=== PATIENT | male | born 1970 | race Caucasian/White ===

== ENCOUNTER 2023-11-27 05:00 | Outpatient (CLI) | payer BC, SELFPAY ==
[2023-11-27 14:02] LABS: Abs Immature Grans 0.03 10^3/uL (0.0-0.06); Absolute Basophil Count 0.06 10^3/uL (0.0-0.2); Absolute Eosinophil Count 0.24 10^3/uL (0.0-0.7); Absolute Lymphocyte Count 2.92 10^3/uL (1.2-3.4); Absolute Monocyte Count 0.53 10^3/uL (0.1-0.8); Absolute Neutrophil Count 4.63 10^3/uL (1.2-6.7); Basophils % 0.7 %; Eosinophils % 2.9 %; HCT 44.2 % (40.0-50.0); HGB 14.5 g/dL (13.5-17.5); Immature Grans % 0.4 %; Lymphocytes % 34.7 %; MCH 28.9 pg (27.0-33.0); MCHC 32.8 % (32.0-36.0); MCV 88 fL (80-95); MPV 9.5 fL (8.0-11.0); Monocytes % 6.3 %; Platelet Count 244 10^3/uL (130-400); RBC 5.01 10^6/uL (4.36-5.78); RDW 14.7 % (11.8-14.1); RDW-SD 47.8 fL; WBC 8.41 10^3/uL (4.4-10.8)
[2023-11-27 14:28] LABS: ALT 43 U/L (16-63); AST 20 U/L (15-37); Albumin 3.6 g/dL (3.4-5.0); Alkaline Phosphatase 98 U/L (46-116); Anion Gap 9.1 mmol/L (3-11); BUN 19 mg/dL (7-18); Bilirubin, Total 0.5 mg/dL (0.2-1.0); CO2 26.9 mmol/L (21.0-32.0); CREATININE 1.3 mg/dL (0.70-1.30); Calcium 8.9 mg/dL (8.5-10.1); Chloride 106 mmol/L (98-107); Glucose 97 mg/dL (74-106); Potassium 4.3 mmol/L (3.5-5.1); Sodium 142 mmol/L (136-145); TSH 1.53 uIU/Ml (0.36-3.74); Total Protein 7.9 g/dL (6.4-8.2)
== END 2023-11-27 05:01 | disposition home or self-care (01) ==
LOC: LBO 05:01
PROVIDERS: Visit Provider Internal Medicine
DX: C64.2 Malignant neoplasm of left kidney, except renal pelvis (principal); R94.2 Abnormal results of pulmonary function studies
CPT/HCPCS: 36415; 80053; 84439; 84443; 85025

== ENCOUNTER 2023-12-24 05:07 | Outpatient (CLI) | payer BC, SELFPAY ==
[2023-12-24 09:07] LABS: Abs Immature Grans 0.03 10^3/uL (0.0-0.06); Absolute Eosinophil Count 0.28 10^3/uL (0.0-0.7); Absolute Lymphocyte Count 3.19 10^3/uL (1.2-3.4); Absolute Monocyte Count 0.43 10^3/uL (0.1-0.8); Absolute Neutrophil Count 3.69 10^3/uL (1.2-6.7); Basophils % 1.3 %; Eosinophils % 3.6 %; HGB 15.5 g/dL (13.5-17.5); Immature Grans % 0.4 %; Lymphocytes % 41.3 %; MCH 28.8 pg (27.0-33.0); MCV 87 fL (80-95); MPV 9.6 fL (8.0-11.0); Monocytes % 5.6 %; Neutrophils % 47.8 %; Platelet Count 234 10^3/uL (130-400); RBC 5.38 10^6/uL (4.36-5.78); RDW 14.9 % (11.8-14.1); RDW-SD 47.7 fL; WBC 7.72 10^3/uL (4.4-10.8)
[2023-12-24 09:32] LABS: ALT 35 U/L (16-63); AST 18 U/L (15-37); Albumin 3.5 g/dL (3.4-5.0); Alkaline Phosphatase 108 U/L (46-116); Anion Gap 7.4 mmol/L (3-11); BUN 16 mg/dL (7-18); Bilirubin, Total 0.4 mg/dL (0.2-1.0); CO2 28.6 mmol/L (21.0-32.0); CREATININE 1.2 mg/dL (0.70-1.30); Chloride 104 mmol/L (98-107); Estimated GFR 72.76 (mL/min/1.73m2); FREE T4 0.94 ng/dL (0.76-1.46); Glucose 133 mg/dL (74-106); Potassium 4.4 mmol/L (3.5-5.1); Sodium 140 mmol/L (136-145); TSH 1.21 uIU/Ml (0.36-3.74); Total Protein 7.8 g/dL (6.4-8.2)
== END 2023-12-24 05:08 | disposition home or self-care (01) ==
LOC: LBO 05:07
PROVIDERS: Visit Provider Internal Medicine
DX: C64.2 Malignant neoplasm of left kidney, except renal pelvis (principal); R94.6 Abnormal results of thyroid function studies
CPT/HCPCS: 36415; 80053; 84439; 84443; 85025

== ENCOUNTER 2024-01-14 03:10 | Outpatient (CLI) | payer BC, SELFPAY ==
[2024-01-14 13:42] LABS: Abs Immature Grans 0.03 10^3/uL (0.0-0.06); Absolute Basophil Count 0.07 10^3/uL (0.0-0.2); Absolute Eosinophil Count 0.27 10^3/uL (0.0-0.7); Absolute Lymphocyte Count 2.93 10^3/uL (1.2-3.4); Absolute Monocyte Count 0.61 10^3/uL (0.1-0.8); Absolute Neutrophil Count 3.89 10^3/uL (1.2-6.7); Basophils % 0.9 %; Eosinophils % 3.5 %; HCT 44.8 % (40.0-50.0); HGB 14.9 g/dL (13.5-17.5); Immature Grans % 0.4 %; Lymphocytes % 37.6 %; MCH 29.3 pg (27.0-33.0); MCHC 33.3 % (32.0-36.0); MCV 88 fL (80-95); MPV 9.7 fL (8.0-11.0); Monocytes % 7.8 %; Neutrophils % 49.8 %; Platelet Count 224 10^3/uL (130-400); RBC 5.09 10^6/uL (4.36-5.78); RDW 14.1 % (11.8-14.1); RDW-SD 45.3 fL
[2024-01-14 14:06] LABS: ALT 37 U/L (16-63); AST 17 U/L (15-37); Albumin 3.7 g/dL (3.4-5.0); Alkaline Phosphatase 103 U/L (46-116); Anion Gap 5.8 mmol/L (3-11); BUN 15 mg/dL (7-18); Bilirubin, Total 0.71 mg/dL (0.2-1.0); CO2 29.2 mmol/L (21.0-32.0); CREATININE 1.2 mg/dL (0.70-1.30); Chloride 103 mmol/L (98-107); Estimated GFR 72.76 (mL/min/1.73m2); FREE T4 1.19 ng/dL (0.76-1.46); Glucose 92 mg/dL (74-106); Sodium 138 mmol/L (136-145); TSH 0.18 uIU/Ml (0.36-3.74)
== END 2024-01-14 03:11 | disposition home or self-care (01) ==
LOC: LBO 03:11
PROVIDERS: Visit Provider Internal Medicine
DX: C64.2 Malignant neoplasm of left kidney, except renal pelvis (principal); R94.6 Abnormal results of thyroid function studies
CPT/HCPCS: 36415; 80053; 84439; 84443; 85025

== ENCOUNTER 2024-02-04 01:26 | Outpatient (CLI) | payer BC, SELFPAY ==
--- OUTSIDE RECORDS SUMMARY | 2024-02-04 01:31 | XMS_ITS | Encounter Summary ---
Author Organization [facility] Address [facility] [place] [id number] Care Team Providers Care Disc Pad Grinding Machine Feeder Name Role Phone Celso Dukes MD Primary Care Provider Encounter Details Date Type Department Care Team (Latest Contact Info) Description 12/24/2023 Travel Social History Tobacco Use Types Packs/Day Years Used Date Smoking Tobacco: Former Cigarettes 0.5 15 0 09/17/2008 - 09/18/2023 Smokeless Tobacco: Former Chew Quit: 09/18/2023 Comments:Using Zyn pouches r eported 10/25/23 Alcohol Use Standard Drinks/Week Comments Yes 6 (1 standard drink = 0.6 oz pur e alcohol) [facility] Utilities Answer Date Recorded In the past 12 months has e electric, gas, oil, or water company threatened to shut off services in your home? No 10/25/2023 Overall Financial Resource Strain (CARDIA) Answe r Date Recorded How hard is it for you to pa y for the very basics like food, housing, medical care, and heating? Somewhat hard 10/25/2023 Hunger Vital Sign Answer Date Recorded Within the past 12 months, y ou worried that your food would run out before you got the money to buy more. Never true 10/25/19 24 Within the past 12 months, t he food you bought just didn't last and you didn't have money to get more. Never true 10/25/2023 PRAPARE - Transportation Answer Date Re corded In the past 12 months, has l ack of transportation kept you from medical appointments or from getting medications? No 10/13 In the past 12 months, has l ack of transportation kept you from meetings, work, or from getting things needed for daily living? No 10/25/2023 Housing Stability Vital Sign Answer Evens e Recorded In the last 12 months, was t here a time when you were not able to pay the mortgage or rent on time? No 10/25/2023 In the last 12 months, how many places have you lived? 1 10/25/2023 In the last 12 months, was t here a time when you did not have a steady place to sleep or slept in a half-way (including now)? No 10/25/2023 DH IPV Inpatient Questions Answer Date Recorded Does Anyone Try to Keep You From Having Contact with Others or Doing Things Outside Your Home? no 09/18/2023 Feels Threatened by Someone no 12/2023 Feels Unsafe at Home or Work/School no 09/18/2023 Physical Signs of Abuse Present no 09/18/2023 Sex and Gender Information Value Date Recorded Sex Assigned at Not on file Gender Identity Not on file Sexual Orientation Not on file documented as of this encounter Plan of Treatment Upcoming Encounters Date Type Department Care Team (Late st Contact Info) Description 02/04/2024 10:00 AM EDT Scheduled View Only Hematology/Oncology at [address] [phone] Dana Davis RN 02/04/2024 10:00 AM EDT Infusion Hematology Oncology at [address] [phone] 02/24/2024 9:30 AM EDT Office Visit Hematology/Oncology at [address] [phone] Francisca Quinonez, [facility] [place] [address] 02/24/2024 10:30 AM EDT Infusion Hematology Oncology at [address] [phone] 03/17/2024 10:00 AM EDT Infusion Hematology Oncology at [address] [phone] 04/07/2024 9:30 AM EDT Office Visit Hematology/Oncology at [address] [phone] Gian Lisa MD [facility] DR [place]ATOLOG[place] [id number] Francisca Quinonez APRN [facility] [place] [address] 04/07/2024 10:00 AM EDT Infusion Hematology Oncology at [address] [phone] Scheduled Procedures Name Priority Associated Diagnoses Date/Ti me EGD, UPPER GI ENDOSCOPY (WRVU 2.09) Dyspepsia COLONOSCOPY, DIAGNOSTIC (WRVU 3.26) Dyspepsia documented as of this encounter Visit Diagnoses Not on filedocumented in this encounter Care Teams Disc Pad Grinding Machine Feeder Relationship Specialty Start Date End Date Celso Dukes MD [address] [place] [address] PCP - General 02/24/15 documented as of this encounter
--- OUTSIDE RECORDS SUMMARY | 2024-02-04 01:31 | XMS_ITS | Encounter Summary ---
Author Organization [facility] Address [facility] [place] [address] Care Team Providers Care News Broadcaster Name Role Phone Celso Dukes MD Primary Care Provider Encounter Details Date Type Department Care Team (Late st Contact Info) Description 01/14/2024 2:30 PM EDT Office Visit Hematology/Oncology at [address] [phone] Gian Prado MD [facility] [address] HEMATOLOGY/[place] [address] Francisca Quinonez APRN [facility] [place] [address] Renal cell carcinoma, left (Primary Dx); Rash; Abnormal thyroid function test; Encounter for antineoplastic chemotherapy and immunotherapy Social History Tobacco Use Types Packs/Day Years Used Date Smoking Tobacco: Former Cigarettes 0.5 15 0 09/17/2008 - 09/18/2023 Smokeless Tobacco: Former Chew Quit: 09/18/2023 Comments:Using Zyn pouches r eported 10/25/23 Alcohol Use Standard Drinks/Week Comments Yes 6 (1 standard drink = 0.6 oz pur e alcohol) [facility] Utilities Answer Date Recorded In the past 12 months has th e electric, gas, oil, or water company [...] place to sleep or slept in a fdc (including now)? No 10/25/2023 DH IPV Inpatient [...] on file documented as of this encounter Last Filed Vital Signs Vital Sign Reading Time Taken Comments Blood Pressure 133/72 01/14/2024 2:57 PM EDT Pulse 81 01/14/2024 2:57 PM EDT Temperature 36.6 ??C (97.8 ??F) 01/14/2024 2:57 PM ED T Respiratory Rate 16 01/14/2024 2:57 PM EDT Oxygen Saturation 98% 01/14/2024 2:57 PM EDT Inhaled Oxygen Concentration - - Weight 126.1 kg (278 lb) 01/14/2024 2:57 PM EDT Height 173.7 cm (5' 8.39) 01/14/2024 2:57 PM ED T Body Mass Index 41.79 01/14/2024 2:57 PM EDT documented in this encounter Progress Notes * Gian Prado MD - 01/14/2024 2:30 PM EDT Images from the original note were not included. Diagnosis:[id number] Grade 4 clear cell renal cancer HPI:Rosalino Honeycutt is 53 y.o.M referred by Dr. Mallory for consultation on renal cell carcinoma. He initially presented in July [address] scan and MRI demonstrated left kidney mass. Rosalino underwent left Laparoscopic Radical Nephrectomy on September 18, 2023 for a [id number] G4 Clear cell cancer.. All surgical margins were negative. Postop course was uneventful. Today he feels well. Interval history 01/14/24: Rosalino is here today for pembrolizumab C4 and discussion on restaging CT chest and MRI of abdomen. Complains on itchy skin rash on his left arm discomfort on the back of his tongue. Otherwise no focal complaints.. Very mild BLE ankle swelling which resolves with putting his feet up. No pain anywhere. Denies diarrhea. No bladder problems. No fever, chills, or signs of infection. The remainder of his review of systems reviewed and is negative. PMH: No interval changes since last visit Hypertension, sleep apnea, GERD hip replacement, elbow surgery, Social History: 17-cljw-gnta smoking history, quit on September 17. Used to drink 2-3 times a week. Currently he does not drink. Lives at home with his .The patient works as an [employer] for [employer]. Family History: Mother had ovarian cancer maternal grandmother had throat cancer Allergies: Allergies Allergen Reactions 2-Octyl Cyanoacrylate Rash AKA [place]-cheng skin glu Medications: Your Medications Accurate as of January 14, 2024 3:04 PM. If you have any questions, ask your nurse or doctor. Continued medications, unchanged Dose Details acetaminophen 325 mg tablet Commonly known as: Tylenol Take 3 tablets by mouth every 6 hours. 975 mg Refills: 0 amLODIPine 10 mg tablet Commonly known as: Norvasc Take 5 mg by mouth daily. 5 mg Refills: 0 metoprolol succinate XL 25 mg ER 24 hr tablet Commonly known as: Toprol-XL Take 50 mg by mouth daily. 50 mg Refills: [address] capsule Commonly known as: PriLOSEC Take 20 mg by mouth daily. 20 mg Refills: 0 Review of Systems: As in interval history PE: Constitutional: NAD HEENT: nonicteric Neck: no lymphadenopathy Lungs: CTA Cardiac: RRR Abdomen: soft, nondistended, nontender. I cannot feel his liver or spleen Extremities: very mild BLE ankle swelling Skin: scattered benign skin changes, possibly secondary to treatment. R. Ankle with very small areaof macular papular rash. BP 133/72 (Patient Position: Sitting) Pulse 81 Temp 36.6 ??C (97.8 ??F) (Temporal) Resp 16 Ht 173.7 cm (5' 8.39) Wt 126.1 kg (278 lb) SpO2 98% BMI 41.79 kg/m?? Pathology: DIAGNOSIS Left kidney (radical nephrectomy): 1. Renal cell carcinoma, clear cell type, extending into perinephric adipose tissue (see Synoptic Report). 2. Adrenal gland, no evidence of malignancy. 3. Five lymph nodes, no evidence of malignancy (0/5). CR-0 Electronically signed by: Tung LANE, Gary Mariano Verified: 09/26/2023 13:11 Pathologist Performed at: [facility] Dept. of Pathology, [place] [address] Bed Control Specialist: Mookie Mandujano MD, [facility], [facility] Certificate: [id number] SYNOPTIC Specimen Procedure: Radical nephrectomy Specimen Laterality: Left Tumor Tumor Focality: Unifocal Tumor Site: Lower pole Tumor Size: 11.2 x 10.0 x 9.0 Centimeters (cm) Histologic Type: Clear cell renal cell carcinoma Histologic Grade (WHO / ISUP): G4 Tumor Extent: Extends into perinephric tissue (beyond renal capsule) Sarcomatoid Features: Not identified Rhabdoid Features: Present Tumor Necrosis: Present Percentage of Tumor Necrosis: 1% Lymphovascular Invasion: Not identified Margins Margin Status: All margins negative for invasive carcinoma Regional Lymph Nodes Regional Lymph Node Status: All regional lymph nodes negative for tumor Number of Lymph Nodes Examined: 5 Pathologic Stage Classification (pTNM, AJCC 8th Edition) Primary Tumor (pT): pT3a Regional Lymph Nodes (pN): pN0 Additional Findings Additional Findings in Nonneoplastic Kidney: None identified Additional Non-Tumor Adrenal Gland: No evidence of malignancy Best Tumor Blocks for Future Studies Tumor Block(s): A10, A12, A15 Normal Block(s): A18 CAP eCC 2021 Q1 Release Labs: 01/14/2024 sodium 138, potassium 4.0, BUN 15, creatinine 1.2, calcium 9.0, AST 17, ALT 37, alkaline phosphatase 103, albumin 3.7, TSH 0.18, free T41.19, WBC 7.8, hemoglobin 14.9, platelet count 224, ANC 3.89, 12/24/2023 WBC 7.72, hemoglobin 15.5, platelet count 234, ANC 3.69, BUN 16, creatinine 1.2, calcium 9.0, TB 0.4, AST 18, ALT 35, alkaline phosphatase 138, total protein 7.8, TSH 1.21, free T40.94 12/03/23: WBC 8.41, Hgb 14.5, PLT 244, ANC 4.63. NA 142, K 4.3, Cl 106, BUN 19, Cr 1.3, Ca 8.9, t prot 7.9, Alb 3.6, Tbili 0.5 AST 20, ALT 43, Alk phos 98 Imagin01/07/2024 CT chest without contrast: Impression: No focal infiltrates or pulmonary mass with mild mild subsegmental atelectasis or scarring in the lingula. No mediastinal mass or adenopathy identified. Small lytic lesion involving the left psoas aspect of the T1 vertebral body. Small metastatic lesion cannot be excluded. 01/07/2024 MRI of abdomen: Impression: Status post interval left nephrectomy. No mass or abnormal enhancement in the nephrectomy bed to suggest recurrence or residual neoplasm. Stable cystic nonenhancing lesion involving the pancreatic tail which may reflect pseudocyst of the small IPMN cannot be excluded 09/13/2023 CT chest: IMPRESSION No evidence for intrathoracic metastasis 09/02/2023 abdominal MRI with and without contrast Assessment and Plan: Diagnosis:L [id number] G4 cell carcinoma, clear cell ctype Treatment: -09/18/23 left radical nephrectomy -11/12/23 to present: Adjuvant pembrolizumab x 1 year Rosalino Honeycutt is 53 y.o. male diagnosed with renal cell carcinoma, clear-cell type. He underwent left radical nephrectomy on September 18, 2023. Elects adjuvant pembrolizumab x 1 year. 10/25/23 We discussed prognosis of renal cell carcinoma with both 30% chances for cancer recurrence. We did talk about adjuvant treatment options particularly treatment with TKI sunitinib for 1 year We discussed data of adjuvant sunitinib in -[facility] . In the study, adjuvant sunitinib prolonged disease-free survival (DFS) by 1.2 years compared with placebo following nephrectomy for patients with high-risk clear cell RCC.After a median follow-up duration of 5.4 years, the median DFS was 6.8 years in the sunitinib arm compared with 5.6 years with placebo (HR, 0.76; 95% CI, 0.59-0.98; P = .03). In higher risk patients, the median DFS was 6.2 versus 4.0 years for sunitinib and placebo, respectively (HR, 0.74; 95% CI, 0.55-0.99; P = .04). Grade 3/4 adverse events (AEs) were experienced by 63.4% of patients in the sunitinib group compared with 21.7% in the placebo arm. The other trial ECOG-ACRIN E2805 did not show survival benefit of sunitinib We talked about 1 year adjuvant pembrolizumab A total of 496 patients were randomly assigned to receive pembrolizumab, and 498 to receive placebo. At the prespecified interim analysis, the median time from randomization to the data-cutoff date was 24.1 months. Pembrolizumab therapy was associated with significantly longer disease-free survivalthan placebo (disease- free survival at 24 months, 77.3% vs. 68.1%; hazard ratio for recurrence or de ath, 0.68; 95% confidence interval [CI], 0.53 to 0.87; P=0.002 [two-sided]). The estimated percentage of patients who remained alive at 24 months was 96.6% in the pembrolizumab group and 93.5% in theplacebo group (hazard ratio for , 0.54; 95% CI, 0.30 to 0.96). Grade 3 or higher adverse events of any cause occurred in 32.4% of the patients who received pembrolizumab and in 17.7% of those who received placebo. No deaths related to pembrolizumab therapy occurred. CONCLUSIONS Pembrolizumab treatment led to a significant improvement in disease-free survival as compared with placebo after surgery among patients with kidney cancer who were at high risk for recurrence. (Funded by [employer] a subsidiary of [employer]; [id number] We discussed benefits and the risk of pembrolizumab. Diagnosis include but not limited to fatigue, skin rash, immune mediated thyroiditis, hepatitis, immune mediated pneumonitis, immune mediated colitis, hypo or hyperthyroidism. All questions were answered to patient's satisfaction. He would like to proceed with adjuvant pembrolizumab. Informed verbal consent was obtained. He would like to be treated and sent [facility]. Will make CT chest and MRI. 11/12/23 Here today for chemo teach and to begin treatment with adjuvant pembrolizumab. #Chemo teach: Reviewed potential side effects of Pembrolizumab: side effects include but are not limited to low blood counts (decrease in red blood cells, resulting in anemia), fatigue, infusion reaction, skin reactions or rash (redness, blistering, peeling or loosening of the skin, including inside the mouth), increased liver enzymes, constipation or diarrhea, shortness of breath, nausea, vomiting, swelling, itching, electrolyte abnormalities, dizziness, joint or muscle pain, thyroid dysfunction, headaches. A serious but uncommon side effect may be an immune-mediated reaction. When this sideeffect occurs, it affects primarily the bowels, liver, skin, nerves and the endocrine system. 12/03/23 Here today for pembrolizumab C2. Tolerated first cycle well. Reports arthrlagias which improve with exercise. Mild scattered rash on his legs which resolved. 12/24/2023 Rosalino.received 2 cycles of adjuvant pembrolizumab. He rates it well with mild arthralgia and itchy skin no rash. Complains of mild cough, but no shortness of breath. No diarrhea. Will continue current regimen with pembrolizumab every 3 weeks for total of 3 years. Will obtain sonogram and CT chest and MRI of abdomen and pelvis locally. 01/14/2024 CT scan demonstrated small lytic lesion in T1, it is hard to have Actilyse that lesion. I will obtain second reading on CT scan. That lesion is too small to biopsy. Will monitor. He tolerates pembrolizumab reasonably well with skin rash. Will continue current regiment. Will plan to restagehim with CT chest and MRI of abdomen pelvis in about 3 months. #Arthralgias: likely secondary to treatment, exercise helps. If worsen he will call and we discussed we can start low dose prednisone. If severe can start higher doses of prednisone as well #Rash: very mild, scattered on LE and resolving. Likely treatment related. Continue to monitor. Plan Continue Pembrolizumab 200 mg every 3 weeks Second read on CT chest and MRI of abdomen and pelvis Stand alone blood work and pembrolizumab infusion in 3 weeks Next visit with TELEGRAPH DISPATCHER with blood work and pembrolizumab in 6 weeks Rosalino is accompanied by his today. All questions were answered to patient's satisfaction. GIAN PRADO MD documented in this encounter Plan of Treatment Upcoming Encounters Date Type Department Care Team (Late st Contact Info) Description 02/04/2024 10:00 AM EDT Scheduled View Only Hematology/Oncology at [address] [phone] Dana Davis RN 02/04/2024 10:00 AM EDT Infusion Hematology Oncology at [address] [phone] 02/24/2024 9:30 AM EDT Office Visit Hematology/Oncology at [address] [phone] Francisca Quinonez, [facility] [place] [address] 02/24/2024 10:30 AM EDT Infusion Hematology Oncology at [address] [phone] 03/17/2024 10:00 AM EDT Infusion Hematology Oncology at [address] [phone] 04/07/2024 9:30 AM EDT Office Visit Hematology/Oncology at [address] [phone] Gian Prado MD [facility] DR HEMATOLOGY/[place] [address] Francisca Quinonez APRN [facility] [place] [address] 04/07/2024 10:00 AM EDT Infusion Hematology Oncology at [address] [phone] Scheduled Procedures Name Priority Associated Diagnoses Date/Ti me EGD, UPPER GI ENDOSCOPY (WRVU 2.09) Dyspepsia COLONOSCOPY, DIAGNOSTIC (WRVU 3.26) Dyspepsia documented as of this encounter Results * Request For 2nd Read CT Chest (01/14/2024 3:38 PM EDT) WORKSTATION ID [id number] RAD Anatomical Region Laterality Modality Chest SO Impressions 01/14/2024 9:18 PM EDT No evidence of metastatic disease within the chest. There is a minimal lucency at the left posterior aspect of the C7 vertebral body which is unchanged compared to the prior exam from 09/13/2023 and is of doubtful significance. This can be reevaluated on follow-up imaging. MRI of the abdomen from the same day is reported separately. Thank you for letting us participate in the care of this patient. ??If you are a health care provider and have any questions regarding this report, please contact the number below. ??For patients who have questions please contact the health care navigator that requested your imaging first. ? Electronically signed by: Sierra Bruno MD, [facility] ([phone]), at 01/14/2024 9:18 PM Narrative 01/14/2024 9:18 PM EDT EXAMINATION: REQUEST FOR 2ND READ CT CHEST CLINICAL HISTORY: History of stage III renal cell carcinoma; Sending Institution [facility]; Date of exam [id number]; I believe a reinterpretation of this exam may alter care of Patient. Yes C64.2, Malignant neoplasm of left kidney, except renal pelvis TECHNIQUE: Outside noncontrast CT of the chest 01/07/2024. COMPARISON: 09/13/2023 FINDINGS: Pulmonary parenchyma: No suspicious pulmonary nodule. No acute airspace disease. Airways: Central and segmental airways are patent. Pleura: No effusion. Lymph nodes: No lymphadenopathy. Heart and vasculature: Normal size of the heart. No pericardial effusion. Normal caliber of the thoracic aorta. Mild coronary artery atherosclerotic calcification. Mediastinum: No other significant finding. Limited upper abdomen: Better evaluated on separately reported abdomen MRI from the same day. Skeleton: Degenerative changes. Very small lucency in the left-sided aspect of C7 is unchanged compared to the prior exam from 09/13/2023 (series 8 image 24). Significance is doubtful. Procedure Note Sierra Flynn MD - 01/14/2024 EXAMINATION: REQUEST FOR 2ND READ CT CHEST CLINICAL HISTORY: History of stage III renal cell carcinoma; [facility]; Date of exam [id number]; I believe areinterpretation of this exam may alter care of Patient. Yes C64.2, Malignant neoplasm of left kidney, except renal pelvis TECHNIQUE: Outside noncontrast CT of the chest 01/07/2024. COMPARISON: 09/13/2023 FINDINGS: Pulmonary parenchyma: No suspicious pulmonary nodule. No acute airspacedisease. Airways: Central and segmental airways are patent. Pleura: No effusion. Lymph nodes: No lymphadenopathy. Heart and vasculature: Normal size of the heart. No pericardial effusion.Normal caliber of the thoracic aorta. Mild coronary artery atherosclerotic calcification. Mediastinum: No other significant finding. Limited upper abdomen: Better evaluated on separately reported abdomen MRIfrom the same day. Skeleton: Degenerative changes. Very small lucency in the left-sidedaspect of C7 is unchanged compared to the prior exam from 09/13/2023 (series 8 image24). Significance is doubtful. IMPRESSION No evidence of metastatic disease within the chest. There is a minimal lucency at the left posterior aspect of the D8yswniedwi body which is unchanged compared to the prior exam from 09/13/2023 and is ofdoubtful significance. This can be reevaluated on follow-up imaging. MRI of the abdomen from the same day is reported separately. Thank you for letting us participate in the care of this patient. If youare a health care provider and have any questions regarding this report,please contact the number below. For patients who have questions please contactthe health care navigator that requested your imaging first. Gian Prado MD IMG OUTSIDE [facility] TATION ORDERABLES * Request for 2nd read MR Abdomen (01/14/2024 3:36 PM EDT) WORKSTATION ID [id number] RAD Anatomical Region Laterality Modality SO Impressions 01/15/2024 9:20 AM EDT 1. ??Left radical nephrectomy and adrenalectomy. No recurrence or lymphadenopathy. 2. ??Hepatic steatosis. 3. ??Cystic pancreatic lesions are unchanged, largest 2.3 cm in the tail. 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 Follow-up MRI in 6 months recommended. Asymptomatic Patient with Incidental Pancreatic Cystic Mass Detected on CT, MR, or US. Radiologist recommendations are based on size and features of the most concerning lesion, and patient age at initial presentation. Recommended MRI surveillance every 6 months for 4 imaging examinations (i.e. 2 years total). The following order codes are for [facility] ordering providers: Pancreas MRI ([id number]) Pancreas MRI with MRCP ([id number]) MRCP only ([id number]) Pancreas CT ([id number]) Reference: Management of Incidental Pancreatic Cysts: A White Paper of the ACR Incidental Findings Committee by bill Peoples al. in Journal of the [place] [employer], Volume 14, Issue 7, Pages 911 to 923. Thank you for letting us participate in the care of this patient. ??If you are a health care provider and have any questions regarding this report, please contact the number below. ??For patients who have questions please contact the health care navigator that requested your imaging first. ? Narrative 01/15/2024 9:20 AM EDT EXAMINATION: REQUEST FOR 2ND READ MR ABDOMEN CLINICAL HISTORY: Surveillance MRI, patient with left renal cell carcinoma stage III; Sending Institution [facility]; Date of exam 01/07/2024; I believe a reinterpretation of this exam may alter care of Patient. Yes; Surveillance MRI, patient with left renal cell carcinoma stage III C64.2, Malignant neoplasm of left kidney, except renal pelvis TECHNIQUE: MRI of the abdomen prior to and following the intravenous administration of MultiHance. COMPARISON: Outside MRI abdomen 09/02/2023 FINDINGS: Lower chest: No pleural effusions. Liver: Normal size and contour. Diffuse phase cancellation artifact consistent with steatosis. Bile ducts: Nondilated. Gallbladder: No gallstones. Normal caliber wall. Pancreas: Cystic lesions throughout, largest is in the tail, 2.3 cm, unchanged. No ductal dilatation. Spleen: Normal. Adrenals: Left adrenalectomy. Normal right adrenal gland. Kidneys: Left radical nephrectomy. No left retroperitoneal nodularity. Normal right kidney other than a subcentimeter endophytic interpolar cyst. Vasculature: No abdominal aortic aneurysm. Patent portal veins. Lymph nodes: No enlarged lymph nodes. Bowel: Nondilated, no inflammatory changes. Peritoneum and mesentery: No ascites or loculated fluid collection. Marrow Signal: Normal. Procedure Note Robbie Aguilar MD - 01/15/2024 EXAMINATION: REQUEST FOR 2ND READ MR ABDOMEN CLINICAL HISTORY: Surveillance MRI, patient with left renal cell carcinomastage III; Sending Institution [facility]; Date of exam01/07/2024; I believe a reinterpretation of this exam may alter care of Patient. Yes; Surveillance MRI, patient with left renal cell carcinoma stage III C64.2, Malignant neoplasm of left kidney, except renal pelvis TECHNIQUE: MRI of the abdomen prior to and following the intravenous administration of MultiHance. COMPARISON: Outside MRI abdomen 09/02/2023 FINDINGS: Lower chest: No pleural effusions. Liver: Normal size and contour. Diffuse phase cancellation artifactconsistent with steatosis. Bile ducts: Nondilated. Gallbladder: No gallstones. Normal caliber wall. Pancreas: Cystic lesions throughout, largest is in the tail, 2.3 cm,unchanged. No ductal dilatation. Spleen: Normal. Adrenals: Left adrenalectomy. Normal right adrenal gland. Kidneys: Left radical nephrectomy. No left retroperitoneal nodularity.Normal right kidney other than a subcentimeter endophytic interpolar cyst. Vasculature: No abdominal aortic aneurysm. Patent portal veins. Lymph nodes: No enlarged lymph nodes. Bowel: Nondilated, no inflammatory changes. Peritoneum and mesentery: No ascites or loculated fluid collection. Marrow Signal: Normal. IMPRESSION 1. Left radical nephrectomy and adrenalectomy. No recurrence or lymphadenopathy. 2. Hepatic steatosis. 3. Cystic pancreatic lesions are unchanged, largest 2.3 cm in the tail. 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 Follow-up MRI in 6 months recommended. Asymptomatic Patient with Incidental Pancreatic Cystic Mass Detected onCT, MR, or US. Radiologist recommendations are based on size and features of themost concerning lesion, and patient age at initial presentation. Recommended MRI surveillance every 6 months for 4 imaging examinations(i.e. 2 years total). The following order codes are for [facility] ordering providers: Pancreas MRI ([id number]) Pancreas MRI with MRCP ([id number]) MRCP only ([id number]) Pancreas CT ([id number]) Reference: Management of Incidental Pancreatic Cysts: A White Paper ofthe ACR Incidental Findings Committee by bill Peoples al. in Journal of theAmerican College of Radiology, Volume 14, Issue 7, Pages 911 to 923. Thank you for letting us participate in the care of this patient. If youare a health care provider and have any questions regarding this report,please contact the number below. For patients who have questions please contactthe health care navigator that requested your imaging first. Gian Prado MD IMG OUTSIDE INTERPRE TATION ORDERABLES documented in this encounter Visit Diagnoses Diagnosis Renal cell carcinoma, left- Primary Rash Rash and other nonspecific skin eruption Abnormal thyroid function test Nonspecific abnormal results of thyroid function study Encounter for antineoplastic chemotherapy and immunotherapy Renal cell carcinoma, left Renal cell carcinoma, left documented in this encounter Care Teams News Broadcaster Relationship Specialty Start Date End Date Celso Dukes MD [address] [place] [address] PCP - General 02/24/15 documented as of this encounter
--- OUTSIDE RECORDS SUMMARY | 2024-02-04 01:31 | XMS_ITS | Encounter Summary ---
Author Organization [facility] Address [facility] [place] [address] Care Team Providers Care Metal Grinder Name Role Phone Celso Dukes MD Primary Care Provider [phone] Encounter Details Date Type Department Care Team (Latest Contact Info) Description 01/14/2024 3:45 PM EDT Ancillary Procedure [place] [phone] Gian Lisa MD [facility] HEMATOLOGY/[place] [address] Renal cell carcinoma, left Social History Tobacco Use Types Packs/Day Years Used Date Smoking Tobacco: Former Cigarettes 0.5 15 0 09/17/2008 - 09/18/2023 Smokeless Tobacco: Former Chew Quit: 09/18/2023 Comments:Using Zyn pouches r eported 10/25/23 Alcohol Use Standard Drinks/Week Comments Yes 6 (1 standard drink = 0.6 oz pur e alcohol) [facility] Utilities Answer Date Recorded In the past 12 months has [employer], gas, oil, or water [employer] threatened to shut off services in your [...] place to sleep or slept in a chcf (including now)? No 10/25/2023 DH IPV Inpatient [...] AM EDT Scheduled View Only Hematology/Oncology at [address] [phone] Dana Davis RN 02/04/2024 10:00 AM EDT Infusion Hematology Oncology at [address] [phone] 02/24/2024 9:30 AM EDT Office Visit Hematology/Oncology at [address] [phone] Francisca Quinonez APRN [facility] [place] [address] 02/24/2024 10:30 AM EDT Infusion Hematology Oncology at [address] [phone] 03/17/2024 10:00 AM EDT Infusion Hematology Oncology at [address] [phone] 04/07/2024 9:30 AM EDT Office Visit Hematology/Oncology at [address] [phone] Gian Lisa MD [facility] HEMATOLOGY/[place] [address] Francisca Quinonez APRN [facility] [place] [address] 04/07/2024 10:00 AM EDT Infusion Hematology Oncology at [address] [phone] Scheduled Procedures Name Priority Associated Diagnoses Date/Ti me EGD, UPPER GI ENDOSCOPY (WRVU 2.09) Dyspepsia COLONOSCOPY, DIAGNOSTIC (WRVU 3.26) Dyspepsia documented as of this encounter Procedures Procedure Name Priority Date/Time Associated Diagnosis Comments REQUEST FOR 2ND READ CT CHEST Routine 01/14/2024 3:38 PM EDT Renal cell carcinoma, left documented in this encounter Results * Request For 2nd Read CT Chest (01/14/2024 3:38 PM EDT) WORKSTATION ID [id number] DH RAD Anatomical Region Laterality Modality Chest SO [...] who have questions please contact the health career professional that requested your imaging first. ? Narrative 01/14/2024 9:18 PM EDT EXAMINATION: REQUEST FOR 2ND READ CT CHEST CLINICAL HISTORY: History of stage III renal cell carcinoma; [facility]; Date of exam 20240107; I believe a [...] of stage III renal cell carcinoma; [facility]; Date of exam [id number]; I believe areinterpretation [...] at the left posterior aspect of the [id number] body which is unchanged compared to the [...] patients who have questions please contactthe health career professional that requested your imaging first. Electronically signed by: Sierra Bruno MD, [facility] ([phone]), at 01/14/2024 9:18 PM Gian Lisa MD IMG OUTSIDE INTERPRE TATION ORDERABLES documented in this encounter Visit Diagnoses Diagnosis Renal cell carcinoma, left documented in this encounter Care Teams Metal Grinder Relationship Specialty Start Date End Date Celso Dukes MD [address] [place] [address] PCP - General 02/24/15 documented as of this encounter
--- OUTSIDE RECORDS SUMMARY | 2024-02-04 01:31 | XMS_ITS | Encounter Summary ---
Author Organization [facility] Address [facility] [place] [address] Care Team Providers Care Speech Therapy Director Name Role Phone Celso Dukes MD Primary Care Provider [phone] Encounter Details Date Type Department Care Team (Latest Contact Info) Description 01/14/2024 Travel Social History Tobacco Use Types Packs/Day Years Used Date Smoking Tobacco: Former Cigarettes 0.5 15 0 09/17/2008 - 09/18/2023 Smokeless Tobacco: Former Chew Quit: 09/18/2023 Comments:Using [employer] pouches r eported 10/25/23 Alcohol Use Standard Drinks/Week Comments Yes 6 (1 standard drink = 0.6 oz pur e alcohol) [facility] Utilities Answer Date Recorded In [...] place to sleep or slept in a senior care (including now)? No 10/25/2023 DH IPV Inpatient [...] AM EDT Scheduled View Only Hematology/Oncology at [address] [phone] Dana Davis RN 02/04/2024 10:00 AM EDT Infusion Hematology Oncology at [address] [phone] 02/24/2024 9:30 AM EDT Office Visit Hematology/Oncology at [address] [phone] Francisca Quinonez, [facility] [place] [address] 02/24/2024 10:30 AM EDT Infusion Hematology Oncology at [address] [phone] 03/17/2024 10:00 AM EDT Infusion Hematology Oncology at [address] [phone] 04/07/2024 9:30 AM EDT Office Visit Hematology/Oncology at [address] [phone] Gian Lisa MD [facility] DR HEMATOLOGY/[place] [address] Francisca Quinonez APRN [facility] [place] [address] 04/07/2024 10:00 AM EDT Infusion Hematology Oncology at [address] [phone] Scheduled Procedures Name Priority Associated Diagnoses Date/Ti me EGD, UPPER GI ENDOSCOPY (WRVU 2.09) Dyspepsia COLONOSCOPY, DIAGNOSTIC (WRVU 3.26) Dyspepsia documented as of this encounter Visit Diagnoses Not on filedocumented in this encounter Care Teams Speech Therapy Director Relationship Specialty Start Date End Date Celso Dukes MD [address] [place] [address] PCP - General 02/24/15 documented as of this encounter
--- OUTSIDE RECORDS SUMMARY | 2024-02-04 01:31 | XMS_ITS | Encounter Summary ---
Author Organization [facility] Address [facility] [place] [address] Care Team Providers Care Communication Skills Instructor Name Role Phone Celso Dukes MD Primary Care Provider Encounter Details Date Type Department Care Team (Latest Contact Info) Description 01/14/2024 3:40 PM EDT Ancillary Procedure [place] [phone] Gian Lisa MD [facility] HEMATOLOGY/[place] [address] Renal cell carcinoma, left Social History Tobacco Use Types Packs/Day Years Used Date Smoking Tobacco: Former Cigarettes 0.5 15 0 09/17/2008 - 09/18/2023 Smokeless Tobacco: Former Chew Quit: 09/18/2023 Comments:Using Zyn pouches r eported 10/25/23 Alcohol Use Standard Drinks/Week Comments Yes 6 (1 standard drink = 0.6 oz pur e alcohol) [facility] Utilities Answer Date Recorded In the past 12 months has [employer], gas, oil, or water [employer] threatened to shut off services in [...] place to sleep or slept in a mcfp (including now)? No 10/25/2023 DH IPV Inpatient [...] AM EDT Scheduled View Only Hematology/Oncology at [address] [phone] Dana Davis RN 02/04/2024 10:00 AM EDT Infusion Hematology Oncology at [address] [phone] 02/24/2024 9:30 AM EDT Office Visit Hematology/Oncology at [address] [phone] Francisca Quinonez APRN [facility] [place] [address] 02/24/2024 10:30 AM EDT Infusion Hematology Oncology at [address] [phone] 03/17/2024 10:00 AM EDT Infusion Hematology Oncology at [address] [phone] 04/07/2024 9:30 AM EDT Office Visit Hematology/Oncology at [address] [phone] Gian Lisa MD [facility] DR HEMATOLOGY/[place] [address] Francisca Quinonez APRN [facility] [place] [place] [address] 04/07/2024 10:00 AM EDT Infusion Hematology Oncology at [address] [phone] Scheduled Procedures Name Priority Associated Diagnoses Date/Ti me EGD, UPPER GI ENDOSCOPY (WRVU 2.09) Dyspepsia COLONOSCOPY, DIAGNOSTIC (WRVU 3.26) Dyspepsia documented as of this encounter Procedures Procedure Name Priority Date/Time Associated Diagnosis Comments REQUEST FOR 2ND READ MR ABDOMEN Routine 01/14/2024 3:36 PM EDT Renal cell carcinoma, left documented in this encounter Results * Request for 2nd read MR Abdomen (01/14/2024 3:36 PM EDT) WORKSTATION ID [id number] RAD Anatomical Region Laterality Modality SO Impressions [...] total). The following order codes are for [facility] ordering providers: Pancreas MRI ([id number]) Pancreas MRI with MRCP ([id number]) MRCP only ([id number]) Pancreas CT ([id number]) Reference: Management of Incidental Pancreatic Cysts: A White Paper of the ACR Incidental Findings Committee by bill Peoples al. in Journal of the [employer], Volume 14, Issue 7, Pages 911 to 923. Thank you for letting us participate in the care of this patient. ??If you are a health care provider and have any questions regarding this report, please contact the number below. ??For patients who have questions please contact the health personal care aide that requested your imaging first. ? Electronically signed by: Robbie Aguilar MD, [facility] [place] ([phone]), at 01/15/2024 9:20 AM Narrative 01/15/2024 9:20 AM EDT EXAMINATION: REQUEST FOR 2ND READ MR ABDOMEN CLINICAL HISTORY: Surveillance MRI, patient with left renal cell carcinoma stage III; [facility]; Date of exam 01/07/2024; I believe a [...] left renal cell carcinomastage III; [facility]; Date of exam01/07/2024; I believe a reinterpretation [...] total). The following order codes are for [facility] ordering providers: Pancreas MRI ([id number]) Pancreas MRI with MRCP ([id number]) MRCP only ([id number]) Pancreas CT ([id number]) Reference: Management of Incidental Pancreatic Cysts: A White Paper ofthe ACR Incidental Findings Committee by Barbara Lackey et al. in Journal of theAmerican College of Radiology, Volume 14, Issue 7, Pages 911 to 923. Thank you for letting us participate in the care of this patient. If youare a health care provider and have any questions regarding this report,please contact the number below. For patients who have questions please contactthe health personal care aide that requested your imaging first. Electronically signed by: Robbie Aguilar MD, [facility] [place]([phone]), at 01/15/2024 9:20 AM [address] Lisa [address] [facility] ORDERABLES documented in this encounter Visit Diagnoses Diagnosis Renal cell carcinoma, left documented in this encounter Care Teams Communication Skills Instructor Relationship Specialty Start Date End Date Celso Dukes MD [address] [place] [address] PCP - General 02/24/15 documented as of this encounter
--- OUTSIDE RECORDS SUMMARY | 2024-02-04 01:31 | XMS_ITS | Encounter Summary ---
Author Organization [facility] Address [facility] [place] [address] Care Team Providers Care Refrigerator Room Clerk Name Role Phone Celso Dukes MD Primary Care Provider [phone] Encounter Details Date Type Department Care Team (Latest Contact Info) Description 12/24/2023 10:37 PM EDT - 12/24/2023 11:59 PM EDT Hospital Encounter Laboratory [facility] [place] [phone] Discharge Disposition: Home Social History Tobacco Use Types Packs/Day Years Used Date Smoking Tobacco: Former Cigarettes 0.5 15 0 09/17/2008 - 09/18/2023 Smokeless Tobacco: Former Chew Quit: 09/18/2023 Comments:Using [employer] pouches r eported 10/25/23 Alcohol Use Standard Drinks/Week Comments Yes 6 (1 standard drink = 0.6 oz pur e alcohol) [facility] Utilities Answer Date Recorded In the past 12 months has e electric, gas, oil, or water [employer] threatened to shut off services in your [...] place to sleep or slept in a snf (including now)? No 10/25/2023 DH IPV Inpatient [...] on file documented as of this encounter Medications at Time of Discharge Medication Sig Dispensed Refills Start Date End Date acetaminophen (Tylenol) 325 mg tablet Take 3 tablets by mouth every 6 hours. 09/19/2023 metoprolol succinate XL (Toprol-XL) 25 mg ER 24 hr tablet Take 50 mg by mouth daily. amLODIPine (Norvasc) 10 mg tablet Take 5 mg by mouth daily. omeprazole (PriLOSEC) [address] capsule Take 20 mg by mouth daily. documented as of this encounter Plan of Treatment Upcoming Encounters Date Type Department Care Team (Late st Contact Info) Description 02/04/2024 10:00 AM EDT Scheduled View Only Hematology/Oncology at [address] [phone] Dana Davis RN 02/04/2024 10:00 AM EDT Infusion Hematology Oncology at [address] [phone] 02/24/2024 9:30 AM EDT Office Visit Hematology/Oncology at [address] [phone] Francisca Quinonez APRN [facility] [place] [address] 02/24/2024 10:30 AM EDT Infusion Hematology Oncology at [address] [phone] 03/17/2024 10:00 AM EDT Infusion Hematology Oncology at [address] [phone] 04/07/2024 9:30 AM EDT Office Visit Hematology/Oncology at [address] [phone] Gian Lisa MD [facility] HEMATOLOGY/[place] [address] Francisca Quinonez APRN [facility] [place] [address] 04/07/2024 10:00 AM EDT Infusion Hematology Oncology at [address] [phone] Scheduled Procedures Name Priority Associated Diagnoses Date/Ti me EGD, UPPER GI ENDOSCOPY (WRVU 2.09) Dyspepsia COLONOSCOPY, DIAGNOSTIC (WRVU 3.26) Dyspepsia documented as of this encounter Procedures Procedure Name Priority Date/Time Associated Diagnosis Comments MISCELLANEOUS LAB REQUEST Routine 12/24/2023 11:10 AM EDT documented in this encounter Results * Miscellaneous Lab request (12/24/2023 11:10 AM EDT) [facility] Result Request received in lab. [facility] Blood No Charge / Unknown 12/24/2023 11:10 AM EDT 12/24/2023 10:59 PM EDT Narrative Resulting Agency Comment Spec In Lab Gian Lisa MD HEMATOLOGY ORDERABLE S [facility] [place] [address] documented in this encounter Visit Diagnoses Not on filedocumented in this encounter Care Teams Refrigerator Room Clerk Relationship Specialty Start Date End Date Celso Dukes MD [address] [place] [address] PCP - General 02/24/15 documented as of this encounter
--- OUTSIDE RECORDS SUMMARY | 2024-02-04 01:31 | XMS_ITS | Clinical Summary ---
Author Organization [facility] Address [facility] [place] [address] Care Team Providers Care Rope Tier Name Role Phone Celso Dukes MD Primary Care Provider [phone] Allergies Active Allergy Reactions Criticality Noted Date Comments 2-Octyl Cyanoacrylate Rash Medium 10/09/2023 AKA Mullins-cheng skin glu Medications Medication Sig Dispensed Refills Start Date End Date Status metoprolol succinate XL (Toprol-XL) 25 mg ER 24 hr tablet Take 50 mg by mouth daily. Active amLODIPine (Norvasc) 10 mg tablet Take 5 mg by mouth daily. Active omeprazole (PriLOSEC) [address] capsule Take 20 mg by mouth daily. Active acetaminophen (Tylenol) 325 mg tablet Take 3 tablets by mouth every 6 hours. 09/19/2023 Active Additional Information Patient not taking.Reported on 11/12/2023 Active Problems Problem Noted Date Diagnosed Date Renal cell carcinoma, left 10/25/2023 Renal mass, left 09/18/2023 Encounters Date Type Department Care Team Description 02/04/2024 10:00 AM EDT Infusion Hematology Oncology at [address] [phone] 01/28/2024 Telephone Hematology/Oncolo gy at [address] [phone] Will Locke RN Questions 01/14/2024 3:45 PM EDT Ancillary Procedure Radiology Library at [facility] [place] [phone] Gian Lisa MD Renal cell carcinoma, left 01/14/2024 3:40 PM EDT Ancillary Procedure [place] [address] Gian Lisa MD Renal cell carcinoma, left 01/14/2024 3:00 PM EDT Infusion Hematology Oncology at [address] [phone] Renal cell carcinoma, left 01/14/2024 2:30 PM EDT Office Visit Hematology/Oncolo gy at [address] [address] Gian Lisa MD Burns, Kimberly A, MAJOR GIFTS MANAGER Renal cell carcinoma, left (Primary Dx); Rash; Abnormal thyroid function test; Encounter for antineoplastic chemotherapy and immunotherapy 01/14/2024 Travel 01/07/2024 7:55 PM EDT Ancillary Procedure [place] [address] Gian Lisa MD 01/07/2024 Ancillary Procedure [place] [address] Gian Lisa MD 01/07/2024 Interpretation Only [place] [address] Gian Lisa MD 01/07/2024 Interpretation Only [place] [address] Gian Lisa MD 12/26/2023 Telephone Hematology [place] [address] Denice Pradhan 12/24/2023 10:37 PM EDT - 12/24/2023 11:59 PM EDT [place] [address] Discharge Disposition: Home 12/24/2023 10:30 AM EDT Infusion Hematology Oncology at [address] [address] Renal cell carcinoma, left 12/24/2023 10:00 AM EDT Office Visit Hematology/Oncolo gy at [address] [place] [address] Gian Lisa MD Renal cell carcinoma, left (Primary Dx) 12/24/2023 Notes Only Hematology/Oncolo gy at [address] [address] Dana Davis RN 12/24/2023 Travel 12/03/2023 9:40 PM EDT - 12/03/2023 11:59 PM EDT [place] [address] Discharge Disposition: Home 12/03/2023 2:30 PM EDT Infusion Hematology Oncology at [address] [phone] Renal cell carcinoma, left 12/03/2023 2:00 PM EDT Office Visit Hematology/Oncolo gy at [address] [phone] Gian Lisa MD Burns, Kimberly A, APRN Renal cell carcinoma, left; Rash; Arthralgia, unspecified joint 12/03/2023 Notes Only Hematology/Oncolo gy at [address] [phone] Dana Davis RN 12/03/2023 Travel 11/21/2023 Notes Only Hematology/Oncolo gy at [address] [address] Francisca Quinonez APRN 11/12/2023 10:10 PM EDT - 11/12/2023 11:59 PM EDT [place] [address] Renal cell carcinoma, left Discharge Disposition: Home 11/12/2023 3:00 PM EDT Infusion Hematology Oncology at [address] [place] [phone] Renal cell carcinoma, left 11/12/2023 2:00 PM EDT Office Visit Hematology/Oncolo gy at [address] [place] [phone] Gian Lisa MD Burns Francisca Escobedo, MAJOR GIFTS MANAGER Renal cell carcinoma, left 11/12/2023 Notes Only Hematology/Oncolo gy at [address] [phone] Dana Davis RN 11/12/2023 Notes Only Hematology/Oncolo gy at [address] [place] [phone] Doreen Tang MSW 11/12/2023 [place] [phone] Domingo Napoles 11/12/2023 Orders Only Hematology/Oncolo gy at [address] [phone] Gian Lisa MD Renal cell carcinoma, left 11/12/2023 Travel 11/06/2023 Telephone Hematology [place] [phone] Ramone Ferrari, RN from Last 3 Months Social History Tobacco Use Types Packs/Day Years Used Date Smoking Tobacco: Former Cigarettes 0.5 15 0 09/17/2008 - 09/18/2023 Smokeless Tobacco: Former Chew Quit: 09/18/2023 Tobacco Cessation:Counseling Given: Not Answered Comments:Using Zyn pouches reported 10/25/23 Alcohol Use Standard Drinks/Week Comments Yes 6 (1 standard drink = 0.6 oz pur e alcohol) [facility] Utilities Answer Date Recorded In the [...] on file Sexual Orientation Not on file Last Filed Vital Signs Vital Sign Reading [...] Mass Index 41.79 01/14/2024 2:57 PM EDT Plan of Treatment Upcoming Encounters Date Type Department Care Team (Late st Contact Info) Description 02/04/2024 10:00 AM EDT Scheduled View Only Hematology/Oncology at [address] [phone] Dana Davis RN 02/04/2024 10:00 AM EDT Infusion Hematology Oncology at [address] [phone] 02/24/2024 9:30 AM EDT Office Visit Hematology/Oncology at [address] [phone] Francisca Quinonez APRN [facility] [place] [place] [address] 02/24/2024 10:30 AM EDT Infusion Hematology Oncology at [address] [phone] 03/17/2024 10:00 AM EDT Infusion Hematology Oncology at [address] [phone] 04/07/2024 9:30 AM EDT Office Visit Hematology/Oncology at [address] [address] Gian Lisa MD [facility] HEMATOLOGY/[place] [address] Francisca Quinonez APRN [facility] [place] [address] 04/07/2024 10:00 AM EDT Infusion Hematology Oncology at [address] [address] Scheduled Procedures Name Priority Associated Diagnoses Date/Ti me EGD, UPPER GI ENDOSCOPY (WRVU 2.09) Dyspepsia COLONOSCOPY, DIAGNOSTIC (WRVU 3.26) Dyspepsia Health Maintenance Due Date Last Done Comments CT Colonography 1971 Colonoscopy 1971 Colorectal Cancer Screening 1971 FIT DNA 1971 FIT 1971 Sigmoidoscopy (10 year) with FIT yearly 1971 Sigmoidoscopy 1971 HIV screen 10/03/1989 Hepatitis C Screening 10/03/1989 Lipid Screening 10/03/1989 Hepatitis B vaccine (0-59 yrs) (1) 10/03/1990 Tdap adult 10/03/1990 Tetanus vaccine 10/03/1990 Zoster vaccine (1 of 2) 10/03/2021 Covid-19 Vaccine (1 - 2022-2 4 season) 2023 Influenza (Flu) vaccine (1 o f 1 - Influenza standard series) 03/15/2024 Diabetes Screening (HgbA1C o r Glucose) 10/24/2026 10/25/2023, 09/19/2023, 09/18/2023, Additional history exists Procedures Procedure Name Priority Date/Time Associated Diagnosis Comments REQUEST FOR 2ND READ CT CHEST Routine 01/14/2024 3:38 PM EDT Renal cell carcinoma, left REQUEST FOR 2ND READ MR ABDOMEN Routine 01/14/2024 3:36 PM EDT Renal cell carcinoma, left LAB SCAN 01/14/2024 12:[address] SCAN (SCAN) 01/09/2024 12:00 AM EDT MRI/MRA SCAN 01/09/2024 12:00 AM EDT FILM LIBRARY STORAGE ONLY MR ABDOMEN Routine 01/07/2024 7:51 PM EDT FILM LIBRARY STORAGE ONLY CT CHEST Routine 01/07/2024 12:00 AM EDT MISCELLANEOUS LAB REQUEST Routine 12/24/2023 11:10 AM EDT LAB SCAN 12/24/2023 12:00 AM EDT MISCELLANEOUS LAB REQUEST Routine 12/04/2023 3:45 PM EDT MISCELLANEOUS LAB REQUEST Routine 11/12/2023 3:30 PM EDT Renal cell carcinoma, left COMPREHENSIVE METABOLIC PANEL (NON-FASTING) Routine 10/25/2023 12:00 PM EDT Renal cell carcinoma, left from Last 3 Months or Most Recently Relevant to Health Maintenance Results * Request For 2nd Read CT Chest (01/14/2024 3:38 PM EDT) WORKSTATION ID [id number] RAD Anatomical Region Laterality Modality Chest SO [...] who have questions please contact the health healthcare administration internship that requested your imaging first. ? Narrative 01/14/2024 9:18 PM EDT EXAMINATION: REQUEST FOR 2ND READ CT CHEST CLINICAL HISTORY: History of stage III renal cell carcinoma; Sending Institution [facility]; Date of exam [id number]; I believe [...] of stage III renal cell carcinoma; [facility]ending[facility]; Date of exam [id number]; I believe [...] at the left posterior aspect of the D2goqcqstlf body which is unchanged compared to the [...] patients who have questions please contactthe health healthcare administration internship that requested your imaging first. Gian Lisa MD IMG OUTSIDE INTERPRE TATION ORDERABLES * Request for 2nd read MR Abdomen (01/14/2024 3:36 PM EDT) WORKSTATION ID [id number] RAD Anatomical Region Laterality Modality SO Impressions [...] total). The following order codes are for [facility] ordering providers: Pancreas MRI ([id number]) Pancreas MRI with MRCP ([id number]) MRCP only ([id number]) Pancreas CT ([id number]) Reference: Management of Incidental Pancreatic Cysts: A White Paper of the ACR Incidental Findings Committee by Barbara Lackey et al. in Journal of the [employer], Volume 14, Issue 7, Pages 911 to 923. Thank you for letting us participate in the care of this patient. ??If you are a health care provider and have any questions regarding this report, please contact the number below. ??For patients who have questions please contact the health healthcare administration internship that requested your imaging first. ? Narrative 01/15/2024 9:20 AM EDT EXAMINATION: REQUEST FOR 2ND READ MR ABDOMEN CLINICAL HISTORY: Surveillance MRI, patient with left renal cell carcinoma stage III; Sending Institution [facility]; Date of exam 01/07/2024; I believe [...] left renal cell carcinomastage III; Sending Institution [facility]; Date of exam01/07/2024; I believe a [...] total). The following order codes are for [facility] ordering providers: Pancreas MRI ([id number]) Pancreas MRI with MRCP ([id number]) MRCP only ([id number]) Pancreas CT ([id number]) Reference: Management of Incidental Pancreatic Cysts: A [...] patients who have questions please contactthe health healthcare administration internship that requested your imaging first. Gian Lisa MD IM OUTSIDE INTERPRE TATION ORDERABLES * Scan Doc: Lab (01/14/2024 12:00 AM EDT) Only the most recent of2 resultswithin the time period is included. Narrative 01/14/2024 12:00 AM EDT Ordered by an unspecified provider. Scanning Provider MEDIA MGR SCAN EXT O RDR/RSLT * Scan Doc: MRI/MRA (01/09/2024 12:00 AM EDT) Anatomical Region Laterality Modality Other Narrative 01/09/2024 12:00 AM EDT Ordered by an unspecified provider. Scanning Provider MEDIA MGR SCAN EXT O RDR/RSLT * Scan Doc: CT Scan (01/09/2024 12:00 AM EDT) Anatomical Region Laterality Modality Other Narrative 01/09/2024 12:00 AM EDT Ordered by an unspecified provider. Scanning Provider MEDIA MGR SCAN EXT O RDR/RSLT * Film Library- Storage Only MR Abdomen (01/07/2024 7:51 PM EDT) 01/07/2024 7:51 PM EDT Narrative [facility] - 01/07/2024 7:51 PM EDT This exam is auto-finalizing. It's purpose is for storage only. Gian SCHWARTZ FILM LIBRARY ORD ERABLES Performing Organization Address [facility] Co de Phone Number [place], [place] * Film Library- Storage Only CT Chest (01/07/2024 12:00 AM EDT) 01/09/2024 4:11 PM EDT Narrative [facility] - 01/09/2024 4:11 PM EDT This exam is auto-finalizing. It's purpose is for storage only. Gian SCHWARTZ FILM LIBRARY ORD ERABLES Performing Organization Address [facility] Co de Phone Number [place], [place] * Miscellaneous Lab request (12/24/2023 11:10 AM EDT) Only the most recent of3 resultswithin the time period is included. [facility] Lab Result Request received in lab. [facility] Blood No Charge / Unknown 12/24/2023 11:10 AM EDT 12/24/2023 10:59 PM EDT Narrative Resulting Agency Comment Spec In Lab Gian Lisa MD HEMATOLOGY ORDERABLE S Performing Organization Address City/[facility] Co de Phone Number [facility] [place] [place] [address] * Comprehensive metabolic panel (non-fasting) (10/25/2023 12:00 PM EDT) [facility] Glucose Lvl 132 65 - 199 mg/dL [facility] Comment:Diabetes: >=200 mg/d L plus symptoms BUN 15 10 - 20 mg/dL [facility] Creatinine 1.09 0.80 - 1.50 mg/dL [facility] Sodium 138 135 - 145 mmol/L [facility] Potassium 4.2 3.5 - 5.0 mmol/L [facility] Comment: Please note: ??Patients with WBC >100,000 may have falsely elevated Potassium levels. ??For accurate Potassium quantification in these patients send serum separator tube (gold top) for subsequent determinations. ??Contact the Clinical Chemistry Laboratory if there are any questions. Chloride 101 98 - 107 mmol/L [facility] CO2 25 22 - 31 mmol/L [facility] Anion Gap 12 5 - 15 mmol/L [facility] Calcium 9.5 8.5 - 10.5 mg/dL [facility] Total Protein 7.9 6.1 - 8.0 g/dL [facility] Albumin 4.2 3.2 - 5.2 g/dL [facility] AST 19 0 - 39 unit/L [facility] ALT 36 0 - 55 unit/L [facility] Alk Phos 98 40 - 130 unit/L [facility] Total Bilirubin 0.5 0.2 - 1.3 mg/dL [facility] Estimated GFR 82 >=60 mL/min/1. 73 m?? [facility] Comment: This patient's estimated GFR was calculated using the 2020 CKD-EPI equation. The estimated GFR can vary from the measured GFR by up to 30% in the absence of rapidly changing kidney function. Assessment of the estimated GFR is not appropriate when creatinine concentrations are rapidly changing. For clinical situations in which a more precise estimate of GFR is necessary, consider alternative methods of GFR estimation such as a 24-hour urine creatinine clearance. Assignment of CKD stage 1-5 for patients with an eGFR near the transition point between stages may be based on clinical assessment of muscle mass and symptoms in addition to eGFR. Blood 10/25/2023 12:0 0 PM EDT 10/25/2023 12:04 PM EDT Narrative Resulting Agency Comment Spec In Lab Gian Lisa MD CHEMISTRY ORDERABLES [facility] [place] [place] [address] from Last 3 Months or Most Recently Relevant to Health Maintenance Advance Directives * Attempt Cardiopulmonary Resuscitation - Inpatient (Latest Code Status on File) Date Activated Date Inactivated Comments 09/18/2023 9:07 PM 09/19/2023 5:49 PM Question Answer Comments Code Status decision made by: Patient Care Teams Rope Tier Relationship Specialty Start Date End Date Celso Dukes MD [address] [place] [address] PCP - General 02/24/15
--- OUTSIDE RECORDS SUMMARY | 2024-02-04 01:31 | XMS_ITS | Encounter Summary ---
Author Organization [facility] Address [facility] [place] [address] Care Team Providers Care Local Az Truck Driver Name Role Phone Celso Dukes MD Primary Care Provider Encounter Details Date Type Department Care Team (Late st Contact Info) Description 12/24/2023 Notes Only Hematology/Oncology at [address] [phone] Dana Davis RN Social History Tobacco Use Types Packs/Day Years Used Date Smoking Tobacco: Former Cigarettes 0.5 15 0 09/17/2008 - 09/18/2023 Smokeless Tobacco: Former Chew Quit: 09/18/2023 Comments:Using Zyn pouches r eported 10/25/23 Alcohol Use Standard Drinks/Week Comments Yes 6 (1 standard drink = 0.6 oz pur e alcohol) [facility] Utilities Answer Date Recorded In the past [...] place to sleep or slept in a correction (including now)? No 10/25/2023 IPV Inpatient Questions Answer Date Recorded Does [...] on file documented as of this encounter Progress Notes * Dana Davis RN - 12/24/2023 11:47 AM EDT Clinical Research Nurse Note [place], [place] Miscellaneous lab kit draw for study # [id number] Misc lab kit draw prior to infusion today. Date: 12/24/23 Time: 11:10 [ x ] misc lab kit blood drawn from venipuncture performed by setter induction heating equipment [ ] medi port by setter induction heating equipment. [ ] medi port was accessed by [facility] for SOC labs earlier today. Misc lab kit blood drawn from accessed port and flushed with 20 mls of saline per institutional policy. Specimens sent to by this author: [ x ] [facility] 4th floor pathology lab in cooler via apartment maintenance manager [ ] Study ,via Fed ex per protocol requirements documented in this encounter Plan of Treatment Upcoming Encounters Date Type Department Care Team (Late st Contact Info) Description 02/04/2024 10:00 AM EDT Scheduled View Only Hematology/Oncology at [address] [phone] Dana Davis RN 02/04/2024 10:00 AM EDT Infusion Hematology Oncology at [address] [phone] 02/24/2024 9:30 AM EDT Office Visit Hematology/Oncology at [address] [phone] Francisca Quinonez APRN [facility] [place] [address] 02/24/2024 10:30 AM EDT Infusion Hematology Oncology at [address] [address] 03/17/2024 10:00 AM EDT Infusion Hematology Oncology at [address] [address] 04/07/2024 9:30 AM EDT Office Visit Hematology/Oncology at [address] [address] Gian Lisa MD [facility] HEMATOLOGY/[place] [address] Francisca Quinonez APRN [facility] [place] [address] 04/07/2024 10:00 AM EDT Infusion Hematology Oncology at [address] [phone] Scheduled Procedures Name Priority Associated Diagnoses Date/Ti me EGD, UPPER GI ENDOSCOPY (WRVU 2.09) Dyspepsia COLONOSCOPY, DIAGNOSTIC (WRVU 3.26) Dyspepsia documented as of this encounter Visit Diagnoses Not on filedocumented in this encounter Care Teams Local Az Truck Driver Relationship Specialty Start Date End Date Celso Dukes MD [address] [place] [address] PCP - General 02/24/15 documented as of this encounter
--- OUTSIDE RECORDS SUMMARY | 2024-02-04 01:31 | XMS_ITS | Encounter Summary ---
Author Organization [facility] Address [facility] [place] [address] Care Team Providers Care Motorcycle Police Officer Name Role Phone Celso Dukes MD Primary Care Provider Encounter Details Date Type Department Care Team (Late st Contact Info) Description 01/07/2024 7:55 PM EDT Ancillary [place] [phone] Gian Lisa MD [facility] HEMATOLOGY/[place] [address] Social History Tobacco Use Types Packs/Day Years Used Date Smoking Tobacco: Former Cigarettes 0.5 15 0 09/17/2008 - 09/18/2023 Smokeless Tobacco: Former Chew Quit: 09/18/2023 Comments:Using Zyn pouches r eported 10/25/23 Alcohol Use Standard Drinks/Week Comments Yes 6 (1 standard drink = 0.6 oz pur e alcohol) [facility] Utilities Answer Date Recorded In the past 12 months has [employer], gas, oil, or water [employer] threatened to shut off services in your [...] AM EDT Scheduled View Only Hematology/Oncology at [address] [phone] Dana Davis RN 02/04/2024 10:00 AM EDT Infusion Hematology Oncology at [address] [phone] 02/24/2024 9:30 AM EDT Office Visit Hematology/Oncology at [address] [phone] Francisca Quinonez, [facility] [place] [address] 02/24/2024 10:30 AM EDT Infusion Hematology Oncology at [address] [address] 03/17/2024 10:00 AM EDT Infusion Hematology Oncology at [address] [address] 04/07/2024 9:30 AM EDT Office Visit Hematology/Oncology at [address] [address] Gian Lisa MD [facility] HEMATOLOGY/[place] [address] Francisca Quinonez APRN [facility] [place] [address] 04/07/2024 10:00 AM EDT Infusion Hematology Oncology at [address] [phone] Scheduled Procedures Name Priority Associated Diagnoses Date/Ti me EGD, UPPER GI ENDOSCOPY (WRVU 2.09) Dyspepsia COLONOSCOPY, DIAGNOSTIC (WRVU 3.26) Dyspepsia documented as of this encounter Procedures Procedure Name Priority Date/Time Associated Diagnosis Comments FILM LIBRARY STORAGE ONLY MR ABDOMEN Routine 01/07/2024 7:51 PM EDT documented in this encounter Results * Film Library- Storage Only MR Abdomen (01/07/2024 7:51 PM EDT) 01/07/2024 7:51 PM EDT Narrative RAD - 01/07/2024 7:51 PM EDT This exam is auto-finalizing. It's purpose is for storage only. Gian Lisa MD IMG FILM LIBRARY ORD ERABLES [place], [place] documented in this encounter Visit Diagnoses Not on filedocumented in this encounter Care Teams Motorcycle Police Officer Relationship Specialty Start Date End Date Celso Dukes MD [address] [place] [address] PCP - General 02/24/15 documented as of this encounter
--- OUTSIDE RECORDS SUMMARY | 2024-02-04 01:31 | XMS_ITS ---
Author Organization [facility] Address [facility] [place] [address] Care Team Providers Care Ramp Boss Name Role Phone Celso Dukes MD Primary Care Provider [phone] Active Problems Problem Noted Date Diagnosed Date Renal cell carcinoma, left 10/25/2023 Renal mass, left 09/18/2023 Current Oncology Plans [facility] ONC -KIDNEY CELL CANCER - PEMBROLIZUMAB / AXITINIB* Plan Start Date:11/12/2023 Plan Provider:Gian Lisa MD Linked Problems Renal cell carcinoma, left Treatment Medications Current Day (Day 1 , Cycle 5 - Planned for 02/04/2024) Next Day (Day 1, Cycle 6 - Planned for 02/25/2024) pembrolizumab (Keytruda) in sodium chloride 0.9% 100 mL infusionpembrolizumab (Keytruda) Recon Soln pembrolizumab (Keytruda) 200 mg in sodium chloride 0.9% 108 mL infusion pembrolizumab (Keytruda) 200 mg in sodium chloride 0.9% 108 mL infusion Past Plans No past plan information found. Radiation Treatments * No radiation treatments are documented for this patient in [facility]. Treatments may have been administered in another system.
--- OUTSIDE RECORDS SUMMARY | 2024-02-04 01:31 | XMS_ITS | Encounter Summary ---
Author Organization Formerly [facility] Address [facility] [place] [address] Care Team Providers Care Purse Seining Hand Name Role Phone Celso Dukes MD Primary Care Provider Encounter Details Date Type Department Care Team (Late st Contact Info) Description 01/07/2024 Ancillary Procedure [place] [phone] Gian Lisa MD [facility] DR HEMATOLOGY/[place] [address] Social History Tobacco Use Types Packs/Day Years Used Date Smoking Tobacco: Former Cigarettes 0.5 15 0 09/17/2008 - 09/18/2023 Smokeless Tobacco: Former Chew Quit: 09/18/2023 Comments:Using Zyn pouches r eported 10/25/23 Alcohol Use Standard Drinks/Week Comments Yes 6 (1 standard drink = 0.6 oz pur e alcohol) [facility] Utilities Answer Date Recorded In the past 12 months has [employer], gas, oil, or water [employer] threatened to shut off services in your [...] to sleep or slept in a senior living (including now)? No 10/25/2023 DH IPV Inpatient [...] AM EDT Scheduled View Only Hematology/Oncology at [address] [phone] Dana Davis RN 02/04/2024 10:00 AM EDT Infusion Hematology Oncology at [address] [phone] 02/24/2024 9:30 AM EDT Office Visit Hematology/Oncology at [address] [phone] Francisca Quinonez APRN [facility] [place] [address] 02/24/2024 10:30 AM EDT Infusion Hematology Oncology at [address] [phone] 03/17/2024 10:00 AM EDT Infusion Hematology Oncology at [address] [phone] 04/07/2024 9:30 AM EDT Office Visit Hematology/Oncology at [address] [phone] Gian Lisa MD [facility] HEMATOLOGY/[place] [address] Francisca Quinonez APRN [facility] DR [place] [address] 04/07/2024 10:00 AM EDT Infusion Hematology Oncology at [address] [phone] Scheduled Procedures Name Priority Associated Diagnoses Date/Ti me EGD, UPPER GI ENDOSCOPY (WRVU 2.09) Dyspepsia COLONOSCOPY, DIAGNOSTIC (WRVU 3.26) Dyspepsia documented as of this encounter Procedures Procedure Name Priority Date/Time Associated Diagnosis Comments FILM LIBRARY STORAGE ONLY CT CHEST Routine 01/07/2024 12:00 AM EDT documented in this encounter Results * Film Library- Storage Only CT Chest (01/07/2024 12:00 AM EDT) 01/09/2024 4:11 PM EDT Narrative RAD - 01/09/2024 4:11 PM EDT This exam is auto-finalizing. It's purpose is for storage only. Gian Lisa MD IMG FILM LIBRARY ORD ERABLES [place], [place] documented in this encounter Visit Diagnoses Not on filedocumented in this encounter Care Teams Purse Seining Hand Relationship Specialty Start Date End Date Celso Dukes MD [address] [place] [address] PCP - General 02/24/15 documented as of this encounter
--- OUTSIDE RECORDS SUMMARY | 2024-02-04 01:31 | XMS_ITS | Encounter Summary ---
Author Organization Formerly [facility], Later [facility] Address [facility] [place] [address] Care Team Providers Care Ship Fastener Name Role Phone Celso Dukes MD Primary Care Provider Encounter Details Date Type Department Care Team (Late st Contact Info) Description 01/07/2024 Interpretation [place] [phone] Gian Lisa MD [facility] DR HEMATOLOGY/[place] [address] Social History Tobacco Use Types Packs/Day Years Used Date Smoking Tobacco: Former Cigarettes 0.5 15 0 09/17/2008 - 09/18/2023 Smokeless Tobacco: Former Chew Quit: 09/18/2023 Comments:Using Zyn pouches r eported 10/25/23 Alcohol Use Standard Drinks/Week Comments Yes 6 (1 standard drink = 0.6 oz pur e alcohol) [facility] Utilities Answer Date Recorded In the past 12 months has [employer], gas, oil, or water [employer] threatened to shut off services in your [...] place to sleep or slept in a jail (including now)? No 10/25/2023 DH IPV Inpatient [...] AM EDT Scheduled View Only Hematology/Oncology at [address] [phone] Dana Davis RN 02/04/2024 10:00 AM EDT Infusion Hematology Oncology at [address] [phone] 02/24/2024 9:30 AM EDT Office Visit Hematology/Oncology at [address] [phone] Francisca Quinonez APRN [facility] [place] [address] 02/24/2024 10:30 AM EDT Infusion Hematology Oncology at [address] [phone] 03/17/2024 10:00 AM EDT Infusion Hematology Oncology at [address] [phone] 04/07/2024 9:30 AM EDT Office Visit Hematology/Oncology at [address] [phone] Gian Lisa MD [facility] HEMATOLOGY/[place] [address] Francisca Quinonez APRN [facility] [place] [address] 04/07/2024 10:00 AM EDT Infusion Hematology Oncology at [address] [phone] Scheduled Procedures Name Priority Associated Diagnoses Date/Ti [...] Lisa MD IMG FILM LIBRARY ORD ERABLES [place], [place] documented in this encounter Visit Diagnoses Not on filedocumented in this encounter Care Teams Ship Fastener Relationship Specialty Start Date End Date Celso Dukes MD [address] [place] [address] PCP - General 02/24/15 documented as of this encounter
--- OUTSIDE RECORDS SUMMARY | 2024-02-04 01:31 | XMS_ITS | Encounter Summary ---
Author Organization [facility] Address [facility] [place] [address] Care Team Providers Care Employee Welfare Manager Name Role Phone Celso Dukes MD Primary Care Provider Reason for Visit * Reason Onset Date Comments Questions 01/28/2024 Encounter Details Date Type Department Care Team (Late st Contact Info) Description 01/28/2024 Telephone Hematology/Oncology at [address] [phone] Will Locke RN Questions Social History Tobacco Use Types Packs/Day Years Used Date Smoking Tobacco: Former Cigarettes 0.5 15 0 09/17/2008 - 09/18/2023 Smokeless Tobacco: Former Chew Quit: 09/18/2023 Comments:Using Zyn pouches r eported 10/25/23 Alcohol Use Standard Drinks/Week Comments Yes 6 (1 standard drink = 0.6 oz pur e alcohol) [facility] Utilities Answer Date Recorded In the past 12 months has e [employer], gas, oil, or water [employer] threatened to shut off services in your [...] on file documented as of this encounter Miscellaneous Notes * Telephone Encounter - Will Locke RN - 01/28/2024 10:24 AM EDT Rosalino Honeycutt called asking if okay to have tooth filing replaced today. He gets pembrolizumab forrenal cell carcinoma. CBC done 01/13 stable. Reviewed with provider, okay to precede from our standpoint. Pt made aware. documented in this encounter Plan of Treatment Upcoming Encounters Date Type Department Care Team (Late st Contact Info) Description 02/04/2024 10:00 AM EDT Scheduled View Only Hematology/Oncology at [address] [phone] Dana Davis RN 02/04/2024 10:00 AM EDT Infusion Hematology Oncology at [address] [phone] 02/24/2024 9:30 AM EDT Office Visit Hematology/Oncology at [address] [phone] Francisca Quinonez APRN [facility] [place] [address] 02/24/2024 10:30 AM EDT Infusion Hematology Oncology at [address] [phone] 03/17/2024 10:00 AM EDT Infusion Hematology Oncology at [address] [phone] 04/07/2024 9:30 AM EDT Office Visit Hematology/Oncology at [address] [phone] Gian Lisa MD [facility] DR HEMATOLOGY/[place] [address] Francisca Quinonez APRN [facility] [place]ICAL [place] [address] 04/07/2024 10:00 AM EDT Infusion Hematology Oncology at [address] [phone] Scheduled Procedures Name Priority Associated Diagnoses Date/Ti me EGD, UPPER GI ENDOSCOPY (WRVU 2.09) Dyspepsia COLONOSCOPY, DIAGNOSTIC (WRVU 3.26) Dyspepsia documented as of this encounter Visit Diagnoses Not on filedocumented in this encounter Care Teams Employee Welfare Manager Relationship Specialty Start Date End Date Celso Dukes MD [address] [place] [address] PCP - General 02/24/15 documented as of this encounter
--- OUTSIDE RECORDS SUMMARY | 2024-02-04 01:31 | XMS_ITS | Encounter Summary ---
Author Organization Formerly [facility], [facility]–1983 Address [facility] [place] [address] Care Team Providers Care Podiatric Medicine Professor Name Role Phone Celso Dukes MD Primary Care Provider [phone] Encounter Details Date Type Department Care Team (Late st Contact Info) Description 02/04/2024 10:00 AM EDT Infusion Hematology Oncology at [address] [phone] Social History Tobacco Use Types Packs/Day Years Used Date Smoking Tobacco: Former Cigarettes 0.5 15 0 09/17/2008 - 09/18/2023 Smokeless Tobacco: Former Chew Quit: 09/18/2023 Comments:Using Zyn pouches r eported 10/25/23 Alcohol Use Standard Drinks/Week Comments Yes 6 (1 standard drink = 0.6 oz pur e alcohol) [facility] Utilities Answer Date Recorded In [...] in a correction (including now)? No 10/25/2023 DH IPV Inpatient [...] AM EDT Scheduled View Only Hematology/Oncology at [address] [phone] Dana Davis RN 02/24/2024 9:30 AM EDT Office Visit Hematology/Oncology at [address] [phone] Francisca Quinonez APRN [facility] [place] [address] 02/24/2024 10:30 AM EDT Infusion Hematology Oncology at [address] [phone] 03/17/2024 10:00 AM EDT Infusion Hematology Oncology at [address] [phone] 04/07/2024 9:30 AM EDT Office Visit Hematology/Oncology at [address] [phone] Gian Lisa MD [facility] DR HEMATOLOGY/[place] [address] Francisca Quinonez APRN [facility] [place] [address] 04/07/2024 10:00 AM EDT Infusion Hematology Oncology at [address] [phone] Scheduled Procedures Name Priority Associated Diagnoses Date/Ti me EGD, UPPER GI ENDOSCOPY (WRVU 2.09) Dyspepsia COLONOSCOPY, DIAGNOSTIC (WRVU 3.26) Dyspepsia documented as of this encounter Visit Diagnoses Not on filedocumented in this encounter Care Teams Podiatric Medicine Professor Relationship Specialty Start Date End Date Celso Dukes MD [address] [place] [address] PCP - General 02/24/15 documented as of this encounter
--- OUTSIDE RECORDS SUMMARY | 2024-02-04 01:31 | XMS_ITS | Encounter Summary ---
Author Organization Pending Sale To [facility] Address [facility] [place] [address] Care Team Providers Care Sap Ppm Consultant Name Role Phone Celso Dukes MD Primary Care Provider Reason for Visit * Reason Comments Chemotherapy Cycle 4, Day 1 - Pem brolizumab * Treatment/Therapy Plan Authorization (Routine) - Authorized Specialty Diagnoses / Procedures Referred By Contac t Referred To Contact Diagnoses Renal cell carcinoma, left Gian Lisa MD [facility] DR HEMATOLOGY/[place] [address] St Hem Onc Office [address] [place] [phone] Referral ID Status Reason Start Date Expiration Date V isits Requested Visits Authorized [id number] Authorized 10/25/2023 10/24/2024 99 18 Encounter Details Date Type Department Care Team (Late st Contact Info) Description 01/14/2024 3:00 PM EDT Infusion Hematology Oncology at [address] [phone] Renal cell carcinoma, left Social History Tobacco Use Types Packs/Day Years Used Date Smoking Tobacco: Former Cigarettes 0.5 15 0 09/17/2008 - 09/18/2023 Smokeless Tobacco: Former Chew Quit: 09/18/2023 Comments:Using Zyn pouches r eported 10/25/23 Alcohol Use Standard Drinks/Week Comments Yes 6 (1 standard drink = 0.6 oz pur e alcohol) [facility] Utilities Answer Date Recorded In the past 12 months has [employer], gas, oil, or water company threatened to [...] as of this encounter Progress Notes * Sandra Garduno RN - 01/14/2024 3:00 PM EDT INFUSION THERAPY ADMINISTRATION NOTES DIAGNOSIS: Renal cell carcinoma CYCLE #: Cycle 4, Day 1 - Pembrolizumab REASON FOR VISIT: To receive immunotherapy. SUBJECTIVE: Rosalino has light red raised rash on his arms. He does report some pruritus. OBJECTIVE: VSS. Seen by provider. Will treat. LAB DATA: WBC - 7.8 H/H - 14.9/44.8, Plt Ct - 224, ANC - 3.89, Lytes - wnl, BUN/Cr - 15/1.2, TSH/Free T4 - 0.18/1.19 IV ACCESS: PIV. Blood draw for research. Pre administration: Chemotherapy orders independently verified for drug name, route, and dosage per patient's height, weight and BSA by Sandra Garduno, [place] and Staff Pharmacist(s). REACTIONS (DESCRIPTION, TIME, INTERVENTION AND EFFECTIVENESS) none ASSESSMENT: Rosalino was awake, alert and tolerated treatment well. PIV discontinued prior to dismissal. PLAN: Return to clinic in three weeks. documented in this encounter Plan of Treatment Upcoming Encounters Date Type Department Care Team (Late st Contact Info) Description 02/04/2024 10:00 AM EDT Scheduled View Only Hematology/Oncology at [address] [phone] Dana Davis RN 02/04/2024 10:00 AM EDT Infusion Hematology Oncology at [address] [phone] 02/24/2024 9:30 AM EDT Office Visit Hematology/Oncology at [address] [phone] Francisca Quinonez APRN [facility] [place] [address] 02/24/2024 10:30 AM EDT Infusion Hematology Oncology at [address] [phone] 03/17/2024 10:00 AM EDT Infusion Hematology Oncology at [address] [phone] 04/07/2024 9:30 AM EDT Office Visit Hematology/Oncology at [address] [phone] Gian Lisa MD [facility] DR HEMATOLOGY/[place] [address] Francisca Quinonez APRN [facility] [place] [address] 04/07/2024 10:00 AM EDT Infusion Hematology Oncology at [address] [phone] Scheduled Procedures Name Priority Associated Diagnoses Date/Ti me EGD, UPPER GI ENDOSCOPY (WRVU 2.09) Dyspepsia COLONOSCOPY, DIAGNOSTIC (WRVU 3.26) Dyspepsia documented as of this encounter Visit Diagnoses Diagnosis Renal cell carcinoma, left documented in this encounter Administered Medications Inactive Administered Medications - up to 3 most recent administrations Medication Order MAR Action Action Date Dose Rate Site pembrolizumab (Keytruda) 200 mg in sodium chloride 0.9% 108 mL infusion 200 mg, Intravenous, ONCE, 1 dose, On Sat01/14/24 at 1645, Administer over 30 Minutes, Flush Line with NS after each dose, This agent is restricted to outpatient use. Is this drug being given as an outpatient? Yes New Bag 01/14/2024 3:48 PM EDT 200 mg 216 mL/hr documented in this encounter Care Teams Sap Ppm Consultant Relationship Specialty Start Date End Date Celso Dukes MD [address] [place] [address] PCP - General 02/24/15 documented as of this encounter
--- OUTSIDE RECORDS SUMMARY | 2024-02-04 01:31 | XMS_ITS | Encounter Summary ---
Author Organization [facility] Address [facility] [place] [address] Care Team Providers Care Ammunition Specialist Name Role Phone Celso Dukes MD Primary Care Provider Encounter Details Date Type Department Care Team (Late st Contact Info) Description 01/07/2024 Interpretation [place] [phone] Gian Lisa MD [facility] DR HEMATOLOGY/[place] [address] Social History Tobacco Use Types Packs/Day Years Used Date Smoking Tobacco: Former Cigarettes 0.5 15 0 09/17/2008 - 09/18/2023 Smokeless Tobacco: Former Chew Quit: 09/18/2023 Comments:Using Zyn pouches r eported 10/25/23 Alcohol Use Standard Drinks/Week Comments Yes 6 (1 standard drink = 0.6 oz pur e alcohol) [facility] Utilities Answer Date Recorded In the past 12 months has [employer], gas, oil, or water [employer] threatened to shut off services in your [...] AM EDT Scheduled View Only Hematology/Oncology at [address] [phone] Dana Davis RN 02/04/2024 10:00 AM EDT Infusion Hematology Oncology at [address] [phone] 02/24/2024 9:30 AM EDT Office Visit Hematology/Oncology at [address] [phone] Francisca Quinonez APRN [facility] [place] [address] 02/24/2024 10:30 AM EDT Infusion Hematology Oncology at [address] [phone] 03/17/2024 10:00 AM EDT Infusion Hematology Oncology at [address] [phone] 04/07/2024 9:30 AM EDT Office Visit Hematology/Oncology at [address] [phone] Gian Lisa MD [facility] HEMATOLOGY/[place] [address] Francisca Quinonez APRN [facility] [place] [address] 04/07/2024 10:00 AM EDT Infusion Hematology Oncology at [address] [phone] Scheduled Procedures Name Priority Associated Diagnoses Date/Ti [...] Lisa MD IMG FILM LIBRARY ORD ERABLES [place], [place] documented in this encounter Visit Diagnoses Not on filedocumented in this encounter Care Teams Ammunition Specialist Relationship Specialty Start Date End Date Celso Dukes MD [address] [place] [address] PCP - General 02/24/15 documented as of this encounter
--- OUTSIDE RECORDS SUMMARY | 2024-02-04 01:31 | XMS_ITS | Encounter Summary ---
Author Organization [facility] Address [facility] [place] [address] Care Team Providers Care Commissary Worker Name Role Phone Celso Dukes MD Primary Care Provider Encounter Details Date Type Department Care Team (Late st Contact Info) Description 12/26/2023 Telephone Hematology and Oncology at [facility] [place] [phone] TherDenice chapa Social History Tobacco Use Types Packs/Day Years Used Date Smoking Tobacco: Former Cigarettes 0.5 15 0 09/17/2008 - 09/18/2023 Smokeless Tobacco: Former Chew Quit: 09/18/2023 Comments:Using Z[employer] pouches r eported 10/25/23 Alcohol Use Standard Drinks/Week Comments Yes 6 (1 standard drink = 0.6 oz pur e alcohol) [facility] Utilities Answer Date Recorded In the past [...] place to sleep or slept in a long term (including now)? No 10/25/2023 DH IPV Inpatient [...] encounter Miscellaneous Notes * Telephone Encounter - Denice Pradhan - 12/26/2023 2:21 PM EDT Procedure Prior Authorization Procedure/Cpt: 64735 Ct Chest, [address], [address] MRI ab/pel C+/C- Rationale: C64.2 Health Plan: [facility] Authorizing Vendor: [employer] Service Order/ Effective Date: 12/26/2023 - 02/23/2024 Status: Approved Rendering Facility: [facility] documented in this encounter Plan of Treatment Upcoming Encounters Date Type Department Care Team (Late st Contact Info) Description 02/04/2024 10:00 AM EDT Scheduled View Only Hematology/Oncology at [address] [phone] Dana Davis RN 02/04/2024 10:00 AM EDT Infusion Hematology Oncology at [address] [phone] 02/24/2024 9:30 AM EDT Office Visit Hematology/Oncology at [address] [phone] Francisca Quinonez APRN [facility] [place] [address] 02/24/2024 10:30 AM EDT Infusion Hematology Oncology at [address] [phone] 03/17/2024 10:00 AM EDT Infusion Hematology Oncology at [address] [phone] 04/07/2024 9:30 AM EDT Office Visit Hematology/Oncology at [address] [phone] Gian Lisa MD [facility] DR HEMATOLOGY/[place] [address] Francisca Quinonez APRN [facility] [place] [address] 04/07/2024 10:00 AM EDT Infusion Hematology Oncology at [address] [phone] Scheduled Procedures Name Priority Associated Diagnoses Date/Ti me EGD, UPPER GI ENDOSCOPY (WRVU 2.09) Dyspepsia COLONOSCOPY, DIAGNOSTIC (WRVU 3.26) Dyspepsia documented as of this encounter Visit Diagnoses Not on filedocumented in this encounter Care Teams Commissary Worker Relationship Specialty Start Date End Date Celso Dukes MD [address] [place] [address] PCP - General 02/24/15 documented as of this encounter
--- OUTSIDE RECORDS SUMMARY | 2024-02-04 01:32 | XMS_ITS | Encounter Summary ---
Author Organization Formerly [facility] [place] [address] Care Team Providers Care Material Processor Name Role Phone Celso Dukes MD Primary Care Provider [phone] Encounter Details Date Type Department Care Team (Late st Contact Info) Description 10/22/2023 Patient Outreach Hematology and Oncology at [facility] [place] [address] Ramone Ferrari, RN Social History Tobacco Use Types Packs/Day Years Used Date Smoking Tobacco: Every Day Cigarettes 0.5 15 Smokeless Tobacco: Current Chew Alcohol Use Standard Drinks/Week Comments Yes 6 (1 standard drink = 0.6 oz pur e alcohol) [facility] Inpatient Questions Answer Date Recorded Does Anyone [...] as of this encounter Progress Notes * Ramone Ferrari, RN - 10/22/2023 12:59 PM EDT [facility] Oncology Nurse Navigation Patient Outreach Attempt made to call Rosalino Honeycutt, 53 y[address] Dr[address] Lali Mlalory for [id number] Clear cell cancer sp nephrectomy. Discuss adjuvant therapy to assess for Oncology Nurse Navigation services. No answer at this time; will re-attempt at a later date. Upcoming appt: 10/25/2023 11:00 AM (Arrive by 10:45 AM) Gian Lisa MD Hematology and Oncology at [facility] Arrive at: Window [employer] [facility] [address] [facility] Ramone Ferrari, MSN, RN, CN Oncology Nurse Navigator documented in this encounter Plan of Treatment Upcoming Encounters Date Type Department Care Team (Late st Contact Info) Description 02/04/2024 10:00 AM EDT Scheduled View Only Hematology/Oncology at [address] [phone] Dana Davis RN 02/04/2024 10:00 AM EDT Infusion Hematology Oncology at [address] [phone] 02/24/2024 9:30 AM EDT Office Visit Hematology/Oncology at [address] [phone] Francisca Quinonez APRN [facility] [place] [address] 02/24/2024 10:30 AM EDT Infusion Hematology Oncology at [address] [phone] 03/17/2024 10:00 AM EDT Infusion Hematology Oncology at [address] [phone] 04/07/2024 9:30 AM EDT Office Visit Hematology/Oncology at [address] [phone] Gian Lisa MD [facility] HEMATOLOGY/[place] [address] Francisca Quinonez APRN [facility] [place] [address] 04/07/2024 10:00 AM EDT Infusion Hematology Oncology at [address] [phone] Scheduled Procedures Name Priority Associated Diagnoses Date/Ti me EGD, UPPER GI ENDOSCOPY (WRVU 2.09) Dyspepsia COLONOSCOPY, DIAGNOSTIC (WRVU 3.26) Dyspepsia documented as of this encounter Visit Diagnoses Not on filedocumented in this encounter Care Teams Material Processor Relationship Specialty Start Date End Date Celso Dukes MD [address] [place] [address] PCP - General 02/24/15 documented as of this encounter
--- OUTSIDE RECORDS SUMMARY | 2024-02-04 01:32 | XMS_ITS | Encounter Summary ---
Author Organization [facility] Address [facility] [place] [address] Care Team Providers Care Senior Materials Analyst Name Role Phone Celso Dukes MD Primary Care Provider Encounter Details Date Type Department Care Team (Latest Contact Info) Description 10/25/2023 Travel Social History Tobacco Use Types Packs/Day Years Used Date Smoking Tobacco: Former Cigarettes 0.5 15 0 09/17/2008 - 09/18/2023 Smokeless Tobacco: Former Chew Quit: 09/18/2023 Comments:Using Zyn pouches r eported 10/25/23 Alcohol Use Standard Drinks/Week Comments Yes 6 (1 standard drink = 0.6 oz pur e alcohol) [facility] Utilities Answer Date Recorded In [...] place to sleep or slept in a retirement (including now)? No 10/25/2023 DH IPV Inpatient [...] AM EDT Scheduled View Only Hematology/Oncology at [address] [phone] Dana Davis RN 02/04/2024 10:00 AM EDT Infusion Hematology Oncology at [address] [phone] 02/24/2024 9:30 AM EDT Office Visit Hematology/Oncology at [address] [phone] Francisca Quinonez, HEBER [facility] [place] [address] 02/24/2024 10:30 AM EDT Infusion Hematology Oncology at [address] [phone] 03/17/2024 10:00 AM EDT Infusion Hematology Oncology at [address] [address] 04/07/2024 9:30 AM EDT Office Visit Hematology/Oncology at [address] [phone] Gian Lisa MD [facility] [place] HEMATOLOGY/[place] [address] Francisca Quinonez APRN [facility] [place] [address] 04/07/2024 10:00 AM EDT Infusion Hematology Oncology at [address] [phone] Scheduled Procedures Name Priority Associated Diagnoses Date/Ti me EGD, UPPER GI ENDOSCOPY (WRVU 2.09) Dyspepsia COLONOSCOPY, DIAGNOSTIC (WRVU 3.26) Dyspepsia documented as of this encounter Visit Diagnoses Not on filedocumented in this encounter Care Teams Senior Materials Analyst Relationship Specialty Start Date End Date Celso Dkues MD [address] [place] [address] PCP - General 02/24/15 documented as of this encounter
--- OUTSIDE RECORDS SUMMARY | 2024-02-04 01:32 | XMS_ITS | Encounter Summary ---
Author Organization [facility] Address [facility] [place] [address] Care Team Providers Care Upholstery Covers Inspector Name Role Phone Celso Dukes MD Primary Care Provider [phone] Encounter Details Date Type Department Care Team (Late st Contact Info) Description 12/03/2023 2:00 PM EDT Office Visit Hematology/Oncology at [address] [phone] Gian Lisa MD [facility] DR HEMATOLOGY/[place] [address] Francisca Quinonez APRN [facility] [place] [place] [address] Renal cell carcinoma, left; Rash; Arthralgia, unspecified joint Social History Tobacco Use Types Packs/Day Years Used Date Smoking Tobacco: Former Cigarettes 0.5 15 0 09/17/2008 - 09/18/2023 Smokeless Tobacco: Former Chew Quit: 09/18/2023 Comments:Using Zyn pouches r eported 10/25/23 Alcohol Use Standard Drinks/Week Comments Yes 6 (1 standard drink = 0.6 oz pur e alcohol) [facility] Utilities Answer Date Recorded In [...] Sign Reading Time Taken Comments Blood Pressure 135/84 12/03/2023 2:03 PM EDT Pulse 95 12/03/2023 2:03 PM EDT Temperature 36.6 ??C (97.8 ??F) 12/03/2023 2:03 PM ED T Respiratory Rate 18 12/03/2023 2:03 PM EDT Oxygen Saturation 98% 12/03/2023 2:03 PM EDT Inhaled Oxygen Concentration - - Weight 125 kg (275 lb 9.6 oz) 12/03/2023 2:03 PM EDT Height 173.7 cm (5' 8.39) 12/03/2023 2:03 PM ED T Body Mass Index 41.43 12/03/2023 2:03 PM EDT documented in this encounter Progress Notes * Francisca Quinonez, HELP DESK INTERN - 12/03/2023 2:00 PM EDT Images from the original note were not included. Diagnosis:[id number] Grade 4 clear cell renal cancer HPI:Rosalino Honeycutt is 53 y.o.M referred by Dr. Mallory for consultation on renal cell carcinoma. He initially presented in July [address] scan and MRI demonstrated left kidney mass. Rosalino underwent left Laparoscopic Radical Nephrectomy on September 18, 2023 for a [id number] G4 Clear cell cancer.. All surgical margins were negative. Postop course was uneventful. Today he feels well. Interval history 11/12/23: Rosalino is here today for pembrolizumab C2. Tolerating treatment well. Has mild arthralgias secondary to treatment, improved with activity. Has scattered skin changes possibly secondary to treatment, no rash. Very mild BLE ankle swelling which resolves with putting his feet up. No pain anywhere. Had loose stools x 1 day that resolved. No bladder problems. No fever, chills, or signs of infection. No cough, SOB, or chest pain. The remainder of his review of systems reviewedand is negative. PMH: Hypertension, sleep apnea, GERD hip replacement, elbow surgery, Social History: [id number] smoking history, quit on September 17. Used to drink 2-3 times a week. Currently he does not drink. Lives at home with his .The patient works as an [employer] for [employer]. Family History: Mother had ovarian cancer maternal grandmother had throat cancer Allergies: Allergies Allergen Reactions 2-Octyl Cyanoacrylate Rash AKA [place]-cheng skin glu Medications: Your Medications Accurate as of December 03, 2023 2:40 PM. If you have any questions, ask your nurse or doctor. Continued medications, unchanged Dose Details acetaminophen 325 mg tablet Commonly known as: Tylenol Take 3 tablets by mouth every 6 hours. 975 mg Refills: 0 amLODIPine 10 mg tablet Commonly known as: Norvasc Take 5 mg by mouth daily. 5 mg Refills: 0 cephALEXin 500 mg capsule Commonly known as: Keflex Take 1 capsule by mouth 4 times daily. 500 mg Quantity: 21 capsule Refills: 0 ferrous gluconate 324 mg (37.5 mg iron) tablet Commonly known as: Ferate Take 324 mg by mouth daily. 324 mg Refills: 0 metoprolol succinate XL 25 mg ER 24 hr tablet Commonly known as: Toprol-XL Take 50 mg by mouth daily. 50 mg Refills: [address] capsule Commonly known as: PriLOSEC Take 20 mg by mouth daily. 20 mg Refills: 0 oxyCODONE 5 mg tablet Commonly known as: Roxicodone Take 1 tablet by mouth every 6 hours as needed for Pain. 5 mg Quantity: 10 tablet Refills: 0 Review of Systems: As in interval history PE: Constitutional: NAD HEENT: nonicteric Neck: no lymphadenopathy Lungs: CTA Cardiac: RRR Abdomen: soft, nondistended, nontender. I cannot feel his liver or spleen Extremities: very mild BLE ankle swelling Skin: scattered benign skin changes, possibly secondary to treatment. R. Ankle with very small areaof macular papular rash. BP 135/84 (Patient Position: Sitting) Pulse 95 Temp 36.6 ??C (97.8 ??F) (Temporal) Resp 18 Ht 173.7 cm (5' 8.39) Wt 125 kg (275 lb 9.6 oz) SpO2 98% BMI 41.43 kg/m?? Pathology: DIAGNOSIS Left kidney (radical nephrectomy): 1. Renal cell carcinoma, clear cell type, extending into perinephric adipose tissue (see Synoptic Report). 2. Adrenal gland, no evidence of malignancy. 3. Five lymph nodes, no evidence of malignancy (0/5). CR-0 Electronically signed by: Tung LANE, Gary Mariano Verified: 09/26/2023 13:11 Pathologist Performed at: -[facility] Dept. of Pathology, [place] [address] Tubing Machine Tender: Mookie Mandujano MD, FCAP, [place] Certificate: [id number] SYNOPTIC Specimen Procedure: Radical nephrectomy Specimen Laterality: [...] A18 CAP eCC 2021 Q1 Release Labs: 12/03/23: WBC 8.41, Hgb 14.5, PLT 244, ANC 4.63. NA 142, K 4.3, Cl 106, BUN 19, Cr 1.3, Ca 8.9, t prot 7.9, Alb 3.6, Tbili 0.5 AST 20, ALT 43, Alk phos 98 Component Latest Ref Rng 10/25/2023 WBC 4.0 - 9.5 x10(3)/mcL 9.9 (H) RBC 4.58 - 5.54 x10(6)/mcL 5.38 Hemoglobin 13.7 - 16.5 g/dL 15.6 Hematocrit 40.5 - 48.5 % 45.5 MCV 82.9 - 93.1 fL 84.6 MCH 27.5 - 32.1 pg 29.0 MCHC 32.0 - 35.7 g/dL 34.3 Platelets 145 - 357 x10(3)/mcL 216 RDWSD 36.0 - 45.0 fL 40.8 RDWCV 11.4 - 13.8 % 13.2 MPV 7.6 - 12.9 fL 10.0 nRBC % Auto % 0.0 nRBC Abs Auto 0.000 - 0.000 x10(3)/mcL 0.000 Legend: (H) High Component Latest Ref Rng 10/25/2023 Neutrophils % % 60.0 Neutr Abs (ANC) 1.70 - 6.10 x10(3)/mcL 5.96 Lymphocytes % % 28.6 Lymphocytes Abs 0.9 - 3.2 x10(3)/mcL 2.8 Monocytes % % 8.0 Monocyte Abs 0.3 - 0.9 x10(3)/mcL 0.8 Eosinophils % % 2.4 Eosinophils Abs 0.0 - 0.4 x10(3)/mcL 0.2 Basophils % % 0.8 Basophils Abs 0.0 - 0.1 x10(3)/mcL 0.1 Immature Gran % % 0.20 Valerie Gran Abs 0.00 - 0.04 x10(3)/mcL 0.02 Component Latest Ref Rn 10/25/2023 Glucose Lvl 65 - 199 mg/dL 132 BUN 10 - 20 mg/dL 15 Creatinine 0.80 - 1.50 mg/dL 1.09 Sodium 135 - 145 mmol/L 138 Potassium 3.5 - 5.0 mmol/L 4.2 Chloride 98 - 107 mmol/L 101 CO2 22 - 31 mmol/L 25 Anion Gap 5 - 15 mmol/L 12 Calcium 8.5 - 10.5 mg/dL 9.5 Total Protein 6.1 - 8.0 g/dL 7.9 Albumin 3.2 - 5.2 g/dL 4.2 AST 0 - 39 unit/L 19 ALT 0 - 55 unit/L 36 Alk Phos 40 - 130 unit/L 98 Total Bilirubin 0.2 - 1.3 mg/dL 0.5 Estimated GFR >=60 mL/min/1.73 m?? 82 Component Latest Ref Rn 10/25/2023 Free T4 0.93 - 1.70 ng/dL 1.33 Component Latest Ref Rn 10/25/2023 TSH 0.27 - 4.20 mcIU/mL 1.62 Imagin09/13/2023 CT chest: IMPRESSION No evidence for intrathoracic metastasis 09/02/2023 abdominal MRI with and without contrast Assessment and Plan: Diagnosis:L [id number] G4 cell carcinoma, clear cell ctype Treatment: [...] We discussed data of adjuvant sunitinib in [facility] . In the study, adjuvant [...] [employer] a [employer] of [employer]; KEYNOTE-[id number] We discussed benefits and the risk of pembrolizumab. Diagnosis include but not limited to fatigue, skin rash, immune mediated thyroiditis, hepatitis, immune mediated pneumonitis, immune mediated colitis, hypo or hyperthyroidism. All questions were answered to patient's satisfaction. He would like to proceed with adjuvant pembrolizumab. Informed verbal consent was obtained. He would like to be treated and sent [facility]. Will make arrangements. 11/12/23 Here today for chemo teach and [...] scattered rash on his legs which resolved. #Arthralgias: likely secondary to treatment, exercise helps. If worsen he will call and we discussed we can start low dose prednisone. If severe can start higher doses of prednisone as well #Rash: very mild, scattered on LE and resolving. Likely treatment related. Continue to monitor. Plan F/u in 3 weeks for OV, labs prior and continued treatment with adjuvant pembrolizumab. Rosalino is accompanied by his today. All questions were answered to patient's satisfaction. Francisca Quinonez APRN 30 minutes were spent on date of visit, including non-face to face time. documented in this encounter Plan of Treatment Upcoming Encounters Date Type Department Care Team (Late st Contact Info) Description 02/04/2024 10:00 AM EDT Scheduled View Only Hematology/Oncology at [address] [phone] Dana Davis RN 02/04/2024 10:00 AM EDT Infusion Hematology Oncology at [address] [phone] 02/24/2024 9:30 AM EDT Office Visit Hematology/Oncology at [address] [phone] Francisca Quinonez APRN [facility] [place] [address] 02/24/2024 10:30 AM EDT Infusion Hematology Oncology at [address] [phone] 03/17/2024 10:00 AM EDT Infusion Hematology Oncology at [address] [phone] 04/07/2024 9:30 AM EDT Office Visit Hematology/Oncology at [address] [phone] Gian Lisa MD [facility] [place]ATOLOGY/[place] [address] Francisca Quinonez APRN [facility] [place] [address] 04/07/2024 10:00 AM EDT Infusion Hematology Oncology at [address] [phone] Scheduled Procedures Name Priority Associated Diagnoses Date/Ti me EGD, UPPER GI ENDOSCOPY (WRVU 2.09) Dyspepsia COLONOSCOPY, DIAGNOSTIC (WRVU 3.26) Dyspepsia documented as of this encounter Visit Diagnoses Diagnosis Renal cell carcinoma, left Rash Rash and other nonspecific skin eruption Arthralgia, unspecified joint documented in this encounter Care Teams Upholstery Covers Inspector Relationship Specialty Start Date End Date Celso Dukes MD [address] [place] [address] PCP - General 02/24/15 documented as of this encounter
--- OUTSIDE RECORDS SUMMARY | 2024-02-04 01:32 | XMS_ITS | Encounter Summary ---
Author Organization [facility] [place] [address] Care Team Providers Care Welding Machine Operator Name Role Phone Celso Dukes MD Primary Care Provider Encounter Details Date Type Department Care Team (Late st Contact Info) Description 11/12/2023 Notes Only Clinical Research [facility] [place] [phone] Domingo Napoles Social History Tobacco Use Types Packs/Day Years Used Date Smoking Tobacco: Former Cigarettes 0.5 15 0 09/17/2008 - 09/18/2023 Smokeless Tobacco: Former Chew Quit: 09/18/2023 Comments:Using Zyn pouches r eported 10/25/23 Alcohol Use Standard Drinks/Week Comments Yes 6 (1 standard drink = 0.6 oz pur e alcohol) [facility] Utilities Answer Date Recorded In the [...] place to sleep or slept in a group home (including now)? No 10/25/2023 DH IPV Inpatient [...] as of this encounter Progress Notes * Dony Domingo Lazo - 11/12/2023 3:24 [facility]is[facility]arminder: [id number] Informed Consent Rosalino Honeycutt was offered the opportunity to participate in a study that involves additional blood collection, [id number], ???Immune profiling for cancer immunotherapy response.?? The study investigates how the profiles of the immune cells before and after treatment with immunotherapeutic medications used for cancer treatment might impact the response to the treatment. The study was reviewed with Rosalino Honeycutt, including the purpose, potential risks and benefits, voluntary nature of participation, requirements of participation including the amount of blood that will be drawn, the potential future use of this sample and how private health information will be protected. The patient was given adequate time to review the consent form and all questions and concerns were answered. Rosalino Honeycutt has agreed to participate in the study. The consent form was signedand dated by the patient and Dana Davis. Written informed consent was obtained prior to any study procedures being conducted. A copy of the signed consented form was given to the patient. The original consent form will be sent via inter-office mail to RENATO Jackson. documented in this encounter Plan of Treatment Upcoming Encounters Date Type Department Care Team (Late st Contact Info) Description 02/04/2024 10:00 AM EDT Scheduled View Only Hematology/Oncology at [address] [phone] Dana Davis RN 02/04/2024 10:00 AM EDT Infusion Hematology Oncology at [address] [phone] 02/24/2024 9:30 AM EDT Office Visit Hematology/Oncology at [address] [phone] Francisca Quinonez APRN [facility] [place] [address] 02/24/2024 10:30 AM EDT Infusion Hematology Oncology at [address] [phone] 03/17/2024 10:00 AM EDT Infusion Hematology Oncology at [address] [phone] 04/07/2024 9:30 AM EDT Office Visit Hematology/Oncology at [address] [phone] Gian Lisa MD [facility] HEMATOLOGY/[place] [address] Francisca Quinonez APRN [facility] [place] [address] 04/07/2024 10:00 AM EDT Infusion Hematology Oncology at [address] [phone] Scheduled Procedures Name Priority Associated Diagnoses Date/Ti me EGD, UPPER GI ENDOSCOPY (WRVU 2.09) Dyspepsia COLONOSCOPY, DIAGNOSTIC (WRVU 3.26) Dyspepsia documented as of this encounter Visit Diagnoses Not on filedocumented in this encounter Care Teams Welding Machine Operator Relationship Specialty Start Date End Date Celso Dukes MD [address] [place] [address] PCP - General 02/24/15 documented as of this encounter
--- OUTSIDE RECORDS SUMMARY | 2024-02-04 01:32 | XMS_ITS | Encounter Summary ---
Author Organization [facility] [place] [address] Care Team Providers Care Structural Welder Name Role Phone Celso Dukes MD Primary Care Provider Encounter Details Date Type Department Care Team (Late st Contact Info) Description 09/29/2023 [place] [phone] Martita James MD [facility] [place] [address] Social History Tobacco Use Types Packs/Day Years Used Date Smoking Tobacco: Every Day Cigarettes 0.5 15 Smokeless Tobacco: Current Chew Alcohol Use Standard Drinks/Week Comments Yes 6 (1 standard drink = 0.6 oz pur e alcohol) IPV Inpatient Questions Answer Date Recorded Does [...] encounter Miscellaneous Notes * Telephone Encounter - Martita James MD - 09/29/2023 7:19 AM EDT Images from the original note were not included. Brief Telephone Note The patient is calling today due to drainage from incision. Just a portion of the largest incision posteriorly with a thin clear/yellow fluid. Just a little drainage. Incision doesn't appear to be open. He will ask his to upload a picture to his chart for review. Rash is improving - outlined with a marker and erythema is improving. Still sore and pain is stable. Denies fevers/chills, n/v, orissues voiding or PO intake, and constipation. Reviewed images and provided reassurance. Continue to monitor. We discussed that the patient shouldcall or go to the ED if he experiences new/worsening symptoms. The patient expressed his understanding and agrees with this plan. Martita James MD Urology PGY-4 09/29/2023 documented in this encounter Plan of Treatment Upcoming Encounters Date Type Department Care Team (Late st Contact Info) Description 02/04/2024 10:00 AM EDT Scheduled View Only Hematology/Oncology at [address] [phone] Dana Davis RN 02/04/2024 10:00 AM EDT Infusion Hematology Oncology at [address] [phone] 02/24/2024 9:30 AM EDT Office Visit Hematology/Oncology at [address] [phone] Francisca Quinonez APRN [facility] [place] [address] 02/24/2024 10:30 AM EDT Infusion Hematology Oncology at [address] [phone] 03/17/2024 10:00 AM EDT Infusion Hematology Oncology at [address] [phone] 04/07/2024 9:30 AM EDT Office Visit Hematology/Oncology at [address] [phone] Gian Lisa MD [facility] HEMATOLOGY/[place] [address] Francisca Quinonez APRN [facility] [place] [address] 04/07/2024 10:00 AM EDT Infusion Hematology Oncology at [address] [phone] Scheduled Procedures Name Priority Associated Diagnoses Date/Ti me EGD, UPPER GI ENDOSCOPY (WRVU 2.09) Dyspepsia COLONOSCOPY, DIAGNOSTIC (WRVU 3.26) Dyspepsia documented as of this encounter Visit Diagnoses Not on filedocumented in this encounter Care Teams Structural Welder Relationship Specialty Start Date End Date Celso Dukes MD [address] [place] [address] PCP - General 02/24/15 documented as of this encounter
--- OUTSIDE RECORDS SUMMARY | 2024-02-04 01:32 | XMS_ITS | Encounter Summary ---
Author Organization [facility] Address [facility] [place] [address] Care Team Providers Care Tattoo Designer Name Role Phone Celso Dukes MD Primary Care Provider [phone] Reason for Visit * Reason Comments Chemotherapy Cycle 1, Day 1 - Pem brolizumab * Treatment/Therapy Plan Authorization (Routine) - Authorized Specialty Diagnoses / Procedures Referred By Contac t Referred To Contact Diagnoses Renal cell carcinoma, left Gian Lisa MD [facility] DR HEMATOLOGY/[place] [address] St Hem Onc Office [address] [place] [phone] Referral ID Status Reason Start Date Expiration Date V isits Requested Visits Authorized [id number] Authorized 10/25/2023 10/24/2024 99 18 Encounter Details Date Type Department Care Team (Late st Contact Info) Description 11/12/2023 3:00 PM EDT Infusion Hematology Oncology at [address] [phone] Renal cell carcinoma, left Social History Tobacco Use Types Packs/Day Years Used Date Smoking Tobacco: Former Cigarettes 0.5 15 0 09/17/2008 - 09/18/2023 Smokeless Tobacco: Former Chew Quit: 09/18/2023 Comments:Using Zyn pouches r eported 10/25/23 Alcohol Use Standard Drinks/Week Comments Yes 6 (1 standard drink = 0.6 oz pur e alcohol) [facility] Utilities Answer Date Recorded In the past 12 months has [employer], gas, oil, or water company threatened to [...] place to sleep or slept in a fpc (including now)? No 10/25/2023 DH IPV Inpatient [...] Progress Notes * Sandra Garduno RN - 11/12/2023 3:00 PM EDT INFUSION THERAPY ADMINISTRATION NOTES DIAGNOSIS: Renal cell carcinoma CYCLE #: Cycle 1, Day 1 - Pembrolizumab REASON FOR VISIT: To receive chemotherapy. SUBJECTIVE: Rosalino offers no complaints. He is accompanied by his Lazara. OBJECTIVE: VSS. Chemo teach with Anjali Quinonez APRN LAB DATA: 10/25/23 - WBC - 9.9, H/H - 15.6/45.5, Plt Ct - 216, ANC - 5.96, Lytes - wnl, BUN/Cr - 15/1.09, TSH/Free T4 - 1.62/1.33 IV ACCESS: PIV. Blood draw for research. Pre administration: Chemotherapy orders independently verified for drug name, route, and dosage per patient's height, weight and BSA by Sandra Garduno, [place] and Staff Pharmacist(s). REACTIONS (DESCRIPTION, TIME, INTERVENTION AND EFFECTIVENESS) none ASSESSMENT: Rosalino was awake, alert and tolerated treatment well. PIV discontinued prior to dismissal. Pt. chemo teaching by Anjali Quinonez APRN: These instructions were reinforced. During clinic hours (8am-5pm Saturday-Saturday): pt. can call [phone] with questions or concerns. After clinic hours (5pm-8am Saturday-Saturday and weekends) pt can call [phone] and ask for the dam operator/oncologist agricultural equipment salesperson. Rosalino Desai Yinka verbalized understanding of potential chemotherapy side effects and home care including but not limited to- handwashing to prevent infection, signs and symptoms of low blood counts (fever, fatigue, bleeding), to call with a fever of 100.4 or greater, any significant constipation/diarrhea, importance of nutrition and fluid intake (drinking at least 32-64 ounces of non-caffeinated beverages/day), mouth care. Rosalino Desai Yinka verbalized understanding of how to take prescription medications given for home use after chemotherapy. PLAN: Return to clinic in three weeks. documented in this encounter Plan of Treatment Upcoming Encounters Date Type Department Care Team (Late st Contact Info) Description 02/04/2024 10:00 AM EDT Scheduled View Only Hematology/Oncology at [address] [phone] Dana Davis RN 02/04/2024 10:00 AM EDT Infusion Hematology Oncology at [address] [phone] 02/24/2024 9:30 AM EDT Office Visit Hematology/Oncology at [address] [phone] Francisca Quinonez APRN [facility] [place] [address] 02/24/2024 10:30 AM EDT Infusion Hematology Oncology at [address] [phone] 03/17/2024 10:00 AM EDT Infusion Hematology Oncology at [address] [phone] 04/07/2024 9:30 AM EDT Office Visit Hematology/Oncology at [address] [phone] Gian Lisa MD [facility] HEMATOLOGY/[place] [address] Francisca Quinonez APRN [facility] [place] [address] 04/07/2024 10:00 AM EDT Infusion Hematology Oncology at [address] [phone] Scheduled Procedures Name Priority Associated Diagnoses Date/Ti [...] 200 mg, Intravenous, ONCE, 1 dose, On Sat11/12/23 at 1630, Administer over 30 Minutes, Flush Line with NS after each dose, This agent is restricted to outpatient use. Is this drug being given as an outpatient? Yes New Bag 11/12/2023 3:55 PM EDT 200 mg 216 mL/hr sodium chloride 0.9% infusion 100 mL/hr, Intravenous, CONTINUOUS, Starting on Sat11/12/23 at 1530, Until Sat11/12/23 at 1852 New Bag 11/12/2023 3:54 PM EDT 100 mL/hr 100 mL/hr documented in this encounter Care Teams Tattoo Designer Relationship Specialty Start Date End Date Celso Dukes MD [address] [place] [address] PCP - General 02/24/15 documented as of this encounter
--- OUTSIDE RECORDS SUMMARY | 2024-02-04 01:32 | XMS_ITS | Encounter Summary ---
Author Organization [facility] [place] [address] Care Team Providers Care Offset Printer Name Role Phone Celso Dukes MD Primary Care Provider [phone] Encounter Details Date Type Department Care Team (Late st Contact Info) Description 09/27/2023 Telephone Urology at [facility] [place] [phone] Magalis Moulton RN Social History Tobacco Use Types Packs/Day Years Used Date Smoking Tobacco: Every Day Cigarettes 0.5 15 Smokeless Tobacco: Current Chew Alcohol Use Standard Drinks/Week Comments Yes 6 (1 standard drink = 0.6 oz pur e alcohol) [facility] Inpatient Questions Answer Date Recorded Does Anyone [...] as of this encounter Progress Notes * Magalis Moulton RN - 09/27/2023 5:07 PM EDT Patient talked to Dr. James today, message and picture were sent to Dr. Mallory. documented in this encounter Miscellaneous Notes * Telephone Encounter - Magalis Moulton RN - 09/27/2023 5:07 PM EDT Copied from CRM #[id number]. Topic: Specialty Dept CRMs - Triage >> Sep 27, 2023 3:52 PM Alyse Templeton wrote: Triage Message Specialist: Urology Relationship (if other than patient-full name): Self Symptom: Rash around incision areas Has patient experienced symptom before No If patient has experienced symptom before, when was the last time this occurred Is patient currently having symptom Some When did symptom begin 3 days ago Additional Comments: Patient states that he called yesterday and sent a patient message about his symptoms, patient states he wanted the provider to know the symptoms have become better, no oozing, still red but not as bad and no fever. documented in this encounter Plan of Treatment Upcoming Encounters Date Type Department Care Team (Late st Contact Info) Description 02/04/2024 10:00 AM EDT Scheduled View Only Hematology/Oncology at [address] [phone] Dana Davis RN 02/04/2024 10:00 AM EDT Infusion Hematology Oncology at [address] [phone] 02/24/2024 9:30 AM EDT Office Visit Hematology/Oncology at [address] [phone] Francisca Quinonez APRN [facility] [place] [address] 02/24/2024 10:30 AM EDT Infusion Hematology Oncology at [address] [phone] 03/17/2024 10:00 AM EDT Infusion Hematology Oncology at [address] [phone] 04/07/2024 9:30 AM EDT Office Visit Hematology/Oncology at [address] [phone] Gian Lisa MD [facility] HEMATOLOGY/[place] [address] Francisca Quinonez APRN [facility] [place] [address] 04/07/2024 10:00 AM EDT Infusion Hematology Oncology at [address] [phone] Scheduled Procedures Name Priority Associated Diagnoses Date/Ti me EGD, UPPER GI ENDOSCOPY (WRVU 2.09) Dyspepsia COLONOSCOPY, DIAGNOSTIC (WRVU 3.26) Dyspepsia documented as of this encounter Visit Diagnoses Not on filedocumented in this encounter Care Teams Offset Printer Relationship Specialty Start Date End Date Celso Dukes MD [address] [place] [address] PCP - General 02/24/15 documented as of this encounter
--- OUTSIDE RECORDS SUMMARY | 2024-02-04 01:32 | XMS_ITS | Encounter Summary ---
Author Organization [facility] Address [facility] [place] [address] Care Team Providers Care Professional Builder Name Role Phone Celso Dukes MD Primary Care Provider [phone] Reason for Referral * Diagnostic Test (Routine) - New Request Specialty Diagnoses / Procedures Referred By Contac t Referred To Contact Radiology Diagnoses Renal cell carcinoma, left Procedures MRI Abdomen and Pelvis WWO Contrast Gian Prado MD [facility] DR HEMATOLOGY/[place] [address] Referral ID Status Reason Start Date Expiration Date Visits Requested Visits Authorized [id number] New Request Specialty Service Requested 12/24/2023 06/24/2025 1 1 * Diagnostic Test (Routine) - New Request Specialty Diagnoses / Procedures Referred By Contac t Referred To Contact Radiology Diagnoses Renal cell carcinoma, left Procedures CT Chest wo Contrast (Generic) Gian Prado MD [facility] DR HEMATOLOGY/[place] [address] Referral ID Status Reason Start Date Expiration Date Visits Requested Visits Authorized [id number] New Request Specialty Service Requested 12/24/2023 06/24/2025 1 1 Encounter Details Date Type Department Care Team (Late st Contact Info) Description 12/24/2023 10:00 AM EDT Office Visit Hematology/Oncology at [address] [phone] Gian Prado MD [facility] HEMATOLOGY/[place], [place] [phone] Renal cell carcinoma, left (Primary Dx) Social History Tobacco Use Types Packs/Day Years Used Date Smoking Tobacco: Former Cigarettes 0.5 15 0 09/17/2008 - 09/18/2023 Smokeless Tobacco: Former Chew Quit: 09/18/2023 Comments:Using Zyn pouches r eported 10/25/23 Alcohol Use Standard Drinks/Week Comments Yes 6 (1 standard drink = 0.6 oz pur e alcohol) [facility] Utilities Answer Date Recorded In [...] place to sleep or slept in a halfway (including now)? No 10/25/2023 DH IPV Inpatient Questions Answer Date Recorded Does Anyone Try to Keep You From Having Contact with Others or Doing Things Outside Your Home? no 09/18/2023 Feels Threatened by Someone no 030 12/2023 Feels Unsafe at Home or Work/School no 09/18/2023 Physical Signs of Abuse Present no 09/18/2023 Sex and Gender Information Value Date Recorded Sex Assigned at Not on file Gender Identity Not on file Sexual Orientation Not on file documented as of this encounter Last Filed Vital Signs Vital Sign Reading Time Taken Comments Blood Pressure 123/76 12/24/2023 10:36 AM EDT Pulse 59 12/24/2023 10:36 AM EDT Temperature 36.5 ??C (97.7 ??F) 12/24/2023 10:36 AM E DT Respiratory Rate 16 12/24/2023 10:36 AM EDT Oxygen Saturation 97% 12/24/2023 10:36 AM EDT Inhaled Oxygen Concentration - - Weight 125.6 kg (277 lb) 12/24/2023 10:36 AM EDT Height - - Body Mass Index 41.64 12/03/2023 2:03 PM EDT documented in this encounter Progress Notes * Gian Prado MD - 12/24/2023 10:00 AM EDT Images from the original note were not included. Diagnosis:[id number] Grade 4 clear cell renal cancer HPI:Rosalino Honeycutt is 53 y.o.M referred by Dr. Mallory for consultation on renal cell carcinoma. He initially presented in July [address] scan and MRI demonstrated left kidney mass. Rosalino underwent left Laparoscopic Radical Nephrectomy on September 18, 2023 for a [id number] G4 Clear cell cancer.. All surgical margins were negative. Postop course was uneventful. Today he feels well. Interval history 12/24/23: Rosalino is here today for pembrolizumab C3. Complaints on intermittent mild cough, itchy skin rash and mild arthralgias. Very mild BLE ankle swelling which resolves with putting his feet up. No pain anywhere. Denies diarrhea. No bladder problems. No fever, chills, or signs ofinfection. The remainder of his review of systems reviewed and is negative. PMH: No interval changes since last visit Hypertension, sleep apnea, GERD hip replacement, elbow surgery, Social History: 38-zunn-oiyh smoking history, quit on September 17. Used to drink 2-3 times a week. Currently he does not drink. 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 Family History: Mother had ovarian cancer maternal grandmother had throat cancer Allergies: Allergies Allergen Reactions 2-Octyl Cyanoacrylate Rash AKA [place]-cheng skin glu Medications: Your Medications Accurate as of December 24, 2023 10:51 AM. If you have any questions, ask your [...] very small areaof macular papular rash. BP 123/76 (Patient Position: Sitting) Pulse 59 Temp 36.5 ??C (97.7 ??F) (Temporal) Resp 16 Wt 125.6 kg (277 lb) SpO2 97% BMI 41.64 kg/m?? Pathology: DIAGNOSIS Left kidney (radical nephrectomy): 1. Renal cell carcinoma, clear cell type, extending into perinephric adipose tissue (see Synoptic Report). 2. Adrenal gland, no evidence of malignancy. 3. Five lymph nodes, no evidence of malignancy (0/5). CR-0 Electronically signed by: Tung LANE, Gary Mariano Verified: 09/26/2023 13:11 Pathologist Performed at: -[facility] [place] Dept. of Pathology, [place] [address] Cnc Mill Operator: Mookie Mandujano MD, FCAP, CLIA Certificate: [id number] SYNOPTIC Specimen Procedure: Radical nephrectomy Specimen Laterality: [...] A18 CAP eCC 2021 Q1 Release Labs: 12/24/2023 WBC 7.72, hemoglobin 15.5, platelet count [...] AST 20, ALT 43, Alk phos 98 Imagin09/13/2023 CT chest: IMPRESSION No evidence for intrathoracic metastasis 09/02/2023 abdominal MRI with and without contrast Assessment and Plan: Diagnosis:L [id number] G4 cell carcinoma, clear cell ctype Treatment: [...] We discussed data of adjuvant sunitinib in -[facility] . In the study, adjuvant sunitinib prolonged [...] [employer] a subsidiary of [employer]; [id number] We discussed benefits and the risk [...] and sent [facility]. Will make CT chest and MRI. 11/12/23 [...] and MRI of abdomen and pelvis locally. #Arthralgias: likely secondary to treatment, exercise helps. If worsen he will call and we discussed we can start low dose prednisone. If severe can start higher doses of prednisone as well #Rash: very mild, scattered on LE and resolving. Likely treatment related. Continue to monitor. Plan Pembrolizumab [address] chest and MRI of abdomen and pelvis at [facility] Next visit in 3 weeks with blood work and pembrolizumab infusion Rosalino is accompanied by his today. All questions were answered to patient's satisfaction. GIAN PRADO MD documented in this encounter Plan of Treatment Upcoming Encounters Date Type Department Care Team (Late st Contact Info) Description 02/04/2024 10:00 AM EDT Scheduled View Only Hematology/Oncology at [address] [phone] Dana Davis RN 02/04/2024 10:00 AM EDT Infusion Hematology Oncology at [address] [phone] 02/24/2024 9:30 AM EDT Office Visit Hematology/Oncology at [address] [phone] Francisca Quinonez APRN [facility] [place] [address] 02/24/2024 10:30 AM EDT Infusion Hematology Oncology at [address] [phone] 03/17/2024 10:00 AM EDT Infusion Hematology Oncology at [address] [phone] 04/07/2024 9:30 AM EDT Office Visit Hematology/Oncology at [address] [phone] Gian Prado MD [facility] DR HEMATOLOGY/[place] [address] Francisca Quinonez APRN [facility] [place] [address] 04/07/2024 10:00 AM EDT Infusion Hematology Oncology at [address] [phone] Scheduled Orders Name Type Priority Associated Diagnoses Orde r Schedule CT Chest wo Contrast (Generic) Imaging Routine Renal cell carcinoma, left Expected: 01/07/2024 (Approximate), Expires: 07/08/2024 MRI Abdomen and Pelvis WWO Contrast Imaging Routine Renal cell carcinoma, left Expected: 01/07/2024 (Approximate), Expires: 07/08/2024 Scheduled Procedures Name Priority Associated Diagnoses Date/Ti me EGD, UPPER GI ENDOSCOPY (WRVU 2.09) Dyspepsia COLONOSCOPY, DIAGNOSTIC (WRVU 3.26) Dyspepsia documented as of this encounter Visit Diagnoses Diagnosis Renal cell carcinoma, left- Primary documented in this encounter Care Teams Professional Builder Relationship Specialty Start Date End Date Celso Dkues MD [address] [place] [address] PCP - General 02/24/15 documented as of this encounter
--- OUTSIDE RECORDS SUMMARY | 2024-02-04 01:32 | XMS_ITS | Encounter Summary ---
Author Organization Replaced By [facility] Address [facility] [place] [address] Care Team Providers Care Senior Ecologist Name Role Phone Celso Dukes MD Primary Care Provider Encounter Details Date Type Department Care Team (Late st Contact Info) Description 12/03/2023 Notes Only Hematology/Oncology at [address] [phone] Dana Davis RN Social History Tobacco Use Types Packs/Day Years Used Date Smoking Tobacco: Former Cigarettes 0.5 15 0 09/17/2008 - 09/18/2023 Smokeless Tobacco: Former Chew Quit: 09/18/2023 Comments:Using Zyn pouches r eported 10/25/23 Alcohol Use Standard Drinks/Week Comments Yes 6 (1 standard drink = 0.6 oz pur e alcohol) [facility] Utilities Answer Date Recorded In [...] place to sleep or slept in a care home (including now)? No 10/25/2023 IPV Inpatient Questions [...] Progress Notes * Dana Davis RN - 12/03/2023 4:21 PM EDT Clinical Research Nurse Note [place], [place] Miscellaneous lab kit draw for study # [id number] Misc lab kit draw prior to infusion today. Date: 12/03/23 Time: 15:45 [ ] misc lab kit blood drawn from venipuncture performed by retail management trainee [ X] blood draw by this author from saline lock ( per institutional policy) that was started by infusion room nurse. [ ] medi port by retail management trainee. [ ] medi port was accessed by [facility] for SOC labs earlier today. Misc lab kit blood drawn from accessed port and flushed with 20 mls of saline per institutional policy. Specimens sent to : [x ] [facility] 4th floor pathology lab in cooler via head refrigerating engineer [ ] Study ,via Fed ex per protocol requirements documented in this encounter Plan of Treatment Upcoming Encounters Date Type Department Care Team (Late st Contact Info) Description 02/04/2024 10:00 AM EDT Scheduled View Only Hematology/Oncology at [address] [phone] Dana Davis RN 02/04/2024 10:00 AM EDT Infusion Hematology Oncology at [address] [phone] 02/24/2024 9:30 AM EDT Office Visit Hematology/Oncology at [address] [phone] Francisca Quinonez APRN [facility] [place] [address] 02/24/2024 10:30 AM EDT Infusion Hematology Oncology at [address] [phone] 03/17/2024 10:00 AM EDT Infusion Hematology Oncology at [address] [phone] 04/07/2024 9:30 AM EDT Office Visit Hematology/Oncology at [address] [phone] Gian Lisa MD [facility] HEMATOLOGY/[place] [address] Francisca Quinonez APRN [facility] [place] [address] 04/07/2024 10:00 AM EDT Infusion Hematology Oncology at [address] [phone] Scheduled Procedures Name Priority Associated Diagnoses Date/Ti me EGD, UPPER GI ENDOSCOPY (WRVU 2.09) Dyspepsia COLONOSCOPY, DIAGNOSTIC (WRVU 3.26) Dyspepsia documented as of this encounter Visit Diagnoses Not on filedocumented in this encounter Care Teams Senior Ecologist Relationship Specialty Start Date End Date Celso Dukes MD [address] [place] [address] PCP - General 02/24/15 documented as of this encounter
--- OUTSIDE RECORDS SUMMARY | 2024-02-04 01:32 | XMS_ITS | Encounter Summary ---
Author Organization [facility] [place] [address] Care Team Providers Care Caustic Purification Operator Name Role Phone Celso Dukes MD Primary Care Provider Reason for Referral * Consultation (Routine) - Closed Specialty Diagnoses / Procedures Referred By Yen smith Referred To Contact Hematology and Oncology Diagnoses Renal cancer, left Malou Mallory MD [facility] [place] [address] [facility]c [address] [place] [address] Referral ID Status Reason Start Date Expiration Date V isits Requested Visits Authorized [id number] Closed Consult, Test & Treat 10/09/2023 10/08/2024 1 1 Reason for Visit * Consultation (Routine) - Authorized Specialty Diagnoses / Procedures Referred By Contac t Referred To Contact Urology Diagnoses Other specified disorders of kidney and ureter SHABNAM HERMATURIA AND REANL MASS LEFT KIDNEY ON CT. MRI W/O CONTRAST PENDING Celso Dukes MD [address] [place] [address] [facility] [place] [address] Referral ID Status Reason Start Date Expiration Date Visits Requested Visits Authorized [id number] Authorized Consult, Test & Treat PCP Updated and/or Approved 08/19/2023 08/18/2024 6 6 Encounter Details Date Type Department Care Team (Late st Contact Info) Description 10/09/2023 10:00 AM EDT [place] [address] Malou Mallory MD [facility] [place] [address] Renal cancer, left (Primary Dx) Social History Tobacco Use [...] Sign Reading Time Taken Comments Blood Pressure 130/99 10/09/2023 10:41 AM EDT Pulse 96 10/09/2023 10:41 AM EDT Temperature - - Respiratory Rate - - Oxygen Saturation - - Inhaled Oxygen Concentration - - Weight - - Height - - Body Mass Index - - documented in this encounter Progress Notes * Malou Mallory MD - 10/09/2023 10:00 AM EDT Patient Name: Purvi Honeycutt Date of Service: 10/09/2023 Primary Care Provider: Celso Dukes MD Reason for Visit: Purvi Honeycutt is a 53 y.o. male who on 09/18/2023 had a Left Laparoscopic Radical Nephrectomy for a [id number] G4 Clear cell cancer.. All surgical margins were negative. Attached is anexcerpt from the pathology report [facility] Department of Pathology and Laboratory Medicine Cable Layer: Mookie Mandujano MD, FCAP CLIA Certificate: [id number] Name: PURVI HONEYCUTT Provider: MALOU MALLORY Client: [facility] /Age/Sex: 1970 52 years Male Location: L2WDS; P214; A The signing pathologist has (i) examined the relevant preparation(s) for the specimen(s); and (ii) rendered or confirmed the diagnosis(es). [facility] Printed: 09/26/2023 13:11 EDT Dept. of Pathology and Laboratory Medicine [facility] [place] [address] Pathology Report Collected: 09/18/2023 18:29 EST Received: 09/18/2023 23:35 EST Surgical Pathology DIAGNOSIS Left kidney (radical nephrectomy): 1. Renal cell carcinoma, clear cell type, extending into perinephric adipose tissue (see Synoptic Report). 2. Adrenal gland, no evidence of malignancy. 3. Five lymph nodes, no evidence of malignancy (0/5). CR-0 Electronically signed by: Tung LANE, Gary Mariano Verified: 09/26/2023 13:11 Pathologist Performed at: [facility] Dept. of Pathology, [place] [address] Cable Layer: Mookie Mandujano MD, FCAP, CLIA Certificate: [id number] SYNOPTIC Specimen Procedure: Radical nephrectomy Specimen Laterality: [...] Block(s): A10, A12, A15 Normal Block(s): A18 Following the surgery He did well and was discharged to home on 09/19/2023 He returns for follow up today. The patient has done well since the surgery. Appetite is good. Painis well controlled. There is no problems with the bowels. Voiding well He did have an allergic reaction to the dermabond around his incision sites. Examination: The abdomen is benign. The incisions are well healed. However, he has crusting and erythema around each site c/w a reaction to the dermabond Labs: 09/19/2023 Cr 0.94 Xrays: None Imp: [id number] Grade 4 clear cell renal cancer sp nephrectomy no evidence of disease Pancreatic Cyst Will evaluate on f/u MR's and if necessary refer to GI for an EUS Plan: I discussed the pathology in detail with the patient. I discussed the risks of tumor recurrence which are ~ 30%. I recommended the patient see a medical oncologist for consideration of adjuvantimmunotherapy. I recommended that he follow up in 6 months with a CMP/CT Chest and MR Abd. This will be performed by Med Onc in coordination with the adjuvant therapy Malou Mallory documented in this encounter Plan of Treatment Upcoming Encounters Date Type Department Care Team (Late st Contact Info) Description 02/04/2024 10:00 AM EDT Scheduled View Only Hematology/Oncology at [address] [phone] Dana Davis RN 02/04/2024 10:00 AM EDT Infusion Hematology Oncology at [address] [phone] 02/24/2024 9:30 AM EDT Office Visit Hematology/Oncology at [address] [phone] Francisca Quinonez APRN [facility] [place] [address] 02/24/2024 10:30 AM EDT Infusion Hematology Oncology at [address] [address] 03/17/2024 10:00 AM EDT Infusion Hematology Oncology at [address] [phone] 04/07/2024 9:30 AM EDT Office Visit Hematology/Oncology at [address] [phone] Gian Lisa MD [facility] HEMATOLOGY/[place] [address] Francisca Quinonez APRN [facility] [place] [address] 04/07/2024 10:00 AM EDT Infusion Hematology Oncology at [address] [phone] Scheduled Procedures Name Priority Associated Diagnoses Date/Ti me EGD, UPPER GI ENDOSCOPY (WRVU 2.09) Dyspepsia COLONOSCOPY, DIAGNOSTIC (WRVU 3.26) Dyspepsia Scheduled Referrals Name Type Priority Associated Diagnoses Order Schedule Referral to Hematology and Oncology Outpatient Referral Routine Renal cancer, left Ordered: 10/09/2023 documented as of this encounter Visit Diagnoses Diagnosis Renal cancer, left- Primary documented in this encounter Care Teams Caustic Purification Operator Relationship Specialty Start Date End Date Celso Dukes MD [address] [place] [address] PCP - General 02/24/15 documented as of this encounter
--- OUTSIDE RECORDS SUMMARY | 2024-02-04 01:32 | XMS_ITS | Encounter Summary ---
Author Organization [facility] Address [facility] [place] [address] Care Team Providers Care Oven Tender Bagels Name Role Phone Celso Dukes MD Primary Care Provider Reason for Visit * Treatment/Therapy Plan Authorization (Routine) - Authorized Specialty Diagnoses / Procedures Referred By Contac t Referred To Contact Diagnoses Renal cell carcinoma, left Gian Lisa MD [facility] HEMATOLOGY/[place] [address] [facility] Hem Onc Office [address] [place] [phone] Referral ID Status Reason Start Date Expiration Date V isits Requested Visits Authorized [id number] Authorized 10/25/2023 10/24/2024 99 18 Encounter Details Date Type Department Care Team (Late st Contact Info) Description 11/12/2023 2:00 PM EDT Office Visit Hematology/Oncology at [address] [phone] Gian Lisa MD [facility] HEMATOLOGY/[place] [address] Francisca Quinonez APRN [facility] [place] [address] Renal cell carcinoma, left Social History Tobacco Use Types Packs/Day Years Used Date Smoking Tobacco: Former Cigarettes 0.5 15 0 09/17/2008 - 09/18/2023 Smokeless Tobacco: Former Chew Quit: 09/18/2023 Comments:Using Zyn pouches r eported 10/25/23 Alcohol Use Standard Drinks/Week Comments Yes 6 (1 standard drink = 0.6 oz pur e alcohol) [facility] Utilities Answer Date Recorded In the past [...] place to sleep or slept in a nursing home (including now)? No 10/25/2023 DH IPV [...] Sign Reading Time Taken Comments Blood Pressure 127/74 11/12/2023 2:18 PM EDT Pulse 89 11/12/2023 2:18 PM EDT Temperature 36.4 ??C (97.5 ??F) 11/12/2023 2 :18 PM EDT Respiratory Rate 18 11/12/2023 2:18 PM EDT Oxygen Saturation 98% 11/12/2023 2:1 8 PM EDT Inhaled Oxygen Concentration - - Weight 122.7 kg (270 lb 9.6 oz) 024 2:18 PM EDT with shoes Height 173.7 cm (5' 8.39) 11/12/2023 2 :18 PM EDT Body Mass Index 40.68 11/12/2023 2:18 PM EDT documented in this encounter Progress Notes * Francisca Quinonez, HEBER - 11/12/2023 2:00 PM EDT Images from the original note were not included. Diagnosis:[id number] Grade 4 clear cell renal cancer HPI:Rosalino Honeycutt is 53 y.o.M referred by Dr. Mallory for consultation on renal cell carcinoma. He initially presented in July [address] scan and MRI demonstrated left kidney mass. Rosalino underwent left Laparoscopic Radical Nephrectomy on September 18, 2023 for a [id number] G4 Clear cell cancer.. All surgical margins were negative. Postop course was uneventful. Today he feels well. Interval history 11/12/23: Rush is here today for chemo teach and to begin treatment with pembrolizumab. Overall he has recovered from surgery well. He still has some fatigue which continues to improve. No pain anywhere. No bowel or bladder problems. No fever, chills, or signs of infection. No cough, SOB, or chest pain. The remainder of his review of systems reviewed and is negative. PMH: Hypertension, sleep apnea, GERD hip replacement, elbow surgery, Social History: 36-flij-[id number] smoking history, quit on September 17. Used to drink 2-3 times a week. Currently he does not drink. 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 Family History: Mother had ovarian cancer maternal grandmother had throat cancer Allergies: Allergies Allergen Reactions 2-Octyl Cyanoacrylate Rash AKA Elfers-cheng skin glu Medications: Your Medications Accurate as of November 12, 2023 4:28 PM. If you have any questions, ask [...] of Systems: As in interval history PE: deferred for discussion Constitutional: NAD, obese BP 127/74 (Patient Position: Sitting) Pulse 89 Temp 36.4 ??C (97.5 ??F) (Temporal) Resp 18 Ht 173.7 cm (5' 8.39) Wt 122.7 kg (270 lb 9.6 oz) Comment: with shoes SpO2 98% BMI 40.68 kg/m?? Pathology: DIAGNOSIS Left kidney (radical nephrectomy): 1. Renal cell carcinoma, clear cell type, extending into perinephric adipose tissue (see Synoptic Report). 2. Adrenal gland, no evidence of malignancy. 3. Five lymph nodes, no evidence of malignancy (0/5). CR-0 Electronically signed by: Tung LANE, Gary Mariano Verified: 09/26/2023 13:11 Pathologist Performed at: -[facility] Dept. of Pathology, [place] [address] Cut Out Machine Operator: Mookie Mandujano MD, FCAP, CLIA Certificate: [id number] SYNOPTIC Specimen Procedure: Radical nephrectomy Specimen Laterality: [...] A18 CAP eCC 2021 Q1 Release Labs: Component Latest Ref Rng 10/25/2023 WBC 4.0 [...] >=60 mL/min/1.73 m?? 82 Component Latest Ref Rng 10/25/2023 Free T4 0.93 - 1.70 ng/dL 1.33 Component Latest Ref Rn 10/25/2023 TSH 0.27 - 4.20 mcIU/mL 1.62 Imagin09/13/2023 CT chest: IMPRESSION No evidence for intrathoracic metastasis 09/02/2023 abdominal MRI with and without contrast Assessment and Plan: Diagnosis:L [id number] G4 cell carcinoma, clear cell ctype Treatment: -09/18/23 left radical nephrectomy -11/12/23 to present: Adjuvant pembrolizumab x 1 year Rosalino Honeycutt is 53 y.o. male diagnosed with renal cell carcinoma, clear-cell type. He underwent left radical nephrectomy on September 18, 2023. Elected adjuvant pembrolizumab x 1 year. 10/25/23 We discussed prognosis of renal cell carcinoma with both 30% chances for cancer recurrence. We did talk about adjuvant treatment options particularly treatment with TKI sunitinib for 1 year We discussed data of adjuvant sunitinib in [facility] . In the study, adjuvant sunitinib [...] [employer]; [id number] We discussed benefits and the risk of pembrolizumab. Diagnosis include but not limited to fatigue, skin rash, immune mediated thyroiditis, hepatitis, immune mediated pneumonitis, immune mediated colitis, hypo or hyperthyroidism. All questions were answered to patient's satisfaction. He would like to proceed with adjuvant pembrolizumab. Informed verbal consent was obtained. He would like to be treated and sent [facility]. Will make arrangements. 11/12/23 Here today [...] liver, skin, nerves and the endocrine system. Plan F/u in 3 weeks for OV, [...] AM EDT Scheduled View Only Hematology/Oncology at [address] [phone] Dana Davis RN 02/04/2024 10:00 AM EDT Infusion Hematology Oncology at [address] [phone] 02/24/2024 9:30 AM EDT Office Visit Hematology/Oncology at [address] [phone] Francisca Quinonez APRN [facility] [place] [address] 02/24/2024 10:30 AM EDT Infusion Hematology Oncology at [address] [phone] 03/17/2024 10:00 AM EDT Infusion Hematology Oncology at [address] [phone] 04/07/2024 9:30 AM EDT Office Visit Hematology/Oncology at [address] [phone] Gian Lisa MD [facility] DR HEMATOLOGY/[place] [address] Francisca Quinonez REMOTE OPERATIONS PRODUCER [facility] [place] [address] 04/07/2024 10:00 AM EDT Infusion Hematology Oncology at [address] [phone] Scheduled Procedures Name Priority Associated Diagnoses Date/Ti me EGD, UPPER GI ENDOSCOPY (WRVU 2.09) Dyspepsia COLONOSCOPY, DIAGNOSTIC (WRVU 3.26) Dyspepsia documented as of this encounter Visit Diagnoses Diagnosis Renal cell carcinoma, left documented in this encounter Care Teams Oven Tender Bagels Relationship Specialty Start Date End Date Celso Dukes MD [address] [place] [address] PCP - General 02/24/15 documented as of this encounter
--- OUTSIDE RECORDS SUMMARY | 2024-02-04 01:32 | XMS_ITS | Encounter Summary ---
Author Organization [facility] Address [facility] [place] [address] Care Team Providers Care Bacteriologist Medical Name Role Phone Celso Dukes MD Primary Care Provider Encounter Details Date Type Department Care Team (Late st Contact Info) Description 11/06/2023 Telephone Hematology and Oncology at [facility] [place] [phone] Ramone Ferrari, RN Social History Tobacco Use Types Packs/Day Years Used Date Smoking Tobacco: Former Cigarettes 0.5 15 0 09/17/2008 - 09/18/2023 Smokeless Tobacco: Former Chew Quit: 09/18/2023 Comments:Using Zyn pouches r eported 10/25/23 Alcohol Use Standard Drinks/Week Comments Yes 6 (1 standard drink = 0.6 oz pur e alcohol) [facility] Utilities Answer Date Recorded In the [...] place to sleep or slept in a skilled nursing (including now)? No 10/25/2023 DH IPV Inpatient [...] encounter Miscellaneous Notes * Telephone Encounter - Ramone Ferrari RN - 11/06/2023 10:18 AM EDT Message received from patient seeking return to work letter. Patient reports his employer, [employer], requesting verification patient may return to work without restrictions. Discussion with JAY RN,to forward to Dr. Mallory. Patient updated; will report next day status of work letter. documented in this encounter Plan of Treatment Upcoming Encounters Date Type Department Care Team (Late st Contact Info) Description 02/04/2024 10:00 AM EDT Scheduled View Only Hematology/Oncology at [address] [phone] Dana Davis RN 02/04/2024 10:00 AM EDT Infusion Hematology Oncology at [address] [phone] 02/24/2024 9:30 AM EDT Office Visit Hematology/Oncology at [address] [phone] Francisca Quinonez APRN [facility] [place] [address] 02/24/2024 10:30 AM EDT Infusion Hematology Oncology at [address] [phone] 03/17/2024 10:00 AM EDT Infusion Hematology Oncology at [address] [phone] 04/07/2024 9:30 AM EDT Office Visit Hematology/Oncology at [address] [phone] Gian Lisa MD [facility] HEMATOLOGY/[place] [address] Francisca Quinonez APRN [facility] [place] [address] 04/07/2024 10:00 AM EDT Infusion Hematology Oncology at [address] [phone] Scheduled Procedures Name Priority Associated Diagnoses Date/Ti me EGD, UPPER GI ENDOSCOPY (WRVU 2.09) Dyspepsia COLONOSCOPY, DIAGNOSTIC (WRVU 3.26) Dyspepsia documented as of this encounter Visit Diagnoses Not on filedocumented in this encounter Care Teams Bacteriologist Medical Relationship Specialty Start Date End Date Celso Dukes MD [address] [place] [address] PCP - General 02/24/15 documented as of this encounter
--- OUTSIDE RECORDS SUMMARY | 2024-02-04 01:32 | XMS_ITS | Encounter Summary ---
Author Organization [facility] Address [facility] [place] [address] Care Team Providers Care Resin Remover Name Role Phone Celso Dukes MD Primary Care Provider [phone] Encounter Details Date Type Department Care Team (Latest Contact Info) Description 12/03/2023 9:40 PM EDT - 12/03/2023 11:59 PM EDT Hospital Encounter Laboratory [facility] [place] [phone] Discharge Disposition: Home Social History Tobacco Use Types Packs/Day Years Used Date Smoking Tobacco: Former Cigarettes 0.5 15 0 09/17/2008 - 09/18/2023 Smokeless Tobacco: Former Chew Quit: 09/18/2023 Comments:Using Zyn pouches r eported 10/25/23 Alcohol Use Standard Drinks/Week Comments Yes 6 (1 standard drink = 0.6 oz pur e alcohol) [facility] Utilities Answer Date Recorded In the past 12 months has e electric, gas, oil, or water [employer] threatened to shut off services in your [...] capsule Take 20 mg by mouth daily. ferrous gluconate (Ferate) 324 mg (37.5 mg iron) tablet Take 324 mg by mouth daily. 12/24/2023 cephALEXin (Keflex) 500 mg capsuleIndications:Aniya l mass, left Take 1 capsule by mouth 4 times daily. 21 capsule 10/17/2023 12/24/2023 oxyCODONE (Roxicodone) 5 mg tablet Take 1 tablet by mouth every 6 hours as needed for Pain. 10 tablet 09/19/2023 12/24/2023 documented as of this encounter Plan of Treatment Upcoming Encounters Date Type Department Care Team (Late st Contact Info) Description 02/04/2024 10:00 AM EDT Scheduled View Only Hematology/Oncology at [address] [phone] Dana Davis RN 02/04/2024 10:00 AM EDT Infusion Hematology Oncology at [address] [phone] 02/24/2024 9:30 AM EDT Office Visit Hematology/Oncology at [address] [phone] Francisca Quinonez APRN [facility] [place] [address] 02/24/2024 10:30 AM EDT Infusion Hematology Oncology at [address] [phone] 03/17/2024 10:00 AM EDT Infusion Hematology Oncology at [address] [phone] 04/07/2024 9:30 AM EDT Office Visit Hematology/Oncology at [address] [phone] Gian Lisa MD [facility] HEMATOLOGY/[place] [address] Francisca Quinonez APRN [facility] [place] [address] 04/07/2024 10:00 AM EDT Infusion Hematology Oncology at [address] [phone] Scheduled Procedures Name Priority Associated Diagnoses Date/Ti me EGD, UPPER GI ENDOSCOPY (WRVU 2.09) Dyspepsia COLONOSCOPY, DIAGNOSTIC (WRVU 3.26) Dyspepsia documented as of this encounter Procedures Procedure Name Priority Date/Time Associated Diagnosis Comments MISCELLANEOUS LAB REQUEST Routine 12/04/2023 3:45 PM EDT documented in this encounter Results * Miscellaneous Lab request (12/04/2023 3:45 PM EDT) Misc Lab Result Request received in lab. [facility] Blood No Charge / Unknown 12/04/2023 3:45 PM EDT 12/04/2023 9:58 PM EDT Narrative Resulting Agency Comment Spec In Lab Gian Lisa MD HEMATOLOGY ORDERABLE S [facility] [place] [address] documented in this encounter Visit Diagnoses Not on filedocumented in this encounter Care Teams Resin Remover Relationship Specialty Start Date End Date Celso Dukes MD [address] [place] [address] PCP - General 02/24/15 documented as of this encounter
--- OUTSIDE RECORDS SUMMARY | 2024-02-04 01:32 | XMS_ITS | Encounter Summary ---
Author Organization [facility] [place] [address] Care Team Providers Care Demi Chef Name Role Phone Celso Dukes MD Primary Care Provider [phone] Encounter Details Date Type Department Care Team (Latest Contact Info) Description 10/09/2023 Travel Social History Tobacco Use Types Packs/Day [...] EDT Scheduled View Only Hematology/Oncology at [address] [phone] Dana Davis RN 02/04/2024 10:00 AM EDT Infusion Hematology Oncology at [address] [phone] 02/24/2024 9:30 AM EDT Office Visit Hematology/Oncology at [address] [phone] QuinonezFrancisca APRN [facility] [place] [address] 02/24/2024 10:30 AM EDT Infusion Hematology Oncology at [address] [phone] 03/17/2024 10:00 AM EDT Infusion Hematology Oncology at [address] [phone] 04/07/2024 9:30 AM EDT Office Visit Hematology/Oncology at [address] [phone] Gian Lisa MD [facility] HEMATOLOGY/[place] [address] Francisca Quinonez APRN [facility] [place] [address] 04/07/2024 10:00 AM EDT Infusion Hematology Oncology at [address] [phone] Scheduled Procedures Name Priority Associated Diagnoses Date/Ti me EGD, UPPER GI ENDOSCOPY (WRVU 2.09) Dyspepsia COLONOSCOPY, DIAGNOSTIC (WRVU 3.26) Dyspepsia documented as of this encounter Visit Diagnoses Not on filedocumented in this encounter Care Teams Demi Chef Relationship Specialty Start Date End Date Celso Dukes MD [address] [place] [address] PCP - General 02/24/15 documented as of this encounter
--- OUTSIDE RECORDS SUMMARY | 2024-02-04 01:32 | XMS_ITS | Encounter Summary ---
Author Organization [facility] Address [facility] [place] [address] Care Team Providers Care Floater Operator Name Role Phone Celso Dukes MD Primary Care Provider Encounter Details Date Type Department Care Team (Latest Contact Info) Description 10/25/2023 11:45 AM EDT - 10/25/2023 11:59 PM EDT Hospital Encounter Hematology and Oncology at [facility] [place] [phone] Renal cell carcinoma, left; Abnormal thyroid function test; Renal mass; Renal mass, left Discharge Disposition: Home Social History Tobacco Use Types Packs/Day Years Used Date Smoking Tobacco: Former Cigarettes 0.5 15 0 09/17/2008 - 09/18/2023 Smokeless Tobacco: Former Chew Quit: 09/18/2023 Comments:Using Zyn pouches r eported 10/25/23 Alcohol Use Standard Drinks/Week Comments Yes 6 (1 standard drink = 0.6 oz pur e alcohol) [facility] Utilities Answer Date Recorded In the past 12 months has [employer], oil, or water [employer] threatened to shut off services in your [...] capsule Take 20 mg by mouth daily. cephALEXin (Keflex) 500 mg capsuleIndications:Aniya l mass, [...] AM EDT Scheduled View Only Hematology/Oncology at [address] [phone] Dana Davis RN 02/04/2024 10:00 AM EDT Infusion Hematology Oncology at [address] [phone] 02/24/2024 9:30 AM EDT Office Visit Hematology/Oncology at [address] [phone] Francisca Quinonez APRN [facility] [place] [address] 02/24/2024 10:30 AM EDT Infusion Hematology Oncology at [address] [address] 03/17/2024 10:00 AM EDT Infusion Hematology Oncology at [address] [phone] 04/07/2024 9:30 AM EDT Office Visit Hematology/Oncology at [address] [phone] Gian Lisa MD [facility] HEMATOLOGY/[place] [address] Francisca Quinonez APRN [facility] [place] [address] 04/07/2024 10:00 AM EDT Infusion Hematology Oncology at [address] [phone] Scheduled Orders Name Type Priority Associated Diagnoses Orde r Schedule Hemogram Lab Routine Renal mass 1 Occurrences starting 10/25/2023 until 10/25/2023 Scheduled Procedures Name Priority Associated Diagnoses Date/Ti me EGD, UPPER GI ENDOSCOPY (WRVU 2.09) Dyspepsia COLONOSCOPY, DIAGNOSTIC (WRVU 3.26) Dyspepsia documented as of this encounter Procedures Procedure Name Priority Date/Time Associated Diagnosis Comments HEMOGRAM Routine 10/25/2023 12:00 PM EDT Renal cell carcinoma, left DIFFERENTIAL, AUTOMATED Routine 10/25/2023 12:00 PM EDT Renal cell carcinoma, left HC VENIPUNCTURE Routine 10/25/2023 12:00 PM EDT Renal cell carcinoma, left HC THYROID STIMULATING HORMONE, SERUM Routine 10/25/2023 12:00 PM EDT Abnormal thyroid function test HC FREE THYROXINE (T4) Routine 12:00 PM EDT Abnormal thyroid function test COMPREHENSIVE METABOLIC PANEL (NON-FASTING) Routine 10/25/2023 12:00 PM EDT Renal cell carcinoma, left documented in this encounter Results * Differential, Automated (10/25/2023 12:00 PM EDT) Neutrophils % 60.0 % [facility] Neutr Abs (ANC) 5.96 1.70 - 6.10 x10(3)/[facility] Lymphocytes % 28.6 % [facility] Lymphocytes Abs 2.8 0.9 - 3.2 x10(3)/[facility] Monocytes % 8.0 % [facility] Monocyte Abs 0.8 0.3 - 0.9 x10(3)/[facility] Eosinophils % 2.4 % [facility] Eosinophils Abs 0.2 0.0 - 0.4 x10(3)/[facility] Basophils % 0.8 % [facility] Basophils Abs 0.1 0.0 - 0.1 x10(3)/[facility] Immature Gran % 0.20 % [facility] Comment: Immature granulocytes(IG's)percentage and absolute count will include metamyelocytes, myelocytes, and promyelocytes. Blood smears from CBCs yielding IG's will be scanned manually for concordance. If this scan disagrees with the automated IG or if promyelocytes are noted, a manual differential will be performed. Valerie Gran Abs 0.02 0.00 - 0.04 x10(3)/[facility] Blood 10/25/2023 12:0 0 PM EDT 10/25/2023 12:04 PM EDT Narrative Resulting Agency Comment Spec In Lab Gian Lisa MD HEMATOLOGY ORDERABLE S [facility] [place] [address] * (ABNORMAL) Hemogram (10/25/2023 12:00 PM EDT) WBC 9.9(H) 4.0 - 9.5 x10(3)/[facility] RBC 5.38 4.58 - 5.54 x10(6)/[facility] Hemoglobin 15.6 13.7 - 16.5 g/dL [facility] Hematocrit 45.5 40.5 - 48.5 % [facility] MCV 84.6 82.9 - 93.1 fL [facility] MCH 29.0 27.5 - 32.1 pg [facility] MCHC 34.3 32.0 - 35.7 g/dL [facility] Platelets 216 145 - 357 x10(3)/[facility] RDWSD 40.8 36.0 - 45.0 [facility] RDWCV 13.2 11.4 - 13.8 % [facility] MPV 10.0 7.6 - 12.9 [facility] nRBC % Auto 0.0 % [facility] nRBC Abs Auto 0.000 0.000 - 0.000 x10(3)/[facility] Blood 10/25/2023 12:0 0 PM EDT 10/25/2023 12:04 PM EDT Narrative Resulting Agency Comment Spec In Lab Gian Lisa MD HEMATOLOGY ORDERABLE S Performing Organization Address [facility] Co de Phone Number [facility] [place] [address] * T4, free (10/25/2023 12:00 PM EDT) [facility] Free T4 1.33 0.93 - 1.70 ng/dL [facility] Comment: Reference Interval (ng/dL): Females: ??First Trimester: 0.97-1.68 ??Second Trimester: 0.77-1.51 ??Third Trimester: 0.77-1.49 Blood 10/25/2023 12:0 0 PM EDT 10/25/2023 12:04 PM EDT Narrative Resulting Agency Comment Spec In Lab Gian Lisa MD CHEMISTRY ORDERABLES Performing Organization Address [facility] Co de Phone Number [facility] [place] [address] * TSH (10/25/2023 12:00 PM EDT) [facility] TSH 1.62 0.27 - 4.20 mcIU/mL [facility] Comment: Reference Interval (mcIU/mL): Females: ??First Trimester: 0.23-3.88 ??Second Trimester: 0.22-3.90 ??Third Trimester: 0.44-4.66 Blood 10/25/2023 12:0 0 PM EDT 10/25/2023 12:04 PM EDT Narrative Resulting Agency Comment Spec In Lab Gian Lisa MD CHEMISTRY ORDERABLES Performing Organization Address [facility] Co de Phone Number [facility] [place] [address] * Comprehensive metabolic panel (non-fasting) (10/25/2023 12:00 PM EDT) [facility] Glucose Lvl 132 65 - 199 mg/dL [facility] Comment:Diabetes: >=200 mg/d L plus symptoms BUN 15 10 - 20 mg/dL [facility] Creatinine 1.09 0.80 - 1.50 mg/dL [facility] Sodium 138 135 - 145 mmol/L [facility] Potassium 4.2 3.5 - 5.0 mmol/L [facility] Comment: Please note: ??Patients with WBC >100,000 may have falsely elevated Potassium levels. ??For accurate Potassium quantification in these patients send serum separator tube (gold top) for subsequent determinations. ??Contact the Clinical Chemistry Laboratory if there are any questions. Chloride 101 98 - 107 mmol/L [facility] CO2 25 22 - 31 mmol/L [facility] Anion Gap 12 5 - 15 mmol/L [facility] Calcium 9.5 8.5 - 10.5 mg/dL [facility] Total Protein 7.9 6.1 - 8.0 g/dL [facility] Albumin 4.2 3.2 - 5.2 g/dL [facility] AST 19 0 - 39 unit/L [facility] ALT 36 0 - 55 unit/L [facility] Alk Phos 98 40 - 130 unit/L [facility] Total Bilirubin 0.5 0.2 - 1.3 mg/dL [facility] Estimated GFR 82 >=60 mL/min/1. 73 m?? [facility] Comment: This patient's estimated GFR was [...] In Lab Gian Lisa MD CHEMISTRY ORDERABLES [facility] [place] [address] documented in this encounter Visit Diagnoses Diagnosis Renal cell carcinoma, left Abnormal thyroid function test Nonspecific abnormal results of thyroid function study Renal mass Unspecified disorder of kidney and ureter Renal mass, left Unspecified disorder of kidney and ureter documented in this encounter Care Teams Floater Operator Relationship Specialty Start Date End Date Celso Dukes MD [address] [place] [address] PCP - General 02/24/15 documented as of this encounter
--- OUTSIDE RECORDS SUMMARY | 2024-02-04 01:32 | XMS_ITS | Encounter Summary ---
Author Organization [facility] Address [facility] [address] Care Team Providers Care Transportation Driver Name Role Phone Celso Dukes MD Primary Care Provider [phone] Encounter Details Date Type Department Care Team (Late st Contact Info) Description 11/12/2023 Notes Only Hematology/Oncology at [address] [phone] Doreen Tang, METAL SOLDERER OFFICE OF CARE MANAGEMENT Social History Tobacco Use Types Packs/Day Years Used Date Smoking Tobacco: Former Cigarettes 0.5 15 0 09/17/2008 - 09/18/2023 Smokeless Tobacco: Former Chew Quit: 09/18/2023 Comments:Using Zyn pouches r eported 10/25/23 Alcohol Use Standard Drinks/Week Comments Yes 6 (1 standard drink = 0.6 oz pur e alcohol) [facility] Utilities Answer Date Recorded In the past 12 months has [employer], gas, oil, or water [employer] threatened to shut off services in your [...] as of this encounter Progress Notes * Doreen Tang, METAL SOLDERER - 11/12/2023 3:48 PM EDT Reason for Referral: Brief assessment of social and emotional needs. Met with Rosalino and his lazara during his first infusion visit today to introduce myself and role of clinical social worker to assess/address barriers to getting to and through treatments; address support needs and connect with community services and resources as needed. Family/Social Supports: Rosalino identified his of 19 years as his primary support. They have 2 daughters ages 18 and 15 at home. Rosalino indicated he has a good support system in place. Living Situation/Daily Activities/Transportation: Rosalino manages his daily chores and activities. He does not expect any issues with transportation. 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 He has BCBS for insurance. They did not indicate any concerns re finances or insurance. Advance Directives: Rosalino has not completed his advance directive. Offered him information and assistance if interested in completing. Utilization of Community Resources: None at this time. Adjustment to Illness/Mental Health Concerns: Rosalino indicated he is coping as bes the can. His indicated the same. They both feel well supported. They indicated their daughters are doing well with their school activities and summer vacation will be coming up soon. Offered support. Identified Needs: Rosalino did not identify any specific needs today. Referrals: None at this time. Social Work Interventions: Brief assessment Supportive Counseling Plan: Informed pt of METAL SOLDERER availability and contact information. Will follow to assess/address psychosocial needs. ÁNGEL Haynes, OPENER, OSW-C Cloth Finisher [facility] documented in this encounter Plan of Treatment Upcoming Encounters Date Type Department Care Team (Late st Contact Info) Description 02/04/2024 10:00 AM EDT Scheduled View Only Hematology/Oncology at [address] [phone] Dana Davis RN 02/04/2024 10:00 AM EDT Infusion Hematology Oncology at [address] [phone] 02/24/2024 9:30 AM EDT Office Visit Hematology/Oncology at [address] [phone] Francisca Quinonez APRN [facility] [place] [address] 02/24/2024 10:30 AM EDT Infusion Hematology Oncology at [address] [address] 03/17/2024 10:00 AM EDT Infusion Hematology Oncology at [address] [phone] 04/07/2024 9:30 AM EDT Office Visit Hematology/Oncology at [address] [phone] Gian Lisa MD [facility] DR HEMATOLOGY/[place] [address] Francisca Quinonez APRN [facility] [place] [address] 04/07/2024 10:00 AM EDT Infusion Hematology Oncology at [address] [phone] Scheduled Procedures Name Priority Associated Diagnoses Date/Ti me EGD, UPPER GI ENDOSCOPY (WRVU 2.09) Dyspepsia COLONOSCOPY, DIAGNOSTIC (WRVU 3.26) Dyspepsia documented as of this encounter Visit Diagnoses Not on filedocumented in this encounter Care Teams Transportation Driver Relationship Specialty Start Date End Date Celso Dukes MD [address] [place] [address] PCP - General 02/24/15 documented as of this encounter
--- OUTSIDE RECORDS SUMMARY | 2024-02-04 01:32 | XMS_ITS | Encounter Summary ---
Author Organization [facility] Address [facility] [place] [address] Care Team Providers Care Obstetrics Gynecology Physician Name Role Phone Celso Dukes MD Primary Care Provider Encounter Details Date Type Department Care Team (Latest Contact Info) Description 11/12/2023 Travel Social History Tobacco Use Types Packs/Day Years Used Date Smoking Tobacco: Former Cigarettes 0.5 15 0 09/17/2008 - 09/18/2023 Smokeless Tobacco: Former Chew Quit: 09/18/2023 Comments:Using Zyn pouches r eported 10/25/23 Alcohol Use Standard Drinks/Week Comments Yes 6 (1 standard drink = 0.6 oz pur e alcohol) [facility] Utilities Answer Date Recorded In the past [...] place to sleep or slept in a assisted (including now)? No 10/25/2023 DH IPV Inpatient [...] AM EDT Scheduled View Only Hematology/Oncology at [address] [phone] Dana Davis RN 02/04/2024 10:00 AM EDT Infusion Hematology Oncology at [address] [phone] 02/24/2024 9:30 AM EDT Office Visit Hematology/Oncology at [address] [phone] Francisca Quinonez, [facility] [address] 02/24/2024 10:30 AM EDT Infusion Hematology Oncology at [address] [phone] 03/17/2024 10:00 AM EDT Infusion Hematology Oncology at [address] [phone] 04/07/2024 9:30 AM EDT Office Visit Hematology/Oncology at [address] [phone] Gian Lisa MD [facility] DR HEMATOLOGY/[place] [address] Francisca Quinonez APRN [facility] [place] [address] 04/07/2024 10:00 AM EDT Infusion Hematology Oncology at [address] [phone] Scheduled Procedures Name Priority Associated Diagnoses Date/Ti me EGD, UPPER GI ENDOSCOPY (WRVU 2.09) Dyspepsia COLONOSCOPY, DIAGNOSTIC (WRVU 3.26) Dyspepsia documented as of this encounter Visit Diagnoses Not on filedocumented in this encounter Care Teams Obstetrics Gynecology Physician Relationship Specialty Start Date End Date Celso Dukes MD [address] [place] [address] PCP - General 02/24/15 documented as of this encounter
--- OUTSIDE RECORDS SUMMARY | 2024-02-04 01:32 | XMS_ITS | Encounter Summary ---
Author Organization [facility] Address [facility] [place] [address] Care Team Providers Care Discharge Planner Name Role Phone Celso Dukes MD Primary Care Provider [phone] Reason for Visit * Reason Comments Chemotherapy Cycle 3, Day 1 - Pem brolizumab * Treatment/Therapy Plan Authorization (Routine) - Authorized Specialty Diagnoses / Procedures Referred By Contac t Referred To Contact Diagnoses Renal cell carcinoma, left Gian Lisa MD [facility] DR HEMATOLOGY/[place] [address] St Hem Onc Office [address] [place] [phone] Referral ID Status Reason Start Date Expiration Date V isits Requested Visits Authorized [id number] Authorized 10/25/2023 10/24/2024 99 18 Encounter Details Date Type Department Care Team (Late st Contact Info) Description 12/24/2023 10:30 AM EDT Infusion Hematology Oncology at [address] [phone] Renal cell carcinoma, left Social History Tobacco Use Types Packs/Day Years Used Date Smoking Tobacco: Former Cigarettes 0.5 15 0 09/17/2008 - 09/18/2023 Smokeless Tobacco: Former Chew Quit: 09/18/2023 Comments:Using Zyn pouches r eported 10/25/23 Alcohol Use Standard Drinks/Week Comments Yes 6 (1 standard drink = 0.6 oz pur e alcohol) [facility] Utilities Answer Date Recorded In the past 12 months has [employer] gas, oil, or water company threatened to [...] Progress Notes * Sandra Garduno RN - 12/24/2023 10:30 AM EDT INFUSION THERAPY ADMINISTRATION NOTES DIAGNOSIS: Renal cell carcinoma CYCLE #: Cycle 3, Day 1 - Pembrolizumab REASON FOR VISIT: To receive immunotherapy. SUBJECTIVE: Rosalino has light red raised rash on his arms. He does report some pruritus. OBJECTIVE: VSS. Seen by provider. Will treat. LAB DATA: 12/24/23 - WBC - 7.72, H/H - 15.5/47.0, Plt Ct - 234, ANC - 3.69, Lytes - wnl, BUN/Cr - 16/1.2, TSH/Free T4 - 1.21/0.94 IV ACCESS: PIV. Blood draw for research. [...] EDT Scheduled View Only Hematology/Oncology at [address] [phone] Dana Davis RN 02/04/2024 10:00 AM EDT Infusion Hematology Oncology at [address] [phone] 02/24/2024 9:30 AM EDT Office Visit Hematology/Oncology at [address] [phone] Francisca Quinonez, [facility] [place] [address] 02/24/2024 10:30 AM EDT Infusion Hematology Oncology at [address] [phone] 03/17/2024 10:00 AM EDT Infusion Hematology Oncology at [address] [phone] 04/07/2024 9:30 AM EDT Office Visit Hematology/Oncology at [address] [phone] Gian Lisa MD [facility] HEMATOLOGY/[place] [address] Francisca Quinonez APRN [facility] [place] [address] 04/07/2024 10:00 AM EDT Infusion Hematology Oncology at [address] [phone] Scheduled Procedures Name Priority Associated Diagnoses Date/Ti [...] 200 mg, Intravenous, ONCE, 1 dose, On Sat12/24/23 at 1245, Administer over 30 Minutes, Flush Line with NS after each dose, This agent is restricted to outpatient use. Is this drug being given as an outpatient? Yes New Bag 12/24/2023 11:57 AM EDT 200 mg 216 mL/hr sodium chloride 0.9% infusion 100 mL/hr, Intravenous, CONTINUOUS, Starting on Sat12/24/23 at 1145, Until Sat12/24/23 at 1436 New Bag 12/24/2023 11:28 AM EDT 100 mL/hr 100 mL/hr documented in this encounter Care Teams Discharge Planner Relationship Specialty Start Date End Date Celso Dukes MD [address] [place] [address] PCP - General 02/24/15 documented as of this encounter
--- OUTSIDE RECORDS SUMMARY | 2024-02-04 01:32 | XMS_ITS | Encounter Summary ---
Author Organization [facility] Address [facility] [place] [address] Care Team Providers Care Vigoureux Printer Name Role Phone Celso Dukes MD Primary Care Provider [phone] Encounter Details Date Type Department Care Team (Latest Contact Info) Description 12/03/2023 Travel Social History Tobacco Use Types Packs/Day Years Used Date Smoking Tobacco: Former Cigarettes 0.5 15 0 09/17/2008 - 09/18/2023 Smokeless Tobacco: Former Chew Quit: 09/18/2023 Comments:Using Zyn pouches r eported 10/25/23 Alcohol Use Standard Drinks/Week Comments Yes 6 (1 standard drink = 0.6 oz pur e alcohol) [facility] Utilities Answer Date Recorded In [...] EDT Scheduled View Only Hematology/Oncology at [address] [phone] Dana Davis RN 02/04/2024 10:00 AM EDT Infusion Hematology Oncology at [address] [phone] 02/24/2024 9:30 AM EDT Office Visit Hematology/Oncology at [address] [phone] Francisca Quinonez, [facility] [place] [address] 02/24/2024 10:30 AM EDT Infusion Hematology Oncology at [address] [phone] 03/17/2024 10:00 AM EDT Infusion Hematology Oncology at [address] [phone] 04/07/2024 9:30 AM EDT Office Visit Hematology/Oncology at [address] [phone] Gian Lisa MD [facility] [address] HEMATOLOGY/[place] [address] Francisca Quinonez APRN [facility] [place] [address] 04/07/2024 10:00 AM EDT Infusion Hematology Oncology at [address] [phone] Scheduled Procedures Name Priority Associated Diagnoses Date/Ti me EGD, UPPER GI ENDOSCOPY (WRVU 2.09) Dyspepsia COLONOSCOPY, DIAGNOSTIC (WRVU 3.26) Dyspepsia documented as of this encounter Visit Diagnoses Not on filedocumented in this encounter Care Teams Vigoureux Printer Relationship Specialty Start Date End Date Celso Dukes MD [address] [place] [address] PCP - General 02/24/15 documented as of this encounter
--- OUTSIDE RECORDS SUMMARY | 2024-02-04 01:32 | XMS_ITS | Encounter Summary ---
Author Organization [facility] Address [facility] [place] [address] Care Team Providers Care Software Business Analyst Name Role Phone Celso Dukes MD Primary Care Provider [phone] Encounter Details Date Type Department Care Team (Late st Contact Info) Description 10/24/2023 11:30 AM EDT TH Visit (TeleHealth) Tobacco Treatment at [facility] [place] [phone] Barbara Corbin Cigarette nicotine dependence in remission Social History Tobacco Use Types Packs/Day Years [...] place to sleep or slept in a longterm (including now)? No 10/25/2023 DH IPV Inpatient [...] as of this encounter Progress Notes * Barbara Corbin - 10/24/2023 11:30 AM EDT Patient has not smoked since September 17. Is using 4 mg nicotine gum. Patient is getting exercise, eating better and very happy to be smoke-free. Patient is willing to have a follow up on November 13. documented in this encounter Plan of Treatment Upcoming Encounters Date Type Department Care Team (Late st Contact Info) Description 02/04/2024 10:00 AM EDT Scheduled View Only Hematology/Oncology at [address] [phone] Dana Davis RN 02/04/2024 10:00 AM EDT Infusion Hematology Oncology at [address] [phone] 02/24/2024 9:30 AM EDT Office Visit Hematology/Oncology at [address] [phone] Francisca Quinonez APRN [facility] [place] [address] 02/24/2024 10:30 AM EDT Infusion Hematology Oncology at [address] [phone] 03/17/2024 10:00 AM EDT Infusion Hematology Oncology at [address] [phone] 04/07/2024 9:30 AM EDT Office Visit Hematology/Oncology at [address] [phone] Gian Lisa MD [facility] HEMATOLOGY/[place] [address] Francisca Quinonez APRN [facility] [place] [address] 04/07/2024 10:00 AM EDT Infusion Hematology Oncology at [address] [phone] Scheduled Procedures Name Priority Associated Diagnoses Date/Ti me EGD, UPPER GI ENDOSCOPY (WRVU 2.09) Dyspepsia COLONOSCOPY, DIAGNOSTIC (WRVU 3.26) Dyspepsia documented as of this encounter Visit Diagnoses Diagnosis Cigarette nicotine dependence in remission Tobacco use disorder documented in this encounter Care Teams Software Business Analyst Relationship Specialty Start Date End Date Celso Dukes MD [address] [place] [address] PCP - General 02/24/15 documented as of this encounter
--- OUTSIDE RECORDS SUMMARY | 2024-02-04 01:32 | XMS_ITS | Encounter Summary ---
Author Organization [facility] Address [facility] [address] Care Team Providers Care Passenger Service Representative Name Role Phone Celso Dukes MD Primary Care Provider [phone] Encounter Details Date Type Department Care Team (Late st Contact Info) Description 10/10/2023 10:45 AM EDT TH Visit (TeleHealth) Tobacco Treatment at [facility] [place] [phone] Barbara Corbin Cigarette nicotine dependence in remission Social History Tobacco Use Types Packs/Day Years Used Date Smoking Tobacco: Every Day Cigarettes 0.5 15 Smokeless Tobacco: Current Chew Alcohol Use Standard Drinks/Week Comments Yes 6 (1 standard drink = 0.6 oz pur e alcohol) [facility] Inpatient Questions Answer Date Recorded Does Anyone [...] encounter Progress Notes * Barbara Corbin - 10/10/2023 10:45 AM EDT Patient states he has not smoked since September 17. Patient states he is not coughing as much. is still smoking and he doesn't like the smell. Patient is using nicotine gum. @ 4 mg. He is not sure how much gum he is using. Advised him to use 2 mg when he is ready to step down and no longer experiencing urges. Patient feels confident he can complete this process and seems to be highly motivated to take the steps necessary to remain tobacco free. We will talk again in two weeks. documented in this encounter Plan of Treatment Upcoming Encounters Date Type Department Care Team (Late st Contact Info) Description 02/04/2024 10:00 AM EDT Scheduled View Only Hematology/Oncology at [address] [phone] Dana Davis RN 02/04/2024 10:00 AM EDT Infusion Hematology Oncology at [address] [phone] 02/24/2024 9:30 AM EDT Office Visit Hematology/Oncology at [address] [phone] Francisca Quinonez APRN [facility] [place] [address] 02/24/2024 10:30 AM EDT Infusion Hematology Oncology at [address] [phone] 03/17/2024 10:00 AM EDT Infusion Hematology Oncology at [address] [phone] 04/07/2024 9:30 AM EDT Office Visit Hematology/Oncology at [address] [phone] Gian Lisa MD [facility] HEMATOLOGY/[place] [address] Francisca Quinonez APRN [facility] [place] [address] 04/07/2024 10:00 AM EDT Infusion Hematology Oncology at [address] [phone] Scheduled Procedures Name Priority Associated Diagnoses Date/Ti me EGD, UPPER GI ENDOSCOPY (WRVU 2.09) Dyspepsia COLONOSCOPY, DIAGNOSTIC (WRVU 3.26) Dyspepsia documented as of this encounter Visit Diagnoses Diagnosis Cigarette nicotine dependence in remission Tobacco use disorder documented in this encounter Care Teams Passenger Service Representative Relationship Specialty Start Date End Date Celso Dukes MD [address] [place] [address] PCP - General 02/24/15 documented as of this encounter
--- OUTSIDE RECORDS SUMMARY | 2024-02-04 01:32 | XMS_ITS | Encounter Summary ---
Author Organization [facility] Address [facility] [place] [address] Care Team Providers Care Nuclear Engineer Name Role Phone Celso Dukes MD Primary Care Provider [phone] Reason for Visit * Reason Comments Chemotherapy * Treatment/Therapy Plan Authorization (Routine) - Authorized Specialty Diagnoses / Procedures Referred By Conteugene t Referred To Contact Diagnoses Renal cell carcinoma, left Gian Lisa MD [facility] DR HEMATOLOGY/[place] [address] [facility] Hem Onc Office [address] [place] [phone] Referral ID Status Reason Start Date Expiration Date V isits Requested Visits Authorized [id number] Authorized 10/25/2023 10/24/2024 99 18 Encounter Details Date Type Department Care Team (Late st Contact Info) Description 12/03/2023 2:30 PM EDT Infusion Hematology Oncology at [address] [phone] Renal cell carcinoma, left Social History Tobacco Use Types Packs/Day Years Used Date Smoking Tobacco: Former Cigarettes 0.5 15 0 09/17/2008 - 09/18/2023 Smokeless Tobacco: Former Chew Quit: 09/18/2023 Comments:Using Zyn pouches r eported 10/25/23 Alcohol Use Standard Drinks/Week Comments Yes 6 (1 standard drink = 0.6 oz pur e alcohol) [facility] Utilities Answer Date Recorded In the past 12 months has [employer], gas, oil, or water [employer] threatened to shut off services in your [...] place to sleep or slept in a alf (including now)? No 10/25/2023 DH IPV Inpatient [...] as of this encounter Progress Notes * Pretty Russell RN - 12/03/2023 2:30 PM EDT INFUSION THERAPY ADMINISTRATION NOTES DIAGNOSIS: Renal cell carcinoma CYCLE #: Cycle 2, Day 1 - Pembrolizumab REASON FOR VISIT: To receive chemotherapy. SUBJECTIVE: Rosalino offers no complaints. He is accompanied by his Lazara. He met with Padmaja Quinonez APRN prior to infusion. OBJECTIVE: VSS LAB DATA: completed 11/26 at [facility] IV ACCESS: PIV. Blood draw for research. Pre administration: Chemotherapy orders independently verified for drug name, route, and dosage per patient's height, weight and BSA by Pretty Russell, [place] and Staff Pharmacist(s). REACTIONS (DESCRIPTION, TIME, INTERVENTION AND EFFECTIVENESS) none ASSESSMENT: Rosalino was awake, alert and tolerated treatment well. PIV discontinued prior to dismissal. PLAN: Return to clinic in three weeks. documented in this encounter Plan of Treatment Upcoming Encounters Date Type Department Care Team (Late st Contact Info) Description 02/04/2024 10:00 AM EDT Scheduled View Only Hematology/Oncology at [address] [phone] Dana Davis RN 02/04/2024 10:00 AM EDT Infusion Hematology Oncology at [address] [phone] 02/24/2024 9:30 AM EDT Office Visit Hematology/Oncology at [address] [phone] Francisca Quinonez APRN [facility] [place] [address] 02/24/2024 10:30 AM EDT Infusion Hematology Oncology at [address] [phone] 03/17/2024 10:00 AM EDT Infusion Hematology Oncology at [address] [phone] 04/07/2024 9:30 AM EDT Office Visit Hematology/Oncology at [address] [phone] Gian Lisa MD [facility] HEMATOLOGY/[place] [address] Francisca Quinonez APRN [facility] [place] [address] 04/07/2024 10:00 AM EDT Infusion Hematology Oncology at [address] [phone] Scheduled Procedures Name Priority Associated [...] 200 mg, Intravenous, ONCE, 1 dose, On 12/03/23 at 1700, Administer over 30 Minutes, Flush Line with NS after each dose, This agent is restricted to outpatient use. Is this drug being given as an outpatient? Yes New Bag 12/03/2023 3:55 PM EDT 200 mg 216 mL/hr documented in this encounter Care Teams Nuclear Engineer Relationship Specialty Start Date End Date Celso Dukes MD [address] [place] [address] PCP - General 02/24/15 documented as of this encounter
--- OUTSIDE RECORDS SUMMARY | 2024-02-04 01:32 | XMS_ITS | Encounter Summary ---
Author Organization [facility] [place] [address] Care Team Providers Care Tearoom Host/Hostess Name Role Phone Celso Dukes MD Primary Care Provider [phone] Encounter Details Date Type Department Care Team (Late st Contact Info) Description 10/14/2023 [place] [phone] Miah Ramirez MD [facility] [place] [address] Social History Tobacco Use Types Packs/Day Years [...] encounter Miscellaneous Notes * Telephone Encounter - Miah Ramirez MD - 10/14/2023 10:25 AM EDT Patient called yesterday and again today for concern of incisions which Dermabond has begun to flake off and he is having some itchiness around incisions. No redness or increased pain to the area andno fever or chills. Recommended benadryl to assist with what appears from pictures to be a contact d ermitis from the adhesive. He will try this and continue to monitor. documented in this encounter Plan of Treatment Upcoming Encounters Date Type Department Care Team (Late st Contact Info) Description 02/04/2024 10:00 AM EDT Scheduled View Only Hematology/Oncology at [address] [phone] Dana Davis RN 02/04/2024 10:00 AM EDT Infusion Hematology Oncology at [address] [phone] 02/24/2024 9:30 AM EDT Office Visit Hematology/Oncology at [address] [phone] Francisca Quinonez APRN [facility] [place] [address] 02/24/2024 10:30 AM EDT Infusion Hematology Oncology at [address] [phone] 03/17/2024 10:00 AM EDT Infusion Hematology Oncology at [address] [phone] 04/07/2024 9:30 AM EDT Office Visit Hematology/Oncology at [address] [phone] Gian Lisa MD [facility] HEMATOLOGY/[place] [address] Francisca Quinonez APRN [facility] [place] [address] 04/07/2024 10:00 AM EDT Infusion Hematology Oncology at [address] [phone] Scheduled Procedures Name Priority Associated Diagnoses Date/Ti me EGD, UPPER GI ENDOSCOPY (WRVU 2.09) Dyspepsia COLONOSCOPY, DIAGNOSTIC (WRVU 3.26) Dyspepsia documented as of this encounter Visit Diagnoses Not on filedocumented in this encounter Care Teams Tearoom Host/Hostess Relationship Specialty Start Date End Date Celso Dukes MD [address] [place] [address] PCP - General 02/24/15 documented as of this encounter
--- OUTSIDE RECORDS SUMMARY | 2024-02-04 01:32 | XMS_ITS | Encounter Summary ---
Author Organization [facility] Address [facility] [place] [address] Care Team Providers Care Material Control Supervisor Name Role Phone Celso Dukes MD Primary Care Provider Reason for Visit * Reason Comments Advice Only * Consultation (Routine) - Closed Specialty Diagnoses / Procedures Referred By Contac t Referred To Contact Hematology and Oncology Diagnoses Renal cancer, left Akira Mallory MD [facility] [place] [address] [facility] [address] [place] [address] Referral ID Status Reason Start Date Expiration Date V isits Requested Visits Authorized [id number] Closed Consult, Test & Treat 10/09/2023 10/08/2024 1 1 Encounter Details Date Type Department Care Team (Late st Contact Info) Description 10/25/2023 11:00 AM EDT Office Visit [place]ematology [place] [address] Gian Lisa MD [facility] HEMATOLOGY/[place] [address] Renal cell carcinoma, left; Abnormal thyroid function test Social History Tobacco Use Types Packs/Day Years Used Date Smoking Tobacco: Former Cigarettes 0.5 15 0 09/17/2008 - 09/18/2023 Smokeless Tobacco: Former Chew Quit: 09/18/2023 Tobacco Cessation:Counseling Given: Not Answered Comments:Using Zyn pouches reported 10/25/23 Alcohol Use Standard Drinks/Week Comments Yes 6 (1 standard drink = 0.6 oz pur e alcohol) [facility] Utilities Answer Date Recorded In the past [...] place to sleep or slept in a detention (including now)? No 10/25/2023 DH IPV Inpatient [...] Sign Reading Time Taken Comments Blood Pressure 141/105 10/25/2023 11:21 AM EDT recheck, provider notified Pulse 107 10/25/2023 11:12 AM EDT provider notified Temperature 36.3 ??C (97.3 ??F) 10/25/2023 1 1:12 AM EDT Respiratory Rate 19 10/25/2023 11:1 2 AM EDT Oxygen Saturation 95% 10/25/2023 11: 12 AM EDT Inhaled Oxygen Concentration - - Weight 118.3 kg (260 lb 12.9 oz) 10/25/2023 11:12 AM EDT Height 173.7 cm (5' 8.39) 10/25/2023 1 1:12 AM EDT Body Mass Index 39.21 10/25/2023 11:12 AM EDT documented in this encounter Progress Notes * Gian Lisa MD - 10/25/2023 11:00 AM EDT Images from the original note were not included. Diagnosis:[id number] Grade 4 clear cell renal cancer CC:I feel fine HPI:Rosalino Honeycutt is 53 y.o.M referred by Dr. Mallory for consultation on renal cell carcinoma. He initially presented in July [address] scan and MRI demonstrated left kidney mass. Rosalino underwent left Laparoscopic Radical Nephrectomy on September 18, 2023 for a [id number] G4 Clear cell cancer.. All surgical margins were negative. Postop course was uneventful. Today he feels well. PMH: Hypertension, sleep apnea, GERD hip replacement, elbow surgery, No past medical history on file. Patient Active Problem List Diagnosis Renal cell carcinoma, left Renal mass, left Social History: [id number] smoking history, quit on September 17. Used to drink 2-3 times a week. Currently he does not drink. 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 Social History Socioeconomic History Marital status: Spouse name: Not on file Number of children: Not on file Years of education: Not on file Highest education level: Not on file Occupational History Not on file Tobacco Use Smoking status: Former Packs/day: 0.50 Years: 15.00 Additional pack years: 0.00 Total pack years: 7.50 Types: Cigarettes Quit date: 09/18/2023 Years since quittin.1 Smokeless tobacco: Former Types: Chew Quit date: 09/18/2023 Tobacco comments: Using Zyn pouches reported 10/25/23 Vaping Use Vaping Use: Never used Substance and Sexual Activity Alcohol use: Yes Alcohol/week: 6.0 standard drinks of alcohol Types: 6 Cans of beer per week Drug use: Never Sexual activity: Not on file Other Topics Concern Not on file Social History Narrative Not on file Social Determinants of Health Financial Resource Strain: Medium Risk (10/25/2023) Overall Financial Resource Strain (CARDIA) Difficulty of Paying Living Expenses: Somewhat hard Food Insecurity: No Food Insecurity (10/25/2023) Hunger Vital Sign Worried About Running Out of Food in the Last Year: Never true Ran Out of Food in the Last Year: Never true Transportation Needs: No Transportation Needs (10/25/2023) PRAPARE - Transportation Lack of Transportation (Medical): No Lack of Transportation (Non-Medical): No Physical Activity: Not on file Intimate Partner Violence: Not At Risk (09/18/2023) DH IPV Inpatient Questions Prevent Contact with Others: no Feels Threatened by Someone: no Feels Unsafe at Home: no Physical Signs of Abuse Present: no Housing Stability: Low Risk (10/25/2023) Housing Stability Vital Sign Unable to Pay for Housing in the Last Year: No Number of Places Lived in the Last Year: 1 Unstable Housing in the Last Year: No Family History: Mother had ovarian cancer maternal grandmother had throat cancer Allergies: Allergies Allergen Reactions 2-Octyl Cyanoacrylate Rash AKA [place]-cheng skin glu Medications: Your Medications Accurate as of October 25, 2023 1:07 PM. If you have any questions, ask [...] 500 mg Quantity: 21 capsule Refills: 0 metoprolol succinate XL 25 mg [...] 10 tablet Refills: 0 Review of Systems: Constitutional: Negative for fever, chills, activity change, fatigue and unexpected weight change. HEENT: Negative for sore throat, mouth sores and trouble swallowing. Eyes: Negative. Respiratory: Negative for cough, shortness of breath and wheezing. Cardiovascular: Negative for chest pain, palpitations and leg swelling. Gastrointestinal: Negative for nausea, vomiting, abdominal pain, diarrhea, constipation and abdominal distention. Genitourinary: Negative for dysuria and difficulty urinating. Musculoskeletal: Negative. Skin: Negative. Neurological: Negative. Hematological: Negative for adenopathy. PE: Constitutional: NAD, obese HENT: Head: NCAT Eyes: Non-injected, anicteric. Neck: Normal ROM, supple. Cardiovascular: RRR, no murmur. Resp: Effort normal. No respiratory distress. Wheezes bilat lobes, no rales or rhonchi. Lymph: No palpable lymph nodes in cervical, supraclavicular, axillary areas. Abdominal: Soft, NT, ND, BS+ : no CVA tenderness. Skin: Skin is warm and dry. No rash or lesions noted on limited exam. No pallor. Musculoskeletal: No spinal tenderness. Normal range of motion, ambulatory. Extremities: No distal edema noted. Neurological: Alert & oriented, no focal deficits. Psych: Conversant, normal mood and affect. BP (!) 141/105 (Patient Position: Sitting) Comment: recheck, provider notified Pulse (!) 107 Comment: provider notified Temp 36.3 ??C (97.3 ??F) (Temporal) Resp 19 Ht 173.7 cm (5' 8.39) Wt118.3 kg (260 lb 12.9 oz) SpO2 95% BMI 39.21 kg/m?? Pathology: DIAGNOSIS Left kidney (radical nephrectomy): 1. Renal cell carcinoma, clear cell type, extending into perinephric adipose tissue (see Synoptic Report). 2. Adrenal gland, no evidence of malignancy. 3. Five lymph nodes, no evidence of malignancy (0/5). CR-0 Electronically signed by: Tung LANE, Gary Mariano Verified: 09/26/2023 13:11 Pathologist Performed at: -[facility] Dept. of Pathology, [place] [address] Dowel Pointer: Mookie Mandujano MD, [facility], [facility] Certificate: [id number] SYNOPTIC Specimen Procedure: Radical nephrectomy Specimen Laterality: [...] A18 CAP eCC 2021 Q1 Release Labs: Recent Results (from the past 24 hour(s)) Comprehensive metabolic panel (non-fasting) Result Value Ref Range Glucose Lvl 132 65 - 199 mg/dL BUN 15 10 - 20 mg/dL Creatinine 1.09 0.80 - 1.50 mg/dL Sodium 138 135 - 145 mmol/L Potassium 4.2 3.5 - 5.0 mmol/L Chloride 101 98 - 107 mmol/L CO2 25 22 - 31 mmol/L Anion Gap 12 5 - 15 mmol/L Calcium 9.5 8.5 - 10.5 mg/dL Total Protein 7.9 6.1 - 8.0 g/dL Albumin 4.2 3.2 - 5.2 g/dL AST 19 0 - 39 unit/L ALT 36 0 - 55 unit/L Alk Phos 98 40 - 130 unit/L Total Bilirubin 0.5 0.2 - 1.3 mg/dL Estimated GFR 82 >=60 mL/min/1.73 m?? TSH Result Value Ref Range TSH 1.62 0.27 - 4.20 mcIU/mL T4, free Result Value Ref Range Free T4 1.33 0.93 - 1.70 ng/dL Hemogram Result Value Ref Range WBC 9.9 (H) 4.0 - 9.5 x10(3)/mcL RBC 5.38 4.58 - 5.54 x10(6)/mcL Hemoglobin 15.6 13.7 - 16.5 g/dL Hematocrit 45.5 40.5 - 48.5 % MCV 84.6 82.9 - 93.1 fL MCH 29.0 27.5 - 32.1 pg MCHC 34.3 32.0 - 35.7 g/dL Platelets 216 145 - 357 x10(3)/mcL RDWSD 40.8 36.0 - 45.0 fL RDWCV 13.2 11.4 - 13.8 % MPV 10.0 7.6 - 12.9 fL nRBC % Auto 0.0 % nRBC Abs Auto 0.000 0.000 - 0.000 x10(3)/mcL Differential, Automated Result Value Ref Range Neutrophils % 60.0 % Neutr Abs (ANC) 5.96 1.70 - 6.10 x10(3)/mcL Lymphocytes % 28.6 % Lymphocytes Abs 2.8 0.9 - 3.2 x10(3)/mcL Monocytes % 8.0 % Monocyte Abs 0.8 0.3 - 0.9 x10(3)/mcL Eosinophils % 2.4 % Eosinophils Abs 0.2 0.0 - 0.4 x10(3)/mcL Basophils % 0.8 % Basophils Abs 0.1 0.0 - 0.1 x10(3)/mcL Immature Gran % 0.20 % Valerie Gran Abs 0.02 0.00 - 0.04 x10(3)/mcL Imagin09/13/2023 CT chest: IMPRESSION No evidence for intrathoracic metastasis 09/02/2023 abdominal MRI with and without contrast Assessment and Plan: Diagnosis:L [id number] G4 cell carcinoma, clear cell ctype Treatment: -09/18/23 left radical nephrectomy Rosalino Honeycutt is 53 y.o. male diagnosed with renal cell carcinoma, clear-cell type. He underwent left radical nephrectomy on September 18, 2023. We discussed prognosis of renal cell carcinoma with both 30% chances for cancer recurrence. We did talk about adjuvant treatment options particularly treatment with TKI sunitinib for 1 year We discussed data of adjuvant sunitinib in [facility] . In the study, adjuvant sunitinib prolonged [...] [employer] a [employer] of [employer]; [id number] We discussed benefits and the risk of pembrolizumab. Diagnosis include but not limited to fatigue, skin rash, immune mediated thyroiditis, hepatitis, immune mediated pneumonitis, immune mediated colitis, hypo or hyperthyroidism. All questions were answered to patient's satisfaction. He would like to proceed with adjuvant pembrolizumab. Informed verbal consent was obtained. He would like to be treated and sent [facility]. Will make arrangements. Plan Next visit with DEEP SUBMERGENCE VEHICLE OPERATOR chemo teaching and first cycle of pembrolizumab on November 11 at [facility] Rosalino is accompanied by his today. All questions were answered to patient's satisfaction. I would like to thank Dr. Mallory for allowing me to participate in the care of this wonderful gentleman documented in this encounter Plan of Treatment Upcoming Encounters Date Type Department Care Team (Late [facility]) Description 02/04/2024 10:00 AM EDT Scheduled View Only Hematology/Oncology at [address] [phone] Dana Davis RN 02/04/2024 10:00 AM EDT Infusion Hematology Oncology at [address] [phone] 02/24/2024 9:30 AM EDT Office Visit Hematology/Oncology at [address] [phone] Francisca Quinonez, JOB COUNSELOR [facility] [place] [address] 02/24/2024 10:30 AM EDT Infusion Hematology Oncology at [address] [phone] 03/17/2024 10:00 AM EDT Infusion Hematology Oncology at [address] [phone] 04/07/2024 9:30 AM EDT Office Visit Hematology/Oncology at [address] [phone] Gian Lisa MD [facility] DR HEMATOLOGY/[place] [address] Francisca Quinonez APRN [facility] [place] [place] [address] 04/07/2024 10:00 AM EDT Infusion Hematology Oncology at [address] [phone] Scheduled Orders Name Type Priority Associated Diagnoses Orde r Schedule CBC (with Diff) Lab Routine Renal cell carcinoma, left As Needed for 10 Occurrences starting 10/25/2023 until 10/24/2024 Comprehensive metabolic panel (non-fasting) Lab Routine Renal cell carcinoma, left As Needed for 10 Occurrences starting 10/25/2023 until 10/24/2024 TSH Lab Routine Renal cell carcinoma, left Abnormal thyroid function test As Needed for 10 Occurrences starting 10/25/2023 until 10/24/2024 T4, free Lab Routine Renal cell carcinoma, left Abnormal thyroid function test As Needed for 10 Occurrences starting 10/25/2023 until 10/24/2024 Scheduled Procedures Name Priority Associated Diagnoses Date/Ti me EGD, UPPER GI ENDOSCOPY (WRVU 2.09) Dyspepsia COLONOSCOPY, DIAGNOSTIC (WRVU 3.26) Dyspepsia documented as of this encounter Results * T4, free (10/25/2023 12:00 PM EDT) Free T4 1.33 0.93 - 1.70 ng/dL [facility] Comment: Reference Interval (ng/dL): Females: ??First Trimester: 0.97-1.68 ??Second Trimester: 0.77-1.51 ??Third Trimester: 0.77-1.49 Blood 10/25/2023 12:0 0 PM EDT 10/25/2023 12:04 PM EDT Narrative Resulting Agency Comment Spec In Lab Gian Lisa MD CHEMISTRY ORDERABLES Performing Organization Address City/[facility]/ZIP Co de Phone Number [facility] [place] [address] * TSH (10/25/2023 12:00 PM EDT) TSH 1.62 0.27 - 4.20 mcIU/mL [facility] Comment: Reference Interval (mcIU/mL): Females: ??First Trimester: 0.23-3.88 ??Second Trimester: 0.22-3.90 ??Third Trimester: 0.44-4.66 Blood 10/25/2023 12:0 0 PM EDT 10/25/2023 12:04 PM EDT Narrative Resulting Agency Comment Spec In Lab Gian Lisa MD CHEMISTRY ORDERABLES Performing Organization Address [facility]/[place] Co de Phone Number [facility] [place] [address] * Comprehensive metabolic panel (non-fasting) (10/25/2023 12:00 PM EDT) Pathologist [facility] Glucose Lvl 132 65 - 199 mg/dL [facility] Comment:Diabetes: >=200 mg/d L plus symptoms BUN 15 10 - 20 mg/dL [facility] Creatinine 1.09 0.80 - 1.50 mg/dL [facility] Sodium 138 135 - 145 mmol/L [facility] Potassium 4.2 3.5 - 5.0 mmol/L [facility] Comment: Please note: ??Patients with WBC >100,000 may have falsely elevated Potassium levels. ??For accurate Potassium quantification in these patients send serum separator tube (gold top) for subsequent determinations. ??Contact the Clinical Chemistry Laboratory if there are any questions. Chloride 101 98 - 107 mmol/L [facility] CO2 25 22 - 31 mmol/L [facility] Anion Gap 12 5 - 15 mmol/L [facility] Calcium 9.5 8.5 - 10.5 mg/dL [facility] Total Protein 7.9 6.1 - 8.0 g/dL [facility] Albumin 4.2 3.2 - 5.2 g/dL [facility] AST 19 0 - 39 unit/L [facility] ALT 36 0 - 55 unit/L [facility] Alk Phos 98 40 - 130 unit/L [facility] Total Bilirubin 0.5 0.2 - 1.3 mg/dL [facility] Estimated GFR 82 >=60 mL/min/1. 73 m?? [facility] Comment: This patient's estimated GFR [...] In Lab Gian Lisa MD CHEMISTRY ORDERABLES [facility] [place] [address] documented in this encounter Visit Diagnoses Diagnosis Renal cell carcinoma, left Abnormal thyroid function test Nonspecific abnormal results of thyroid function study documented in this encounter Care Teams Material Control Supervisor Relationship Specialty Start Date End Date Celso Dukes MD [address] [place] [address] PCP - General 02/24/15 documented as of this encounter
--- OUTSIDE RECORDS SUMMARY | 2024-02-04 01:32 | XMS_ITS | Encounter Summary ---
Author Organization [facility] Address [facility] [place] [address] Care Team Providers Care Manufacturing Engineering Director Name Role Phone Celso Dukes MD Primary Care Provider Encounter Details Date Type Department Care Team (Late st Contact Info) Description 10/31/2023 Patient Outreach Hematology and Oncology at [facility] [place] [address] Viv Joiner Social History Tobacco Use Types Packs/Day Years Used Date Smoking Tobacco: Former Cigarettes 0.5 15 0 09/17/2008 - 09/18/2023 Smokeless Tobacco: Former Chew Quit: 09/18/2023 Comments:Using Zyn pouches r eported 10/25/23 Alcohol Use Standard Drinks/Week Comments Yes 6 (1 standard drink = 0.6 oz pur e alcohol) [facility] Utilities Answer Date Recorded In the [...] place to sleep or slept in a usp (including now)? No 10/25/2023 DH IPV Inpatient [...] encounter Miscellaneous Notes * Telephone Encounter - Viv Joiner - 10/31/2023 11:51 AM EDT [facility] [employer] spoke with Rosalino to review his responses to SDOH+ screening. Atthis time he has no needs. He will be going to [facility] for treatment. Doreen Tang will follow him. Rosalino has been out of work since early September. He is on FMLA and now receiving STD thru his employer.He feels he has good insurance but is a bit concerned about his OOP medical cost due to the surgery. He is still waiting for a bill. We briefly reviews other resources but at this time he has no needs but is concerned about the future. Viv Joiner documented in this encounter Plan of Treatment Upcoming Encounters Date Type Department Care Team (Late st Contact Info) Description 02/04/2024 10:00 AM EDT Scheduled View Only Hematology/Oncology at [address] [phone] Dana Davis RN 02/04/2024 10:00 AM EDT Infusion Hematology Oncology at [address] [phone] 02/24/2024 9:30 AM EDT Office Visit Hematology/Oncology at [address] [phone] Francisca Quinonez APRN [facility] [place] [address] 02/24/2024 10:30 AM EDT Infusion Hematology Oncology at [address] [phone] 03/17/2024 10:00 AM EDT Infusion Hematology Oncology at [address] [phone] 04/07/2024 9:30 AM EDT Office Visit Hematology/Oncology at [address] [phone] Gian Lisa MD [facility] HEMATOLOGY/[place] [address] Francisca Quinonez APRN [facility] [place] [address] 04/07/2024 10:00 AM EDT Infusion Hematology Oncology at [address] [phone] Scheduled Procedures Name Priority Associated Diagnoses Date/Ti me EGD, UPPER GI ENDOSCOPY (WRVU 2.09) Dyspepsia COLONOSCOPY, DIAGNOSTIC (WRVU 3.26) Dyspepsia documented as of this encounter Visit Diagnoses Not on filedocumented in this encounter Care Teams Manufacturing Engineering Director Relationship Specialty Start Date End Date Celso Dukes MD [address] [place] [address] PCP - General 02/24/15 documented as of this encounter
--- OUTSIDE RECORDS SUMMARY | 2024-02-04 01:32 | XMS_ITS | Encounter Summary ---
Author Organization Counts Include [facility] Address [facility] [place] [address] Care Team Providers Care Compliance Lead Name Role Phone Celso Dukes MD Primary Care Provider [phone] Encounter Details Date Type Department Care Team (Late st Contact Info) Description 11/21/2023 Notes Only Hematology/Oncology at [address] [phone] Francisca Quinonez APRN [facility] [place] [address] Social History Tobacco Use Types Packs/Day Years Used Date Smoking Tobacco: Former Cigarettes 0.5 15 0 09/17/2008 - 09/18/2023 Smokeless Tobacco: Former Chew Quit: 09/18/2023 Comments:Using Zyn pouches r eported 10/25/23 Alcohol Use Standard Drinks/Week Comments Yes 6 (1 standard drink = 0.6 oz pur e alcohol) [facility] Utilities Answer Date Recorded In the past 12 months has [employer], gas, oil, or water [employer] threatened to shut off services in your [...] as of this encounter Progress Notes * Francisca Quinonez APRN - 11/21/2023 10:15 AM EDT Spoke with patient today. No contraindication with dental work or amoxicillin and pembrolizumab. Per pharmacy no known interaction with marijuana and pembrolizumab. documented in this encounter Plan of Treatment Upcoming Encounters Date Type Department Care Team (Late st Contact Info) Description 02/04/2024 10:00 AM EDT Scheduled View Only Hematology/Oncology at [address] [phone] Dana Davis RN 02/04/2024 10:00 AM EDT Infusion Hematology Oncology at [address] [phone] 02/24/2024 9:30 AM EDT Office Visit Hematology/Oncology at [address] [phone] Francisca Quinonez APRN [facility] [place] [address] 02/24/2024 10:30 AM EDT Infusion Hematology Oncology at [address] [phone] 03/17/2024 10:00 AM EDT Infusion Hematology Oncology at [address] [phone] 04/07/2024 9:30 AM EDT Office Visit Hematology/Oncology at [address] [phone] Gian Lisa MD [facility] DR HEMATOLOGY/[place] [address] Francisca Quinonez APRN [facility] [place] [address] 04/07/2024 10:00 AM EDT Infusion Hematology Oncology at [address] [phone] Scheduled Procedures Name Priority Associated Diagnoses Date/Ti me EGD, UPPER GI ENDOSCOPY (WRVU 2.09) Dyspepsia COLONOSCOPY, DIAGNOSTIC (WRVU 3.26) Dyspepsia documented as of this encounter Visit Diagnoses Not on filedocumented in this encounter Care Teams Compliance Lead Relationship Specialty Start Date End Date Celso Dukes MD [address] [place] [address] PCP - General 02/24/15 documented as of this encounter
--- OUTSIDE RECORDS SUMMARY | 2024-02-04 01:32 | XMS_ITS | Encounter Summary ---
Author Organization [facility] Address [facility] [place] [address] Care Team Providers Care Rug Cleaner Helper Name Role Phone Celso Dukes MD Primary Care Provider [phone] Encounter Details Date Type Department Care Team (Late st Contact Info) Description 10/03/2023 10:15 AM EDT TH Visit (TeleHealth) Tobacco Treatment at [facility] [place] [phone] Barbara Corbin Cigarette nicotine dependence in remission Social History Tobacco Use Types Packs/Day Years Used Date Smoking Tobacco: Every Day Cigarettes 0.5 15 Smokeless Tobacco: Current Chew Alcohol Use Standard Drinks/Week Comments Yes 6 (1 standard drink = 0.6 oz pur e alcohol) [facility] Inpatient Questions Answer Date Recorded Does Anyone [...] encounter Progress Notes * Barbara Corbin - 10/03/2023 10:15 AM EDT Patient reports not smoking since September 17. He feels very confident about his progress so far. He stated that the thoughts of smoking are infrequent and manageable. He has back up nicotine if neededbut does not feel as though it is necessary at this point. We discussed deep breathing and distraction as useful tools for maintaining his quit. He stated he has not concerns at this time and reportsbeing willing to ask for help if needed. Mr. Honeyuctt is willing to have a follow up in one week. documented in this encounter Plan of Treatment Upcoming Encounters Date Type Department Care Team (Late st Contact Info) Description 02/04/2024 10:00 AM EDT Scheduled View Only Hematology/Oncology at [address] [phone] Dana Davis RN 02/04/2024 10:00 AM EDT Infusion Hematology Oncology at [address] [phone] 02/24/2024 9:30 AM EDT Office Visit Hematology/Oncology at [address] [phone] Francisca Quinonez APRN [facility] [place] [address] 02/24/2024 10:30 AM EDT Infusion Hematology Oncology at [address] [phone] 03/17/2024 10:00 AM EDT Infusion Hematology Oncology at [address] [phone] 04/07/2024 9:30 AM EDT Office Visit Hematology/Oncology at [address] [phone] Gian Lisa MD [facility] HEMATOLOGY/[place] [address] Francisca Quinonez APRN [facility] [place] [address] 04/07/2024 10:00 AM EDT Infusion Hematology Oncology at [address] [phone] Scheduled Procedures Name Priority Associated Diagnoses Date/Ti me EGD, UPPER GI ENDOSCOPY (WRVU 2.09) Dyspepsia COLONOSCOPY, DIAGNOSTIC (WRVU 3.26) Dyspepsia documented as of this encounter Visit Diagnoses Diagnosis Cigarette nicotine dependence in remission Tobacco use disorder documented in this encounter Care Teams Rug Cleaner Helper Relationship Specialty Start Date End Date Celso Dukes MD [address] [place] [address] PCP - General 02/24/15 documented as of this encounter
--- OUTSIDE RECORDS SUMMARY | 2024-02-04 01:32 | XMS_ITS | Encounter Summary ---
Author Organization [facility] Address [facility] [place] [address] Care Team Providers Care College Admissions Counselor Name Role Phone Celso Dukes MD Primary Care Provider [phone] Encounter Details Date Type Department Care Team (Late st Contact Info) Description 11/12/2023 Orders Only Hematology/Oncology at [address] [phone] Gian Lisa MD [facility] DR HEMATOLOGY/[place] [address] Renal cell carcinoma, left Social History Tobacco Use Types Packs/Day Years Used Date Smoking Tobacco: Former Cigarettes 0.5 15 0 09/17/2008 - 09/18/2023 Smokeless Tobacco: Former Chew Quit: 09/18/2023 Comments:Using Zyn pouches r eported 10/25/23 Alcohol Use Standard Drinks/Week Comments Yes 6 (1 standard drink = 0.6 oz pur e alcohol) [facility] Utilities Answer Date Recorded In the past 12 months has [employer], gas, oil, or water [email or web address] threatened to shut off services in your [...] place to sleep or slept in a residential (including now)? No 10/25/2023 DH IPV Inpatient [...] AM EDT Scheduled View Only Hematology/Oncology at [address] [phone] Dana Davis RN 02/04/2024 10:00 AM EDT Infusion Hematology Oncology at [address] [phone] 02/24/2024 9:30 AM EDT Office Visit Hematology/Oncology at [address] [phone] Francisca Quinonez APRN [facility] [place] [address] 02/24/2024 10:30 AM EDT Infusion Hematology Oncology at [address] [phone] 03/17/2024 10:00 AM EDT Infusion Hematology Oncology at [address] [phone] 04/07/2024 9:30 AM EDT Office Visit Hematology/Oncology at [address] [phone] Gian Lisa MD [facility] HEMATOLOGY/[place] [address] Francisca Quinonez APRN [facility] [place] [address] 04/07/2024 10:00 AM EDT Infusion Hematology Oncology at [address] [phone] Scheduled Orders Name Type Priority Associated Diagnoses Orde r Schedule Miscellaneous Lab request Lab Routine Renal cell carcinoma, left Every 3 weeks for 17 Occurrences starting 11/12/2023 until 11/11/2024, 1 completed Scheduled Procedures Name Priority Associated Diagnoses Date/Ti me EGD, UPPER GI ENDOSCOPY (WRVU 2.09) Dyspepsia COLONOSCOPY, DIAGNOSTIC (WRVU 3.26) Dyspepsia documented as of this encounter Results * Miscellaneous Lab request (11/12/2023 3:30 PM EDT) Pathologist [facility] Lab Result Request received in lab. [facility] Blood 11/12/2023 3:30 PM EDT 11/13/2023 10:25 PM EDT Narrative Resulting Agency Comment Spec In Lab Gian Lisa MD HEMATOLOGY ORDERABLE S [facility] [place] [address] documented in this encounter Visit Diagnoses Diagnosis Renal cell carcinoma, left documented in this encounter Care Teams College Admissions Counselor Relationship Specialty Start Date End Date Celos Dukes MD [address] [place] [address] PCP - General 02/24/15 documented as of this encounter
--- OUTSIDE RECORDS SUMMARY | 2024-02-04 01:32 | XMS_ITS | Encounter Summary ---
Author Organization [facility] Address [facility] [address] Care Team Providers Care Wafer Batter Mixer Name Role Phone Celso Dukes MD Primary Care Provider [phone] Encounter Details Date Type Department Care Team (Latest Contact Info) Description 11/12/2023 10:10 PM EDT - 11/12/2023 11:59 PM EDT Hospital Encounter Laboratory [facility] [place] [phone] Renal cell carcinoma, left Discharge Disposition: Home Social History Tobacco Use Types Packs/Day Years Used Date Smoking Tobacco: Former Cigarettes 0.5 15 0 09/17/2008 - 09/18/2023 Smokeless Tobacco: Former Chew Quit: 09/18/2023 Comments:Using Zyn pouches r eported 10/25/23 Alcohol Use Standard Drinks/Week Comments Yes 6 (1 standard drink = 0.6 oz pur e alcohol) [facility] Utilities Answer Date Recorded In [...] AM EDT Scheduled View Only Hematology/Oncology at [address] [phone] Dana Davis RN 02/04/2024 10:00 AM EDT Infusion Hematology Oncology at [address] [phone] 02/24/2024 9:30 AM EDT Office Visit Hematology/Oncology at [address] [phone] Francisca Quinonez APRN [facility] [place] [address] 02/24/2024 10:30 AM EDT Infusion Hematology Oncology at [address] [phone] 03/17/2024 10:00 AM EDT Infusion Hematology Oncology at [address] [phone] 04/07/2024 9:30 AM EDT Office Visit Hematology/Oncology at [address] [phone] Gian Lisa MD [facility] HEMATOLOGY/[place] [address] Francisca Quinonez APRN [facility] [place] [address] 04/07/2024 10:00 AM EDT Infusion Hematology Oncology at [address] [phone] Scheduled Procedures Name Priority Associated Diagnoses Date/Ti me EGD, UPPER GI ENDOSCOPY (WRVU 2.09) Dyspepsia COLONOSCOPY, DIAGNOSTIC (WRVU 3.26) Dyspepsia documented as of this encounter Procedures Procedure Name Priority Date/Time Associated Diagnosis Comments MISCELLANEOUS LAB REQUEST Routine 11/12/2023 3:30 PM EDT Renal cell carcinoma, left documented in this encounter Results * Miscellaneous Lab request (11/12/2023 3:30 PM EDT) [facility] Lab Result Request received in lab. [facility] Blood 11/12/2023 3:30 PM EDT 11/13/2023 10:25 PM EDT Narrative Resulting Agency Comment Spec In Lab Gian Lisa MD HEMATOLOGY ORDERABLE S [facility] [place] [address] documented in this encounter Visit Diagnoses Diagnosis Renal cell carcinoma, left documented in this encounter Care Teams Wafer Batter Mixer Relationship Specialty Start Date End Date Celso Dukes MD [address] [place] [address] PCP - General 02/24/15 documented as of this encounter
--- OUTSIDE RECORDS SUMMARY | 2024-02-04 01:32 | XMS_ITS | Encounter Summary ---
Author [facility] [place] [address] Care Team Providers Care Tray Casting Machine Operator Name Role Phone Celso Dukes MD Primary Care Provider [phone] Encounter Details Date Type Department Care Team (Late st Contact Info) Description 10/17/2023 [place] [phone] Juan Moya MD [facility] [place] [address] Social History Tobacco Use Types Packs/Day Years [...] encounter Miscellaneous Notes * Telephone Encounter - Juan Moya MD - 10/17/2023 2:16 PM EDT TELEPHONE NOTE Date of call: 10/17/23 Time of call: 2:17 PM Issue: question about incision Assessment: Patient is s/p left nephrectomy on 09/17. He took a picture of his chapman incision and was wonderingif there is something to be concerned about. He denies fever, N/V, abdoimal pain. There is no erythema or pain around the incision, but a one corner of the incision seems hard to completely heal as the scab is being pulled apart with certain movement. There is some clear drainage but no obvious purulent discharge. Advised that based on the picture it appears to be a very superficial dehiscence. Advised in the absence of warning symptoms, I would recommend continued conservative management and maybe apply some Vaseline over the incision as a protective barrier. I will send a course of antibiotics to him to cover for possible cellulitis. Advised patient to self-monitor for about 1-2 weeks and call back if the incision does not heal or if he has warning sx, at which point we may have to investigate for possible abscess, seroma, or fistula. Juan Moya MD documented in this encounter Plan of Treatment Upcoming Encounters Date Type Department Care Team (Late st Contact Info) Description 02/04/2024 10:00 AM EDT Scheduled View Only Hematology/Oncology at [address] [phone] Dana Davis RN 02/04/2024 10:00 AM EDT Infusion Hematology Oncology at [address] [phone] 02/24/2024 9:30 AM EDT Office Visit Hematology/Oncology at [address] [phone] Francisca Quinonez APRN [facility] [place] [address] 02/24/2024 10:30 AM EDT Infusion Hematology Oncology at [address] [phone] 03/17/2024 10:00 AM EDT Infusion Hematology Oncology at [address] [phone] 04/07/2024 9:30 AM EDT Office Visit Hematology/Oncology at [address] [phone] Gian Lisa MD [facility] DR HEMATOLOGY/[place] [address] Francisca Quinonez APRN [facility] [place] [address] 04/07/2024 10:00 AM EDT Infusion Hematology Oncology at [address] [phone] Scheduled Procedures Name Priority Associated Diagnoses Date/Ti me EGD, UPPER GI ENDOSCOPY (WRVU 2.09) Dyspepsia COLONOSCOPY, DIAGNOSTIC (WRVU 3.26) Dyspepsia documented as of this encounter Visit Diagnoses Diagnosis Renal mass, left- Primary Unspecified disorder of kidney and ureter documented in this encounter Care Teams Tray Casting Machine Operator Relationship Specialty Start Date End Date Celso Dukes MD [address] [place] [address] PCP - General 02/24/15 documented as of this encounter
--- OUTSIDE RECORDS SUMMARY | 2024-02-04 01:32 | XMS_ITS | Encounter Summary ---
Author Organization [facility] Address [facility] [address] Care Team Providers Care Website Optimization Strategist Name Role Phone Celso Dukes MD Primary Care Provider Encounter Details Date Type Department Care Team (Late st Contact Info) Description 11/12/2023 Notes Only Hematology/Oncology at [address] [phone] Dana Davis RN Social History [...] Progress Notes * Dana Davis RN - 11/12/2023 3:59 PM EDT Clinical Research Nurse Note [place], [place] Date: 11/12/23 Documentation of Informed Consent to Participate in Clinical Trial Study Number:[id number] Description:Immune profiling for cancer Immunotherapy response Patient was seen in private exam room , accompanied by , and was offered the opportunity to participate in the study [id number] The protocol was reviewed with patient including description of study purpose, potential risks, side effects and uncertain benefits, voluntary nature of participation, and requirements of participation. Financial considerations were discussed per protocol. Specifically, there is no financial compensation provided for participation. Discussed confidentiality of patient's private health information as specified in consent form. Patient was informed that he/she may discontinue study involvement at any time; informed that declining to participate or discontinuing study treatment will not compromise his/her access to treatmentoptions or care at this institution. She/He was given the written consent form to read and review. Patient states he/she was given adequate time to review all information, and to ask questions and review concerns, all of which were answered to his/her satisfaction. Consent protocol form effective date: 08/13/2023 and expiration date 08/12/2024, was signed and datedby patient and this author. Written informed consent was obtained prior to any study procedures being conducted. A copy of the signed consent form was given to patient. Original signed IC form was sent to RENATO Mackay via welfare centre manager and also Emailed to him. Patient was provided a copy of this author business card and instructed to call clinic or provider with any questions or concerns regarding the research study. A lab kit will be drawn on day 1 of each cycle. Patient verbalized understanding of these instructions. Miscellaneous lab kit draw for study # [id number] Misc lab kit draw prior to infusion today. Date: 11/12/23 Time: 3:30 PM [ x ] misc lab kit blood drawn from venipuncture performed by Sam Garduno sander and buffer [ ] medi port by sander and buffer. [ ] medi port was accessed by [facility] for SOC labs earlier today. Misc lab kit blood drawn from accessed port and flushed with 20 mls of saline per institutional policy. Specimens sent to : [x ] [facility] 4th floor pathology lab in cooler via welfare centre manager by this author [ ] Study ,via [employer] ex per protocol requirements documented in this encounter Plan of Treatment Upcoming Encounters Date Type Department Care Team (Late st Contact Info) Description 02/04/2024 10:00 AM EDT Scheduled View Only Hematology/Oncology at [address] [phone] Dana Davis RN 02/04/2024 10:00 AM EDT Infusion Hematology Oncology at [address] [phone] 02/24/2024 9:30 AM EDT Office Visit Hematology/Oncology at [address] [phone] Francisca Quinonez, [facility] [place] [address] 02/24/2024 10:30 AM EDT Infusion Hematology Oncology at [address] [phone] 03/17/2024 10:00 AM EDT Infusion Hematology Oncology at [address] [phone] 04/07/2024 9:30 AM EDT Office Visit Hematology/Oncology at [address] [phone] [facility] HEMATOLOGY/[place] [address] [facility] [place] [address] 04/07/2024 10:00 AM EDT Infusion Hematology Oncology at [address] [phone] Scheduled Procedures Name Priority Associated Diagnoses Date/Ti me EGD, UPPER GI ENDOSCOPY (WRVU 2.09) Dyspepsia COLONOSCOPY, DIAGNOSTIC (WRVU 3.26) Dyspepsia documented as of this encounter Visit Diagnoses Not on filedocumented in this encounter Care Teams Website Optimization Strategist Relationship Specialty Start Date End Date Celso Dukes MD [address] [place] [address] PCP - General 02/24/15 documented as of this encounter
--- OUTSIDE RECORDS SUMMARY | 2024-02-04 01:32 | XMS_ITS | Encounter Summary ---
Author Organization [facility] [place] [address] Care Team Providers Care Marketing Technology Coordinator Name Role Phone Celso Dukes MD Primary Care Provider [phone] Encounter Details Date Type Department Care Team (Late st Contact Info) Description 10/17/2023 Telephone Urology at [facility] [place] [address] Chapo Greer Social History Tobacco Use Types Packs/Day Years Used Date Smoking Tobacco: Every Day Cigarettes 0.5 15 Smokeless Tobacco: Current Chew Alcohol Use Standard Drinks/Week Comments Yes 6 (1 standard drink = 0.6 oz pur e alcohol) [facility] Inpatient Questions Answer Date [...] encounter Miscellaneous Notes * Telephone Encounter - Chapo Greer - 10/17/2023 7:19 AM EDT OP Note, D/C summary and path report faxed to PCP per Dr. Mallory. documented in this encounter Plan of Treatment Upcoming Encounters Date Type Department Care Team (Late st Contact Info) Description 02/04/2024 10:00 AM EDT Scheduled View Only Hematology/Oncology at [address] [phone] Dana Davis RN 02/04/2024 10:00 AM EDT Infusion Hematology Oncology at [address] [phone] 02/24/2024 9:30 AM EDT Office Visit Hematology/Oncology at [address] [phone] Francisca Quinonez APRN [facility] [place] [address] 02/24/2024 10:30 AM EDT Infusion Hematology Oncology at [address] [phone] 03/17/2024 10:00 AM EDT Infusion Hematology Oncology at [address] [phone] 04/07/2024 9:30 AM EDT Office Visit Hematology/Oncology at [address] [phone] Gian Lisa MD [facility] HEMATOLOGY/[place] [address] Francisca Quinonez APRN [facility] [place] [address] 04/07/2024 10:00 AM EDT Infusion Hematology Oncology at [address] [phone] Scheduled Procedures Name Priority Associated Diagnoses Date/Ti me EGD, UPPER GI ENDOSCOPY (WRVU 2.09) Dyspepsia COLONOSCOPY, DIAGNOSTIC (WRVU 3.26) Dyspepsia documented as of this encounter Visit Diagnoses Not on filedocumented in this encounter Care Teams Marketing Technology Coordinator Relationship Specialty Start Date End Date Celso Dukes MD [address] [place] [address] PCP - General 02/24/15 documented as of this encounter
--- OUTSIDE RECORDS SUMMARY | 2024-02-04 01:32 | XMS_ITS | Encounter Summary ---
Author Organization [facility] [place] [address] Care Team Providers Care Ballast Cleaning Machine Operator Name Role Phone Celso Dukes MD Primary Care Provider [phone] Encounter Details Date Type Department Care Team (Late st Contact Info) Description 10/14/2023 Telephone Urology at [facility] [place] [place] [phone] Miriam Arechiga RN Social History Tobacco Use Types Packs/Day Years Used Date Smoking Tobacco: Every Day Cigarettes 0.5 15 Smokeless Tobacco: Current Chew Alcohol Use Standard Drinks/Week Comments Yes 6 (1 standard drink = 0.6 oz pur e alcohol) [facility] Inpatient Questions Answer Date Recorded Does [...] encounter Miscellaneous Notes * Telephone Encounter - Miriam Arechiga RN - 10/14/2023 9:58 AM EDT S/P 09/18/23 Dr. Mallory Operations/Major Procedures: Procedure(s): CYSTO, CYSTOURETHROSCOPY, DIAGNOSTIC (WRVU 1.53) @ROBOTIC LAPAROSCOPY, RAD NEPHRECTOMY (WRVU 25.06) * Telephone Encounter - Miriam Arechiga RN - 10/14/2023 9:57 AM EDT Copied from CRM #[id number]. Topic: Specialty Dept CRMs - Triage >> Oct 14, 2023 9:07 AM Cinthya Desai wrote: Triage Message Specialist: Mohamud Relationship (if other than patient-full name): Patient Symptom: Rash/itchiness around surgery site Has patient experienced symptom before no If patient has experienced symptom before, when was the last time this occurred NA Is patient currently having symptom yes When did symptom begin after surgery on 09/18/23 Additional Comments: Patient calling stating that he has a rash near his surgical site that is veryitchy and uncomfortable. He would like to know what he can do for it. documented in this encounter Plan of Treatment Upcoming Encounters Date Type Department Care Team (Late [facility]) Description 02/04/2024 10:00 AM EDT Scheduled View Only Hematology/Oncology at [address] [phone] Dana Davis RN 02/04/2024 10:00 AM EDT Infusion Hematology Oncology at [address] [phone] 02/24/2024 9:30 AM EDT Office Visit Hematology/Oncology at [address] [phone] Francisca Quinonez, [facility] [place] [address] 02/24/2024 10:30 AM EDT Infusion Hematology Oncology at [address] [phone] 03/17/2024 10:00 AM EDT Infusion Hematology Oncology at [address] [phone] 04/07/2024 9:30 AM EDT Office Visit Hematology/Oncology at [address] [phone] Gian Lias MD [facility] DR HEMATOLOGY/[place] [address] Francisca Quinonez APRN [facility] [place] [address] 04/07/2024 10:00 AM EDT Infusion Hematology Oncology at [address] [phone] Scheduled Procedures Name Priority Associated Diagnoses Date/Ti me EGD, UPPER GI ENDOSCOPY (WRVU 2.09) Dyspepsia COLONOSCOPY, DIAGNOSTIC (WRVU 3.26) Dyspepsia documented as of this encounter Visit Diagnoses Not on filedocumented in this encounter Care Teams Ballast Cleaning Machine Operator Relationship Specialty Start Date End Date Celso Dukes MD [address] [place] [address] PCP - General 02/24/15 documented as of this encounter
--- OUTSIDE RECORDS SUMMARY | 2024-02-04 01:32 | XMS_ITS | Encounter Summary ---
Author Organization [facility] [place] [address] Care Team Providers Care Net Development Manager Name Role Phone Celso Dukes MD Primary Care Provider [phone] Encounter Details Date Type Department Care Team (Late Contact Info) Description 10/23/2023 Patient Outreach Hematology and Oncology at [facility] [place] [address] Ramone Ferrari RN Social History Tobacco Use Types Packs/Day Years Used Date Smoking Tobacco: Every Day Cigarettes 0.5 15 Smokeless Tobacco: Current Chew Alcohol Use Standard Drinks/Week Comments Yes 6 (1 standard drink = 0.6 oz pur e alcohol) [facility] Inpatient Questions Answer Date Recorded [...] Progress Notes * Ramone Ferrari, RN - 10/23/2023 1:42 PM EDT JAY ONOksana introduction and contact information sent to patient via [facility] portal. documented in this encounter Plan of Treatment Upcoming Encounters Date Type Department Care Team (Late Contact Info) Description 02/04/2024 10:00 AM EDT Scheduled View Only Hematology/Oncology at [address] [phone] Dana Davis RN 02/04/2024 10:00 AM EDT Infusion Hematology Oncology at [address] [phone] 02/24/2024 9:30 AM EDT Office Visit Hematology/Oncology at [address] [phone] Francisca Quinonez APRN [facility] [place] [address] 02/24/2024 10:30 AM EDT Infusion Hematology Oncology at [address] [phone] 03/17/2024 10:00 AM EDT Infusion Hematology Oncology at [address] [address] 04/07/2024 9:30 AM EDT Office Visit Hematology/Oncology at [address] [phone] Gian Lisa MD [facility] HEMATOLOGY/[place] [address] Francisca Quinonez APRN [facility] [place] [address] 04/07/2024 10:00 AM EDT Infusion Hematology Oncology at [address] [phone] Scheduled Procedures Name Priority Associated Diagnoses Date/Ti me EGD, UPPER GI ENDOSCOPY (WRVU 2.09) Dyspepsia COLONOSCOPY, DIAGNOSTIC (WRVU 3.26) Dyspepsia documented as of this encounter Visit Diagnoses Not on filedocumented in this encounter Care Teams Net Development Manager Relationship Specialty Start Date End Date Celso Dukes MD [address] [place] [address] PCP - General 02/24/15 documented as of this encounter
--- OUTSIDE RECORDS SUMMARY | 2024-02-04 01:33 | XMS_ITS | Encounter Summary ---
Author Organization [facility] [place] [address] Care Team Providers Care Peanut Separator Name Role Phone Celso Dukes MD Primary Care Provider [phone] Encounter Details Date Type Department Care Team (Late st Contact Info) Description 09/27/2023 Telephone [place] [phone] Martita James MD [facility] [place] [address] Social History Tobacco Use Types Packs/Day Years [...] Telephone Encounter - Martita James MD - 09/27/2023 2:16 PM EDT Images from the original note were not included. Brief Telephone Note The patient sent a photo of a rash via my . He underwent RAL left nephrectomy on 09/18/[address] Mallory. Possible reaction to dermabond. I called the pt to discuss. No answer. LVM Martita James MD Urology PGY-4 09/27/2023 documented in this encounter Plan of Treatment Upcoming Encounters Date Type Department Care Team (Late st Contact Info) Description 02/04/2024 10:00 AM EDT Scheduled View Only Hematology/Oncology at [address] [phone] Dana Davis RN 02/04/2024 10:00 AM EDT Infusion Hematology Oncology at [address] [address] 02/24/2024 9:30 AM EDT Office Visit Hematology/Oncology at [address] [phone] Francisca Quinonez APRN [facility] [place] [address] 02/24/2024 10:30 AM EDT Infusion Hematology Oncology at [address] [phone] 03/17/2024 10:00 AM EDT Infusion Hematology Oncology at [address] [address] 04/07/2024 9:30 AM EDT Office Visit Hematology/Oncology at [address] [address] Gian Lisa MD [facility] [place]ATOLOGY/[place] [address] Francisca Quinonez APRN [facility] [place] [address] 04/07/2024 10:00 AM EDT Infusion Hematology Oncology at [address] [phone] Scheduled Procedures Name Priority Associated Diagnoses Date/Ti me EGD, UPPER GI ENDOSCOPY (WRVU 2.09) Dyspepsia COLONOSCOPY, DIAGNOSTIC (WRVU 3.26) Dyspepsia documented as of this encounter Visit Diagnoses Not on filedocumented in this encounter Care Teams Peanut Separator Relationship Specialty Start Date End Date Celso Dukes MD [address] [place] [address] PCP - General 02/24/15 documented as of this encounter
--- OUTSIDE RECORDS SUMMARY | 2024-02-04 01:33 | XMS_ITS | Encounter Summary ---
Author Organization [facility] [place] [address] Care Team Providers Care Military Exchange Wireless Manager Name Role Phone Celso Dukes MD Primary Care Provider [phone] Encounter Details Date Type Department Care Team (Late st Contact Info) Description 09/02/2023 Ancillary Procedure Radiology Library at [facility] [place] [phone] Celso Dukes MD [address] [place] [address] Social History Tobacco Use Types Packs/Day Years Used Date Smoking Tobacco: Never Assessed Sex and Gender Information Value Date Recorded Sex Assigned at Not on file Gender Identity Not on file Sexual Orientation Not on file documented as of this encounter Plan of Treatment Upcoming Encounters Date Type Department Care Team (Late st Contact Info) Description 02/04/2024 10:00 AM EDT Scheduled View Only Hematology/Oncology at [address] [phone] Dana Davis RN 02/04/2024 10:00 AM EDT Infusion Hematology Oncology at [address] [phone] 02/24/2024 9:30 AM EDT Office Visit Hematology/Oncology at [address] [phone] Francisca Quinonez APRN [facility] [place] [address] 02/24/2024 10:30 AM EDT Infusion Hematology Oncology at [address] [phone] 03/17/2024 10:00 AM EDT Infusion Hematology Oncology at [address] [phone] 04/07/2024 9:30 AM EDT Office Visit Hematology/Oncology at [address] [phone] Gian Lisa MD [facility] HEMATOLOGY/[place] [address] Francisca Quinonez APRN [facility] [place] [address] 04/07/2024 10:00 AM EDT Infusion Hematology Oncology at [address] [phone] Scheduled Procedures Name Priority Associated Diagnoses Date/Ti me EGD, UPPER GI ENDOSCOPY (WRVU 2.09) Dyspepsia COLONOSCOPY, DIAGNOSTIC (WRVU 3.26) Dyspepsia documented as of this encounter Procedures Procedure Name Priority Date/Time Associated Diagnosis Comments FILM LIBRARY STORAGE ONLY MR ABDOMEN Routine 09/02/2023 12:00 AM EST documented in this encounter Results * Film Library- Storage Only MR Abdomen (09/02/2023 12:00 AM EST) Narrative RAD - 09/03/2023 9:30 AM EST This exam is auto-finalizing. It's purpose is for storage only. Celso Dukes MD IMG FILM LIBRARY ORD ERABLES [place], [place] documented in this encounter Visit Diagnoses Not on filedocumented in this encounter Care Teams Military Exchange Wireless Manager Relationship Specialty Start Date End Date Celso Dukes MD [address] [place] [address] PCP - General 02/24/15 documented as of this encounter
--- OUTSIDE RECORDS SUMMARY | 2024-02-04 01:33 | XMS_ITS | Encounter Summary ---
Author Organization [facility] [place] [address] Care Team Providers Care Oil Sales And Service Rep Name Role Phone Celso Dukes MD Primary Care Provider [phone] Reason for Visit * Auth/Cert (Routine) Specialty Diagnoses / Procedures Referred By Yen t Referred To Contact Diagnoses Renal mass Renal Mass Procedures PRO LAP, RADICAL NEPHRECTOMY PRO CYSTOURETHROSCOPY @LAPAROSCOPY, RADICAL NEPHRECTOMY (WRVU 25.06) CYSTO, CYSTOURETHROSCOPY, DIAGNOSTIC (WRVU 1.53) Malou Freitas MD [facility] [place] [address] [place] [address] [facility] Referral ID Status Reason Start Date Expiration Date Visits Re quested Visits Authorized [id number] 1 1 Encounter Details Date Type Department Care Team (Late st Contact Info) Description 09/18/2023 1:15 PM EST - 09/18/2023 6:39 PM EST Surgery [place] [id number] Malou Freitas MD [facility] [place] [address] CYSTO, CYSTOURETHROSCOPY, DIAGNOSTIC (WRVU 1.53) Social History Tobacco Use Types Packs/Day Years Used Date Smoking Tobacco: Every Day Cigarettes 0.5 15 Smokeless Tobacco: Current Chew Tobacco Cessation:Ready to Q uit: Not Asked; Counseling Given: Not Answered Alcohol Use Standard Drinks/Week Comments Yes 6 (1 standard drink = 0.6 oz pur e alcohol) [facility] Inpatient Questions Answer Date Recorded Does Anyone Try to Keep You From Having Contact with Others or Doing Things Outside Your Home? no 09/18/2023 Feels Threatened by Someone no 0 12/2023 Feels Unsafe at Home or Work/School no 09/18/2023 Physical Signs of Abuse Present no 09/18/2023 Sex and Gender Information Value Date Recorded Sex Assigned at Not on file Gender Identity Not on file Sexual Orientation Not on file documented as of this encounter Last Filed Vital Signs Vital Sign Reading Time Taken Comments Blood Pressure 119/87 09/18/2023 12:15 PM EST Pulse 92 09/18/2023 12:15 PM EST Temperature 36.2 ??C (97.2 ??F) 09/18/2023 1 2:15 PM EST Respiratory Rate 19 09/18/2023 12:1 5 PM EST Oxygen Saturation 95% 09/18/2023 12: 15 PM EST Inhaled Oxygen Concentration - - Weight 123.5 kg (272 lb 3.2 oz) 024 12:15 PM EST Height 177.8 cm (5' 10) 09/18/2023 12: 15 PM EST Body Mass Index 39.06 09/18/2023 12:15 PM EST documented in this encounter Discharge Summaries * Malou Freitas MD - 09/19/2023 3:43 PM EST Discharge Summary Patient Name: Rosalino Honeycutt Patient Age: 52 y.o. Language: Qatari Race: White Ethnicity: Not nor Admit date: 09/18/2023 Discharge date: 09/19/2023 Attending Physician: Malou Freitas MD Discharge Diagnoses (Hospital Problems) and Secondary Diagnoses (Chronic Problems): Active Hospital Problems Diagnosis Renal mass, left Resolved Hospital Problems No resolved problems to display. There are no active non-hospital problems to display for this patient. Discharge Diagnosis Left renal mass suspicious for [id number] renal cancer. Operations/Major Procedures: Procedure(s): CYSTO, CYSTOURETHROSCOPY, DIAGNOSTIC (WRVU 1.53) @ROBOTIC LAPAROSCOPY, RAD NEPHRECTOMY (WRVU 25.06) 09/18/2023 - 09/19/2023 Surgeon(s): Malou Freitas MD Wu, Shuo-Chieh, MD History of Presentation: (from pre-op H&P) Rosalino Honeycutt is a 52 y.o. male w/ hx of gross hematuria and left [id number] renal mass who presents today for cystoscopy/left lap radical nephrectomy. MR: 1 left renal vein, 1 left renal Denies interval changes since last encounter. No recent illness or changes in health. UA/UCx: NG () AC/AP: none Hospital Course: Patient was admitted to [facility] [place] [place] via the same day surgery program and underwent the above procedure. Operative findings as follows: OR Findings 09/18/23: negative cystoscopy, challenging dissection due to large renal mass and significant amount of retroperitoneal fat, otherwise uncomplicated RAL left radical nephrectomy, 1 left renal artery, 1 left renal vein, left adrenal non-sparing He tolerated surgery well and was transferred from the PACU to the general floor in good condition a few hours after surgery. Patient's hospital course was uncomplicated. POD1 09/18: Swanson removed and patient voiding spontaneously w/ adequate PVR. Pain well controlled. Ambulating well and tolerating regular diet. Patient feels ready for discharge. He remained afebrile, with stable vital signs throughout his hospital stay. Today, on 1 Day Post-Op, he has met all criteria for discharge home: his pain is well controlled with medications by mouth,he is tolerating a regular diet, is voiding spontaneously without difficulties, and is up and ambulating without complications. He has been deemed safe for discharge. Plan: - F/u with Dr. Freitas on 10/08, labs prior (ordered and scheduled) Vital Signs at Discharge: Weight: Wt Readings from Last 1 Encounters: 09/18/23 123.5 kg (272 lb 3.2 oz) Height: Ht Readings from Last 1 Encounters: 09/18/23 177.8 cm (5' 10) BMI: Body mass index is 39.06 kg/m??. Last value Range last 24 hrs Temperature Temp: 37.2 ??C (99 ??F) Temp: [36.4 ??C (97.5 ??F)-37.2 ??C (99 ??F)] Heart Rate Heart Rate: 76 Heart Rate: [74-80] Blood Pressure BP: 112/77 BP: (104-129)/(60-87) Respiratory Rate Resp: 16 Resp: [12-25] SpO2 SpO2: 94 % SpO2: [90 %-98 %] Exam at Discharge: General: NAD CV: regular rate Pulm: nonlabored breathing on room air Abd: soft, appropriately tender, nondistended, incisions c/d/I without pus or drainage : No Swanson Ext: warm and well-perfused Important Studies and Lab Data: Recent Labs 09/19/2321409/18/232015 WBC 10.3* 11.5* HGB 14.1 14.6 PLATELET 231 255 No results for input(s): INR in the last 72 hours. Recent Labs 09/19/2321409/18/232015 NA 138 138 K 4.3 4.0 CL 106 104 CO2 22 24 BUN 8* 8* CREATININE 0.94 0.89 Studies: No results found for this visit on 09/18/23. Pending Studies and Lab Data: No current labs Discharge Conditions/Prognosis: Stable Discharge to: Home Updated Allergies/ADRs: No Known Allergies Immunizations Given this Hospitalization: There is no immunization history on file for this patient. Discharge Medications: Your Medications New Medications Dose Details acetaminophen 325 mg tablet Commonly known as: Tylenol Take 3 tablets by mouth every 6 hours. 975 mg Refills: 0 oxyCODONE 5 mg tablet Commonly known as: Roxicodone Take 1 tablet by mouth every 6 hours as needed for Pain. 5 mg Quantity: 10 tablet Refills: 0 Continued medications, unchanged Dose Details amLODIPine 10 mg tablet Commonly known as: Norvasc Take 5 mg by mouth daily. 5 mg Refills: 0 metoprolol succinate XL 25 mg ER 24 hr tablet Commonly known as: Toprol-XL Take 50 mg by mouth daily. 50 mg Refills: [address] capsule Commonly known as: PriLOSEC Take 20 mg by mouth daily. 20 mg Refills: 0 Smoking Status at Discharge: Social History Tobacco Use Smoking Status Every Day Packs/day: 0.50 Years: 15.00 Additional pack years: 0.00 Total pack years: 7.50 Types: Cigarettes Smokeless Tobacco Current Types: Chew Instructions Given to Patient at Discharge: Patient Instructions UROLOGY NEPHRECTOMY DISCHARGE INSTRUCTIONS Call your doctor for: fevers greater than 100.5 severe nausea or vomiting increasing pain not controlled by pain medications increasing redness or drainage from incisions decreased urine output, inability to urinate Burning with urination or urinary frequency The number for questions is before 5 PM weekdays and after 5 PM and weekends, and ask for precision farming specialist Urologist. Special Considerations for Solitary Kidney: Do not take megavitamins, herbal products, and NSAID pain relievers (such as ibuprofen, Motrin, Advil, naproxen, Aleve), unless instructed otherwise by your Physician. Please be sure that you take adequate fluids with all medication. It is important to discuss any medications, dietary supplements with your physician before startingthem. Please be sure to remind all prescribing physicians that you have one kidney. Activity level: No heavy lifting greater than 10 pounds (about equal to a full gallon jug) for the next 4-6 weeks or until cleared to do so at follow-up appointment. Otherwise activity as tolerated by comfort level. Take frequent short walks throughout the day. There is no such thing as too much walking. Diet: You may resume your regular diet as tolerated. Drink plenty of fluids. Bowel Meds: The major problem most patients have after surgery is return of bowel function, gas andconstipation. Take stool softeners as directed until bowels return to normal. If needed, take a laxative such as Miralax, Senna, Dulcolax. Generic is fine. Driving: No driving while still taking opioid pain medications (wait at least 6- 8 hours since last dose). No driving if you are still sore from surgery as it may limit your ability to react quickly if necessary. Shower/Bath: You may shower and get incision(s) wet. Pat dry immediately following your shower. Do not scrub them vigorously for the next 2-3 weeks. Do not soak incision(s) (i.e. soaking in bath, hottub, or swimming) until told you may do so by a doctor, as this may promote a wound infection. Wound Care: You may cover wounds with sterile gauze as needed to prevent incision rubbing on clothes or for any seepage. Your sutures are absorbable and do not need to be removed. Your incision is covered by a layer of surgical glue which will peel off on its own. Do not pick it off. Urology Follow up Appointments: Your surgical follow-up appointment will be scheduled with Dr. Freitas in approximately 2 weeks with labs prior to this appointment. Appointment will be mailed to you. Please call (clinic number for appointments) to confirm date and time of your appointment if you do not receive it. Special considerations for narcotic pain medication: You may be given a prescription for a narcotic medication immediately following your surgery. Narcotics are prescribed for short-term use to help treat your pain. Surgical pain requiring narcotics will usually be greatly decreased 2-3 days after surgery & should be mild to absent by 10-14 days. We will prescribe a narcotic pain reliever for no longer than 1 week following your surgery. This will be determined by your surgeon. Narcotics do not reduce inflammation and it is inflammation that is usually a major cause of pain after surgery. Narcotics have many side effects such as constipation, lightheadedness, dizziness, sedation, confusion, nausea and vomiting. Driving and the use of alcohol are not recommended while you are using narcotic pain medications. As you progress through your post-operative period, your pain should decrease and the use of narcotic medications should be less necessary. To reduce your chance of side effects, it is recommended that you save your narcotic medication for nighttime use and switch to acetaminophen (Tylenol) during the day. Alternative means of pain relief such as rest and relaxation, positioning, as well as decreasing stimulants such as coffee, tea, soft drinks, and nicotine may also help to alleviate pain. If you continue to experience significant pain 4-5 days after your procedure, it may be necessary to be re-evaluated by your physician. PRESCRIPTION RENEWALS: Renewal requests should be called in to our office. Narcotic renewals may berequested from 8am-4pm Saturday through Saturday. Due to patient safety, narcotic renewals will not be honored after hours or on weekends. It is best to make your request 2-3 days before you run out of your medication as it will take at least 24 hours for physician approval and nurse follow-up. Note that certain prescriptions, such as Percocet, Oxycodone, Vicodin, & Hydrocodone can not becalled in to a pharmacy and must be picked up or mailed to you. If mailed to you, expect 2-5 business days prior to arrival. General Instructions None Future Appointments and Orders Future Appointments and Orders Future Appointments Provider Department Dept Phone 09/26/2023 10:30 AM Barbara Corbin Tobacco Treatment at [facility] [place] [place] Arrive at: Home [phone] Please do not come in for this visit. Your provider will call you at the number you provided. 10/09/2023 10:00 AM Malou Freitas MD Urology at [facility] [place] [place] Arrive at: [facility] [phone] Please dispose of unused excess opioids before your appointment or bring them with you to the appointment and we will help you dispose of them correctly. Future Orders Complete By Expires Basic Metabolic Panel (non-fasting) [LAB15 Custom] 10/03/2023 (Approximate) 09/18/2024 Process Instructions: INCLUDES: Calcium, BUN, Creat, GFR, Glucose, Lytes Scheduling Instructions: Comments: Questions: Hemogram [[id number] Custom] 10/03/2023 (Approximate) 04/03/2024 Process Instructions: INCLUDES: WBC, RBC, Hgb, Hct, Platelets, RBC Indices Scheduling Instructions: Comments: Questions: Follow-Up: Future Appointments Date Time Provider Department Center 09/26/2023 10:30 AM Barbara Corbin [facility] [place] [place] 10/09/2023 10:00 AM Malou Freitas MD [facility] [place] [place] [facility]RO [facility] [place] [place] Primary Care Provider: Celso Dukes MD [phone] Unexpected Findings: None Call your doctor if: Please call your doctor immediately or go to an Emergency Department if you notice worsening pain not controlled by pain medications, uncontrolled headache, vision changes, chest pain, difficulty breathing, persistent nausea and vomiting, new redness or swelling in any extremities, new onset weakness or changes in sensation, or for any fevers greater than 101.3 F. Your care was managed by the Urology Team at [facility]. If you have any questions or concerns, please feel free to contact us. Provider Contact Information: Urology Clinic: [facility] [place] [place] (after business hours): Total time spent on discharge including [id number]-ky-qzqd time, care coordination, and discharge summarypreparation: 45 minutes ALESSANDRO Bear 09/19/2023 documented in this encounter Discharge Instructions * Patient Instructions* Faustino Hawk PA - 09/19/2023 8:20 AM EST UROLOGY NEPHRECTOMY DISCHARGE INSTRUCTIONS Call your doctor for: fevers greater than 100.5 severe nausea or vomiting increasing pain not controlled by pain medications increasing redness or drainage from incisions decreased urine output, inability to urinate Burning with urination or urinary frequency The number for questions is before 5 PM weekdays and after 5 PM and weekends, and ask for precision farming specialist Urologist. Special Considerations for Solitary Kidney: Do not take megavitamins, herbal products, and NSAID pain relievers (such as ibuprofen, Motrin, Advil, naproxen, Aleve), unless instructed otherwise by your Physician. Please be sure that you take adequate fluids with all medication. It is important to discuss any medications, dietary supplements with your physician before startingthem. Please be sure to remind all prescribing physicians that you have one kidney. Activity level: No heavy lifting greater than 10 pounds (about equal to a full gallon jug) for the next 4-6 weeks or until cleared to do so at follow-up appointment. Otherwise activity as tolerated by comfort level. Take frequent short walks throughout the day. There is no such thing as too much walking. Diet: You may resume your regular diet as tolerated. Drink plenty of fluids. Bowel Meds: The major problem most patients have after surgery is return of bowel function, gas andconstipation. Take stool softeners as directed until bowels return to normal. If needed, take a laxative such as Miralax, Senna, Dulcolax. Generic is fine. Driving: No driving while still taking opioid pain medications (wait at least 6- 8 hours since last dose). No driving if you are still sore from surgery as it may limit your ability to react quickly if necessary. Shower/Bath: You may shower and get incision(s) wet. Pat dry immediately following your shower. Do not scrub them vigorously for the next 2-3 weeks. Do not soak incision(s) (i.e. soaking in bath, hottub, or swimming) until told you may do so by a doctor, as this may promote a wound infection. Wound Care: You may cover wounds with sterile gauze as needed to prevent incision rubbing on clothes or for any seepage. Your sutures are absorbable and do not need to be removed. Your incision is covered by a layer of surgical glue which will peel off on its own. Do not pick it off. Urology Follow up Appointments: Your surgical follow-up appointment will be scheduled with Dr. Freitas in approximately 2 weeks with labs prior to this appointment. Appointment will be mailed to you. Please call (clinic number for appointments) to confirm date and time of your appointment if you do not receive it. Special considerations for narcotic pain medication: You may be given a prescription for a narcotic medication immediately following your surgery. Narcotics are prescribed for short-term use to help treat your pain. Surgical pain requiring narcotics will usually be greatly decreased 2-3 days after surgery & should be mild to absent by 10-14 days. We will prescribe a narcotic pain reliever for no longer than 1 week following your surgery. This will be determined by your surgeon. Narcotics do not reduce inflammation and it is inflammation that is usually a major cause of pain after surgery. Narcotics have many side effects such as constipation, lightheadedness, dizziness, sedation, confusion, nausea and vomiting. Driving and the use of alcohol are not recommended while you are using narcotic pain medications. As you progress through your post-operative period, your pain should decrease and the use of narcotic medications should be less necessary. To reduce your chance of side effects, it is recommended that you save your narcotic medication for nighttime use and switch to acetaminophen (Tylenol) during the day. Alternative means of pain relief such as rest and relaxation, positioning, as well as decreasing stimulants such as coffee, tea, soft drinks, and nicotine may also help to alleviate pain. If you continue to experience significant pain 4-5 days after your procedure, it may be necessary to be re-evaluated by your physician. PRESCRIPTION RENEWALS: Renewal requests should be called in to our office. Narcotic renewals may berequested from 8am-4pm Saturday through Saturday. Due to patient safety, narcotic renewals will not be honored after hours or on weekends. It is best to make your request 2-3 days before you run out of your medication as it will take at least 24 hours for physician approval and nurse follow-up. Note that certain prescriptions, such as Percocet, Oxycodone, Vicodin, & Hydrocodone can not becalled in to a pharmacy and must be picked up or mailed to you. If mailed to you, expect 2-5 business days prior to arrival. documented in this encounter Medications at Time of Discharge [...] capsule Take 20 mg by mouth daily. oxyCODONE (Roxicodone) 5 mg tablet Take 1 tablet by mouth every 6 hours as needed for Pain. 10 tablet 09/19/2023 12/24/2023 documented as of this encounter Progress Notes * Claudio Hensley RN - 09/19/2023 3:49 PM EST Patient discharged to home in no distress with AVS in hand. Patient and had no further questions and they verbalized understanding of all information contained in AVS. * Portia Stevenson PA - 09/19/2023 11:22 AM EST Urology Progress Note Patient: Rosalino Honeycutt : 1970 Room: P214/P214-A Admit date: 09/18/2023 Attending: Malou Freitas MD ID: Rosalino Honeycutt is a 52 y.o. male with a history of GERD, HTN 1 Day Post-Op s/p RAL left radicalnephrectomy. OR Findings 09/18/23: negative cystoscopy, challenging dissection due to large renal mass and significant amount of retroperitoneal fat, otherwise uncomplicated RAL left radical nephrectomy, 1 left renal artery, 1 left renal vein, left adrenal non-sparing Past 24 hr Events: - NAEON - Pain well controlled - UOP since surgery: 780cc - Swanson draining clear yellow urine - Labs stable - VSS, afebrile Current Medications: scopolamine 1 patch Transdermal Once sodium chloride 0.9 % (flush) 5 mL Intravenous BID docusate sodium 100 mg Oral BID heparin (porcine) 5,000 Units Subcutaneous Q8H KATARINA acetaminophen 975 mg Oral Q6H KATARINA Objective: Last value Range last 24hrs Temperature Temp: 37.2 ??C (99 ??F) Temp: [36.2 ??C (97.2 ??F)-37.2 ??C (99 ??F)] Heart Rate Heart Rate: 76 Heart Rate: [74-92] Blood Pressure BP: 112/77 BP: (104-129)/(60-87) Respiratory Rate Resp: 16 Resp: [12-25] SpO2 SpO2: 94 % SpO2: [90 %-98 %] Intake/Output Summary (Last 24 hours) at 09/19/2023 1122 Last data filed at 09/19/2023 1017 Gross per 24 hour Intake 1820 ml Output 1705 ml Net 115 ml Physical Exam: Gen: NAD, awake/alert CV: regular rate Pulm: non-labored breathing on room air Abd: soft, appropriately tender, non-distended, incisions c/d/i without pus or drainage : Swanson draining clear yellow urine Ext: warm, well perfused, moving spontaneously Labs: Recent Labs 09/19/2321409/18/232015 WBC 10.3* 11.5* HGB 14.1 14.6 HCT 43.4 43.0 PLATELET 231 255 Recent Labs 09/19/2321409/18/232015 NA 138 138 K 4.3 4.0 CL 106 104 CO2 22 24 BUN 8* 8* CREATININE 0.94 0.89 GLUCOSE 124 141 CALCIUM 7.6* 8.9 No results found for: SPGRAVITYUA, PHUADIP, PROTEINUADIP, GLUCOSEU, KETONESUA, UROBILIUADIP, BLOODUADIP, NITRATEUA, LEUKOESTERUA, WBCUA, BILIRUBINUA Imaging: None Micro: None A/P: Rosalino Honeycutt is a 52 y.o. male now 1 Day Post-Op s/p RAL left radical nephrectomy 09/17. Post-operatively, patient recovering appropriately. Pain is well controlled. He has not been out ofbed yet or tried solid food yet on AM rounds but plans to do both today. Swanson draining clear yellow urine. Swanson removal today, will follow- up PVRs. Labs stable. VSS. Afebrile. Today's Plan: Swanson removal, f/u PVRs Pain control OOB as tolerated Possible discharge later today pending clinical course. Neuro: # Pain control - katarina Tylenol, prn PO oxycodone CV: HDS, monitor vital signs Pulm: encourage IS/OOB, deep breathing FENGI: Regular diet mIVF (NaCl) 75 mL/hr - bowel meds: katarina Colace, prn suppository : monitor urine output - Swanson catheter removed today ID: s/p periop abx Heme: ROSE Endo: None Psych: None PPX: SCDs, SQH, deep breathing, cough, ambulation Dispo: floor status, Attempt Cardiopulmonary Resuscitation - Inpatient Plan discussed with Dr. Freitas, Urology attending. ALESSANDRO Orellana 09/19/2023 [id number] * Sarina Cummings RN - 09/19/2023 5:26 AM EST Report called and pt transferred out of PACU * Carol Espinosa MD - 09/18/2023 11:12 PM EST Urologic Surgery Post-Op Check Note Patient Name: Rosalino Honeycutt ; Age: 3 1970; 52 y.o. Room/Bed: [address] Today's Date: 09/18/23 Surgery Post Op Check Operation/Procedure: 09/18/2023 Surgeon(s) and Role: * Malou Freitas MD - Primary * Kwadwo Moya MD - Resident - Assisting: Procedure(s): @LAPAROSCOPY, RADICAL NEPHRECTOMY (WRVU .) CYSTO, CYSTOURETHROSCOPY, DIAGNOSTIC (WRVU 1.53) @ROBOTIC LAPAROSCOPY, RAD NEPHRECTOMY (WRVU 25.) Findings: negative cystoscopy, challenging dissection due to large renal mass and significant amount of retroperitoneal fat, otherwise uncomplicated RAL left radical nephrectomy, 1 left renal artery,1 left renal vein, left adrenal non-sparing ID: Rosalino Honeycutt is a 52 y.o. male status post cystoscopy with left robotic assisted laparoscopicradical nephrectomy Subjective/Events: Patient denies nausea, vomiting, chest pain, shortness of breath, numbness/weakness. Reporting leftperi-incisional pain. Objective: Temp: [36.4 ??C (97.5 ??F)-37.2 ??C (99 ??F)] Heart Rate: [74-80] Resp: [12-25] BP: (104-118)/(60-77) SpO2: [90 %-98 %] Heart Rate from SpO2: [74 bpm-83 bpm] O2 Device: None (Room air) I/O this shift: In: 420 [P.O.:420] Out: 155 [Urine:155] UOP since OR: 155cc Admit Weight: 123.47 kg Current Weight: Weight: 123.5 kg (272 lb 3.2 oz) Physical Exam: General: NAD, resting comfortably, pleasant, conversant HEENT: EOMI, anicteric sclerae CV: Regular rhythm on monitor Pulm: Breathing comfortably on CPAP machine Abd: Non-distended, soft, nontender : Swanson draining clear yellow urine Incisions: Incisions ROB, clean/dry/intact Labs: Recent Labs 09/18/232015 WBC 11.5* HGB 14.6 HCT 43.0 PLATELET 255 Recent Labs 09/18/232015 NA 138 K 4.0 CL 104 CO2 24 BUN 8* CREATININE 0.89 GLUCOSE 141 CALCIUM 8.9 Assessment and Plan: Rosalino Honeycutt is a 52 y.o. male status post cystoscopy with left robotic assisted laparoscopic radical nephrectomy in stable condition and recovering well - Patient is doing well postoperatively - Hemodynamically stable - Additional x1 oxycodone 5mg for pain - Diet: Regular diet Carol Espinosa MD 09/18/2023 Urology [id number] * Jackie Meza RN - 09/18/2023 7:35 PM EST Patient arrived from OR in bed, attached to monitors and alarms set appropriately for patient. VSS. 2018 Labs sent. Patient tolerating sips of water. 2056 visiting at bedside. 2199 handoff to [place]. documented in this encounter H&P Notes * Kwadwo Moya MD - 09/18/2023 1:59 PM EST Urology Pre-Op H&P HPI: Rosalino Honeycutt is a 52 y.o. male w/ hx of gross hematuria and left [id number] renal mass who presents today for cystoscopy/left lap radical nephrectomy. MR: 1 left renal vein, 1 left renal Denies interval changes since last encounter. No recent illness or changes in health. UA/UCx: NG () AC/AP: none Past Medical History: HTN Sleep apnoea GERD Past Surgical History: 2022 Right THR 2020 Right tendinitis 2017 Right Knee meniscus Medications: No current facility-administered medications on file prior to encounter. Current Outpatient Medications on File Prior to Encounter Medication Sig Dispense Refill metoprolol succinate XL (Toprol-XL) 25 mg ER 24 hr tablet Take 25 mg by mouth daily. amLODIPine (Norvasc) 10 mg tablet Take 5 mg by mouth daily. omeprazole (PriLOSEC) [address] capsule Take 20 mg by mouth daily. Allergies: No Known Allergies Physical Exam: General: NAD CV: RRR, normal S1/S2, no murmur Pulm: CTAB Renal function Lab Results Component Value Date CREATININE 0.73 (L) 09/12/2023 Estimated Creatinine Clearance: 157.8 mL/min (A) (based on SCr of 0.73 mg/dL (L)). Assessment/Plan: Proceed with planned surgery. Consent confirmed, all questions answered. Left side marked. Pre-op check list done. Abx: Cefazolin SQH: ordered T/S: ordered ; -ve ab (), exp 09/17 Kwadwo Moya MD documented in this encounter Miscellaneous Notes * Initial Assessments - Radha Kolb RN - 09/19/2023 3:09 PM EST Office of Care Management Initial Assessment/ Discharge Note Radha Kolb RN reviewed record and discussed patient with Care Team. Source of Information: Team, bedside nurse, medical record, and Chart Review Introduced self/reviewed role; services accepted. Admitted From: Home Reason for Hospitalization: RAL left radical nephrectomy Past medical History: History reviewed. No pertinent past medical history. Hospitalizations Within the Past 30 Days: no previous admission in last 30 days Current Decision-Making Capacity: Self If AD's have not been completed the following surrogate would be surrogate decision maker per [place] surrogate decision making law. (Only good for 180 days) Any patient receiving care in [place] must abide by [place] law. The hierarchy for surrogate decision making is: (a) Patient???s spouse or civil union partner unless there is a divorce proceeding, separation agreement, or restraining order limiting that person???s relationship with the patient. (b) Any adult son or daughter of the patient. (c) Either parent of the patient. (d) Any adult brother or sister of the patient. (e) Any adult grandchild of the patient. (f) Any grandparent of the patient. (g) Any adult aunt, uncle, niece, or nephew of the patient. (h) A close friend of the patient. (i) The agent with financial power of associate attorney or a conservator appointed in accordance with RSA 464-A. (j) The guardian of the patient???s estate. Advance Care Planning: Attempt Cardiopulmonary Resuscitation - Inpatient <no information> Home Address listed as: [address] [place] [address] Social & Family Supports: Extended Emergency Contact Information Primary Emergency Contact: HoneycuttLazara L Mobile Relation: Spouse Substance Use/Abuse listed: Social History Tobacco Use Smoking Status Every Day Packs/day: 0.50 Years: 15.00 Additional pack years: 0.00 Total pack years: 7.50 Types: Cigarettes Smokeless Tobacco Current In the past year have you used an illegal drug or used a prescription medication for non-medical reasons?: No 0 No problems reported 1-2 Low level 3-5 Moderate level 6-8 Substantial level 9- 10 Severe level In the past year have you had 5 or more drinks a day containing alcohol?: No 0 to 7 points: Low risk 8 to 15 points: Medium risk 16 to 19 points: High risk 20 to 40 points: Addiction likely Other Pertinent/Service Specific Information: none Health/Prescription Coverage: Primary Insurance: [facility] Payor: [facility] [place] / Plan: [facility] / Product Type: *No Product type* / Secondary Insurance: N/A Preferred Pharmacy: [facility] [address] [place] [id number] Primary Care Provider listed: Celso Dukes MD [phone] Agency Referrals: Not Applicable Concerns to be Addressed: no discharge needs identified Assessment: Patient is admitted to Urology service for RAL left radical nephrectomy Plan: Discharge to home today w/o services, no needs. A member of the Care Management team will continue to monitor progress, follow for continuity of care and assist with transition of care planning. Radha Kolb RN-BSN-CM Pager: [phone] * Plan of Care - Michael Valles RN - 09/19/2023 6:31 AM EST Pt transferred from PACU around 0530 in stable condition, AOx4, VSS room air, no distress, no nausea/vomiting. Experiencing moderate surgical side pain and gassy/hiccups. Prn oxy given. Adequate fluid intake, Swanson intact, good clear yellow output. Postop incisions dry/intact, no swelling no redness. Expresses no other needs at this time, plan of care ongoing. OUTCOME EVALUATION NOTE: OUTCOME SUMMARY: Patient Vitals for the past 8 hrs: BP Temp Temp src Pulse Resp SpO2 09/19/23 0632 -- -- -- -- -- 92 % 09/19/23 0534 129/87 36.6 ??C (97.9 ??F) Oral 78 16 -- 09/19/23 0400 -- -- -- -- 14 94 % 09/18/23 2323 111/74 36.4 ??C (97.5 ??F) Temporal -- 16 93 % PLAN MOVING FORWARD: Pain control Mobilize I/O D/c planning INDIVIDUALIZED FALL PREVENTION: Patient is currently a moderate risk to Fall. Patient educated on bed/chair alarm, demonstrates proper use of call alva and verbalizes understanding of fall preventions implemented. Patient-specific fall risk factors per assessment: [current deficits]: Pain, Medications, Hospital Environment, Decreased lighting, fatigue, recent procedure. Assistance [level of assistance required for transfers and ambulation]: 1 assist Supervision [direct monitoring required during toileting and ADLs]: 1 assistance with ADL's Surveillance [continuous indirect monitoring]: Masimo monitor, Purposeful Rounding, Bedside Report Patient-specific fall prevention interventions for sensory deficits provided, if applicable: [X] N/A CPG GOAL OUTCOME EVALUATION: Problem: Bleeding (Surgery Nonspecified) Goal: Absence of Bleeding Outcome: Unable to achieve outcome by discharge Problem: Bowel Motility Impaired (Surgery Nonspecified) Goal: Effective Bowel Elimination Outcome: Unable to achieve outcome by discharge Problem: Infection (Surgery Nonspecified) Goal: Absence of Infection Signs and Symptoms Outcome: Unable to achieve outcome by discharge Problem: Ongoing Anesthesia Effects (Surgery Nonspecified) Goal: Anesthesia/Sedation Recovery Outcome: Unable to achieve outcome by discharge Problem: Pain (Surgery Nonspecified) Goal: Acceptable Pain Control Outcome: Unable to achieve outcome by discharge Problem: Postoperative Nausea and Vomiting (Surgery Nonspecified) Goal: Nausea and Vomiting Relief Outcome: Unable to achieve outcome by discharge Problem: Postoperative Urinary Retention (Surgery Nonspecified) Goal: Effective Urinary Elimination Outcome: Unable to achieve outcome by discharge Problem: Fall Injury Risk Goal: Absence of Fall and Fall-Related Injury Outcome: Unable to achieve outcome by discharge Problem: Adult Inpatient Plan of Care Goal: Plan of Care Review Outcome: Unable to achieve outcome by discharge Goal: Patient-Specific Goal (Individualized) Outcome: Unable to achieve outcome by discharge Goal: Absence of Hospital-Acquired Illness or Injury Outcome: Unable to achieve outcome by discharge Goal: Optimal Comfort and Wellbeing Outcome: Unable to achieve outcome by discharge Goal: Readiness for Transition of Care Outcome: Unable to achieve outcome by discharge Problem: Pain Acute Goal: Acceptable Pain Control and Functional Ability Outcome: Unable to achieve outcome by discharge * Plan of Care - Sarina Cummings RN - 09/19/2023 12:44 AM EST Problem: Bleeding (Surgery Nonspecified) Goal: Absence of Bleeding Outcome: Ongoing (Interventions Implemented as Appropriate) Problem: Bowel Motility Impaired (Surgery Nonspecified) Goal: Effective Bowel Elimination Outcome: Ongoing (Interventions Implemented as Appropriate) Problem: Infection (Surgery Nonspecified) Goal: Absence of Infection Signs and Symptoms Outcome: Ongoing (Interventions Implemented as Appropriate) Problem: Ongoing Anesthesia Effects (Surgery Nonspecified) Goal: Anesthesia/Sedation Recovery Outcome: Ongoing (Interventions Implemented as Appropriate) Problem: Pain (Surgery Nonspecified) Goal: Acceptable Pain Control Outcome: Ongoing (Interventions Implemented as Appropriate) Problem: Postoperative Nausea and Vomiting (Surgery Nonspecified) Goal: Nausea and Vomiting Relief Outcome: Ongoing (Interventions Implemented as Appropriate) Problem: Postoperative Urinary Retention (Surgery Nonspecified) Goal: Effective Urinary Elimination Outcome: Ongoing (Interventions Implemented as Appropriate) * Op Note - Kwadwo Moya MD - 09/18/2023 8:31 PM EST [facility] [place], [place] Operative Note Patient Name: Rosalino Honeycutt : [id number] MR#: [id number] Case Date: 09/18/2023 Surgeon: Surgeon(s) and Role: * Malou Freitas MD - Primary * Kwadwo Moya MD - Resident - Assisting Anesthesia: General Findings: negative cystoscopy, challenging dissection due to large renal mass and significant amount of retroperitoneal fat, otherwise uncomplicated RAL left radical nephrectomy, 1 left renal artery,1 left renal vein, left adrenal non-sparing Plan: - radical nephrectomy pathway - needs to request outpatient follow up Complications: none Estimated Blood Loss: 100 mL* No values recorded between 09/18/2023 4:00 PM and 09/18/2023 7:20 PM * Specimens removed during surgery: Order Name Source Comment Collection Info Order Time SPECIMEN TO PATHOLOGY Renal Mass Left Kidney and adrenal biopsy 09/18/2023 6:29 PM Time specimen removed from patient: 6:25 PM Number of tissue samples (in container) 1 Fluids: Intraprocedure Crystalloid Total Intake lactated ringers 500.00 mL lactated ringers infusion 700.00 mL ceFAZolin (Ancef) 2 g vial attach to sodium chloride 0.9% 100 mL Mini-Bag Plus 150.00 mL Total Intake 1350 mL Output Urine Output 350 mL Blood Loss 100 mL Total Output 450 mL Net Net Volume 900 mL PRBCs: none (See Anesthesia Record/Report for Other Blood Products) Urine Output: 350 mL Drains: 14Fr Swanson Disposition: awakened from anesthesia, extubated and taken to the recovery room in a stable condition, having suffered no apparent untoward event. Condition: doing well without problems (Please see the Surgical Encounter Summary for any Implant and Specimen details pertinent to this patient.) HPI/Surgical Indications: Rosalino Honeycutt is a 52 y.o. male w/ hx of gross hematuria and left [id number] renal mass who presents today for cystoscopy/left lap radical nephrectomy. MR: 1 left renal vein, 1 left renal Denies interval changes since last encounter. No recent illness or changes in health. UA/UCx: NG () AC/AP: none Procedure Description: The patient was identified in the pre-operative holding area. Consent was verified. The correct side of the procedure was marked. The patient was taken to the operating room and placed supine on the operating table. General anesthesia was induced. A time out was performed for the flexible cystoscopy. External genitalia appropriately had been cleaned and draped lidocaine was instilled into the urethra to achieve topical anesthesia. The flexibletelescope was inserted into the urethra and advanced into the bladder under direct vision. Anterior urethroscopy was normal. The prostatic fossa was normal.There were no bladder tumors or mucosal abnormalities. There were no bladder stones. Ureteral orifices were in orthotopic positions. The cystoscope was removed. The patient tolerated the procedure without difficulty. There were no complications. A urethral catheter was inserted. The patient was then moved to the flank position with left side up. The patient was secured using a garcia bag and tape. All pressure points were appropriately padded.The patient was prepped and draped in the usual sterile fashion. A timeout was performed involving all members of the OR team confirming the patient's identity and planned procedure. Preoperative antibiotics were administered. Anesthesia team performed a QL block. Veress needle insufflation was performed via the LLQ (site of entry). An 8 mm robotic trocar was inserted under direct vision. No bowel or vascular injury was noted in the abdomen. The abdomen was thoroughly insufflated to a pressure of 15 mm Hg. Three additional 8 mm robotic trocars were inserted in a linear fashion. A 12 mm assistant infant toddler teacher port was also inserted, through which AirSeal insufflation was established. The da Eliana Xi robot was docked with fenestrated bipolar forceps in the left hand and monopolar scissors in the right hand. We turned our attention to the takedown of descending colon adhesions along the anterior abdominal wall using cold scissors. The splenic flexure and descending colon were then mobilized along the line of Toldt, reflecting the colon medially. The splenorenal attachments were taken down with the electrocautery. The adrenal vein was then dissected. The hilum was further cleaned off. The adrenal was identified and taken with the specimen. There was some perihilar oozing cauterized with the bipolar.We then completed the renal artery dissection and ligated it with the stapler followed by the renalvein in a separate staple load. The upper pole attachments were taken. The left ureter was clipped and ligated, then the lateral attachments were taken to free the kidney. The dissection and exposurewere challenging due to large renal mass and significant amount of retroperitoneal fat, but otherwise uncomplicated. Meticulous hemostasis was achieved, and confirmed with a desufflated abdomen. A large endocatch bagwas place through the lower abdominal port site under vision. The kidney was snared. At this time, a Lito Quinones was used pass #2-0 Vicryl suture to close the two 12 mm port sites under direct vision. The airseal was then released and all the ports were removed under vision. The specimen was extr acted through a lower left midline incision. The internal oblique and transversus abdominus muscle were closed with #1 Vicryl in interrupted figure of 8 sutures and the external oblique fascia was closed with a #1 Vicryl running suture. The skin incisions were closed with 4-0 monocryl suture. The patient was woken and brought to the PACU in stable condition. He tolerated the procedure well. Dr. Freitas was present for the procedure. Surgical Infection Prevention Bundle Used? No Associated attestation - Malou Freitas MD - 09/23/2023 3:13 PM EDT Attestation: Case Date: 09/18/2023 - 09/19/2023 I performed the procedure with the assistance of the resident. I performed or directly supervised all critical aspects. Notes: negative cystoscopy, challenging dissection due to large renal mass and significant amount of retroperitoneal fat, otherwise uncomplicated RAL left radical nephrectomy, 1 left renal artery, 1 left renal vein, left adrenal removed with specimen MALOU FREITAS MD 09/23/2023 * Brief Op Note - Kwadwo Moya MD - 09/18/2023 7:39 PM EST Brief Operative Note Patient Name: Rosalino Honeycutt : [id number] MR#: [id number] Case Date: 09/18/2023 Surgeon: Surgeon(s) and Role: * Malou Freitas MD - Primary * Kwadwo Moya MD - Resident - Assisting Preoperative diagnosis: Renal Mass Postoperative diagnosis: Renal Mass Procedure(s) (LRB): CYSTO, CYSTOURETHROSCOPY, DIAGNOSTIC (WRVU 1.53) (N/A) @ROBOTIC LAPAROSCOPY, RAD NEPHRECTOMY (WRVU 25.06) (Left) Anesthesia: General Findings: negative cystoscopy, challenging dissection due to large renal mass and significant amount of retroperitoneal fat, otherwise uncomplicated RAL left radical nephrectomy, 1 left renal artery,1 left renal vein, left adrenal non-sparing Plan: - radical nephrectomy pathway - needs to request outpatient follow up Complications: none Estimated Blood Loss: 100 mL* No values recorded between 09/18/2023 4:00 PM and 09/18/2023 7:20 PM * Specimens removed during surgery: Order Name Source Comment Collection Info Order Time SPECIMEN TO PATHOLOGY Renal Mass Left Kidney and adrenal biopsy 09/18/2023 6:29 PM Time specimen removed from patient: 6:25 PM Number of tissue samples (in container) 1 Fluids: Intraprocedure Crystalloid Total Intake lactated ringers 500.00 mL lactated ringers infusion 700.00 mL ceFAZolin (Ancef) 2 g vial attach to sodium chloride 0.9% 100 mL Mini-Bag Plus 150.00 mL Total Intake 1350 mL Output Urine Output 350 mL Blood Loss 100 mL Total Output 450 mL Net Net Volume 900 mL PRBCs: none (See Anesthesia Record/Report for Other Blood Products) Urine Output: 350 mL Drains: 14Fr Swanson Disposition: awakened from anesthesia, extubated and taken to the recovery room in a stable condition, having suffered no apparent untoward event. Condition: doing well without problems (Please see the Surgical Encounter Summary for any Implant and Specimen details pertinent to this patient.) Surgical Infection Prevention Bundle Used? No documented in this encounter Plan of Treatment Upcoming Encounters Date Type Department Care Team (Late st Contact Info) Description 02/04/2024 10:00 AM EDT Scheduled View Only Hematology/Oncology at [address] [phone] Dana Davis RN 02/04/2024 10:00 AM EDT Infusion Hematology Oncology at [address] [phone] 02/24/2024 9:30 AM EDT Office Visit Hematology/Oncology at [address] [phone] Francisca Quinonez APRN [facility] [place] [address] 02/24/2024 10:30 AM EDT Infusion Hematology Oncology at [address] [phone] 03/17/2024 10:00 AM EDT Infusion Hematology Oncology at [address] [phone] 04/07/2024 9:30 AM EDT Office Visit Hematology/Oncology at [address] [phone] Gian Lisa MD [facility] HEMATOLOGY/[place] [address] Francisca Quinonez APRN [facility] [place] [address] 04/07/2024 10:00 AM EDT Infusion Hematology Oncology at [address] [phone] Scheduled Orders Name Type Priority Associated Diagnoses Orde r Schedule Hemogram Lab Routine Renal mass Expected: 10/03/2023 (Approximate), Expires: 04/03/2024 Scheduled Procedures Name Priority Associated Diagnoses Date/Ti me EGD, UPPER GI ENDOSCOPY (WRVU 2.09) Dyspepsia COLONOSCOPY, DIAGNOSTIC (WRVU 3.26) Dyspepsia documented as of this encounter Procedures Procedure Name Priority Date/Time Associated Diagnosis Comments HEMOGRAM Timed 09/19/2023 2:15 AM EST DIFFERENTIAL, AUTOMATED Timed 09/19/19 2:15 AM EST HC CBC,PLT & AUTO DIFF Timed 2:15 AM EST BASIC METABOLIC PANEL (NON-FASTING) Timed 09/19/2023 2:15 AM EST HEMOGRAM STAT 09/18/2023 8:16 PM EST DIFFERENTIAL, AUTOMATED STAT 09/18/19 8:16 PM EST HC CBC,PLT & AUTO DIFF STAT 8:16 PM EST BASIC METABOLIC PANEL (NON-FASTING) STAT 09/18/2023 8:16 PM EST SURGICAL PATHOLOGY REPORT Routine 2023 6:29 PM EST SPECIMEN TO PATHOLOGY Routine 09/18/2023 6:29 PM EST Lap, Radical Nephrectomy ([id number]) Yes 09/18/2023 3:14 PM EST Renal mass Cystourethroscopy ([id number]) Yes 2023 3:14 PM EST Renal mass LAPAROSCOPY,RAD NEPHRECTOMY,LYMPHADENECTO MY,ROBOTIC ASSIST Routine 09/18/2023 8:58 AM EST Renal mass CYSTO,CYSTOURETHROSCOPY, DIAGNOSTIC Routine 09/18/2023 6:09 AM EST Renal mass documented in this encounter Results * (ABNORMAL) Differential, Automated (09/19/2023 2:15 AM EST) Neutrophils % 84.2 % [facility] Neutr Abs (ANC) 8.69(H) 1.70 - 6.10 x10(3)/mc L [facility] Lymphocytes % 11.0 % [facility] Lymphocytes Abs 1.1 0.9 - 3.2 x10(3)/mc L [facility] Monocytes % 4.3 % [facility] Monocyte Abs 0.4 0.3 - 0.9 x10(3)/mc L [facility] Eosinophils % 0.0 % [facility] Eosinophils Abs 0.0 0.0 - 0.4 x10(3)/mc L [facility] Basophils % 0.2 % [facility] Basophils Abs 0.0 0.0 - 0.1 x10(3)/mc L [facility] Immature Gran % 0.30 % [facility] Comment: Immature granulocytes(IG's)percentage and absolute count will include metamyelocytes, myelocytes, and promyelocytes. Blood smears from CBCs yielding IG's will be scanned manually for concordance. If this scan disagrees with the automated IG or if promyelocytes are noted, a manual differential will be performed. Valerie Gran Abs 0.03 0.00 - 0.04 x10(3)/mc L [facility] Blood 09/19/2023 2:15 AM EST 09/19/2023 2:21 AM EST Narrative Resulting Agency Comment Spec In Lab Kwadwo Moya MD HEMATOLOGY ORDERABLE S Performing Organization Address City/State/[facility] Co de Phone Number [facility] [place] [address] * (ABNORMAL) Hemogram (09/19/2023 2:15 AM EST) WBC 10.3(H) 4.0 - 9.5 x10(3)/[facility] RBC 4.84 4.58 - 5.54 x10(6)/[facility] Hemoglobin 14.1 13.7 - 16.5 g/dL [facility] Hematocrit 43.4 40.5 - 48.5 % [facility] MCV 89.7 82.9 - 93.1 fL [facility] MCH 29.1 27.5 - 32.1 pg [facility] MCHC 32.5 32.0 - 35.7 g/dL [facility] Platelets 231 145 - 357 x10(3)/[facility] RDWSD 46.2(H) 36.0 - 45.0 fL [facility] RDWCV 14.0(H) 11.4 - 13.8 % [facility] MPV 9.5 7.6 - 12.9 fL [facility] nRBC % Auto 0.0 % [facility] nRBC Abs Auto 0.000 0.000 - 0.000 x10(3)/mcL [facility] Blood 09/19/2023 2:15 AM EST 09/19/2023 2:21 AM EST Narrative Resulting Agency Comment Spec In Lab Kwadwo Moya MD HEMATOLOGY ORDERABLE S [facility] [place] [address] * (ABNORMAL) Basic Metabolic Panel (non-fasting) (09/19/2023 2:15 AM EST) Glucose Lvl 124 65 - 199 mg/dL [facility] Comment:Diabetes: >=200 mg/d L plus symptoms BUN 8(L) 10 - 20 mg/dL [facility] Creatinine 0.94 0.80 - 1.50 mg/dL [facility] Sodium 138 135 - 145 mmol/L [facility] Potassium 4.3 3.5 - 5.0 mmol/L [facility] Comment: Please note: ??Patients with WBC >100,000 may have falsely elevated Potassium levels. ??For accurate Potassium quantification in these patients send serum separator tube (gold top) for subsequent determinations. ??Contact the Clinical Chemistry Laboratory if there are any questions. Chloride 106 98 - 107 mmol/L [facility] CO2 22 22 - 31 mmol/L [facility] Anion Gap 10 5 - 15 mmol/L [facility] Calcium 7.6(L) 8.5 - 10.5 mg/dL [facility] Comment:result rechecked-KS Estimated GFR 98 >=60 mL/min/1. 73 m?? [facility] Comment: This patient's estimated GFR [...] and symptoms in addition to eGFR. Blood 09/19/2023 2:15 AM EST 09/19/2023 2:21 AM EST Narrative Resulting Agency Comment Spec In Lab Malou Freitas MD CHEMISTRY ORDERABLES [facility] [place] [address] * (ABNORMAL) Differential, Automated (09/18/2023 8:16 PM EST) Neutrophils % 86.1 % [facility] Neutr Abs (ANC) 9.92(H) 1.70 - 6.10 x10(3)/ L [facility] Lymphocytes % 11.5 % [facility] Lymphocytes Abs 1.3 0.9 - 3.2 x10(3)/[facility] LAB[facility] Monocytes % 1.7 % [facility] Monocyte Abs 0.2(L) 0.3 - 0.9 x10(3)/[facility] Eosinophils % 0.0 % [facility] Eosinophils Abs 0.0 0.0 - 0.4 x10(3)/[facility] Basophils % 0.3 % [facility] Basophils Abs 0.0 0.0 - 0.1 x10(3)/ L [facility] Immature Gran % 0.40 % [facility] Comment: Immature granulocytes(IG's)percentage and absolute count will include metamyelocytes, myelocytes, and promyelocytes. Blood smears from CBCs yielding IG's will be scanned manually for concordance. If this scan disagrees with the automated IG or if promyelocytes are noted, a manual differential will be performed. Valerie Gran Abs 0.05(H) 0.00 - 0.04 x10(3)/ L [facility] Blood 09/18/2023 8:16 PM EST 09/18/2023 8:22 PM EST Narrative Resulting Agency Comment Spec In Lab Kwadwo Moya MD HEMATOLOGY ORDERABLE S [facility] [place] [address] * (ABNORMAL) Hemogram (09/18/2023 8:16 PM EST) WBC 11.5(H) 4.0 - 9.5 x10(3)/[facility] LABORATORY RBC 4.98 4.58 - 5.54 x10(6)/[facility] Hemoglobin 14.6 13.7 - 16.5 g/dL [facility] Hematocrit 43.0 40.5 - 48.5 % [facility] MCV 86.3 82.9 - 93.1 [facility] MCH 29.3 27.5 - 32.1 pg [facility] MCHC 34.0 32.0 - 35.7 g/dL [facility] Platelets 255 145 - 357 x10(3)/[facility] RDWSD 43.8 36.0 - 45.0 [facility] RDWCV 13.9(H) 11.4 - 13.8 % [facility] MPV 9.7 7.6 - 12.9 [facility] nRBC % Auto 0.0 % [facility] nRBC Abs Auto 0.000 0.000 - 0.000 x10(3)/[facility] Blood 09/18/2023 8:16 PM EST 09/18/2023 8:22 PM EST Narrative Resulting Agency Comment Spec In Lab Kwadwo Moya MD HEMATOLOGY ORDERABLE S [facility] [place] [address] * (ABNORMAL) Basic Metabolic Panel (non-fasting) (09/18/2023 8:16 PM EST) Glucose Lvl 141 65 - 199 mg/dL [facility] Comment:Diabetes: >=200 mg/d L plus symptoms BUN 8(L) 10 - 20 mg/dL [facility] Creatinine 0.89 0.80 - 1.50 mg/dL [facility] Sodium 138 135 - 145 mmol/L [facility] Potassium 4.0 3.5 - 5.0 mmol/L [facility] Comment: Please note: ??Patients with WBC >100,000 may have falsely elevated Potassium levels. ??For accurate Potassium quantification in these patients send serum separator tube (gold top) for subsequent determinations. ??Contact the Clinical Chemistry Laboratory if there are any questions. Chloride 104 98 - 107 mmol/L [facility] CO2 24 22 - 31 mmol/L [facility] Anion Gap 10 5 - 15 mmol/L [facility] Calcium 8.9 8.5 - 10.5 mg/dL [facility] Estimated GFR 104 >=60 mL/min/1. 73 m?? [facility] Comment: This patient's estimated GFR [...] and symptoms in addition to eGFR. Blood 09/18/2023 8:16 PM EST 09/18/2023 8:22 PM EST Narrative Resulting Agency Comment Spec In Lab Malou Freitas MD CHEMISTRY ORDERABLES [facility] [place] [address] * (ABNORMAL) Surgical Pathology Report (09/18/2023 6:29 PM EST) Surgical Pathology Report [id number] ? Location: [id number]; P214; A The signing pathologist has (i) examined the relevant preparation(s) for the specimen(s) and (ii) rendered or confirmed the diagnosis(es). . ?Surgical Pathology DIAGNOSIS Left kidney (radical nephrectomy): ?? 1. Renal cell carcinoma, clear cell type, ?extending into perinephric adipose tissue (see ?Synoptic Report). ?? 2. Adrenal gland, no evidence of malignancy. ?? 3. Five lymph nodes, no evidence of malignancy (0/5). CR-0 Electronically signed by: ?Tung LANE, Gary Mariano Verified: ??09/26/2023 13:11 ??Pathologist Performed at: ??-[facility] [place] [place] Dept. of Pathology, [place] [address] Licensed Home Inspector: Mookie Mandujano MD, FCAP, ??CLIA Certificate: [id number] SYNOPTIC Specimen ? Procedure: ??Radical nephrectomy ? Specimen Laterality: ??Left Tumor ? Tumor Focality: ??Unifocal ? Tumor Site: ??Lower pole ? Tumor Size: ??11.2 x 10.0 x 9.0 Centimeters (cm) ? Histologic Type: ??Clear cell renal cell carcinoma ? Histologic Grade (WHO / ISUP): ??G4 ? Tumor Extent: ??Extends into perinephric tissue (beyond renal capsule) ? Sarcomatoid Features: ??Not identified ? Rhabdoid Features: ??Present ? Tumor Necrosis: ??Present ?Percentage of Tumor Necrosis: ??1% ? Lymphovascular Invasion: ??Not identified Margins ? Margin Status: ??All margins negative for invasive carcinoma Regional Lymph Nodes ? Regional Lymph Node Status: ??All regional lymph nodes negative for tumor ? Number of Lymph Nodes Examined: ??5 Pathologic Stage Classification (pTNM, AJCC 8th Edition) ? Primary Tumor (pT): ??pT3a ? Regional Lymph Nodes (pN): ??pN0 Additional Findings ? Additional Findings in Nonneoplastic Kidney: ??None identified Additional Non-Tumor ? Adrenal Gland: ??No evidence of malignancy Best Tumor Blocks for Future Studies ? Tumor Block(s): ??A10, A12, A15 ? Normal Block(s): ??A18 ? CAP [facility] 2021 Q1 Release DISCUSSION THIS RESULT REQUIRES PHYSICIAN/A.P.P. FOLLOW UP Scanned slides: [id number] . DISCUSSION [id number] ADDITIONAL STUDIES Formalin-fixed, paraffin-embedded tissue sections are studied using the B-SA system technique with appropriate positive and negative controls. Block ? Antibody ?Result (Degree of immunoreactivity) A-14 ? CA-IX ?Positive (diffuse box-like ?membranous staining) IHC studies provide the pathologist with adjunctive diagnostic information. Antibody specificity has been verified by testing antibodies on a series of in-house tissues with known immunohistochemical performance characteristics. The clinical interpretation of any antibody positive staining or its absence is evaluated within the context of clinical presentation, morphology, histopathological criteria and other diagnostic tests. SPECIMEN(S) SUBMITTED A - Left kidney and adrenal gland, resection CLINICAL INFORMATION Renal mass SPECIMEN PROCESSING A - Labeled/Fixative: Left kidney and adrenal, fresh. Quantity/Size/Weight: Single, 22.0 x 14.0 x 10.0 cm, 1312.0 grams. SPECIMEN DESCRIPTION Resection Specimen: Intact left radical nephrectomy. LESION Size: 11.2 x 10.0 x 9.0 cm. Location: Lower pole. Description: Solid and cystic heterogeneous pink-white to romero yellow circumscribed component that largely replaces the lower pole of the kidney. Focality: Unifocal. DIRECT EXTENSION Tumor directly invades renal sinus fat. Tumor directly extends into perinephric fat. Renal pelvis and mucosa: Tumor distorts the ureter and renal pelvis without involvement of the renal pelvic mucosa. Renal vein: Uninvolved. MARGINS Renal vein: 2.0 cm. Renal artery: 2.0 cm. Ureter: 3.2 cm. Soft tissue: 0.2 cm. Gerota 's fascia: Uninvolved. KIDNEY Size: 13.2 x 6.2 x 4.5 cm. Parenchyma: The corticomedullary junction is intact. Ureter: 17.0 x 0.3 cm. OTHER Adrenal gland: 7.5 x 2.5 x 0.5 cm. Lymph Nodes: Multiple lymph nodes identified measuring up to 3.0 x 1.5 x 0.6 cm. Sponge Fisherman sections in 30 cassettes as follows: ?A1: Vascular margins ?A2: Ureter margin . SPECIMEN PROCESSING ?A3-A7: Mass with perinephric fat margin ?A8: Adipose tissue and ureter ?A9: Renal pelvis adipose tissue ?A10: Mass with a longitudinal section of renal artery ?A11-A12: Tumor and perinephric adipose tissue ?A13: Mass and adjacent renal parenchyma ?A14-A16: Sponge Fisherman sections of mass ?A17: Upper pole renal sinus fat ?A18: Sponge Fisherman upper pole parenchyma ?A19: Sponge Fisherman lower pole parenchyma with 0.4 cm white nodule ?A20: Left adrenal ?A21-A23: Single serially sectioned lymph node ?A24-A26: Single serially sectioned lymph node ?A27: Single quadrisected candidate lymph node ?A28: Single trisected lymph node ?A29: Single bisected candidate lymph node ?A30: Single intact candidate lymph node ajw(A) [facility] 09/18/2023 6:29 PM EST Malou Freitas MD PATHOLOGY/CYTOLOGY O MINDI Performing Organization Address [facility] Co de Phone Number [facility] [place] [address] * Specimen to Pathology (09/18/2023 6:29 PM EST) AP Specimen 09/18/2023 6:29 PM EST 09/18/2023 6:29 PM EST Narrative [facility] - 09/18/2023 6:29 PM EST Specimen requisition ordered. ??Separate Pathology report to follow Malou Freitas MD PATHOLOGY/CYTOLOGY Arianna OBREGON Performing Organization Address [facility] de Phone Number [facility] [place] [address] documented in this encounter Visit Diagnoses Diagnosis Renal mass, left- Primary Unspecified disorder of kidney and ureter Renal mass Unspecified disorder of kidney and ureter Renal mass Unspecified disorder of kidney and ureter documented in this encounter Admitting Diagnoses Diagnosis Renal mass, left Unspecified disorder of kidney and ureter documented in this encounter Administered Medications Inactive Administered Medications - up to 3 most recent administrations Medication Order MAR Action Action Date Dose Rate Site acetaminophen (Tylenol) tablet 975 mg 975 mg, Oral, EVERY 6 HOURS SCHEDULED, First dose on Sat09/18/23 at 2014, Until Discontinued, Maximum dose of acetaminophen is 4000 mg from all sources in 24 hours. When ordered for pain, acetaminophen should be given even when other ordered pain medications are indicated. , Recovery (Recovery-Hospital Unit), Routine Given 09/19/2023 1:24 PM EST 975 mg Given 09/19/2023 9:32 AM EST 975 mg Given 09/19/2023 2:10 AM EST 975 mg bisacodyL (Dulcolax) suppository 10 mg 10 mg, Rectal, DAILY PRN, Starting on Sat09/18/23 at 2107, Until Mihaela 09/19/23 at 1749, Constipation, Administer if needed per patient's routine or if no bowel movement within 48 hours to achieve: (1) One bowel movement at least every 48 hours, AND (2) Without straining. - If multiple PRN bowel medications ordered, start with magnesium hydroxide, then bisacodyL. - Multiple medications may be given concomitantly for constipation., Recovery (Recovery-Hospital Unit), Routine docusate sodium (Colace) capsule 100 mg 100 mg, Oral, 2 TIMES DAILY, First dose on Sat09/18/23 at 2130, Until Discontinued, Recovery (Recovery-Hospital Unit), Routine Given 09/19/2023 9:32 AM EST 1 00 mg Given 09/18/2023 9:55 PM EST 100 mg heparin (porcine) (5,000 units/1 mL) subcutaneous injection 5,000 Units 5,000 Units, Subcutaneous, EVERY 8 HOURS SCHEDULED, First dose on Sat09/18/23 at 2200, Until Discontinued, Recovery (Recovery-Hospital Unit), Routine Given 09/19/2023 5:52 AM EST 5,000 Unit s Given 09/18/2023 9:55 PM EST 5,000 Units lidocaine (Xylocaine) 1% (10 mg/mL) injection 3 mg 3 mg (0.3 mL), Subcutaneous, ONCE PRN, 1 dose, Starting on Sat09/18/23 at 2107, Until Mihaela 09/19/23 at 1749, for discomfort with PIV insertion, Recovery (Recovery-Hospital Unit), Routine naloxone (Narcan) (0.4 mg/mL) injection 0.2 mg 0.2 mg, Intravenous, EVERY 1 MIN PRN, 10 doses, Starting on Sat09/18/23 at 2107, Until Mihaela 09/19/23 at 1749, Opioid Reversal, If respiratory rate less than 6 OR the patient is unable to arouse OR SpO2 is declining, Give for respiratory rate of less than or equal to 6 and patient is heavily sedated or unarousable. May repeat every 60 seconds to increase respiratory rate. DO NOT exceed 2 mg total dose., Recovery (Recovery-Hospital Unit), Routine ondansetron (pf) (Zofran) (2 mg/mL) injection 4 mg 4 mg, Intravenous, EVERY 8 HOURS PRN, Starting on Sat09/18/23 at 2107, Until Mihaela 09/19/23 at 1749, Nausea, May repeat times one in 30 minutes if ineffective. If multiple antiemetics are ordered, use ondansetron first., Recovery (Recovery-Hospital Unit) Given 09/19/2023 2:20 AM EST 4 mg ondansetron (Zofran) tablet 4 mg 4 mg, Oral, EVERY 8 HOURS PRN, Starting on Sat09/18/23 at 2107, Until Mihaela 09/19/23 at 1749, Nausea, Vomiting, If multiple antiemetics are ordered, use ondansetron first. PO Preferred. If patient unable to take PO, may give IV if ordered. May repeat times one in 45 minutes if ineffective., Recovery (Recovery-Hospital Unit), Routine oxyCODONE (Roxicodone) tablet 5 mg 5 mg, Oral, EVERY 4 HOURS PRN, Starting on Sat09/18/23 at 1953, Until Mihaela 09/19/23 at 1749, Pain, Recovery (Recovery-Hospital Unit), Routine Given 09/19/2023 1:23 PM EST 5 mg Given 09/19/2023 9:32 AM EST 5 mg Given 09/19/2023 5:50 AM EST 5 mg sodium chloride 0.9 % (flush) (BD PosiFlush Normal Saline 0.9) flush 5 mL 5 mL, Intravenous, 2 TIMES DAILY, First dose on Sat09/18/23 at 2130, Until Discontinued, Recovery (Recovery-Hospital Unit), Routine Given 09/19/2023 9:33 AM EST 5 mLs Given 09/18/2023 9:47 PM EST 5 mLs sodium chloride 0.9 % (flush) (BD PosiFlush Normal Saline 0.9) flush 5-20 mL 5-20 mL, Intravenous, EVERY 1 MIN PRN, Starting on Sat09/18/23 at 2107, Until Mihaela 09/19/23 at 1749, flush, Flush pertains to all indwelling lines. Flush per protocol found in the job aid using the link provided on this medication record., Recovery (Recovery-Hospital Unit), Routine sodium chloride 0.9% infusion 75 mL/hr, Intravenous, CONTINUOUS, Starting on Sat09/18/23 at 2100, Until Mihaela 09/19/23 at 1749, Recovery (Recovery-Hospital Unit) New Bag 09/19/2023 6:57 AM EST 75 mL/hr 75 mL/ hr New Bag 09/18/2023 9:46 PM EST 75 mL/hr 75 mL/hr documented in this encounter Active and Recently Administered Medications Times are shown in EST. Scheduled Medication Order 09/17/2023 09/18/2023 09/19/2023 acetaminophen (Tylenol) tablet 975 mg 975 mg, Oral, EVERY 6 HOURS SCHEDULED, First dose on Sat09/18/23 at 2015, Until Discontinued, Maximum dose of acetaminophen is 4000 mg from all sources in 24 hours. When ordered for pain, acetaminophen should be given even when other ordered pain medications are indicated. , Recovery (Recovery-Hospital Unit), Routine 2021 (Given - Provider: Jackie Meza RN) 0210 (Given - Provider: Sarina Cummings RN)0932 (Given - Provider: Claudio Hensley RN)1324 (Given - Provider: Claudio Hensley RN)1430 (Hold - Provider: Claudio Hensley RN - Reason: See comment - Comment: prior to potential discharge) calcium carbonate (TUMS) chewable tablet 1,000 mg (COMPLETED) 1,000 mg, Oral, ONCE, 1 dose, On Mihaela 09/19/23 at 0800, For low calcium, Routine 0933 (Given - Provid er: Claudio Hensley RN) ceFAZolin (Ancef) 2 g vial attach to sodium chloride 0.9% 100 mL Mini-Bag Plus (COMPLETED) 2 g, Intravenous, SENIOR SUSTAINABILITY ADVISOR TO O.R., 1 dose, On Sat09/18/23 at 1230, Administer over 30 Minutes, Day of Surgery (Day of Procedure), Indication for (Active or Suspected): Prophylaxis 153 (New Bag - Provider: Melania Gutierrez) docusate sodium (Colace) capsule 100 mg 100 mg, Oral, 2 TIMES DAILY, First dose on Sat09/18/23 at 2130, Until Discontinued, Recovery (Recovery-Hospital Unit), Routine 2154 (Given - Provider: Jackie Meza RN) 0932 (Given - Provider: Claudio Hensley RN) heparin (porcine) (5,000 units/1 mL) subcutaneous injection 5,000 Units (COMPLETED) 5,000 Units, Subcutaneous, SENIOR SUSTAINABILITY ADVISOR TO O.R., 1 dose, On Sat09/18/23 at 1230, Day of Surgery (Day of Procedure), Routine 1343 (Given - Provider: Mirella Orona RN) heparin (porcine) (5,000 units/1 mL) subcutaneous injection 5,000 Units 5,000 Units, Subcutaneous, EVERY 8 HOURS SCHEDULED, First dose on Sat09/18/23 at 2200, Until Discontinued, Recovery (Recovery-Hospital Unit), Routine 2155 (Given - Provider: Jackie Meza, RN) 0552 (Given - Provider: Michael Valles RN)1400 (Not Given - Provider: Claudio Hensley RN - Reason: Patient/family refused) oxyCODONE (Roxicodone) tablet 5 mg (COMPLETED) 5 mg, Oral, ONCE, 1 dose, On Sat09/18/23 at 2330, STAT 2319 (Given - Provider: Sarina Cummings RN) scopolamine (Transderm-Scop) 1 mg over 3 days patch 1 patch (COMPLETED) 1 patch, Transdermal, Administer over 24 Hours, ONCE, 1 dose, On Sat09/18/23 at 1230, Day of Surgery (Day of Procedure), Routine 1255 (Patch Applied - Provider: Lacy Moura RN) 1255 (Patch Removed - Provider: Claudio Hensley RN) scopolamine (Transderm-Scop) 1 mg patch Patch Verification Transdermal, 2 TIMES DAILY, 2 doses, First dose on Sat09/18/23 at 1315, Last dose on Sat09/18/23 at 2100, Verify scopolamine 1 mg patch., Recovery (Recovery-Hospital Unit) 1315 (Not Given - Provider: Sarina Cummings RN - Reason: See comment - Comment: previous shift - clearing from SEP)2100 (Patch (dose and location) verified - Provider: Jackie Meza RN) sodium chloride 0.9 % (flush) (BD PosiFlush Normal Saline 0.9) flush 5 mL 5 mL, Intravenous, 2 TIMES DAILY, First dose on Sat09/18/23 at 2130, Until Discontinued, Recovery (Recovery-Hospital Unit), Routine 2147 (Given - Provider: Jackie Meza, RN) 0933 (Given - Provider: Claudio Hensley RN) Continuous Medication Order 09/17/2023 09/18/2023 09/19/2023 lactated ringers infusion (CANCELED) 1,000 mL, at 100 mL/hr, Intravenous, CONTINUOUS, Starting on Sat09/18/23 at 1230, Until Sat09/18/23 at 2158, Day of Surgery (Day of Procedure) 1346 (New Bag - Provider: Mirella Orona, RN)1500 (Paused - Provider: Melania Gutierrez - Comment: Switch to gravity)1501 (Restarted - Provider: Melania Gutierrez)1600 (Anesthesia Volume Adjustment - Provider: Melania Gutierrez)1700 (Anesthesia Volume Adjustment - Provider: Aruna Helm CRNA)1800 (Anesthesia Volume Adjustment - Provider: Aruna Helm CRNA) sodium chloride 0.9% infusion 75 mL/hr, Intravenous, CONTINUOUS, Starting on Sat09/18/23 at 2100, Until Mihaela 09/19/23 at 1749, Recovery (Recovery-Hospital Unit) 2146 (New Bag - Provider: Jackie Meza, RENO) 0657 (New Bag - Provider: Michael Valles RN)1749 (Due: Stopped) PRN Medication Order 09/17/2023 09/18/2023 09/19/2023 bisacodyL (Dulcolax) suppository 10 mg 10 mg, Rectal, DAILY PRN, Starting on Sat09/18/23 at 2107, Until Mihaela 09/19/23 at 1749, Constipation, Administer if needed per patient's routine or if no bowel movement within 48 hours to achieve: (1) One bowel movement at least every 48 hours, AND (2) Without straining. - If multiple PRN bowel medications ordered, start with magnesium hydroxide, then bisacodyL. - Multiple medications may be given concomitantly for constipation., Recovery (Recovery-Hospital Unit), Routine HYDROmorphone (Dilaudid) (2 mg/mL) multi-dose injection solution 0.4 mg (CANCELED)(Linked Group 1) 0.4 mg, Intravenous, EVERY 10 MIN PRN, Starting on Sat09/18/23 at 1916, Until Sat09/18/23 at 2158, Pain, For Mild to Moderate Pain (1-5 out of 10), Hold for respiratory rate less than 10 per minute. Maximum dose 3 mg over one hour including administrations in the OR. If multiple pain medications are ordered, start with HYDROmorphone and use fentaNYL for breakthrough pain., PACU Recovery, Routine 1946 (Given - Provider: Jackie Meza RN)1999 (Given - Provider: Jackie Meza RN)2023 (See Alternative - Provider: Jackie Meza RN) HYDROmorphone (Dilaudid) (2 mg/mL) multi-dose injection solution 0.6 mg (CANCELED)(Linked Group 1) 0.6 mg, Intravenous, EVERY 10 MIN PRN, Starting on Sat09/18/23 at 1916, Until Sat09/18/23 at 2158, Pain, For Moderate to Severe Pain (6-10 out of 10), Hold for respiratory rate less than 10 per minute. Maximum dose 4 mg over one hour including administrations in the OR. If multiple pain medications are ordered, start with HYDROmorphone and use fentaNYL for breakthrough pain., PACU Recovery, Routine 1946 (See Alternative - Provider: Jackie Meza RN)1999 (See Alternative - Provider: Jackie Meza RN)2023 (Given - Provider: Jackie Meza RN) lidocaine (Xylocaine) 1% (10 mg/mL) injection 3 mg 3 mg (0.3 mL), Subcutaneous, ONCE PRN, 1 dose, Starting on Sat09/18/23 at 2107, Until Mihaela 09/19/23 at 1749, for discomfort with PIV insertion, Recovery (Recovery-Hospital Unit), Routine naloxone (Narcan) (0.4 mg/mL) injection 0.2 mg 0.2 mg, Intravenous, EVERY 1 MIN PRN, 10 doses, Starting on Sat09/18/23 at 2107, Until Mihaela 09/19/23 at 1749, Opioid Reversal, If respiratory rate less than 6 OR the patient is unable to arouse OR SpO2 is declining, Give for respiratory rate of less than or equal to 6 and patient is heavily sedated or unarousable. May repeat every 60 seconds to increase respiratory rate. DO NOT exceed 2 mg total dose., Recovery (Recovery-Hospital Unit), Routine ondansetron (pf) (Zofran) (2 mg/mL) injection 4 mg(Linked Group 2) 4 mg, Intravenous, EVERY 8 HOURS PRN, Starting on Sat09/18/23 at 2107, Until Mihaela 09/19/23 at 1749, Nausea, May repeat times one in 30 minutes if ineffective. If multiple antiemetics are ordered, use ondansetron first., Recovery (Recovery-Hospital Unit) 219 (Given - Provid er: Sarina Cummings RN) ondansetron (Zofran) tablet 4 mg(Linked Group 2) 4 mg, Oral, EVERY 8 HOURS PRN, Starting on Sat09/18/23 at 2107, Until Mihaela 09/19/23 at 1749, Nausea, Vomiting, If multiple antiemetics are ordered, use ondansetron first. PO Preferred. If patient unable to take PO, may give IV if ordered. May repeat times one in 45 minutes if ineffective., Recovery (Recovery-Hospital Unit), Routine 219 (See Alternativ e - Provider: Sarina Cummings RN) oxyCODONE (Roxicodone) tablet 5 mg 5 mg, Oral, EVERY 4 HOURS PRN, Starting on Sat09/18/23 at 1953, Until Mihaela 09/19/23 at 1749, Pain, Recovery (Recovery-Hospital Unit), Routine 2021 (Given - Provider: Jackie Meza RN) 0211 (Given - Provider: Sarina Cummings RN)0550 (Given - Provider: Michael Valles RN)0932 (Given - Provider: Claudio Hensley, RENO)1323 (Given - Provider: Claudio Hensley, RENO) sodium chloride 0.9 % (flush) (BD PosiFlush Normal Saline 0.9) flush 5-20 mL 5-20 mL, Intravenous, EVERY 1 MIN PRN, Starting on Sat09/18/23 at 2107, Until Mihaela 3 at 1749, flush, Flush pertains to all indwelling lines. Flush per protocol found in the job aid using the link provided on this medication record., Recovery (Recovery-Hospital Unit), Routine Linked Groups Order Group 1: HYDROmorphone (Dilaudid) (2 mg/mL) multi-dose injection solution 0.4 mg (CANCELED)Jump to med 0.4 mg, Intravenous, EVERY 10 MIN PRN, Starting on Sat09/18/23 at 1916, Until 09/18/23 at 2158, Pain, For Mild to Moderate Pain (1-5 out of 10), Hold for respiratory rate less than 10 per minute. Maximum dose 3 mg over one hour including administrations in the OR. If multiple pain medications are ordered, start with HYDROmorphone and use fentaNYL for breakthrough pain., PACU Recovery, Routine Or HYDROmorphone (Dilaudid) (2 mg/mL) multi-dose injection solution 0.6 mg (CANCELED)Jump to med 0.6 mg, Intravenous, EVERY 10 MIN PRN, Starting on Sat09/18/23 at 1916, Until 09/18/23 at 2158, Pain, For Moderate to Severe Pain (6-10 out of 10), Hold for respiratory rate less than 10 per minute. Maximum dose 4 mg over one hour including administrations in the OR. If multiple pain medications are ordered, start with HYDROmorphone and use fentaNYL for breakthrough pain., PACU Recovery, Routine Group 2: ondansetron (Zofran) tablet 4 mgJump to med 4 mg, Oral, EVERY 8 HOURS PRN, Starting on Sat09/18/23 at 2107, Until Mihaela 3 at 1749, Nausea, Vomiting, If multiple antiemetics are ordered, use ondansetron first. PO Preferred. If patient unable to take PO, may give IV if ordered. May repeat times one in 45 minutes if ineffective., Recovery (Recovery-Hospital Unit), Routine Or ondansetron (pf) (Zofran) (2 mg/mL) injection 4 mgJump to med 4 mg, Intravenous, EVERY 8 HOURS PRN, Starting on Sat09/18/23 at 2107, Until Mihaela 324 at 1749, Nausea, May repeat times one in 30 minutes if ineffective. If multiple antiemetics are ordered, use ondansetron first., Recovery (Recovery-Hospital Unit) documented in this encounter Care Teams Oil Sales And Service Rep Relationship Specialty Start Date End Date Celso Dukes MD [address] [place] [address] PCP - General 02/24/15 documented as of this encounter
--- OUTSIDE RECORDS SUMMARY | 2024-02-04 01:33 | XMS_ITS | Encounter Summary ---
Author Organization [facility] [place] [address] Care Team Providers Care Mine Exploration Engineer Name Role Phone Celso Dukes MD Primary Care Provider Reason for Referral * Consultation (Routine) - Closed Specialty Diagnoses / Procedures Referred By Yen smith Referred To Contact Diagnoses Renal mass Akira Mallory MD [facility] [place] [address] [facility] [place] [address] Referral ID Status Reason Start Date Expiration Date V isits Requested Visits Authorized [id number] Closed Consult, Test & Treat 09/12/2023 09/11/2024 1 1 * Diagnostic Test (Routine) - Closed Specialty Diagnoses / Procedures Referred By Contac t Referred To Contact Radiology Diagnoses Renal mass Procedures CT Chest wo Contrast (Generic) Akira Mallory MD [facility] [place] [address] [facility] [place] [address] Referral ID Status Reason Start Date Expiration Date V isits Requested Visits Authorized [id number] Closed Specialty Service Requested 09/12/2023 03/12/2025 1 1 Reason for Visit * Reason Onset Date Comments Renal Mass 09/12/2023 * Consultation (Routine) - Authorized Specialty Diagnoses / Procedures Referred By Contac t Referred To Contact Urology Diagnoses Other specified disorders of kidney and ureter SHABNAM HERMATURIA AND REANL MASS LEFT KIDNEY ON CT. MRI W/O CONTRAST PENDING Celso Dukes MD [address] [place] [address] [facility] [place] [address] Referral ID Status Reason Start Date Expiration Date Visits Requested Visits Authorized [id number] Authorized Consult, Test & Treat PCP Updated and/or Approved 08/19/2023 08/18/2024 6 6 Encounter Details Date Type Department Care Team (Late st Contact Info) Description 09/12/2023 9:10 AM EST [place] [address] Akira Mallory MD [facility] [place] [address] Renal mass (Primary Dx) Social History Tobacco Use Types Packs/Day Years Used Date Smoking Tobacco: Every Day Cigarettes 0.5 15 Smokeless Tobacco: Current Chew Tobacco Cessation:Ready to Q uit: Not Asked; Counseling Given: Not Answered [facility] Inpatient Questions Answer Date Recorded Does Anyone Try to Keep You From Having Contact with Others or Doing Things Outside Your Home? no 09/12/2023 Feels Threatened by Someone no 08/16 Feels Unsafe at Home or Work/School no 09/12/2023 Physical Signs of Abuse Present no 09/12/2023 Sex and Gender Information Value Date Recorded Sex Assigned at Not on file Gender Identity Not on file Sexual Orientation Not on file documented as of this encounter Last Filed Vital Signs Vital Sign Reading Time Taken Comments Blood Pressure 136/89 09/12/2023 9:05 AM EST Pulse 90 09/12/2023 9:05 AM EST Temperature 35.7 ??C (96.3 ??F) 09/12/2023 9:05 AM ES T Respiratory Rate - - Oxygen Saturation - - Inhaled Oxygen Concentration - - Weight - - Height - - Body Mass Index - - documented in this encounter Patient Instructions * Patient Instructions* Akira Mallory MD - 09/12/2023 9:10 AM EST Nephrectomy/Nephroureterectomy Patient Instructions Instructions Prior to Surgery Please stop taking any over the counter supplements one week before surgery. If you are on any blood thinners such as: Coumadin, Plavix, Aspirin, or Xarelto PLEASE check with the Urology Clinic if you did not receive any instructions on discontinuing them prior to surgery. Day Prior to Surgery Please shower 24 hours before AND the night before surgery. Please use a Chlorhexidene based antiseptic soap such as Hibiclens. You can buy Hibiclens over the counter at your pharmacy or you can obtain it from the [facility] Same [place] program on the day of your preoperative visit. Please take only clear liquids by mouth from noon the day before surgery. Please take nothing by mouth from 2 hours before the time you have been told to report to the hospital. If you have any questions please call the [facility] at or documented in this encounter Progress Notes * Akira Mallory MD - 09/12/2023 9:10 AM EST Images from the original note were not included. Patient Name: Rosalino Honeycutt Date of Service: 09/12/2023 Primary Care Provider: Celso Dukes MD Reason for Visit: Rosalino Honeycutt is a 52 y.o. male who is referred for evaluation of hematuria and a Left renal mass. Developed gross painless hematuria.at the end 07/2023. No flank pain. The hematuria lasted for 4 days, no clots. Hs now resolved. Has vague left flank discomfort. Currently the patient has no irritative symptoms with minimal frequencyand nocturia x rarely. The urinary stream is OK and the bladder is emptied completely. T Appetite is good weight is stable. There is no bone pain. Past Medical History: HTN Sleep apnoea GERD Past Surgical History: 2022 Right THR 2020 Right tendinitis 2017 Right Knee meniscus Medications: Reviewed Allergies: Reviewed Family History: There is no family history of renal cancer. No diseases run in the family. Mother Ovarian cancer. MGM lung cancer. 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 The patient has been for [8 years with 2 children. The patient drinks 6 pack on w/e Tobacco: 1/2 ppd. Encouraged to Quit Systems review: No regular exercise. Can walk a mile and can walk several flights of stairs. HEENT: Denies problems with vision, hearing, runny nose, epistaxis, sore throat, hoarseness Cardiovascular: Denies Chest pain, palpitations, shortness of breath, ankle swelling, claudication Respiratory: Denies hemoptysis,wheeze, Getting over a cold with cough and phlegm Gastrointestinal: Denies nausea, difficulty swallowing, vomiting, hematemesis, constipation, diarrhea, blood per rectum Neurological: Denies double vision, headache, weakness of one side of the body or the other,sudden loss of vision in one eye, A little new dizzyness when lying down. Bones and muscles: Denies bone pain, radiating pain, muscle weakness or sore ness. All other systems negative. Physical Exam: Vital Signs are reviewed. The patient appears healthy and in no distress. Examination of the hands, head neck, eyes ears nose and throat is normal. The skin is normal. Thereis no lymphadenopathy or thyroidomegaly The chest is clear to percussion and auscultation. Heart sounds I and II are normal without murmurs or added sounds. Peripheral pulses are full without bruits The abdomen is benign. There are no masses or organomegaly. External genitalia is normal with bilaterally descended testis and normal phallus. Rectal tone is normal. Rectal exam shows a [] g benign prostate without nodules. There were no other palpable masses. External genitalia is normal a rectal and vaginal exam are not performed. Examination of the extremities and neurological examination is grossly normal. Lab values are reviewed and are as noted in the history. 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 Schedule Left lap nephrectomy + cystoscopy I discussed the fact that there was an 95%+ chance that this was a malignant renal tumor. I discussed the role of biopsy which I would not recommend in this patient as I think it is unlikely to change the management of this mass. I discussed the treatment options for the renal mass including radical nephrectomy, partial nephrectomy either in an open or laparoscopic fashion, minimally invasive approaches such as radio frequency ablation and cryo surgery. In addition observation with serial imaging is an option for small renal masses in patients with significant comorbidity. In his case, based on the mass size and location I would recommend a radical nephrectomy. We should be able to perform this laparoscopically. We discussed the need to complete a metastatic w/u and if no evidence of metastatic disease after nephrectomy the potential for adjuvant post op immunotherapy. I discussed the pre,intra and post operative care and decision making. We discussed the risks of the surgery including bleeding(the necessity for a blood transfusion and it's risks including HIV/Hepatitis) and infection, injury to adjacent organs, small and large bowel, liver, spleen, pancreas, nerves, blood vessels etc. We discussed the need to switch from laparoscopic to open surgery. I also discussed the risks of unexpected complications leading to prolonged hospitalization, prolonged ICU care, reoperation etc. Clearly anytime we remove a kidney there is a risk of short and blocker heated metal forms renaldysfunction possibly including dialysis. However, I consider this unlikely. As the operation is being performed for a presumed renal malignancy there is the potential for incomplete tumor resection, tumor reccurrence and the need for additional treatment in the postoperative period. All the patients question's were answered. The patient agreed to take part in the [id number] AFM Urine study. They understand the risk, benefit,voluntary and experimental nature. They signed and were provided with a copy of the Informed consent and completed questionnaire. Addendum Completely OK to wait on this one - we can get it in the surveillance and if need be we can have him come for an EUS Jose ----- Message ----- From: Akira Mallory MD Sent: 09/12/2023 10:04 AM EST To: Demarcus Browne MD Jose Do you mind taking a glance at this MR. Patient with large Left renal cancer and incidental pancreatic cyst. Do we need any additional w/u of pancreas now or can it wait until post op or referral back to you if changes seen on subsequent surveillance imaging (which will be in 6 months and then likely annually) [facility] documented in this encounter Plan of Treatment Upcoming Encounters Date Type Department Care Team (Late st Contact Info) Description 02/04/2024 10:00 AM EDT Scheduled View Only Hematology/Oncology at [address] [address] Dana Davis RN 02/04/2024 10:00 AM EDT Infusion Hematology Oncology at [address] [address] 02/24/2024 9:30 AM EDT Office Visit Hematology/Oncology at [address] [address] Francisca Quinonez APRN [facility] [place] [address] 02/24/2024 10:30 AM EDT Infusion Hematology Oncology at [address] [address] 03/17/2024 10:00 AM EDT Infusion Hematology Oncology at [address] [address] 04/07/2024 9:30 AM EDT Office Visit Hematology/Oncology at [address] [address] Gian Lisa MD [facility] HEMATOLOGY[place] [address] Francisca Quinonez APRN [facility] [place] [address] 04/07/2024 10:00 AM EDT Infusion Hematology Oncology at [address] [phone] Scheduled Orders Name Type Priority Associated Diagnoses Orde r Schedule Biorepository Request Lab Routine Renal mass Expected: 09/12/2023, Expires: 03/13/2024 Scheduled Procedures Name Priority Associated Diagnoses Date/Ti me EGD, UPPER GI ENDOSCOPY (WRVU 2.09) Dyspepsia COLONOSCOPY, DIAGNOSTIC (WRVU 3.26) Dyspepsia Scheduled Referrals Name Type Priority Associated Diagnoses Orde r Schedule Referral to Smoking Cessation Program Outpatient Referral Routine Renal mass Ordered: 09/12/2023 documented as of this encounter Results * CT Chest wo Contrast (Generic) (09/13/2023 9:26 AM EST) Anatomical Region Laterality Modality Chest Computed Tomogra phy Impressions 09/13/2023 4:52 PM EST No evidence for intrathoracic metastasis Thank you for letting us participate in the care of this patient. ??If you are a health care provider and have any questions regarding this report, please contact the number below. ??For patients who have questions please contact the health day care home mother that requested your imaging first. ? Narrative 09/13/2023 4:52 PM EST EXAMINATION: CT CHEST WO CONTRAST (GENERIC) CLINICAL HISTORY: Renal mass, assess for metastatic disease TECHNIQUE: Helical CT of the chest without intravenous contrast administration. Thin-section reconstructions as well as coronal and sagittal reformatted images were generated. COMPARISON: None FINDINGS: Pulmonary parenchyma: No lung nodules. Airways: No central endobronchial abnormality. Pleura: No effusion. Lymph nodes: No lymphadenopathy. Heart and vasculature: Normal size of the heart. There is mild coronary artery calcification. No pericardial effusion. Normal caliber of the thoracic aorta. Other mediastinal structures: No significant findings. Upper abdomen: Diffuse low-attenuation of the liver compatible with steatosis. Skeletal structures: Diffuse qualitative osteopenia. Multilevel discogenic disease in the spine. Old right fifth rib fracture. No aggressive bone lesions. Procedure Note Gabriel Baugh MD - 09/13/2023 EXAMINATION: CT CHEST WO CONTRAST (GENERIC) CLINICAL HISTORY: Renal mass, assess for metastatic disease TECHNIQUE: Helical CT of the chest without intravenous contrastadministration. Thin-section reconstructions as well as coronal and sagittal reformattedimages were generated. COMPARISON: None FINDINGS: Pulmonary parenchyma: No lung nodules. Airways: No central endobronchial abnormality. Pleura: No effusion. Lymph nodes: No lymphadenopathy. Heart and vasculature: Normal size of the heart. There is mild coronaryartery calcification. No pericardial effusion. Normal caliber of the thoracicaorta. Other mediastinal structures: No significant findings. Upper abdomen: Diffuse low-attenuation of the liver compatible withsteatosis. Skeletal structures: Diffuse qualitative osteopenia. Multileveldiscogenic disease in the spine. Old right fifth rib fracture. No aggressive bonelesions. IMPRESSION No evidence for intrathoracic metastasis Thank you for letting us participate in the care of this patient. If youare a health care provider and have any questions regarding this report,please contact the number below. For patients who have questions please contactthe health day care home mother that requested your imaging first. Electronically signed by: aGbriel Baugh MD, [facility]([phone]), at 09/13/2023 4:52 PM Akira Mallory MD IMG CT ORDERABLES * Urine culture Clean Catch Urine (09/12/2023 11:02 AM EST) Urine Culture No growth (Less than 1,000 cfu/ml). [facility] Clean Catch Urine 09/12/2023 11:02 AM EST 09/12/2023 11:36 AM EST Narrative Resulting Agency Comment Spec In Lab Akira Mallory MD MICROBIOLOGY - GENER AL ORDERABLES Performing Organization Address [facility]/ZIP Co de Phone Number [facility] [place] [address] * Type and Screen Future Surgery, [facility] SAME [facility] ONLY) (09/12/2023 10:52 AM EST) ABORH Type O POSITIVE [facility] Patient BB History Not Found [facility] Expires at 2359 on: 09/18/2023 [facility] Ab Screen Interp Negative [facility] Blood 09/12/2023 10:5 2 AM EST 09/12/2023 10:52 AM EST Narrative Resulting Agency Comment Spec In Lab Akira Mallory MD BLOOD BANK LAB ORDER SYBIL Performing Organization Address City/[facility]/ZIP Co de Phone Number [facility] [place] [address] * (ABNORMAL) Comprehensive metabolic panel (non-fasting) (09/12/2023 10:52 AM EST) Pathologist [facility] Glucose Lvl 98 65 - 199 mg/dL [facility] Comment:Diabetes: >=200 mg/d L plus symptoms BUN 7(L) 10 - 20 mg/dL [facility] Creatinine 0.73(L) 0.80 - 1.50 mg/dL [facility] Sodium 139 135 - 145 mmol/L [facility] Potassium 4.1 3.5 - 5.0 mmol/L [facility] Comment: Please note: ??Patients with WBC >100,000 may have falsely elevated Potassium levels. ??For accurate Potassium quantification in these patients send serum separator tube (gold top) for subsequent determinations. ??Contact the Clinical Chemistry Laboratory if there are any questions. Chloride 104 98 - 107 mmol/L [facility] CO2 25 22 - 31 mmol/L [facility] Anion Gap 10 5 - 15 mmol/L [facility] Calcium 9.5 8.5 - 10.5 mg/dL [facility] Total Protein 8.1(H) 6.1 - 8.0 g/dL [facility] Albumin 4.3 3.2 - 5.2 g/dL [facility] AST 19 0 - 39 unit/L [facility] ALT 32 0 - 55 unit/L [facility] Alk Phos 89 40 - 130 unit/L [facility] Total Bilirubin 0.5 0.2 - 1.3 mg/dL [facility] Estimated GFR 110 >=60 mL/min/1. 73 m?? [facility] Comment: This patient's estimated GFR [...] and symptoms in addition to eGFR. Blood 09/12/2023 10:5 2 AM EST 09/12/2023 11:10 AM EST Narrative Resulting Agency Comment Spec In Lab Akira Mallory MD CHEMISTRY ORDERABLES [facility] [place] [address] documented in this encounter Visit Diagnoses Diagnosis Renal mass- Primary Unspecified disorder of kidney and ureter Renal mass Unspecified disorder of kidney and ureter documented in this encounter Care Teams Mine Exploration Engineer Relationship Specialty Start Date End Date Celso Dukes MD [address] [place] [address] PCP - General 02/24/15 documented as of this encounter
--- OUTSIDE RECORDS SUMMARY | 2024-02-04 01:33 | XMS_ITS | Encounter Summary ---
Author Organization [facility] Address [facility] [place] [address] Care Team Providers Care Title Department Manager Name Role Phone Celso Dukes MD Primary Care Provider [phone] Reason for Referral * Diagnostic Test (Routine) - Closed Specialty Diagnoses / Procedures Referred By Contac t Referred To Contact Radiology Diagnoses Renal mass Procedures CT Chest wo Contrast (Generic) Akira Mallory MD [facility] [place] [address] [facility] [address] [place] [address] Referral ID Status Reason Start Date Expiration Date V isits Requested Visits Authorized [id number] Closed Specialty Service Requested 09/12/2023 03/12/2025 1 1 Reason for Visit * Diagnostic Test (Routine) - Closed Specialty Diagnoses / Procedures Referred By Contac t Referred To Contact Radiology Diagnoses Renal mass Procedures CT Chest wo Contrast (Generic) Akira Mallory MD [facility] [place] [address] [facility] [address] [place] [address] Referral ID Status Reason Start Date Expiration Date V isits Requested Visits Authorized [id number] Closed Specialty Service Requested 09/12/2023 03/12/2025 1 1 Encounter Details Date Type Department Care Team (Latest Contact Info) Description 09/13/2023 9:18 AM EST - 09/13/2023 11:59 PM EST Hospital [place] [address] Akira Mallory MD [facility] [place] [address] Renal mass Discharge Disposition: Home Social History Tobacco Use Types Packs/Day Years Used Date Smoking Tobacco: Every Day Cigarettes 0.5 15 Smokeless Tobacco: Current Chew [facility] Inpatient Questions Answer Date Recorded Does Anyone [...] EDT Scheduled View Only Hematology/Oncology at [address] [phone] Dana Davis RN 02/04/2024 10:00 AM EDT Infusion Hematology Oncology at [address] [address] 02/24/2024 9:30 AM EDT Office Visit Hematology/Oncology at [address] [address] Francisca Quinonez APRN [facility] [place] [address] 02/24/2024 10:30 AM EDT Infusion Hematology Oncology at [address] [address] 03/17/2024 10:00 AM EDT Infusion Hematology Oncology at [address] [phone] 04/07/2024 9:30 AM EDT Office Visit Hematology/Oncology at [address] [phone] Gian Lisa MD [facility] HEMATOLOGY/[place] [address] Francisca Quinonez APRN [facility] MEDICAL [place] [address] 04/07/2024 10:00 AM EDT Infusion Hematology Oncology at [address] [phone] Scheduled Procedures Name Priority Associated Diagnoses Date/Ti me EGD, UPPER GI ENDOSCOPY (WRVU 2.09) Dyspepsia COLONOSCOPY, DIAGNOSTIC (WRVU 3.26) Dyspepsia documented as of this encounter Procedures Procedure Name Priority Date/Time Associated Diagnosis Comments CT CHEST WO CONTRAST (GENERIC) Routine 09/13/2023 9:26 AM EST Renal mass documented in this encounter Results * CT Chest wo [...] who have questions please contact the health overnight caregiver that requested your imaging first. ? Narrative [...] patients who have questions please contactthe health overnight caregiver that requested your imaging first. Akira Mallory MD IMG CT ORDERABLES documented in this encounter Visit Diagnoses Diagnosis Renal mass Unspecified disorder of kidney and ureter documented in this encounter Care Teams Title Department Manager Relationship Specialty Start Date End Date Celso Dukes MD [address] [place] [address] PCP - General 02/24/15 documented as of this encounter
--- OUTSIDE RECORDS SUMMARY | 2024-02-04 01:33 | XMS_ITS | Encounter Summary ---
Author Organization [facility] Address [facility] [place] [address] Care Team Providers Care Medical Office Worker Name Role Phone Celso Dukes MD Primary Care Provider Reason for Visit * Consultation (Routine) - Closed Specialty Diagnoses / Procedures Referred By Contac t Referred To Contact Gastroenterology Diagnoses Diaphragmatic hernia without obstruction or gangrene motility- Diaphragmatic hernia without obstruction or gangrene Celso Dukes MD [address] [place] [address] [facility] [place] [address] [address] Referral ID Status Reason Start Date Expiration Date V isits Requested Visits Authorized [id number] Closed Consult, Test & Treat PCP Updated and/or Approved 08/31/2022 08/31/2023 6 6 Encounter Details Date Type Department Care Team (Late st Contact Info) Description 01/08/2023 4:00 PM EDT TH Visit (TeleHealth) [place] [address] Heather Moreno PA [facility] [place] [address] Dyspepsia Social History Tobacco Use Types Packs/Day Years Used Date Smoking Tobacco: Never Assessed Sex and Gender Information Value Date Recorded Sex Assigned at Not on file Gender Identity Not on file Sexual Orientation Not on file documented as of this encounter Progress Notes * Heather Moreno PA - 01/08/2023 4:00 PM EDT Images from the original note were not included. GASTROENTEROLOGY TELEHEALTH PROGRAM - NEW PATIENT VISIT Chief Complaint: Rosalino Honeycutt is a 52 y.o. patient referred for consultation by Dr. Dukes for dyspepsia History of Present Illness: Patient reports a history of dyspepsia. 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 He has been having symptoms for approx 1 year.He is taking omeprazole 20mg once per day with improvement. We also discussed the pathophysiology of abdominal bloating EGD for dyspepsia Colonoscopy for screening Discuss possible diastasis recti with PCP. Based on what he described and looking at pictures online, his abdominal bulge may be secondary to diastasis recti. Consider SIBO test and/or CBT for diaphragmatic breathing if abdominal bloating persists LIFESTYLE MODIFICATIONS FOR GASTROESOPHAGEAL REFLUX DISEASE (GERD) This condition, commonly called heartburn, occurs because stomach acid refluxes, or splashes back up, into the esophagus. GERD may require the use of medications, however, symptoms often improve by following the suggestions below. It is important to remember that what works for one person may not work for another, so modify your diet and lifestyle based on what works best to manage your symptoms. Suggestions: *Avoid fatty or greasy foods (fried foods, fast food, donuts, pastries, ice cream, etc) *Eat smaller, more frequent meals (aim for 5-6 small meals each day) *Eat a light evening meal *Wait a minimum of 3 hours between the end of your evening meal and bedtime. *Do NOT eat an evening snack *Limit or avoid acidic foods (i.e., tomato, citrus) only if they consistently cause you symptoms *Limit or avoid coffee and tea only if they consistently cause you symptoms *Limit or avoid chocolate and peppermint only if they consistently cause you symptoms *Elevate the head of your bed six inches using blocks or bricks *Avoid lying flat for at least one hour after eating a meal *Avoid smoking *Avoid alcohol *Lose weight if you are overweight ALESSANDRO Shepp[facility] [place] [address] documented in this encounter Plan of Treatment Upcoming Encounters Date Type Department Care Team (Late st Contact Info) Description 02/04/2024 10:00 AM EDT Scheduled View Only Hematology/Oncology at [address] [phone] Dana Davis RN 02/04/2024 10:00 AM EDT Infusion Hematology Oncology at [address] [phone] 02/24/2024 9:30 AM EDT Office Visit Hematology/Oncology at [address] [phone] Francisca Quinonez APRN [facility] [place] [address] 02/24/2024 10:30 AM EDT Infusion Hematology Oncology at [address] [phone] 03/17/2024 10:00 AM EDT Infusion Hematology Oncology at [address] [phone] 04/07/2024 9:30 AM EDT Office Visit Hematology/Oncology at [address] [phone] Gian Lisa MD [facility] [place]AT[place] [address] Francisca Quinonez APRN [facility] [place] [address] 04/07/2024 10:00 AM EDT Infusion Hematology Oncology at [address] [phone] Scheduled Orders Name Type Priority Associated Diagnoses Orde r Schedule ENDOSCOPY CASE REQUEST: EGD, UPPER GI ENDOSCOPY (WRVU 2.09), COLONOSCOPY, DIAGNOSTIC (WRVU 3.26) Procedures Routine Dyspepsia Ordered: 01/08/2023 Scheduled Procedures Name Priority Associated Diagnoses Date/Ti me EGD, UPPER GI ENDOSCOPY (WRVU 2.09) Dyspepsia COLONOSCOPY, DIAGNOSTIC (WRVU 3.26) Dyspepsia documented as of this encounter Visit Diagnoses Diagnosis Dyspepsia Dyspepsia and other specified disorders of function of stomach documented in this encounter Care Teams Medical Office Worker Relationship Specialty Start Date End Date Celso Dukes MD [address] [place] [address] PCP - General 02/24/15 documented as of this encounter
--- OUTSIDE RECORDS SUMMARY | 2024-02-04 01:33 | XMS_ITS | Encounter Summary ---
[place] [address] Care Team Providers Care Teacher Music Name Role Phone Celso Dukes MD Primary Care Provider [phone] Reason for Referral * Consultation (Routine) - Closed Specialty Diagnoses / Procedures Referred By Contac t Referred To Contact Gastroenterology Diagnoses Diaphragmatic hernia without obstruction or gangrene motility- Diaphragmatic hernia without obstruction or gangrene Celso Dukes MD [address] [place] [address] [facility] [address] [address] Referral ID Status Reason Start Date Expiration Date V isits Requested Visits Authorized [id number] Closed Consult, Test & Treat PCP Updated and/or Approved 08/31/2022 08/31/2023 6 6 Encounter Details Date Type Department Care Team (Latest Contact Info) Description 08/31/2022 Transcribe Orders eD Incoming Referrals [phone] Celso Dukes MD [address] [place] [address] Diaphragmatic hernia without obstruction or gangrene Social History Tobacco Use Types Packs/Day Years [...] EDT Scheduled View Only Hematology/Oncology at [address] [phone] Dana Davis RN 02/04/2024 10:00 AM EDT Infusion Hematology Oncology at [address] [phone] 02/24/2024 9:30 AM EDT Office Visit Hematology/Oncology at [address] [phone] Francisca Quinonez APRN [facility] [place] [address] 02/24/2024 10:30 AM EDT Infusion Hematology Oncology at [address] [phone] 03/17/2024 10:00 AM EDT Infusion Hematology Oncology at [address] [phone] 04/07/2024 9:30 AM EDT Office Visit Hematology/Oncology at [address] [phone] Gian Lisa MD [facility] [place] [address] Francisca Quinonez APRN [facility] [place] [address] 04/07/2024 10:00 AM EDT Infusion Hematology Oncology at [address] [phone] Scheduled Procedures Name Priority Associated Diagnoses Date/Ti me EGD, UPPER GI ENDOSCOPY (WRVU 2.09) Dyspepsia COLONOSCOPY, DIAGNOSTIC (WRVU 3.26) Dyspepsia Scheduled Referrals Name Type Priority Associated Diagnoses Order Schedule Referral to Gastroenterology Outpatient Referral Routine Diaphragmatic hernia without obstruction or gangrene Ordered: 08/31/2022 documented as of this encounter Visit Diagnoses Diagnosis Diaphragmatic hernia without obstruction or gangrene Diaphragmatic hernia without mention of obstruction or gangrene documented in this encounter Care Teams Teacher Music Relationship Specialty Start Date End Date Celso Dukes MD [address] [place] [address] PCP - General 02/24/15 documented as of this encounter
--- OUTSIDE RECORDS SUMMARY | 2024-02-04 01:33 | XMS_ITS | Encounter Summary ---
Author Organization [facility] [place] [address] Care Team Providers Care Rehabilitation Counselor Name Role Phone Celso Dukes MD Primary Care Provider Reason for Visit * Auth/Cert (Routine) Specialty Diagnoses / Procedures Referred By Yen t Referred To Contact Diagnoses Renal mass Renal Mass Procedures PRO LAP, RADICAL NEPHRECTOMY PRO CYSTOURETHROSCOPY @LAPAROSCOPY, RADICAL NEPHRECTOMY (WRVU 25.06) CYSTO, CYSTOURETHROSCOPY, DIAGNOSTIC (WRVU 1.53) Akira Mallory MD [facility] [place] [address] [facility] Referral ID Status Reason Start Date Expiration Date Visits Re quested Visits Authorized [id number] 1 1 Encounter Details Date Type Department Care Team (Late st Contact Info) Description 09/18/2023 3:02 PM EST Anesthesia Event [place] [id number] Garret Hein MD [facility] [place] [address] Anesthesia Record Procedure Summary Procedure Name Responsible Anesthesiologist Anesthesia Start Time Anesthesia Stop Time CYSTO, CYSTOURETHROSCOPY, DIAGNOSTIC (WRVU 1.53) (Ureter) Garret Hein MD 09/18/23 1502 09/18/23 1937 Events Date Time Event Comment 09/18/2023 1341 1501 AN Verify 1502 Start 1502 An Start Data 1509 An Induction 1512 An Intubation 1535 Procedure Start Time-out for cysto 1546 an myaur now Patient carolyn callejas in RLD with surgeon and surgical team. 1558 an mayur now Time out for pr ocedure. 1600 an mayur now Block team star t. 1601 Nerve Block 1604 Anesthesia Ready Block team out of room. 1614 Procedure Start 1627 an mayur now Docking robot 1742 Break/Relief In I assumed ca re for Break Relief before which we: 1. Identified the patient 2. Identified the responsible provider(s) 3. Reviewed the pertinent medical history 4. Discussed the surgical plan and course 5. Reviewed intra-op anesthesia management and issues during anesthesia 6. Set expectations for the relief (and/or post-procedure) period 7. Allowed opportunity for questions and acknowledgement of understanding Barbara Montemayor CRNA 1815 Break/Relief Out 1920 Quick Note TOF 4/4 with no fade; full sustained tetanus 1922 Procedure Stop 1926 Extubation/LMA Out 1928 an stop data 1935 Recovery or ICU Handoff Aminah ent care was transferred to the destination unit staff after review of the patient's medical history, current anesthetic/surgical status and plan, according to the Provider Handoff Checklist. 1936 Stop Meds Name Total Midazolam 2 mg fentaNYL 100 mcg IV Lidocaine 50 mg Propofol 300 mg Rocuronium 200 mg PHENYLephrine 80 mcg Ondansetron 4 mg Dexamethasone 4 mg ceFAZolin (Ancef) 2 g vial a ttach to sodium chloride 0.9% 100 mL Mini-Bag Plus 3 g PHENYLephrine INF 390 mcg ROpivacaine 0.5% 30 mL dexmedeTOMIDine 22 mcg propofol INF 438.97 mg sugammadex 400 mg lactated ringers infusion 700 mL lactated ringers 500 mL * Agents Name O2 * Blood No blood administrations on file. Lines, Drains, and Airways Type Details Placement Removal Incision 09/18/23; 1634; Left ; flank; laparoscopic puncture, laparoscopic punctures (specify); robot 09/18/23 1634 by Tiki Bone RN PIV [id number] cath eter system; 16 gauge; metacarpal vein (top of hand), left; Hoehner; 09/19/23; 1524 09/18/23 1515 by 09/19/23 1524 by Claudio Hensley RN PIV 09/18/23; 1249; 20 g auge, 1 in length; cephalic vein (lateral side of arm), right; distraction, intradermal injection; 09/19/23; 1525 09/18/23 1249 by Lacy Moura RN 09/19/23 1525 by Claudio Hensley RN ETT Mask Ventilation: Jairon vallejo (1); ETT Type: Cuffed; ETT Size: 7.5 mm; Mac Blade: 3; Notes: Asleep, Pre-O2, Stylette; Attempts: 1; Laryngoscopy Grade: 1; ETT Placement Verified By: Auscultation, Capnometry, Visual; Secured at Teeth: 21 cm; Inserted by: ARLETTE Vergara; Removal Date: 09/18/23; Removal Time: 192609/18/23 151 by Melania Gutierrez 09/18/231926 by Garret Hein MD Arterial Line 09/18/23; 1524; radi al artery, right; 20 gauge; Anatomical Landmarks; continuous blood pressure monitoring; ARLETTE Vergara; Sterile Prep, Sterile Gloves; 1; axillary artery, right; 09/18/23; 199909/18/23 1524 by Melania Gutierrez 09/18/231999 by Sarina Cummings RN Urethral Catheter 09/18/23; 1602; Genitourinary surgery; indwelling double lumen catheter; 100% silicone; 14; inserted at this facility; 1; 10; 10; none; drainage bag; 09/19/23; 1014 09/18/23 1602 by Tiki Bone RN 09/19/23 1014 by Yvonne Yates LNA documented in this encounter Social History Tobacco Use Types Packs/Day Years Used Date Smoking Tobacco: Every Day Cigarettes 0.5 15 Smokeless Tobacco: Current Chew Alcohol Use Standard Drinks/Week Comments Yes 6 (1 standard drink = 0.6 oz pur e alcohol) DH IPV Inpatient Questions Answer Date Recorded [...] on file documented as of this encounter OR Notes * Anesthesia Postprocedure Evaluation - Garret Hein MD - 09/18/2023 7:45 PM EST Department of Anesthesiology Post-procedure Note Patient: Rosalino Honeycutt Procedure Summary Date: 09/18/23 Room / Location: [facility] OR Anesthesia Start: 1501 Anesthesia Stop: 1936 Procedures: CYSTO, CYSTOURETHROSCOPY, DIAGNOSTIC (WRVU 1.53) (Ureter) @ROBOTIC LAPAROSCOPY, RAD NEPHRECTOMY (WRVU 25.06) (Left: Flank) Diagnosis: Renal mass (Renal Mass) Surgeons: Akira Mallory MD Responsible Provider: Garret Hein MD Anesthesia Type: general ASA Status: 3 All Anesthesia Providers: Anesthesiologist: Garret Hein MD PRESTIDIGITATOR: Aruna Helm CRNA Student Nurse Telephone Order Dispatcher: Melania Gutierrez Vitals Value Taken Time BP 114/76 09/18/231932 Temp 37.2 ??C (99 ??F) 09/18/231932 Pulse 79 09/18/231944 Resp 12 09/18/231944 SpO2 95 % 09/18/231944 Pain Level Vitals shown include unfiled device data. Patient Location: PACU/[facility] Level of Consciousness: Awake and Alert Pain Management: Satisfactory Analgesia PONV: None Cardiovascular Status: At Baseline Respiratory Status: Supplemental O2 (NC or FM) Postoperative Fluid Status: Intravascular EUvolemia Possible Anesthetic Complications: NONE apparent at time of evaluation Final Primary Anesthesia Type: General (The anesthetic type performed was the same as planned.) Comments: * Anesthesia Procedure Notes - Jens Harp MD - 09/18/2023 3:46 PM EST Associated Order(s): Anesthesia Block Anesthesia Block Date/Time: 09/18/2023 3:58 PM Start Time: 09/18/2023 3:58 PM End Time: 09/18/2023 4:02 PM Patient Location: Main OR The patient was greeted; the risks and benefits of the procedure were reviewed. Indication: Post-op Pain Control Post-op pain management at the request of surgeon. Block Type: Quadratus lumborum block Laterality: Left Position: Right lateral decubitus Prep: Chlorhexidine, mask, cap, sterile gloves, hand hygeine and patient draped Block Technique: SonoPlex 21 10 cm Ultrasound Guided: YES and in-plane Ultrasound Image Saved Single-Shot: Single-shot Local Anesthetic Volume(s) Injected for Nerve Block: ROpivacaine 0.5% - Perineural 30 mL - 09/18/2023 4:01:00 PM Nerve Sensory/MotorTest: Events: no complications Notes: Patient tolerated procedure well under GA. Sterile prep by surgeon. Timeout performed. Target structures, needle, and local anesthetic spread were visualized under ultrasound for the duration of the procedure. No blood aspirated. No needle to nerve or vessel or peritoneum contact was observed on ultrasound. Performed by: Fellow: Jens Harp MD Attending Physician: Favian Fuller MD Authorized by: Favian Fuller MD * Anesthesia Preprocedure Evaluation - Garret Hein MD - 09/17/2023 11:07 AM EST Pre-Anesthesia Evaluation for: Rosalino Honeycutt a 52 y.o. male. Procedure(s): @LAPAROSCOPY, RADICAL NEPHRECTOMY (WRVU 25.06) CYSTO, CYSTOURETHROSCOPY, DIAGNOSTIC (WRVU 1.53) There are no problems to display for this patient. No past medical history on file. No past surgical history on file. Social History Tobacco Use ??? Smoking status: Every Day Packs/day: 0.50 Years: 15.00 Additional pack years: 0.00 Total pack years: 7.50 Types: Cigarettes ??? Smokeless tobacco: Current Types: Chew Substance Use Topics ??? Alcohol use: Not on file Social History Substance and Sexual Activity Drug Use Not on file No Known Allergies Medications: MAR and/or home medications have been reviewed. Physical Exam: Preprocedure Vitals Current as of 09/17/23 1107 No BP, pulse, respiration, SpO2, or temperature recorded. Height: Weight: BMI: IBW: Airway Assessment: Mallampati: II TM distance: >3 FB Neck ROM: full Cardiovascular Assessment: Rhythm: regular system normal Pulmonary Assessment: breath sounds clear to auscultation pulmonary exam normal Dental Assessment: - normal exam Misc Assessment: IV access: Peripheral line Last Filed Perioperative Cognitive Screening Value Time User AD8 Total Score: 0 09/12/2023 10:00 AM Akira Reddy RN AD8 Informant: Other Informant 09/12/2023 10:00 AM Akira Reddy RN Anesthesia Plan: ASA 3 general, with a(n) intravenous induction 52 yo gentleman with renal mass for laparoscopic radical nephrectomy (LEFT) cystourethroscopy Chart and labs reviewed; patient seen and examined PMH significant for Morbid obesity with BMI 41.35 Hypercholesterolemia Essential HTN H/o acute bronchitis BPH SCHUYLER Pre-DM Depression Impression/Plan: ASA 3 GA/ETT; routine monitors; adequate IV access; +/- a-line; nerve block for post- op pain control Risks, plans, and procedures discussed with patient who understands and consents; questions and concerns addressed Region - Other Informed Consent: Anesthetic plan and risks discussed with patient. Use of blood products discussed with patient who consented to blood products. Plan discussed with PRESTIDIGITATOR. Anesthesia Screening documented in this encounter Plan of Treatment Upcoming Encounters Date Type Department Care Team (Late st Contact Info) Description 02/04/2024 10:00 AM EDT Scheduled View Only Hematology/Oncology at [address] [phone] Dana Davis RN 02/04/2024 10:00 AM EDT Infusion Hematology Oncology at [address] [phone] 02/24/2024 9:30 AM EDT Office Visit Hematology/Oncology at [address] [phone] Francisca Quinonez APRN [facility] [address] [place] [address] 02/24/2024 10:30 AM EDT Infusion Hematology Oncology at [address] [phone] 03/17/2024 10:00 AM EDT Infusion Hematology Oncology at [address] [phone] 04/07/2024 9:30 AM EDT Office Visit Hematology/Oncology at [address] [phone] Gian Lisa MD [facility] DR HEMATOLOGY/[place] [address] Francisca Quinonez APRN [facility] [place] [address] 04/07/2024 10:00 AM EDT Infusion Hematology Oncology at [address] [phone] Scheduled Procedures Name Priority Associated Diagnoses Date/Ti me EGD, UPPER GI ENDOSCOPY (WRVU 2.09) Dyspepsia COLONOSCOPY, DIAGNOSTIC (WRVU 3.26) Dyspepsia documented as of this encounter Procedures Procedure Name Priority Date/Time Associated Diagnosis Comments ANESTHESIA BLOCK Routine 09/18/2023 3:58 PM EST documented in this encounter Results * Anesthesia Block (09/18/2023 3:58 PM EST) Narrative Favian Fuller MD - 09/18/2023 3:58 PM EST Jens Harp MD ? 09/18/2023 ??4:07 PM Anesthesia Block Date/Time: 09/18/2023 3:58 PM Start Time: ??09/18/2023 3:58 PM End Time: ??09/18/2023 4:02 PM Patient Location: ??Main OR The patient was greeted; the risks and benefits of the procedure were reviewed. ?? Indication: ??Post-op Pain Control Post-op pain management at the request of surgeon. ?? Block Type: ??Quadratus lumborum block Laterality: ??Left Position: ??Right lateral decubitus Prep: ??Chlorhexidine, mask, cap, sterile gloves, hand hygeine and patient draped Block Technique: ?? SonoPlex ?? 21 ?? 10 cm ??Ultrasound Guided: ??YES and in-plane ??Ultrasound Image Saved ?Single-Shot: ??Single-shot Local Anesthetic Volume(s) Injected for Nerve Block: ?? ROpivacaine 0.5% - Perineural 30 mL - 09/18/2023 4:01:00 PM Nerve Sensory/MotorTest: ??Events: no complications ?? Notes: ?? Patient tolerated procedure well under GA. Sterile prep by surgeon. Timeout performed. Target structures, needle, and local anesthetic spread were visualized under ultrasound for the duration of the procedure. No blood aspirated. No needle to nerve or vessel or peritoneum contact was observed on ultrasound. Performed by: ?? Fellow: ?Jens Harp MD ?? Attending Physician: ? Favian Fuller MD Authorized by: Favian Fuller MD ?? Favian Fuller MD COLLECTIONS TECHNICIAN [facility] documented in this encounter Visit Diagnoses Not on filedocumented in this encounter Administered Medications Inactive Administered Medications - up to 3 most recent administrations Medication Order MAR Action Action Date Dose Rate Site ceFAZolin (Ancef) 2 g vial attach to sodium chloride 0.9% 100 mL Mini-Bag Plus 2 g, Intravenous, JELLY MAKER TO O.R., 1 dose, On Sat09/18/23 at 1230, Administer over 30 Minutes, Day of Surgery (Day of Procedure), Indication for (Active or Suspected): Prophylaxis New Bag 09/18/2023 3:33 PM EST 3 g dexAMETHasone (Decadron) injection Intravenous, PRN, Starting on Sat09/18/23 at 1533, Until Sat09/18/23 at 1944, Anesthesia Intra-op, Routine Given 09/18/2023 3:33 PM EST 4 mg dexmedeTOMIDine (Precedex) (4 mcg/mL) bolus injection (Anesthsia) Intravenous, PRN, Starting on Sat09/18/23 at 1625, Until Sat09/18/23 at 1944, Anesthesia Intra-op, Routine Given 09/18/2023 6:26 PM EST 4 mcg Given 09/18/2023 5:21 PM EST 8 mcg Given 09/18/2023 4:25 PM EST 10 mcg fentaNYL (pf) (50 mcg/mL) multi-dose injection Intravenous, PRN, Starting on Sat09/18/23 at 1508, Until Sat09/18/23 at 1944, Anesthesia Intra-op, Routine Given 09/18/2023 3:08 PM EST 100 mcg lactated ringers infusion 1,000 mL, at 100 mL/hr, Intravenous, CONTINUOUS, Starting on Sat09/18/23 at 1230, Until Sat09/18/23 at 2158, Day of Surgery (Day of Procedure) Restarted 09/18/2023 3:01 PM EST New Bag 09/18/2023 1:46 PM EST 1,000 mLs 100 mL/hr lactated ringers infusion Intravenous, CONTINUOUS PRN, Starting on Sat09/18/23 at 1515, Until Sat09/18/23 at 1944, Anesthesia Intra-op New Bag 09/18/2023 3:15 PM EST lidocaine (pf) (Xylocaine) (20 mg/mL) 2% injection syringe Intravenous, PRN, Starting on Sat09/18/23 at 1509, Until Sat09/18/23 at 1944, Anesthesia Intra-op, Routine Given 09/18/2023 3:09 PM EST 50 mg midazolam (pf) (Versed) (1 mg/mL) multi-dose injection Intravenous, PRN, Starting on Sat09/18/23 at 1501, Until Sat09/18/23 at 1944, Anesthesia Intra-op, Routine Given 09/18/2023 3:01 PM EST 2 mg ondansetron (pf) (Zofran) (2 mg/mL) injection Intravenous, PRN, Starting on Sat09/18/23 at 1834, Until Sat09/18/23 at 1944, Anesthesia Intra-op, Routine Given 09/18/2023 6:34 PM EST 4 mg PHENYLephrine (Mike-Synephrine) (80 mcg/mL) in sodium chloride 0.9% 250 mL infusion Intravenous, CONTINUOUS PRN, Starting on Sat09/18/23 at 1539, Until Sat09/18/23 at 1944, Anesthesia Intra-op, Routine New Bag 09/18/2023 3:39 PM EST 10 mcg/min 7.5 mL/hr PHENYLephrine in NS (PF) (MIKE-SYNEPHRINE) 0.8 mg/10 mL (80 mcg/mL) multi-dose injection Syringe Intravenous, PRN, Starting on Sat09/18/23 at 1838, Until Sat09/18/23 at 1944, Anesthesia Intra-op, Routine Given 09/18/2023 6:49 PM EST 40 mcg Given 09/18/2023 6:38 PM EST 40 mcg propofoL (Diprivan) (10 mg/mL) infusion Intravenous, CONTINUOUS PRN, Starting on Sat09/18/23 at 1632, Until Sat09/18/23 at 1944, Anesthesia Intra-op, Routine New Bag 09/18/2023 4:32 PM EST 30 mcg/kg/min 16.776 mL/hr propofoL (Diprivan) 10 mg/mL bolus injection (Anesthesia) Intravenous, PRN, Starting on Sat09/18/23 at 1509, Until Sat09/18/23 at 1944, Anesthesia Intra-op Given 09/18/2023 3:09 PM EST 300 mg rocuronium (Zemuron) (10 mg/mL) multi-dose injection Intravenous, PRN, Starting on Sat09/18/23 at 1510, Until Sat09/18/23 at 1944, Anesthesia Intra-op, Routine Given 09/18/2023 6:24 PM EST 10 mg Given 09/18/2023 5:39 PM EST 20 mg Given 09/18/2023 5:23 PM EST 20 mg ROpivacaine (PF) (Naropin) 0.5% (5 mg/mL) injection Perineural, Starting on Sat09/18/23 at 1601, Until Sat09/18/23 at 1601, Anesthesia Intra-op, Routine Given 09/18/2023 4:01 PM EST 30 mLs sugammadex (Bridion) 100 mg/mL injection Intravenous, PRN, Starting on Sat09/18/23 at 1915, Until Sat09/18/23 at 1944, Anesthesia Intra-op, Routine Given 09/18/2023 7:15 PM EST 400 mg documented in this encounter Care Teams Rehabilitation Counselor Relationship Specialty Start Date End Date Felgate, Celso A, MD [address] [place] [address] PCP - General 02/24/15 documented as of this encounter
--- OUTSIDE RECORDS SUMMARY | 2024-02-04 01:33 | XMS_ITS | Encounter Summary ---
Author Organization [facility] [place] [address] Care Team Providers Care Packaging Technician Name Role Phone Celso Dukes MD Primary Care Provider [phone] Reason for Visit * Auth/Cert (Routine) Specialty Diagnoses / Procedures Referred By Yen t Referred To Contact Diagnoses Renal mass Renal Mass Procedures PRO LAP, RADICAL NEPHRECTOMY PRO CYSTOURETHROSCOPY @LAPAROSCOPY, RADICAL NEPHRECTOMY (WRVU 25.06) CYSTO, CYSTOURETHROSCOPY, DIAGNOSTIC (WRVU 1.53) Malou Freitas MD [facility] [address] [facility] Referral ID Status Reason Start Date Expiration Date Visits Re quested Visits Authorized [id number] 1 1 Encounter Details Date Type Department Care Team (Latest Contact Info) Description 09/18/2023 11:42 AM EST - 09/19/2023 3:49 PM [facility] [[email or web address] Hospital Encounter Adolescent Unit Level 2 [place] [id number] Malou Freitas MD [facility] [address] Renal mass; Renal mass, left Discharge Disposition: Home Social History Tobacco Use Types Packs/Day Years Used Date Smoking Tobacco: Every Day Cigarettes 0.5 15 Smokeless Tobacco: Current Chew Tobacco Cessation:Ready to Q uit: Not Asked; Counseling Given: Not Answered Alcohol Use Standard Drinks/Week Comments Yes 6 (1 standard drink = 0.6 oz pur e alcohol) [facility] Inpatient Questions Answer Date Recorded Does Anyone [...] Sign Reading Time Taken Comments Blood Pressure 112/77 09/19/2023 7:11 AM EST Pulse 76 09/19/2023 7:11 AM EST Temperature 37.2 ??C (99 ??F) 09/19/2023 7:11 AM EST Respiratory Rate 16 09/19/2023 7:11 AM EST Oxygen Saturation 94% 09/19/2023 7:11 AM EST Inhaled Oxygen Concentration - - Weight 123.5 kg (272 lb 3.2 oz) 024 12:15 PM EST Height 177.8 cm (5' 10) 09/18/2023 12: 15 PM EST Body Mass Index 39.06 09/18/2023 12:15 PM EST documented in this encounter Discharge Summaries * Malou Freitas MD - 09/19/2023 3:43 PM EST Discharge Summary Patient Name: Rosalino Honeycutt Patient Age: 52 y.o. Language: Turkish Race: White Ethnicity: Not nor Admit date: 09/18/2023 Discharge date: 09/19/2023 Attending Physician: Malou Freitas MD Discharge Diagnoses (Hospital Problems) and Secondary Diagnoses (Chronic Problems): Active Hospital Problems Diagnosis Renal mass, left Resolved Hospital Problems No resolved problems to display. There are no active non-hospital problems to display for this patient. 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 Operations/Major Procedures: Procedure(s): CYSTO, CYSTOURETHROSCOPY, DIAGNOSTIC (WRVU 1.53) @ROBOTIC LAPAROSCOPY, RAD NEPHRECTOMY (WRVU 25.06) 09/18/2023 - 09/19/2023 Surgeon(s): Malou Freitas MD Wu, Shuo-Chieh, MD History of Presentation: (from pre-op H&P) Rosalino Honeycutt is a 52 y.o. male w/ hx of gross hematuria and left [id number] renal mass who presents today for cystoscopy/left lap radical nephrectomy. MR: 1 left renal vein, 1 left renal Denies interval changes since last encounter. No recent illness or changes in health. UA/UCx: NG () AC/AP: none Hospital Course: Patient was [place] [facility] [place] the same [place] surgery program and [...] questions is before 5 PM weekdays and [phone] after 5 PM and weekends, and ask for certified nutritionist Urologist. Special Considerations for Solitary Kidney: Do [...] 10:30 AM Barbara Corbin [facility] [place] [facility] Arrive at: Home [phone] Please do not come in for this visit. Your provider will call you at the number you provided. 10/09/2023 10:00 AM Malou Freitas MD Urology at [facility] Arrive at: [place] [phone] Please dispose of unused excess opioids before your appointment or bring them with you to the appointment and we will help you dispose of them correctly. Future Orders Complete By Expires Basic Metabolic Panel (non-fasting) [LAB15 Custom] 10/03/2023 (Approximate) 09/18/2024 Process Instructions: INCLUDES: Calcium, BUN, Creat, GFR, Glucose, Lytes Scheduling Instructions: Comments: Questions: Hemogram [[id number] Custom] 10/03/2023 (Approximate) 04/03/2024 Process Instructions: INCLUDES: WBC, RBC, Hgb, Hct, Platelets, RBC Indices Scheduling Instructions: Comments: Questions: Follow-Up: Future Appointments Date Time Provider Department Center 09/26/2023 10:30 AM Barbara Corbin [facility] [place] [facility] 10/09/2023 10:00 AM Malou Freitas MD [facility] [place] [facility] Primary Care Provider: Celso Dukes MD [phone] Unexpected Findings: None Call your doctor if: [...] contact us. Provider Contact Information: Urology Clinic: [facility] (after business hours): Total time spent on discharge including [id number] time, care coordination, and discharge summarypreparation: 45 [...] 5 PM and weekends, and ask for certified nutritionist Urologist. Special Considerations for Solitary Kidney: Do [...] Note Patient: Rosalino Honeycutt : 1970 Room: [address] Admit date: 09/18/2023 Attending: Malou Freitas MD [...] ; Age: 3 1970; 52 y.o. Room/Bed: [address] Today's Date: 09/18/23 Surgery Post Op Check Operation/Procedure: 09/18/2023 Surgeon(s) and Role: * Malou Freitas MD - Primary * Kwadwo Moya MD - Resident - Assisting: Procedure(s): @LAPAROSCOPY, RADICAL NEPHRECTOMY (WRVU 25.) CYSTO, CYSTOURETHROSCOPY, DIAGNOSTIC (WRVU 1.53) @ROBOTIC LAPAROSCOPY, [...] w/ hx of gross hematuria and left [id number] renal mass who presents today for cystoscopy/left [...] surrogate would be surrogate decision maker per [place] decision making law. (Only good for 180 days) Any patient receiving care in [place] must abide by [place] law. The hierarchy for surrogate decision making [...] (i) The agent with financial power of negative developer or a conservator appointed in accordance with RSA 464-A. (j) The guardian of the patient???s estate. Advance Care Planning: Attempt Cardiopulmonary Resuscitation - Inpatient <no information> Home Address listed [place]: [place] [address] Social & Family Supports: Extended Emergency Contact Information Primary Emergency Contact: HoneycuttLazara Mobile Relation: Spouse Substance Use/Abuse listed: Social [...] Coverage: Primary Insurance: [facility] Payor: [facility] / Plan: [facility] / Product Type: *No Product type* / Secondary Insurance: N/A Preferred Pharmacy: [facility] [address] [place] [id number] Primary Care Provider listed: Celso Dukes MD [phone] Agency Referrals: Not Applicable Concerns to be Addressed: no discharge needs identified Assessment: Patient is admitted to Urology service for RAL left radical nephrectomy Plan: Discharge to home today w/o services, no needs. A member of the Care Management team will continue to monitor progress, follow for continuity of care and assist with transition of care planning. Radha Kolb RN-BSN-CM Pager: [phone] * Plan of Care - Michael Valles [...] Moya MD - 09/18/2023 8:31 PM EST [facility] Operative Note Patient Name: Rosalino Honeycutt : [id number] MR#: [id number] Case Date: 09/18/2023 Surgeon: Surgeon(s) and Role: [...] w/ hx of gross hematuria and left [id number] renal mass who presents today for cystoscopy/left [...] in a linear fashion. A 12 mm administrative assistant receptionist port was also inserted, through which AirSeal [...] Operative Note Patient Name: Rosalino Honeycutt : [id number] MR#: [id number] Case Date: 09/18/2023 Surgeon: Surgeon(s) and Role: [...] AM EDT Scheduled View Only Hematology/Oncology at [address] [phone] Dana Davis RN 02/04/2024 10:00 AM EDT Infusion Hematology Oncology at [address] [phone] 02/24/2024 9:30 AM EDT Office Visit Hematology/Oncology at [address] [phone] Francisca Quinonez APRN [facility] [place] [address] 02/24/2024 10:30 AM EDT Infusion Hematology Oncology at [address] [phone] 03/17/2024 10:00 AM EDT Infusion Hematology Oncology at [address] [phone] 04/07/2024 9:30 AM EDT Office Visit Hematology/Oncology at [address] [phone] Gian Lisa MD [facility] [address] [place]EMATOLOG[place] [address] Francisca Quinonez APRN [facility] [place] [address] 04/07/2024 10:00 AM EDT Infusion Hematology Oncology at [address] [phone] Scheduled Orders Name Type Priority Associated Diagnoses [...] 09/18/2023 6:29 PM EST Lap, Radical Nephrectomy (08475) Yes 09/18/2023 3:14 PM EST Renal mass Cystourethroscopy (59328) Yes 2023 3:14 PM EST Renal mass LAPAROSCOPY,RAD NEPHRECTOMY,LYMPHADENECTO MY,ROBOTIC ASSIST Routine 09/18/2023 8:58 AM EST Renal mass CYSTO,CYSTOURETHROSCOPY, DIAGNOSTIC Routine 09/18/2023 6:09 AM EST Renal mass documented in this encounter Results * (ABNORMAL) Differential, Automated (09/19/2023 2:15 AM EST) Neutrophils % 84.2 % [facility] Neutr Abs (ANC) 8.69(H) 1.70 - 6.10 x10(3)/mc L [facility] Lymphocytes % 11.0 % [facility] Lymphocytes Abs 1.1 0.9 - 3.2 x10(3)/mc L [facility] Monocytes % 4.3 % [facility] Monocyte Abs 0.4 0.3 - 0.9 x10(3)/mc L [facility] Eosinophils % 0.0 % [facility] Eosinophils Abs 0.0 0.0 - 0.4 x10(3)/mc L [facility] Basophils % 0.2 % [facility] Basophils Abs 0.0 0.0 - 0.1 x10(3)/mc L [facility] Immature Gran % 0.30 % [facility] Comment: Immature granulocytes(IG's)percentage and absolute count will include metamyelocytes, myelocytes, and promyelocytes. Blood smears from CBCs yielding IG's will be scanned manually for concordance. If this scan disagrees with the automated IG or if promyelocytes are noted, a manual differential will be performed. Valerie Gran Abs 0.03 0.00 - 0.04 x10(3)/mc L [facility] Blood 09/19/2023 2:15 AM EST 09/19/2023 2:21 AM EST Narrative Resulting Agency Comment Spec In Lab Kwadwo Moya MD HEMATOLOGY ORDERABLE S [facility] [place] [address] * (ABNORMAL) Hemogram (09/19/2023 2:15 AM EST) WBC 10.3(H) 4.0 - 9.5 x10(3)/[facility] RBC 4.84 4.58 - 5.54 x10(6)/[facility] Hemoglobin 14.1 13.7 - 16.5 g/dL [facility] Hematocrit 43.4 40.5 - 48.5 % [facility] MCV 89.7 82.9 - 93.1 [facility] MCH 29.1 27.5 - 32.1 pg [facility] MCHC 32.5 32.0 - 35.7 g/dL [facility] Platelets 231 145 - 357 x10(3)/[facility] RDWSD 46.2(H) 36.0 - 45.0 [facility] RDWCV 14.0(H) 11.4 - 13.8 % [facility] MPV 9.5 7.6 - 12.9 [facility] nRBC % Auto 0.0 % [facility] nRBC Abs Auto 0.000 0.000 - 0.000 x10(3)/mcL [facility] Blood 09/19/2023 2:15 AM EST 09/19/2023 2:21 AM EST Narrative Resulting Agency Comment Spec In Lab Kwadwo Moya MD HEMATOLOGY ORDERABLE S [facility] [place] [address] * (ABNORMAL) Basic Metabolic Panel (non-fasting) (09/19/2023 2:15 AM EST) Glucose Lvl 124 65 - 199 mg/dL [facility] Comment:Diabetes: >=200 mg/d L plus symptoms BUN 8(L) 10 - 20 mg/dL [facility] Creatinine 0.94 0.80 - 1.50 mg/dL [facility] Sodium 138 135 - 145 mmol/L [facility] Potassium 4.3 3.5 - 5.0 mmol/L [facility] Comment: Please note: ??Patients with WBC >100,000 may have falsely elevated Potassium levels. ??For accurate Potassium quantification in these patients send serum separator tube (gold top) for subsequent determinations. ??Contact the Clinical Chemistry Laboratory if there are any questions. Chloride 106 98 - 107 mmol/L [facility] CO2 22 22 - 31 mmol/L [facility] Anion Gap 10 5 - 15 mmol/L [facility] Calcium 7.6(L) 8.5 - 10.5 mg/dL [facility] Comment:result rechecked-KS Estimated GFR 98 >=60 mL/min/1. 73 m?? [facility] Comment: This patient's estimated GFR [...] In Lab Malou Freitas MD CHEMISTRY ORDERABLES [facility] [place] [address] * (ABNORMAL) Differential, Automated (09/18/2023 8:16 PM EST) Neutrophils % 86.1 % [facility] Neutr Abs (ANC) 9.92(H) 1.70 - 6.10 x10(3)/[facility] Lymphocytes % 11.5 % [facility] Lymphocytes Abs 1.3 0.9 - 3.2 x10(3)/[facility] Monocytes % 1.7 % [facility] Monocyte Abs 0.2(L) 0.3 - 0.9 x10(3)/[facility] Eosinophils % 0.0 % [facility] Eosinophils Abs 0.0 0.0 - 0.4 x10(3)/[facility] Basophils % 0.3 % [facility] Basophils Abs 0.0 0.0 - 0.1 x10(3)/[facility] Immature Gran % 0.40 % [facility] Comment: Immature granulocytes(IG's)percentage and absolute count will include metamyelocytes, myelocytes, and promyelocytes. Blood smears from CBCs yielding IG's will be scanned manually for concordance. If this scan disagrees with the automated IG or if promyelocytes are noted, a manual differential will be performed. Valerie Gran Abs 0.05(H) 0.00 - 0.04 x10(3)/ L [facility] Blood 09/18/2023 8:16 PM EST 09/18/2023 8:22 PM EST Narrative Resulting Agency Comment Spec In Lab Kwadwo Moya MD HEMATOLOGY ORDERABLE S [facility] [place] [address] * (ABNORMAL) Hemogram (09/18/2023 8:16 PM EST) WBC 11.5(H) 4.0 - 9.5 x10(3)/[facility] RBC 4.98 4.58 - 5.54 x10(6)/[facility] Hemoglobin 14.6 13.7 - 16.5 g/dL [facility] Hematocrit 43.0 40.5 - 48.5 % [facility] MCV 86.3 82.9 - 93.1 [facility] MCH 29.3 27.5 - 32.1 pg [facility] MCHC 34.0 32.0 - 35.7 g/dL [facility] Platelets 255 145 - 357 x10(3)/[facility] RDWSD 43.8 36.0 - 45.0 [facility] RDWCV 13.9(H) 11.4 - 13.8 % [facility] MPV 9.7 7.6 - 12.9 [facility] nRBC % Auto 0.0 % [facility] nRBC Abs Auto 0.000 0.000 - 0.000 x10(3)/[facility] Blood 09/18/2023 8:16 PM EST 09/18/2023 8:22 PM EST Narrative Resulting Agency Comment Spec In Lab Kwadwo Moya MD HEMATOLOGY ORDERABLE S [facility] [place] [address] * (ABNORMAL) Basic Metabolic Panel (non-fasting) (09/18/2023 8:16 PM EST) Glucose Lvl 141 65 - 199 mg/dL [facility] Comment:Diabetes: >=200 mg/d L plus symptoms BUN 8(L) 10 - 20 mg/dL [facility] Creatinine 0.89 0.80 - 1.50 mg/dL [facility] Sodium 138 135 - 145 mmol/L [facility] Potassium 4.0 3.5 - 5.0 mmol/L [facility] Comment: Please note: ??Patients with WBC >100,000 may have falsely elevated Potassium levels. ??For accurate Potassium quantification in these patients send serum separator tube (gold top) for subsequent determinations. ??Contact the Clinical Chemistry Laboratory if there are any questions. Chloride 104 98 - 107 mmol/L [facility] CO2 24 22 - 31 mmol/L [facility] Anion Gap 10 5 - 15 mmol/L [facility] Calcium 8.9 8.5 - 10.5 mg/dL [facility] Estimated GFR 104 >=60 mL/min/1. 73 m?? [facility] Comment: This patient's estimated GFR [...] In Lab Malou Freitas MD CHEMISTRY ORDER[place] [address] * (ABNORMAL) Surgical Pathology Report (09/18/2023 6:29 PM EST) Pathologist [place] Surgical Pathology Report [id number] ? Location: [id number]; P214; A The signing [...] Mariano Verified: ??09/26/2023 13:11 ??Pathologist Performed at: ??-[facility] Dept. of [place]ology, [place] [address] Baggage Smasher: Mookie Mandujano MD, FCAP, ??IA Certificate: [id number] SYNOPTIC Specimen ? Procedure: ??Radical nephrectomy ? [...] A15 ? Normal Block(s): ??A18 ? CAP [facility] 2021 Q1 Release DISCUSSION THIS RESULT REQUIRES PHYSICIAN/A.P.P. FOLLOW UP Scanned slides: [id number] . DISCUSSION [id number] ADDITIONAL STUDIES Formalin-fixed, paraffin-embedded tissue sections are [...] to 3.0 x 1.5 x 0.6 cm. [facility] [employer] sections in 30 cassettes as follows: ?A1: Vascular margins ?A2: Ureter margin . SPECIMEN PROCESSING ?A3-A7: Mass with perinephric fat margin ?A8: Adipose tissue and ureter ?A9: Renal pelvis adipose tissue ?A10: Mass with a longitudinal section of renal artery ?A11-A12: Tumor and perinephric adipose tissue ?A13: Mass and adjacent renal parenchyma ?A14-A16: [employer] sections of mass ?A17: Upper pole renal sinus fat ?A18: [facility] [employer] upper pole parenchyma ?A19: [facility] [employer] lower pole parenchyma with 0.4 cm white nodule ?A20: Left adrenal ?A21-A23: Single serially sectioned lymph node ?A24-A26: Single serially sectioned lymph node ?A27: Single quadrisected candidate lymph node ?A28: Single trisected lymph node ?A29: Single bisected candidate lymph node ?A30: Single intact candidate lymph node ajw(A) [facility] 09/18/2023 6:29 PM EST Malou Freitas MD PATHOLOGY/CYTOLOGY Arianna OBREGON Performing Organization Address [facility] Co de Phone Number [facility] [place] [address] * Specimen to Pathology (09/18/2023 6:29 PM EST) AP Specimen 09/18/2023 6:29 PM EST 09/18/2023 6:29 PM EST Narrative [facility] - 09/18/2023 6:29 PM EST Specimen requisition ordered. ??Separate Pathology report to follow Malou Freitas MD PATHOLOGY/CYTOLOGY Arianna OBREGON Performing Organization Address [facility] [place] [address] documented in this encounter Visit Diagnoses Diagnosis [...] concomitantly for constipation., Recovery (Recovery-Hospital Unit), Routine calcium carbonate (TUMS) chewable tablet 1,000 mg 1,000 mg, Oral, ONCE, 1 dose, On Mihaela 09/19/23 at 0800, For low calcium, Routine Given 09/19/2023 9:33 AM EST 1,000 mg docusate sodium (Colace) capsule 100 mg 100 mg, Oral, 2 TIMES DAILY, First dose on Sat09/18/23 at 2130, Until Discontinued, Recovery (Recovery-Hospital Unit), Routine Given 09/19/2023 9:32 AM EST 1 00 mg Given 09/18/2023 9:55 PM EST 100 mg heparin (porcine) (5,000 units/1 mL) subcutaneous injection 5,000 Units 5,000 Units, Subcutaneous, SERVICE GREETER TO O.R., 1 dose, On Sat09/18/23 at 1230, Day of Surgery (Day of Procedure), Routine Given 09/18/2023 1:43 PM EST 5,000 Units Left Arm heparin (porcine) (5,000 units/1 mL) subcutaneous injection 5,000 Units 5,000 Units, Subcutaneous, EVERY 8 HOURS SCHEDULED, First dose on Sat09/18/23 at 2200, Until Discontinued, Recovery (Recovery-Hospital Unit), Routine Given 09/19/2023 5:52 AM EST 5,000 Unit s Given 09/18/2023 9:55 PM EST 5,000 Units HYDROmorphone (Dilaudid) (2 mg/mL) multi-dose injection solution 0.4 mg 0.4 mg, Intravenous, EVERY 10 MIN PRN, [...] fentaNYL for breakthrough pain., PACU Recovery, Routine Given 09/18/2023 8:00 PM EST 0.4 mg Given 09/18/2023 7:47 PM EST 0.4 mg HYDROmorphone (Dilaudid) (2 mg/mL) multi-dose injection solution 0.6 mg 0.6 mg, Intravenous, EVERY 10 MIN PRN, Starting on Sat09/18/23 at 1916, Until Sat09/18/23 at 8, Pain, For Moderate to Severe Pain (6-10 out of 10), Hold for respiratory rate less than 10 per minute. Maximum dose 4 mg over one hour including administrations in the OR. If multiple pain medications are ordered, start with HYDROmorphone and use fentaNYL for breakthrough pain., PACU Recovery, Routine Given 09/18/2023 8:24 PM EST 0.6 mg lactated ringers infusion 1,000 mL, at 100 mL/hr, Intravenous, CONTINUOUS, Starting on Sat09/18/23 at 1230, Until Sat09/18/23 at 2158, Day of Surgery (Day of Procedure) Restarted 09/18/2023 3:01 PM EST New Bag 09/18/2023 1:46 PM EST 1,000 mLs 100 mL/hr lidocaine (Xylocaine) 1% (10 mg/mL) injection 3 [...] Given 09/19/2023 5:50 AM EST 5 mg oxyCODONE (Roxicodone) tablet 5 mg 5 mg, Oral, ONCE, 1 dose, On Sat09/18/23 at 2330, STAT Given 09/18/2023 11:19 PM EST 5 mg scopolamine (Transderm-Scop) 1 mg over 3 days patch 1 patch 1 patch, Transdermal, Administer over 24 Hours, ONCE, 1 dose, On Sat09/18/23 at 1230, Day of Surgery (Day of Procedure), Routine Patch Applied 09/18/2023 12:55 PM EST 1 patch 02- Ear Behind (Right) sodium chloride 0.9 % (flush) (BD PosiFlush [...] 2021 (Given - Provider: Jackie Meza RN) 021 (Given - Provider: Sarina Cummings RN)0932 (Given [...] mL Mini-Bag Plus (COMPLETED) 2 g, Intravenous, SERVICE GREETER TO O.R., 1 dose, On Sat09/18/23 at 1230, Administer over 30 Minutes, Day of Surgery (Day of Procedure), Indication for (Active or Suspected): Prophylaxis 1533 (New Bag - Provider: Melania Gutierrez) docusate sodium (Colace) capsule 100 mg 100 mg, Oral, 2 TIMES DAILY, First dose on Sat09/18/23 at 2130, Until Discontinued, Recovery (Recovery-Hospital Unit), Routine 215 (Given - Provider: Jackie Meza RN) 0932 (Given - Provider: Claudio Hensley RN) heparin (porcine) (5,000 units/1 mL) subcutaneous injection 5,000 Units (COMPLETED) 5,000 Units, Subcutaneous, SERVICE GREETER TO O.R., 1 dose, On Sat09/18/23 at 1230, Day of Surgery (Day of Procedure), Routine 1343 (Given - Provider: Mirella Orona RN) heparin (porcine) (5,000 units/1 mL) subcutaneous injection 5,000 Units 5,000 Units, Subcutaneous, EVERY 8 HOURS SCHEDULED, First dose on Sat09/18/23 at 2200, Until Discontinued, Recovery (Recovery-Hospital Unit), Routine 2154 (Given - Provider: Jackie Meza RN) 0552 (Given - Provider: Michael Valles [...] 2130, Until Discontinued, Recovery (Recovery-Hospital Unit), Routine 214 (Given - Provider: Jackie Meza RN) 0933 (Given - Provider: Claudio Hensley RN) Continuous Medication Order 09/17/2023 09/18/2023 09/19/2023 lactated ringers infusion (CANCELED) 1,000 mL, at 100 mL/hr, Intravenous, CONTINUOUS, Starting on Sat09/18/23 at 1230, Until Sat09/18/23 at 2158, Day of Surgery (Day of Procedure) 1346 (New Bag - Provider: Mirella Orona RN)1500 (Paused - Provider: Melania Gutierrez - [...] Unit) 2146 (New Bag - Provider: Jackie Meza RN) 0657 (New Bag - Provider: Michael Valles [...] at 2107, Until Mihaela 3 at 1749, for discomfort with PIV insertion, Recovery (Recovery-Hospital Unit), Routine naloxone (Narcan) (0.4 mg/mL) injection 0.2 mg 0.2 mg, Intravenous, EVERY 1 MIN PRN, 10 doses, Starting on Sat09/18/23 at 2107, Until Mihaela 3 at 1749, Opioid Reversal, If respiratory rate [...] ordered, use ondansetron first., Recovery (Recovery-Hospital Unit) 022 (Given - Provid er: Sarina Cummings RN) [...] minutes if ineffective., Recovery (Recovery-Hospital Unit), Routine 0220 (See Alternativ e - Provider: Sarina Cummings RN) oxyCODONE (Roxicodone) tablet 5 mg 5 mg, Oral, EVERY 4 HOURS PRN, Starting on Sat09/18/23 at 1953, Until Mihaela 3 at 1749, Pain, Recovery (Recovery-Hospital Unit), Routine 2021 (Given - Provider: Jackie Meza RN) 0211 (Given - Provider: Sarina Cummings RN)0550 (Given - Provider: Michael Valles RN)1568 (Given - Provider: Claudio Hensley, RN)2453 (Given - Provider: Claudio Hensley RN) sodium chloride 0.9 % (flush) (BD [...] Intravenous, EVERY 8 HOURS PRN, Starting on 09/18/23 at 2107, Until Mihaela 09/19/23 at 1749, Nausea, May repeat times one in 30 minutes if ineffective. If multiple antiemetics are ordered, use ondansetron first., Recovery (Recovery-Hospital Unit) documented in this encounter Care Teams Packaging Technician Relationship Specialty Start Date End Date Celso Dukes MD [address] [place] [address] PCP - General 02/24/15 documented as of this encounter
--- OUTSIDE RECORDS SUMMARY | 2024-02-04 01:33 | XMS_ITS | Encounter Summary ---
Author Organization [facility] Address [facility] [place] [address] Care Team Providers Care Outside Machinist Apprentice Name Role Phone Celso Dukes MD Primary Care Provider [phone] Encounter Details Date Type Department Care Team (Late st Contact Info) Description 01/14/2023 Interpretation Only [address] [phone] Unknown None Social History Tobacco Use Types Packs/Day Years [...] AM EDT Scheduled View Only Hematology/Oncology at [address] [phone] Dana Davis RN 02/04/2024 10:00 AM EDT Infusion Hematology Oncology at [address] [phone] 02/24/2024 9:30 AM EDT Office Visit Hematology/Oncology at [address] [phone] Francisca Quinonez APRN [facility] [place] [address] 02/24/2024 10:30 AM EDT Infusion Hematology Oncology at [address] [phone] 03/17/2024 10:00 AM EDT Infusion Hematology Oncology at [address] [phone] 04/07/2024 9:30 AM EDT Office Visit Hematology/Oncology at [address] [phone] Gian Lisa MD [facility] DR HEMATOLOGY/[place] [address] Francisca Quinonez APRN [facility] [place] [address] 04/07/2024 10:00 AM EDT Infusion Hematology Oncology at [address] [phone] Scheduled Procedures Name Priority Associated Diagnoses Date/Ti me EGD, UPPER GI ENDOSCOPY (WRVU 2.09) Dyspepsia COLONOSCOPY, DIAGNOSTIC (WRVU 3.26) Dyspepsia documented as of this encounter Procedures Procedure Name Priority Date/Time Associated Diagnosis Comments XR KNEE 4 OR MORE VIEWS LEFT STAT 01/14/2023 8:43 PM EDT documented in this encounter Results * XR Knee 4 or more views Left (01/14/2023 8:43 PM EDT) PT CLASS E RAD ADMITDTTM RAD PT RAD INFO [id number]^CO NTARINO^ALANA H RAD EXAM DESC XKN4L^XR LEFT KNEE COMPLETE (4VIEWS)^RIS RAD Anatomical Region Laterality Modality Knee Left Radiographic Gladys ging Impressions 01/14/2023 8:59 PM EDT Mild degenerative changes in the left medial lateral compartments and the patellofemoral compartment. Moderate joint effusion left knee. No fracture Thank you for letting us participate in the care of this patient. ??If you are a health care provider and have any questions regarding this report, please contact the number below. ??For patients who have questions please contact the health resident caregiver that requested your imaging first. ? Electronically signed by: Akira Garcia MD, [facility] ([phone]), at 01/14/2023 8:59 PM Narrative 01/14/2023 8:59 PM EDT EXAMINATION: XR LEFT KNEE COMPLETE (4VIEWS) CLINICAL HISTORY: slipped down steps twisting knee TECHNIQUE: Left knee, AP supine both knees, notch view both knees, patellar view both knees, and lateral projection left knee. COMPARISON: None FINDINGS: Left: There is a moderate joint effusion and suprapatellar bursa. Marginal proliferative changes seen in the patellofemoral compartment bilaterally and inferiorly. There is patellar enthesopathy superiorly and inferiorly. There is marginal proliferative change in the medial and lateral compartments at the tibial plateaus. No subchondral abnormalities in the medial lateral compartments. There is some proliferative change at the intercondylar notch. Right: Primary articulation of the lateral facet of the patella. Procedure Note Akira Garcia MD - 01/14/2023 EXAMINATION: XR LEFT KNEE COMPLETE (4VIEWS) CLINICAL HISTORY: slipped down steps twisting knee TECHNIQUE: Left knee, AP supine both knees, notch view both knees, patellar viewboth knees, and lateral projection left knee. COMPARISON: None FINDINGS: Left: There is a moderate joint effusion and suprapatellar bursa. Marginal proliferative changes seen in the patellofemoral compartment bilaterallyand inferiorly. There is patellar enthesopathy superiorly and inferiorly. There is marginal proliferative change in the medial and lateralcompartments at the tibial plateaus. No subchondral abnormalities in the medial lateral compartments. There is some proliferative change at the intercondylarnotch. Right: Primary articulation of the lateral facet of the patella. IMPRESSION Mild degenerative changes in the left medial lateral compartments andthe patellofemoral compartment. Moderate joint effusion left knee. No fracture Thank you for letting us participate in the care of this patient. If youare a health care provider and have any questions regarding this report,please contact the number below. For patients who have questions please contactthe health resident caregiver that requested your imaging first. Electronically signed by: Akira Garcia MD, [facility]([phone]), at 01/14/2023 8:59 PM Unknown IMG DX ORDERABLES documented in this encounter Visit Diagnoses Not on filedocumented in this encounter Care Teams Outside Machinist Apprentice Relationship Specialty Start Date End Date Celso Dukes MD [address] [place] [address] PCP - General 02/24/15 documented as of this encounter
--- OUTSIDE RECORDS SUMMARY | 2024-02-04 01:33 | XMS_ITS | Encounter Summary ---
Author Organization [facility] [place] [address] Care Team Providers Care Home Day Care Provider Name Role Phone Celso Dukes MD Primary Care Provider [phone] Encounter Details Date Type Department Care Team (Late st Contact Info) Description 09/24/2023 Telephone Urology at [facility] [place] [phone] Ike Whaley, RN Social History Tobacco Use Types Packs/Day Years Used Date Smoking Tobacco: Every Day Cigarettes 0.5 15 Smokeless Tobacco: Current Chew Alcohol Use Standard Drinks/Week Comments Yes 6 (1 standard drink = 0.6 oz pur e alcohol) [facility] Inpatient Questions Answer Date [...] encounter Miscellaneous Notes * Telephone Encounter - Ike Whaley RN - 09/24/2023 9:45 AM EDT Unable to contact or leave a message. Called Managed Medical Review twice and selected option to speak with someone but when it connects there is no answer or voicemail. * Telephone Encounter - Ike Whaley RN - 09/24/2023 9:43 AM EDT Copied from CRM #[id number]. Topic: Specialty Dept CRMs - Generic Call >> Sep 23, 2023 10:54 AM Trish Monterroso wrote: Specialist: Akira Mallory MD Relationship (if other than patient-full name): Cristel, Nurse Vending Machine Coin Collector Managed Medical Review Reason for Call: requesting information on procedure completed 09/18/23 for FMLA processing documented in this encounter Plan of Treatment Upcoming Encounters Date Type Department Care Team (Late st Contact Info) Description 02/04/2024 10:00 AM EDT Scheduled View Only Hematology/Oncology at [address] [phone] Dana Davis RN 02/04/2024 10:00 AM EDT Infusion Hematology Oncology at [address] [phone] 02/24/2024 9:30 AM EDT Office Visit Hematology/Oncology at [address] [phone] Francisca Quinonez APRN [facility] [place] [address] 02/24/2024 10:30 AM EDT Infusion Hematology Oncology at [address] [phone] 03/17/2024 10:00 AM EDT Infusion Hematology Oncology at [address] [phone] 04/07/2024 9:30 AM EDT Office Visit Hematology/Oncology at [address] [phone] Gian Lisa MD [facility] HEMATOLOGY/[place] [address] Francisca Quinonez APRN [facility] [address] 04/07/2024 10:00 AM EDT Infusion Hematology Oncology at [address] [phone] Scheduled Procedures Name Priority Associated Diagnoses Date/Ti me EGD, UPPER GI ENDOSCOPY (WRVU 2.09) Dyspepsia COLONOSCOPY, DIAGNOSTIC (WRVU 3.26) Dyspepsia documented as of this encounter Visit Diagnoses Not on filedocumented in this encounter Care Teams Home Day Care Provider Relationship Specialty Start Date End Date Celso Dukes MD [address] [place] [address] PCP - General 02/24/15 documented as of this encounter
--- OUTSIDE RECORDS SUMMARY | 2024-02-04 01:33 | XMS_ITS | Encounter Summary ---
Author Organization [facility] Address [facility] [place] [address] Care Team Providers Care Accelerator Technician Name Role Phone Celso Dukes MD Primary Care Provider [phone] Encounter Details Date Type Department Care Team (Latest Contact Info) Description 09/18/2023 9:29 AM EST - 09/18/2023 11:41 AM EST Hospital Encounter Laboratory [facility] [place] [phone] Discharge Disposition: Home Social History Tobacco Use [...] EDT Scheduled View Only Hematology/Oncology at [address] [phone] Dana Davis RN 02/04/2024 10:00 AM EDT Infusion Hematology Oncology at [address] [phone] 02/24/2024 9:30 AM EDT Office Visit Hematology/Oncology at [address] [phone] Francisca Quinonez APRN [facility] [place] [address] 02/24/2024 10:30 AM EDT Infusion Hematology Oncology at [address] [phone] 03/17/2024 10:00 AM EDT Infusion Hematology Oncology at [address] [phone] 04/07/2024 9:30 AM EDT Office Visit Hematology/Oncology at [address] [phone] Gian Lisa MD [facility] HEMATOLOGY/[place] [address] Francisca Quinonez APRN [facility] [place] [address] 04/07/2024 10:00 AM EDT Infusion Hematology Oncology at [address] [phone] Scheduled Procedures Name Priority Associated Diagnoses Date/Ti me EGD, UPPER GI ENDOSCOPY (WRVU 2.09) Dyspepsia COLONOSCOPY, DIAGNOSTIC (WRVU 3.26) Dyspepsia documented as of this encounter Visit Diagnoses Not on filedocumented in this encounter Care Teams Accelerator Technician Relationship Specialty Start Date End Date Celso Dukes MD [address] [place] [address] PCP - General 02/24/15 documented as of this encounter
--- OUTSIDE RECORDS SUMMARY | 2024-02-04 01:33 | XMS_ITS | Encounter Summary ---
Author Organization [facility] [place] [address] Care Team Providers Care Forensic Analyst Name Role Phone Bere Menon MD Primary Care Provider [phone] Encounter Details Date Type Department Care Team (Late st Contact Info) Description 02/25/2015 External Results Cardiology at [address] [phone] Fermin Archibald Jr., MD [address] [place] [address] Social History Tobacco Use Types Packs/Day Years [...] AM EDT Scheduled View Only Hematology/Oncology at [address] [phone] Dana Davis RN 02/04/2024 10:00 AM EDT Infusion Hematology Oncology at [address] [phone] 02/24/2024 9:30 AM EDT Office Visit Hematology/Oncology at [address] [phone] Francisca Quinonez APRN [facility] [place] [address] 02/24/2024 10:30 AM EDT Infusion Hematology Oncology at [address] [phone] 03/17/2024 10:00 AM EDT Infusion Hematology Oncology at [address] [phone] 04/07/2024 9:30 AM EDT Office Visit Hematology/Oncology at [address] [phone] Gian Lisa MD [facility] HEMATOLOGY/[place] [address] Francisca Quinonez APRN [facility] [place] [address] 04/07/2024 10:00 AM EDT Infusion Hematology Oncology at [address] [phone] Scheduled Procedures Name Priority Associated Diagnoses Date/Ti me EGD, UPPER GI ENDOSCOPY (WRVU 2.09) Dyspepsia COLONOSCOPY, DIAGNOSTIC (WRVU 3.26) Dyspepsia documented as of this encounter Procedures Procedure Name Priority Date/Time Associated Diagnosis Comments HOLTER MONITOR 24 HOUR Routine 02/25/2015 documented in this encounter Results * Holter Monitor 24hr (02/25/2015) Anatomical Region Laterality Modality Other Narrative 02/25/2015 Rosalino Honeycutt ?: 1970 PCP: BERE MENON MD (General) Ordering: Violet Schmitz Holter Report- [facility], [address] [facility] [address] Date of application: 02/22/2015 ?Date of Scan: 02/24/2015 ? Date of Interpretation: 02/25/2013 Indication: syncope Baseline Rhythm: NSR Symptoms: log kept- no symptoms Report: Minimum HR: 72 Average HR: 100 Maximum HR: 136 Ventricular- VPC: 3 Couplets: 0 VT: 1 3 beats @ 112 BPM Atrial- APC: 10 Couplets: 0 SVT: 0 Summary: ?No symptoms, NSR throughout, no bradycardia or heart block, rare APC and VPC, 1 3 beat VT at 112 BPM Electronically signed: Fermin Archibald Jr, MD [facility] Historical Provider MD CARDI[facility] SERVICES ORDERABLES documented in this encounter Visit Diagnoses Not on filedocumented in this encounter Care Teams Forensic Analyst Relationship Specialty Start Date End Date Bere Menon MD [address] [place] [address] PCP - General 02/24/15 documented as of this encounter
--- OUTSIDE RECORDS SUMMARY | 2024-02-04 01:33 | XMS_ITS | Encounter Summary ---
Author Organization [facility] Address [facility] [place] [address] Care Team Providers Care Host/Hostess Name Role Phone Celso Dukes MD Primary Care Provider Reason for Visit * Consultation (Routine) - Closed Specialty Diagnoses / Procedures Referred By Conteugene t Referred To Contact Diagnoses Renal mass Akira Mallory MD [facility] [place] [address] [facility] [place] [address] Referral ID Status Reason Start Date Expiration Date V isits Requested Visits Authorized [id number] Closed Consult, Test & Treat 09/12/2023 09/11/2024 1 1 Encounter Details Date Type Department Care Team (Late st Contact Info) Description 09/26/2023 10:30 AM EDT TH Visit (TeleHealth) Tobacco [place] [phone] Barbara Corbin Cigarette nicotine dependence without complication Social History Tobacco Use Types Packs/Day Years Used Date Smoking Tobacco: Every Day Cigarettes 0.5 15 Smokeless Tobacco: Current Chew Alcohol Use Standard Drinks/Week Comments Yes 6 (1 standard drink = 0.6 oz pur e alcohol) [facility] Inpatient Questions Answer Date Recorded Does Anyone [...] encounter Progress Notes * Barbara Corbin - 09/26/2023 10:30 AM EDT Has not had a cigarette since 09/18/23. ..Stephanie Corbin [facility] [place], [place] [address] FAX: HPI: Rosalino Honeycutt is a 52 y.o. male who is being seen today for tobacco cessation. Type of tobacco used: () Smokeless tobacco () e-cigarette (x) Cigarettes Brand currently smoking: [place] Current amount: not smoking since September 17. Cost per pack: 10 per day Age initiated: 31 yrs Years smoked: 20 plus Previous quit attempts and methods: quit for a few weeks Most recent quit attempt: Are there other smokers in the home: yes Are there children in the home: yes What will be different this time: had to have a kidney out Positive aspects of smoking: nothing---cool factor Negative aspects of smoking: wasting time--- Reasons for quitting: had to have kidney Concerns about quitting: no Concerns about weight gain: no Triggers for smoking: boredom Ready to set a quit date: quit Readiness: Importance scale: 10 Confidence scale: did not ask. Support systems include: family is very supportive. They do not smoke inside as they have children. Rosalino Honeycutt is a 52 y.o. male seen today for smoking cessation counseling. He is currently not smoking and does wish to stay quit at this time. I reviewed the physiology of addiction as well as apparent health risks specific for him/her. I discussed the options for treatment including NRTRamanyban. Reviewed possible side effects of therapy. I stressed that medication alone is not optimum but used in conjunction with behavioral counseling will add to success for cessation. Behavioral counselingin addition to pharmacotherapy recommendations were given. Behavioral counseling includes deep breathing, drinking water, The patient has opted to stay. Stage of Change: Precontemplation: Contemplation: Preparation: Action:x Maintenance:x CO level: deferred 25 minutes were spent with this patient in counseling for tobacco cessation. Plan: 1. Patient is not smoking/quit cold turkey. Patient may consider having clean nicotine as a back up. He has asked people not to smoke around him and talking about challenges as they come up. We discussed changing his routine and finding activities to relieve the boredom. Patient seems highly motivated to stay stopped. 2. Discussed behavioral change including walking deep breathing 3. Call with any questions or concerns 4. Follow up in one weeks Barbara Corbin 09/26/23 documented in this encounter Plan of Treatment Upcoming Encounters Date Type Department Care Team (Late st Contact Info) Description 02/04/2024 10:00 AM EDT Scheduled View Only Hematology/Oncology at [address] [phone] Dana Davis RN 02/04/2024 10:00 AM EDT Infusion Hematology Oncology at [address] [phone] 02/24/2024 9:30 AM EDT Office Visit Hematology/Oncology at [address] [phone] Francisca Quinonez APRN [facility] [place] [address] 02/24/2024 10:30 AM EDT Infusion Hematology Oncology at [address] [phone] 03/17/2024 10:00 AM EDT Infusion Hematology Oncology at [address] [phone] 04/07/2024 9:30 AM EDT Office Visit Hematology/Oncology at [address] [phone] Gian Lisa MD [facility] HEMATOLOGY/[place] [address] Francisca Quinonez APRN [facility] [place] [address] 04/07/2024 10:00 AM EDT Infusion Hematology Oncology at [address] [phone] Scheduled Procedures Name Priority Associated Diagnoses Date/Ti me EGD, UPPER GI ENDOSCOPY (WRVU 2.09) Dyspepsia COLONOSCOPY, DIAGNOSTIC (WRVU 3.26) Dyspepsia Scheduled Referrals Name Type Priority Associated Diagnoses Orde r Schedule Referral to Smoking Cessation Program Outpatient Referral Routine Renal mass Ordered: 09/12/2023 documented as of this encounter Visit Diagnoses Diagnosis Cigarette nicotine dependence without complication Tobacco use disorder documented in this encounter Care Teams Host/Hostess Relationship Specialty Start Date End Date Celso Dukes MD [address] [place] [address] PCP - General 02/24/15 documented as of this encounter
--- OUTSIDE RECORDS SUMMARY | 2024-02-04 01:33 | XMS_ITS | Encounter Summary ---
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 MRI W/O CONTRAST PENDING Celso Dukes MD [address] [place] [address] [facility] [place] [address] Referral ID Status Reason Start Date Expiration Date Visits Requested Visits Authorized [id number] Authorized Consult, Test & Treat PCP Updated and/or Approved 08/19/2023 08/18/2024 6 6 Encounter Details Date Type Department Care Team (Latest Contact Info) Description 08/19/2023 Transcribe Orders eDH Incoming Referrals [phone] Celso Dukes MD [address] [place] [address] Other specified disorders of kidney and ureter Social History Tobacco Use Types Packs/Day Years [...] EDT Scheduled View Only Hematology/Oncology at [address] [phone] Dana Davis RN 02/04/2024 10:00 AM EDT Infusion Hematology Oncology at [address] [phone] 02/24/2024 9:30 AM EDT Office Visit Hematology/Oncology at [address] [phone] Francisca Quinonez APRN [facility] [place] [address] 02/24/2024 10:30 AM EDT Infusion Hematology Oncology at [address] [phone] 03/17/2024 10:00 AM EDT Infusion Hematology Oncology at [address] [phone] 04/07/2024 9:30 AM EDT Office Visit Hematology/Oncology at [address] [phone] Gian Lisa MD [facility] HEMATOLOGY/[place] [address] Francisca Quinonez APRN [facility] [place] [address] 04/07/2024 10:00 AM EDT Infusion Hematology Oncology at [address] [phone] Scheduled Procedures Name Priority Associated Diagnoses Date/Ti me EGD, UPPER GI ENDOSCOPY (WRVU 2.09) Dyspepsia COLONOSCOPY, DIAGNOSTIC (WRVU 3.26) Dyspepsia Scheduled Referrals Name Type Priority Associated Diagnoses Orde r Schedule Referral to Urology Outpatient Referral Routine Other specified disorders of kidney and ureter Ordered: 08/19/2023 documented as of this encounter Visit Diagnoses Diagnosis Other specified disorders of kidney and ureter documented in this encounter Care Teams Requisition Approver Relationship Specialty Start Date End Date Celso Dukes MD [address] [place] [address] PCP - General 02/24/15 documented as of this encounter
--- OUTSIDE RECORDS SUMMARY | 2024-02-04 01:33 | XMS_ITS | Encounter Summary ---
Author Organization [facility] [place] [address] Care Team Providers Care Student Assistant Name Role Phone Celso Dukes MD Primary Care Provider [phone] Encounter Details Date Type Department Care Team (Late st Contact Info) Description 09/12/2023 10:00 AM EST Clinical Support Same Day at [facility] [place] [phone] Social History Tobacco Use Types Packs/Day Years Used Date Smoking Tobacco: Every Day Cigarettes 0.5 15 Smokeless Tobacco: Current Chew Tobacco Cessation:Ready to Q uit: Not Asked; Counseling Given: Not Answered [facility] Inpatient Questions Answer Date Recorded Does Anyone [...] Sign Reading Time Taken Comments Blood Pressure - - Pulse - - Temperature - - Respiratory Rate - - Oxygen Saturation - - Inhaled Oxygen Concentration - - Weight 127 kg (280 lb) 09/12/2023 10:05 AM EST Height 175.3 cm (5' 9) 09/12/2023 10:05 AM EST Body Mass Index 41.35 09/12/2023 10:05 AM EST documented in this encounter Progress Notes * Akira Reddy RN - 09/12/2023 10:00 AM EST PAT questionnaire reviewed with patient and while in Pre Admission testing. Pre-operative instruction booklet reviewed. Patient verbalizes a good understanding of all information reviewed. PLAN: Testing: Labs T&S Special medication instructions: None Procedure date: Not booked [address] Potential date 09/18/23 Recent Covid, symptomatic 09/03, positive 09/06, negative 09/08, asymptomatic now. PCC Anesthesia aware. No prior issues with anesthesia. documented in this encounter Plan of Treatment Upcoming Encounters Date Type Department Care Team (Late st Contact Info) Description 02/04/2024 10:00 AM EDT Scheduled View Only Hematology/Oncology at [address] [phone] Dana Davis RN 02/04/2024 10:00 AM EDT Infusion Hematology Oncology at [address] [phone] 02/24/2024 9:30 AM EDT Office Visit Hematology/Oncology at [address] [phone] Francisca Quinonez APRN [facility] [place] [address] 02/24/2024 10:30 AM EDT Infusion Hematology Oncology at [address] [phone] 03/17/2024 10:00 AM EDT Infusion Hematology Oncology at [address] [phone] 04/07/2024 9:30 AM EDT Office Visit Hematology/Oncology at [address] [phone] Gian Lisa MD [facility] HEMATOLOGY/[place] [address] rFancisca Quinonez APRN [facility] [place] [address] 04/07/2024 10:00 AM EDT Infusion Hematology Oncology at [address] [phone] Scheduled Procedures Name Priority Associated Diagnoses Date/Ti me EGD, UPPER GI ENDOSCOPY (WRVU 2.09) Dyspepsia COLONOSCOPY, DIAGNOSTIC (WRVU 3.26) Dyspepsia documented as of this encounter Visit Diagnoses Not on filedocumented in this encounter Care Teams Student Assistant Relationship Specialty Start Date End Date Celso Dukes MD [address] [place] [address] PCP - General 02/24/15 documented as of this encounter
--- OUTSIDE RECORDS SUMMARY | 2024-02-04 01:33 | XMS_ITS | Encounter Summary ---
Author Organization [facility] [place] [address] Care Team Providers Care Ic Designer Gate Arrays Name Role Phone Celso Dukes MD Primary Care Provider [phone] Encounter Details Date Type Department Care Team (Late st Contact Info) Description 09/26/2023 Telephone Urology at [facility] [place] [phone] Magalis Moulton RN Social History Tobacco Use Types Packs/Day Years Used Date Smoking Tobacco: Every Day Cigarettes 0.5 15 Smokeless Tobacco: Current Chew Alcohol Use Standard Drinks/Week Comments Yes 6 (1 standard drink = 0.6 oz pur e alcohol) [facility] Inpatient Questions Answer Date Recorded [...] Progress Notes * Magalis Moulton RN - 09/26/2023 9:12 AM EDT Call returned to kiley Fam message. documented in this encounter Miscellaneous Notes * Telephone Encounter - Magalis Moulton RN - 09/26/2023 9:08 AM EDT Copied from [facility] #[id number]. Topic: Specialty Dept CRMs - Generic Call >> Sep 25, 2023 1:48 PM Navdeep Sutton wrote: Specialist: Dr. Mallory Relationship (if other than patient-full name): Cristel-Managed Medical Review Reason for Call: Cristel is calling in regards to patient's short term disability claim, and is looking to know what kind of procedure the patient had on 09/18/23. Please call to discuss. documented in this encounter Plan of Treatment Upcoming Encounters Date Type Department Care Team (Late st Contact Info) Description 02/04/2024 10:00 AM EDT Scheduled View Only Hematology/Oncology at [address] [phone] Dana Davis RN 02/04/2024 10:00 AM EDT Infusion Hematology Oncology at [address] [phone] 02/24/2024 9:30 AM EDT Office Visit Hematology/Oncology at [address] [phone] Francisca Quinonez APRN [facility] [place] [address] 02/24/2024 10:30 AM EDT Infusion Hematology Oncology at [address] [phone] 03/17/2024 10:00 AM EDT Infusion Hematology Oncology at [address] [phone] 04/07/2024 9:30 AM EDT Office Visit Hematology/Oncology at [address] [phone] Gian Lisa MD [facility] [place]ATOLOGY/[place] [address] Francisca Quinonez APRN [facility] [place] [address] 04/07/2024 10:00 AM EDT Infusion Hematology Oncology at [address] [phone] Scheduled Procedures Name Priority Associated Diagnoses Date/Ti me EGD, UPPER GI ENDOSCOPY (WRVU 2.09) Dyspepsia COLONOSCOPY, DIAGNOSTIC (WRVU 3.26) Dyspepsia documented as of this encounter Visit Diagnoses Not on filedocumented in this encounter Care Teams Ic Designer Gate Arrays Relationship Specialty Start Date End Date Celso Dukes MD [address] [place] [address] PCP - General 02/24/15 documented as of this encounter
--- OUTSIDE RECORDS SUMMARY | 2024-02-04 01:33 | XMS_ITS | Encounter Summary ---
Author Organization [facility] [place] [address] Care Team Providers Care Lathe Machinist Name Role Phone Celso Dukes MD Primary Care Provider [phone] Encounter Details Date Type Department Care Team (Late Contact Info) Description 09/12/2023 10:45 AM EST [place] [phone] Renal mass Social History Tobacco Use Types Packs/Day Years Used Date Smoking Tobacco: Every Day Cigarettes 0.5 15 Smokeless Tobacco: Current Chew [facility] Inpatient Questions Answer Date Recorded [...] EDT Scheduled View Only Hematology/Oncology at [address] [phone] Dana Davis RN 02/04/2024 10:00 AM EDT Infusion Hematology Oncology at [address] [phone] 02/24/2024 9:30 AM EDT Office Visit Hematology/Oncology at [address] [phone] Francisca Quinonez APRN [facility] [place] [address] 02/24/2024 10:30 AM EDT Infusion Hematology Oncology at [address] [phone] 03/17/2024 10:00 AM EDT Infusion Hematology Oncology at [address] [phone] 04/07/2024 9:30 AM EDT Office Visit Hematology/Oncology at [address] [phone] Gian Lisa MD [facility] HEMATOLOGY/[place] [address] Francisca Quinonez APRN [facility] [place] [address] 04/07/2024 10:00 AM EDT Infusion Hematology Oncology at [address] [phone] Scheduled Procedures Name Priority Associated Diagnoses Date/Ti me EGD, UPPER GI ENDOSCOPY (WRVU 2.09) Dyspepsia COLONOSCOPY, DIAGNOSTIC (WRVU 3.26) Dyspepsia documented as of this encounter Procedures Procedure Name Priority Date/Time Associated Diagnosis Comments HC URINE CULTURE Routine 09/12/2023 11:0 2 AM EST Renal mass ABORH RECHECK STATUS Routine 09/12/2023 10:52 AM EST HEMOGRAM Routine 09/12/2023 10:52 AM EST Renal mass DIFFERENTIAL, AUTOMATED Routine 09/12/2023 10:52 AM EST Renal mass TYPE AND SCREEN, SDP (FUTURE SURGERY, [facility] SAME DAY PROGRAM ONLY) Routine 09/12/2023 10:52 AM EST Renal mass HC CBC,PLT & AUTO DIFF Routine 10:52 AM EST Renal mass COMPREHENSIVE METABOLIC PANEL (NON-FASTING) Routine 09/12/2023 10:52 AM EST Renal mass documented in this encounter Results * Urine culture Clean Catch Urine (09/12/2023 11:02 AM EST) Pathologist [facility] Urine Culture No growth (Less than 1,000 cfu/ml). [facility] Clean Catch Urine 09/12/2023 11:02 AM EST 09/12/2023 11:36 AM EST Narrative Resulting Agency Comment Spec In Lab Akira Mallory MD MICROBIOLOGY - GENER AL ORDERABLES Performing Organization Address City/[facility]/ZIP Co de Phone Number [facility] [place] [address] * ABORH Recheck Status (09/12/2023 10:52 AM EST) Pathologist [facility] ABORH Recheck Order Order Placed [facility] ABORH Type Recheck Completed [facility] Blood 09/12/2023 10:5 2 AM EST 09/12/2023 10:58 AM EST Narrative Resulting Agency Comment Spec In Lab Akira Mallory MD BLOOD BANK LAB ORDER SYBIL Performing Organization Address City/[facility]/ZIP Co de Phone Number [facility] [place] [address] * (ABNORMAL) Differential, Automated (09/12/2023 10:52 AM EST) Neutrophils % 51.6 % [facility] Neutr Abs (ANC) 4.33 1.70 - 6.10 x10(3)/mc L [facility] Lymphocytes % 39.2 % [facility] Lymphocytes Abs 3.3(H) 0.9 - 3.2 x10(3)/mc L [facility] Monocytes % 6.6 % [facility] Monocyte Abs 0.6 0.3 - 0.9 x10(3)/[facility] Eosinophils % 1.6 % [facility] Eosinophils Abs 0.1 0.0 - 0.4 x10(3)/[facility] Basophils % 0.6 % [facility] Basophils Abs 0.0 0.0 - 0.1 x10(3)/[facility] Immature Gran % 0.40 % [facility] Comment: Immature granulocytes(IG's)percentage and absolute count will include metamyelocytes, myelocytes, and promyelocytes. Blood smears from CBCs yielding IG's will be scanned manually for concordance. If this scan disagrees with the automated IG or if promyelocytes are noted, a manual differential will be performed. Valerie Gran Abs 0.03 0.00 - 0.04 x10(3)/[facility] Blood 09/12/2023 10:5 2 AM EST 09/12/2023 11:10 AM EST Narrative Resulting Agency Comment Spec In Lab Akira Mallory MD HEMATOLOGY ORDERABLE S [facility] [place] [address] * (ABNORMAL) Hemogram (09/12/2023 10:52 AM EST) WBC 8.4 4.0 - 9.5 x10(3)/[facility] RBC 5.62(H) 4.58 - 5.54 x10(6)/[facility] Hemoglobin 16.1 13.7 - 16.5 g/dL [facility] Hematocrit 48.9(H) 40.5 - 48.5 % [facility] MCV 87.0 82.9 - 93.1 fL [facility] MCH 28.6 27.5 - 32.1 pg [facility] MCHC 32.9 32.0 - 35.7 g/dL [facility] Platelets 308 145 - 357 x10(3)/[facility] LABORATORY RDWSD 43.6 36.0 - [address] [facility] LABORATORY RDWCV 13.6 11.4 - 13.8 % [facility] MPV 9.4 7.6 - 12.9 [facility] LABORATORY nRBC % Auto 0.0 % [facility] nRBC Abs Auto 0.000 0.000 - 0.000 x10(3)/[facility] Blood 09/12/2023 10:5 2 AM EST 09/12/2023 11:10 AM EST Narrative Resulting Agency Comment Spec In Lab Akira Mallory MD HEMATOLOGY ORDERABLE S Performing Organization Address City/State/[facility] Co de Phone Number [facility] [place] [address] * (ABNORMAL) Comprehensive metabolic panel (non-fasting) (09/12/2023 10:52 AM EST) Glucose Lvl 98 65 - 199 mg/dL [...] Resulting Agency Comment Spec In Lab Akira Mallroy MD CHEMISTRY ORDERABLES [facility] [place] [address] * Type and Screen Future Surgery, [facility] SAME DAY PROGRAM ONLY) (09/12/2023 10:52 AM EST) ABORH Type O POSITIVE [facility] Patient BB History Not Found [facility] Expires at [id number] on: 09/18/2023 [facility] Ab Screen Interp Negative [facility] Blood 09/12/2023 10:5 2 AM EST 09/12/2023 10:52 AM EST Narrative Resulting Agency Comment Spec In Lab Akira Mallory MD BLOOD BANK LAB ORDER SYBIL [facility] [place] [address] documented in this encounter Visit Diagnoses Diagnosis Renal mass Unspecified disorder of kidney and ureter documented in this encounter Care Teams Lathe Machinist Relationship Specialty Start Date End Date Celso Dukes MD [address] [place] [address] PCP - General 02/24/15 documented as of this encounter
--- OUTSIDE RECORDS SUMMARY | 2024-02-04 01:33 | XMS_ITS | Encounter Summary ---
Author Organization [facility] Address [facility] [place] [address] Care Team Providers Care Fitting Room Supervisor Name Role Phone Celso Dukes MD Primary Care Provider [phone] Encounter Details Date Type Department Care Team (Latest Contact Info) Description 09/12/2023 Travel Social History Tobacco Use Types Packs/Day Years Used Date Smoking Tobacco: Every Day Cigarettes 0.5 15 Smokeless Tobacco: Current Chew [facility] Inpatient Questions Answer Date Recorded [...] EDT Scheduled View Only Hematology/Oncology at [address] [phone] Dana Davis RN 02/04/2024 10:00 AM EDT Infusion Hematology Oncology at [address] [phone] 02/24/2024 9:30 AM EDT Office Visit Hematology/Oncology at [address] [phone] Francisca Quinonez APRN [facility] [place] [address] 02/24/2024 10:30 AM EDT Infusion Hematology Oncology at [address] [phone] 03/17/2024 10:00 AM EDT Infusion Hematology Oncology at [address] [phone] 04/07/2024 9:30 AM EDT Office Visit Hematology/Oncology at [address] [phone] Gian Lisa MD [facility] DR HEMATOLOGY/[place] [address] Francisca Quinonez APRN [facility] [place] [address] 04/07/2024 10:00 AM EDT Infusion Hematology Oncology at [address] [phone] Scheduled Procedures Name Priority Associated Diagnoses Date/Ti me EGD, UPPER GI ENDOSCOPY (WRVU 2.09) Dyspepsia COLONOSCOPY, DIAGNOSTIC (WRVU 3.26) Dyspepsia documented as of this encounter Visit Diagnoses Not on filedocumented in this encounter Care Teams Fitting Room Supervisor Relationship Specialty Start Date End Date Celso Dukes MD [address] [place] [address] PCP - General 02/24/15 documented as of this encounter
[2024-02-04 09:20] LABS: Abs Immature Grans 0.03 10^3/uL (0.0-0.06); Absolute Basophil Count 0.07 10^3/uL (0.0-0.2); Absolute Eosinophil Count 0.24 10^3/uL (0.0-0.7); Absolute Lymphocyte Count 2.94 10^3/uL (1.2-3.4); Absolute Monocyte Count 0.52 10^3/uL (0.1-0.8); Absolute Neutrophil Count 3.74 10^3/uL (1.2-6.7); Basophils % 0.9 %; Eosinophils % 3.2 %; HGB 15.8 g/dL (13.5-17.5); Immature Grans % 0.4 %; MCH 29.4 pg (27.0-33.0); MCHC 32.9 % (32.0-36.0); MCV 89 fL (80-95); MPV 9.7 fL (8.0-11.0); Monocytes % 6.9 %; Neutrophils % 49.6 %; Platelet Count 225 10^3/uL (130-400); RBC 5.38 10^6/uL (4.36-5.78); RDW 13.7 % (11.8-14.1); RDW-SD 44.7 fL; WBC 7.54 10^3/uL (4.4-10.8)
[2024-02-04 09:50] LABS: ALT 42 U/L (16-63); AST 21 U/L (15-37); Albumin 3.7 g/dL (3.4-5.0); Alkaline Phosphatase 116 U/L (46-116); Anion Gap 9.4 mmol/L (3-11); BUN 17 mg/dL (7-18); CO2 25.6 mmol/L (21.0-32.0); CREATININE 1.3 mg/dL (0.70-1.30); Calcium 9.2 mg/dL (8.5-10.1); Chloride 108 mmol/L (98-107); Glucose 140 mg/dL (74-106); Potassium 3.9 mmol/L (3.5-5.1); Sodium 143 mmol/L (136-145); TSH 1.26 uIU/Ml (0.36-3.74)
[2024-02-04 10:09] LABS: FREE T4 0.88 ng/dL (0.76-1.46)
== END 2024-02-04 01:27 | disposition home or self-care (01) ==
PROVIDERS: Visit Provider Internal Medicine
DX: C64.2 Malignant neoplasm of left kidney, except renal pelvis (principal); R94.6 Abnormal results of thyroid function studies
CPT/HCPCS: 36415; 80053; 84439; 84443; 85025

== ENCOUNTER 2024-02-24 03:40 | Outpatient (CLI) | payer BC, SELFPAY ==
[2024-02-24 09:07] LABS: Abs Immature Grans 0.02 10^3/uL (0.0-0.06); Absolute Basophil Count 0.09 10^3/uL (0.0-0.2); Absolute Eosinophil Count 0.25 10^3/uL (0.0-0.7); Absolute Monocyte Count 0.45 10^3/uL (0.1-0.8); Absolute Neutrophil Count 4.37 10^3/uL (1.2-6.7); Basophils % 1.1 %; HCT 45.6 % (40.0-50.0); HGB 15.1 g/dL (13.5-17.5); Immature Grans % 0.2 %; Lymphocytes % 37.4 %; MCH 29.4 pg (27.0-33.0); MCHC 33.1 % (32.0-36.0); MCV 89 fL (80-95); MPV 9.7 fL (8.0-11.0); Monocytes % 5.4 %; Neutrophils % 52.9 %; Platelet Count 223 10^3/uL (130-400); RBC 5.13 10^6/uL (4.36-5.78); RDW 13.3 % (11.8-14.1); RDW-SD 43.7 fL; WBC 8.28 10^3/uL (4.4-10.8)
[2024-02-24 09:47] LABS: ALT 37 U/L (16-63); AST 17 U/L (15-37); Albumin 3.4 g/dL (3.4-5.0); Alkaline Phosphatase 112 U/L (46-116); Anion Gap 7.3 mmol/L (3-11); BUN 16 mg/dL (7-18); Bilirubin, Total 0.35 mg/dL (0.2-1.0); CO2 26.7 mmol/L (21.0-32.0); CREATININE 1.4 mg/dL (0.70-1.30); Calcium 8.6 mg/dL (8.5-10.1); Chloride 104 mmol/L (98-107); Estimated GFR 60.47 (mL/min/1.73m2); FREE T4 0.85 ng/dL (0.76-1.46); Glucose 122 mg/dL (74-106); Potassium 4.3 mmol/L (3.5-5.1); Sodium 138 mmol/L (136-145); TSH 2.96 uIU/Ml (0.36-3.74); Total Protein 7.6 g/dL (6.4-8.2)
== END 2024-02-24 03:41 | disposition home or self-care (01) ==
LOC: LBO 03:40
PROVIDERS: Visit Provider Internal Medicine
DX: C64.2 Malignant neoplasm of left kidney, except renal pelvis (principal); R94.6 Abnormal results of thyroid function studies
CPT/HCPCS: 36415; 80053; 84439; 84443; 85025

== ENCOUNTER 2024-03-17 04:39 | Outpatient (CLI) | payer BC, SELFPAY ==
[2024-03-17 08:54] LABS: Abs Immature Grans 0.03 10^3/uL (0.0-0.06); Absolute Basophil Count 0.08 10^3/uL (0.0-0.2); Absolute Eosinophil Count 0.26 10^3/uL (0.0-0.7); Absolute Lymphocyte Count 3.15 10^3/uL (1.2-3.4); Absolute Monocyte Count 0.65 10^3/uL (0.1-0.8); Absolute Neutrophil Count 3.92 10^3/uL (1.2-6.7); Eosinophils % 3.2 %; HCT 48.4 % (40.0-50.0); HGB 15.7 g/dL (13.5-17.5); Immature Grans % 0.4 %; Lymphocytes % 38.9 %; MCH 29.3 pg (27.0-33.0); MCHC 32.4 % (32.0-36.0); MCV 91 fL (80-95); MPV 9.2 fL (8.0-11.0); Neutrophils % 48.5 %; Platelet Count 223 10^3/uL (130-400); RBC 5.35 10^6/uL (4.36-5.78); RDW 13.7 % (11.8-14.1); RDW-SD 45.5 fL; WBC 8.09 10^3/uL (4.4-10.8)
[2024-03-17 09:17] LABS: ALT 26 U/L (16-63); AST 16 U/L (15-37); Albumin 3.4 g/dL (3.4-5.0); Alkaline Phosphatase 113 U/L (46-116); Anion Gap 6.4 mmol/L (3-11); BUN 15 mg/dL (7-18); Bilirubin, Total 0.31 mg/dL (0.2-1.0); CO2 27.6 mmol/L (21.0-32.0); CREATININE 1.3 mg/dL (0.70-1.30); Calcium 8.8 mg/dL (8.5-10.1); Chloride 105 mmol/L (98-107); FREE T4 0.74 ng/dL (0.76-1.46); Glucose 111 mg/dL (74-106); Potassium 4.3 mmol/L (3.5-5.1); Sodium 139 mmol/L (136-145); TSH 2.29 uIU/Ml (0.36-3.74); Total Protein 7.9 g/dL (6.4-8.2)
== END 2024-03-17 04:40 | disposition home or self-care (01) ==
LOC: LBO 04:39
PROVIDERS: Visit Provider Internal Medicine
DX: C64.2 Malignant neoplasm of left kidney, except renal pelvis (principal); R94.6 Abnormal results of thyroid function studies
CPT/HCPCS: 36415; 80053; 84439; 84443; 85025

== ENCOUNTER 2024-04-07 02:24 | Outpatient (CLI) | payer BC, SELFPAY ==
[2024-04-07 08:32] LABS: Abs Immature Grans 0.03 10^3/uL (0.0-0.06); Absolute Eosinophil Count 0.27 10^3/uL (0.0-0.7); Absolute Lymphocyte Count 3.09 10^3/uL (1.2-3.4); Absolute Monocyte Count 0.59 10^3/uL (0.1-0.8); Absolute Neutrophil Count 4.79 10^3/uL (1.2-6.7); Basophils % 1.1 %; HCT 47.5 % (40.0-50.0); HGB 16.1 g/dL (13.5-17.5); Immature Grans % 0.3 %; Lymphocytes % 34.8 %; MCH 29.8 pg (27.0-33.0); MCHC 33.9 % (32.0-36.0); MCV 88 fL (80-95); MPV 9.5 fL (8.0-11.0); Monocytes % 6.7 %; Neutrophils % 54.1 %; Platelet Count 233 10^3/uL (130-400); RBC 5.41 10^6/uL (4.36-5.78); RDW 13.7 % (11.8-14.1); RDW-SD 44.1 fL; WBC 8.87 10^3/uL (4.4-10.8)
[2024-04-07 08:57] LABS: ALT 35 U/L (16-63); AST 16 U/L (15-37); Albumin 3.4 g/dL (3.4-5.0); Alkaline Phosphatase 127 U/L (46-116); BUN 12 mg/dL (7-18); Bilirubin, Total 0.34 mg/dL (0.2-1.0); CREATININE 1.3 mg/dL (0.70-1.30); Calcium 8.9 mg/dL (8.5-10.1); Chloride 103 mmol/L (98-107); Glucose 101 mg/dL (74-106); Potassium 4.2 mmol/L (3.5-5.1); Sodium 138 mmol/L (136-145); TSH 3.07 uIU/Ml (0.36-3.74); Total Protein 7.6 g/dL (6.4-8.2)
[2024-04-07 09:42] LABS: FREE T4 0.84 ng/dL (0.76-1.46)
== END 2024-04-07 02:25 | disposition home or self-care (01) ==
LOC: LBO 02:24
PROVIDERS: Visit Provider Internal Medicine
DX: C64.2 Malignant neoplasm of left kidney, except renal pelvis (principal); R94.6 Abnormal results of thyroid function studies
CPT/HCPCS: 36415; 80053; 84439; 84443; 85025

== ENCOUNTER 2024-04-28 02:34 | Outpatient (CLI) | payer BC, SELFPAY ==
[2024-04-28 08:37] LABS: Abs Immature Grans 0.03 10^3/uL (0.0-0.06); Absolute Basophil Count 0.09 10^3/uL (0.0-0.2); Absolute Eosinophil Count 0.22 10^3/uL (0.0-0.7); Absolute Monocyte Count 0.57 10^3/uL (0.1-0.8); Basophils % 1.1 %; Eosinophils % 2.6 %; HCT 48.2 % (40.0-50.0); HGB 15.7 g/dL (13.5-17.5); Immature Grans % 0.4 %; Lymphocytes % 35.3 %; MCHC 32.6 % (32.0-36.0); MCV 89 fL (80-95); MPV 9.3 fL (8.0-11.0); Monocytes % 6.7 %; Neutrophils % 53.9 %; Platelet Count 232 10^3/uL (130-400); RBC 5.41 10^6/uL (4.36-5.78); RDW 13.8 % (11.8-14.1); RDW-SD 44.7 fL; WBC 8.51 10^3/uL (4.4-10.8)
[2024-04-28 09:01] LABS: ALT 43 U/L (16-63); AST 22 U/L (15-37); Albumin 3.4 g/dL (3.4-5.0); Alkaline Phosphatase 117 U/L (46-116); BUN 12 mg/dL (7-18); Bilirubin, Total 0.66 mg/dL (0.2-1.0); CREATININE 1.3 mg/dL (0.70-1.30); Calcium 8.9 mg/dL (8.5-10.1); Chloride 104 mmol/L (98-107); FREE T4 0.79 ng/dL (0.76-1.46); Glucose 113 mg/dL (74-106); Potassium 4.1 mmol/L (3.5-5.1); Sodium 139 mmol/L (136-145); TSH 3.05 uIU/mL (0.36-3.74); Total Protein 7.8 g/dL (6.4-8.2)
== END 2024-04-28 02:35 | disposition home or self-care (01) ==
LOC: LBO 02:34
PROVIDERS: Visit Provider Internal Medicine
DX: C64.2 Malignant neoplasm of left kidney, except renal pelvis (principal); R94.6 Abnormal results of thyroid function studies
CPT/HCPCS: 36415; 80053; 84439; 84443; 85025

== ENCOUNTER 2024-05-19 13:42 | Outpatient (CLI) | payer BC, SELFPAY ==
[2024-05-19 09:24] LABS: Abs Immature Grans 0.03 10^3/uL (0.0-0.06); Absolute Basophil Count 0.08 10^3/uL (0.0-0.2); Absolute Eosinophil Count 0.21 10^3/uL (0.0-0.7); Absolute Lymphocyte Count 2.64 10^3/uL (1.2-3.4); Absolute Neutrophil Count 3.89 10^3/uL (1.2-6.7); Basophils % 1.1 %; Eosinophils % 2.9 %; HCT 47.2 % (40.0-50.0); HGB 15.8 g/dL (13.5-17.5); Immature Grans % 0.4 %; Lymphocytes % 35.9 %; MCH 29.5 pg (27.0-33.0); MCHC 33.5 % (32.0-36.0); MCV 88 fL (80-95); MPV 9.3 fL (8.0-11.0); Monocytes % 6.8 %; Neutrophils % 52.9 %; Platelet Count 240 10^3/uL (130-400); RBC 5.36 10^6/uL (4.36-5.78); RDW 13.7 % (11.8-14.1); RDW-SD 44.1 fL; WBC 7.35 10^3/uL (4.4-10.8)
[2024-05-19 10:01] LABS: ALT 54 U/L (16-63); AST 27 U/L (15-37); Albumin 3.6 g/dL (3.4-5.0); Alkaline Phosphatase 143 U/L (46-116); Anion Gap 6.5 mmol/L (3-11); BUN 12 mg/dL (7-18); Bilirubin, Total 0.69 mg/dL (0.2-1.0); CO2 27.5 mmol/L (21.0-32.0); CREATININE 1.3 mg/dL (0.70-1.30); Calcium 9.3 mg/dL (8.5-10.1); Chloride 106 mmol/L (98-107); FREE T4 0.72 ng/dL (0.76-1.46); Glucose 119 mg/dL (74-106); Potassium 4.1 mmol/L (3.5-5.1); Sodium 140 mmol/L (136-145); TSH 3.96 uIU/mL (0.36-3.74); Total Protein 8.3 g/dL (6.4-8.2)
== END 2024-05-19 13:43 | disposition home or self-care (01) ==
LOC: LBO 13:42
PROVIDERS: Visit Provider Internal Medicine
DX: C64.2 Malignant neoplasm of left kidney, except renal pelvis (principal); R94.6 Abnormal results of thyroid function studies
CPT/HCPCS: 36415; 80053; 84439; 84443; 85025

== ENCOUNTER 2024-06-09 02:37 | Outpatient (CLI) | payer BC, SELFPAY ==
[2024-06-09 11:35] LABS: Abs Immature Grans 0.05 10^3/uL (0.0-0.06); Absolute Basophil Count 0.09 10^3/uL (0.0-0.2); Absolute Eosinophil Count 0.23 10^3/uL (0.0-0.7); Absolute Lymphocyte Count 3.29 10^3/uL (1.2-3.4); Absolute Monocyte Count 0.43 10^3/uL (0.1-0.8); Absolute Neutrophil Count 5.28 10^3/uL (1.2-6.7); Eosinophils % 2.5 %; HCT 46.8 % (40.0-50.0); HGB 15.1 g/dL (13.5-17.5); Immature Grans % 0.5 %; Lymphocytes % 35.1 %; MCH 29.2 pg (27.0-33.0); MCHC 32.3 % (32.0-36.0); MCV 91 fL (80-95); MPV 9.2 fL (8.0-11.0); Monocytes % 4.6 %; Neutrophils % 56.3 %; Platelet Count 231 10^3/uL (130-400); RBC 5.17 10^6/uL (4.36-5.78); RDW 13.4 % (11.8-14.1); RDW-SD 45.1 fL; WBC 9.37 10^3/uL (4.4-10.8)
[2024-06-09 11:58] LABS: ALT 40 U/L (16-63); AST 18 U/L (15-37); Albumin 3.4 g/dL (3.4-5.0); Alkaline Phosphatase 139 U/L (46-116); Anion Gap 8.9 mmol/L (3-11); BUN 19 mg/dL (7-18); Bilirubin, Total 0.33 mg/dL (0.2-1.0); CO2 27.1 mmol/L (21.0-32.0); CREATININE 1.4 mg/dL (0.70-1.30); Calcium 8.8 mg/dL (8.5-10.1); Chloride 106 mmol/L (98-107); Estimated GFR 60.47 (mL/min/1.73m2); FREE T4 0.69 ng/dL (0.76-1.46); Glucose 124 mg/dL (74-106); Potassium 3.8 mmol/L (3.5-5.1); Sodium 142 mmol/L (136-145); TSH 5.32 uIU/mL (0.36-3.74)
== END 2024-06-09 02:38 | disposition home or self-care (01) ==
LOC: LBO 02:37
PROVIDERS: Visit Provider Internal Medicine
DX: C64.2 Malignant neoplasm of left kidney, except renal pelvis (principal); R94.6 Abnormal results of thyroid function studies
CPT/HCPCS: 36415; 80053; 84439; 84443; 85025

== ENCOUNTER 2024-06-30 03:04 | Outpatient (CLI) | payer BC, SELFPAY ==
[2024-06-30 07:41] LABS: Abs Immature Grans 0.04 10^3/uL (0.0-0.06); Absolute Eosinophil Count 0.27 10^3/uL (0.0-0.7); Absolute Lymphocyte Count 3.04 10^3/uL (1.2-3.4); Absolute Monocyte Count 0.65 10^3/uL (0.1-0.8); Absolute Neutrophil Count 4.98 10^3/uL (1.2-6.7); Basophils % 1.1 %; HCT 46.1 % (40.0-50.0); HGB 15.1 g/dL (13.5-17.5); Immature Grans % 0.4 %; Lymphocytes % 33.5 %; MCH 29.5 pg (27.0-33.0); MCHC 32.8 % (32.0-36.0); MCV 90 fL (80-95); MPV 9.2 fL (8.0-11.0); Monocytes % 7.2 %; Neutrophils % 54.8 %; Platelet Count 249 10^3/uL (130-400); RBC 5.12 10^6/uL (4.36-5.78); RDW 13.3 % (11.8-14.1); RDW-SD 44.7 fL; WBC 9.08 10^3/uL (4.4-10.8)
[2024-06-30 08:06] LABS: ALT 38 U/L (16-63); AST 20 U/L (15-37); Albumin 3.4 g/dL (3.4-5.0); Alkaline Phosphatase 146 U/L (46-116); Anion Gap 9.7 mmol/L (3-11); BUN 14 mg/dL (7-18); Bilirubin, Total 0.36 mg/dL (0.2-1.0); CO2 27.3 mmol/L (21.0-32.0); CREATININE 1.4 mg/dL (0.70-1.30); Calcium 8.7 mg/dL (8.5-10.1); Chloride 106 mmol/L (98-107); Estimated GFR 60.47 (mL/min/1.73m2); FREE T4 0.66 ng/dL (0.76-1.46); Glucose 135 mg/dL (74-106); Potassium 4.5 mmol/L (3.5-5.1); Sodium 143 mmol/L (136-145); Total Protein 7.9 g/dL (6.4-8.2)
== END 2024-06-30 03:05 | disposition home or self-care (01) ==
PROVIDERS: Visit Provider Internal Medicine
DX: C64.2 Malignant neoplasm of left kidney, except renal pelvis (principal); R94.6 Abnormal results of thyroid function studies
CPT/HCPCS: 36415; 80053; 84439; 84443; 85025

== ENCOUNTER 2024-07-21 02:59 | Outpatient (CLI) | payer BC, SELFPAY ==
[2024-07-21 07:46] LABS: Abs Immature Grans 0.03 10^3/uL (0.0-0.06); Absolute Basophil Count 0.08 10^3/uL (0.0-0.2); Absolute Eosinophil Count 0.28 10^3/uL (0.0-0.7); Absolute Lymphocyte Count 2.77 10^3/uL (1.2-3.4); Absolute Neutrophil Count 4.58 10^3/uL (1.2-6.7); Eosinophils % 3.4 %; HCT 45.7 % (40.0-50.0); Immature Grans % 0.4 %; Lymphocytes % 33.2 %; MCH 29.2 pg (27.0-33.0); MCHC 32.8 % (32.0-36.0); MCV 89 fL (80-95); MPV 9.2 fL (8.0-11.0); Monocytes % 7.2 %; Neutrophils % 54.8 %; Platelet Count 234 10^3/uL (130-400); RBC 5.13 10^6/uL (4.36-5.78); RDW 13.2 % (11.8-14.1); RDW-SD 43.1 fL; WBC 8.34 10^3/uL (4.4-10.8)
[2024-07-21 08:10] LABS: ALT 42 U/L (16-63); AST 20 U/L (15-37); Albumin 3.4 g/dL (3.4-5.0); Alkaline Phosphatase 140 U/L (46-116); BUN 14 mg/dL (7-18); Bilirubin, Total 0.44 mg/dL (0.2-1.0); CREATININE 1.4 mg/dL (0.70-1.30); Chloride 103 mmol/L (98-107); Estimated GFR 60.47 (mL/min/1.73m2); FREE T4 0.73 ng/dL (0.76-1.46); Glucose 136 mg/dL (74-106); Potassium 4.1 mmol/L (3.5-5.1); Sodium 137 mmol/L (136-145); TSH 14.91 uIU/mL (0.36-3.74); Total Protein 7.9 g/dL (6.4-8.2)
== END 2024-07-21 03:00 | disposition home or self-care (01) ==
LOC: LBO 02:59
PROVIDERS: Visit Provider Internal Medicine
DX: C64.2 Malignant neoplasm of left kidney, except renal pelvis (principal); R94.6 Abnormal results of thyroid function studies
CPT/HCPCS: 36415; 80053; 84439; 84443; 85025

== ENCOUNTER 2024-08-11 03:15 | Outpatient (CLI) | payer BC, SELFPAY ==
[2024-08-11 13:53] LABS: Abs Immature Grans 0.04 10^3/uL (0.0-0.06); Absolute Basophil Count 0.12 10^3/uL (0.0-0.2); Absolute Eosinophil Count 0.43 10^3/uL (0.0-0.7); Absolute Lymphocyte Count 2.93 10^3/uL (1.2-3.4); Absolute Monocyte Count 0.88 10^3/uL (0.1-0.8); Absolute Neutrophil Count 4.96 10^3/uL (1.2-6.7); Basophils % 1.3 %; Eosinophils % 4.6 %; HCT 47.7 % (40.0-50.0); HGB 15.5 g/dL (13.5-17.5); Immature Grans % 0.4 %; Lymphocytes % 31.3 %; MCH 29.2 pg (27.0-33.0); MCHC 32.5 % (32.0-36.0); MCV 90 fL (80-95); MPV 9.6 fL (8.0-11.0); Monocytes % 9.4 %; Platelet Count 240 10^3/uL (130-400); RBC 5.31 10^6/uL (4.36-5.78); RDW 13.3 % (11.8-14.1); RDW-SD 43.4 fL; WBC 9.36 10^3/uL (4.4-10.8)
[2024-08-11 14:17] LABS: ALT 61 U/L (16-63); AST 27 U/L (15-37); Albumin 3.8 g/dL (3.4-5.0); Alkaline Phosphatase 137 U/L (46-116); Anion Gap 7.2 mmol/L (3-11); BUN 17 mg/dL (7-18); CO2 27.8 mmol/L (21.0-32.0); CREATININE 1.4 mg/dL (0.70-1.30); Calcium 9.7 mg/dL (8.5-10.1); Chloride 104 mmol/L (98-107); Estimated GFR 60.47 (mL/min/1.73m2); FREE T4 0.77 ng/dL (0.76-1.46); Glucose 105 mg/dL (74-106); Potassium 4.4 mmol/L (3.5-5.1); Sodium 139 mmol/L (136-145); TSH 15.91 uIU/mL (0.36-3.74); Total Protein 8.7 g/dL (6.4-8.2)
== END 2024-08-11 03:16 | disposition home or self-care (01) ==
LOC: LBO 03:15
PROVIDERS: Visit Provider Internal Medicine
DX: C64.2 Malignant neoplasm of left kidney, except renal pelvis (principal); R94.6 Abnormal results of thyroid function studies
CPT/HCPCS: 36415; 80053; 84439; 84443; 85025

== ENCOUNTER 2024-09-01 04:29 | Outpatient (CLI) | payer BC, SELFPAY ==
[2024-09-01 12:09] LABS: Abs Immature Grans 0.04 10^3/uL (0.0-0.06); Absolute Basophil Count 0.08 10^3/uL (0.0-0.2); Absolute Eosinophil Count 0.38 10^3/uL (0.0-0.7); Absolute Lymphocyte Count 2.68 10^3/uL (1.2-3.4); Absolute Monocyte Count 0.85 10^3/uL (0.1-0.8); Absolute Neutrophil Count 5.75 10^3/uL (1.2-6.7); Basophils % 0.8 %; Eosinophils % 3.9 %; HCT 47.3 % (40.0-50.0); HGB 15.3 g/dL (13.5-17.5); Immature Grans % 0.4 %; Lymphocytes % 27.4 %; MCHC 32.3 % (32.0-36.0); MCV 90 fL (80-95); MPV 9.3 fL (8.0-11.0); Monocytes % 8.7 %; Neutrophils % 58.8 %; Platelet Count 265 10^3/uL (130-400); RBC 5.27 10^6/uL (4.36-5.78); RDW 13.5 % (11.8-14.1); RDW-SD 44.8 fL; WBC 9.78 10^3/uL (4.4-10.8)
[2024-09-01 12:36] LABS: ALT 56 U/L (16-63); AST 26 U/L (15-37); Albumin 3.5 g/dL (3.4-5.0); Alkaline Phosphatase 129 U/L (46-116); Anion Gap 3.1 mmol/L (3-11); BUN 19 mg/dL (7-18); Bilirubin, Total 0.53 mg/dL (0.2-1.0); CO2 31.9 mmol/L (21.0-32.0); CREATININE 1.3 mg/dL (0.70-1.30); Calcium 9.3 mg/dL (8.5-10.1); Chloride 105 mmol/L (98-107); FREE T4 0.88 ng/dL (0.76-1.46); Glucose 105 mg/dL (74-106); Potassium 4.3 mmol/L (3.5-5.1); Sodium 140 mmol/L (136-145); TSH 18.33 uIU/mL (0.36-3.74); Total Protein 8.5 g/dL (6.4-8.2)
== END 2024-09-01 04:30 | disposition home or self-care (01) ==
PROVIDERS: Visit Provider Internal Medicine
DX: C64.2 Malignant neoplasm of left kidney, except renal pelvis (principal); R94.6 Abnormal results of thyroid function studies
CPT/HCPCS: 36415; 80053; 84439; 84443; 85025

== ENCOUNTER 2024-09-22 03:08 | Outpatient (CLI) | payer BC, SELFPAY ==
[2024-09-22 09:20] LABS: Abs Immature Grans 0.04 10^3/uL (0.0-0.06); Absolute Basophil Count 0.11 10^3/uL (0.0-0.2); Absolute Eosinophil Count 0.37 10^3/uL (0.0-0.7); Absolute Lymphocyte Count 3.08 10^3/uL (1.2-3.4); Absolute Monocyte Count 0.57 10^3/uL (0.1-0.8); Absolute Neutrophil Count 5.97 10^3/uL (1.2-6.7); Basophils % 1.1 %; Eosinophils % 3.6 %; HCT 47.8 % (40.0-50.0); HGB 15.1 g/dL (13.5-17.5); Immature Grans % 0.4 %; Lymphocytes % 30.4 %; MCH 28.3 pg (27.0-33.0); MCHC 31.6 % (32.0-36.0); MCV 90 fL (80-95); MPV 9.6 fL (8.0-11.0); Monocytes % 5.6 %; Neutrophils % 58.9 %; Platelet Count 278 10^3/uL (130-400); RBC 5.34 10^6/uL (4.36-5.78); RDW 13.3 % (11.8-14.1); RDW-SD 43.7 fL; WBC 10.14 10^3/uL (4.4-10.8)
[2024-09-22 09:48] LABS: ALT 60 U/L (16-63); AST 27 U/L (15-37); Albumin 3.3 g/dL (3.4-5.0); Alkaline Phosphatase 132 U/L (46-116); Anion Gap 9.4 mmol/L (3-11); BUN 14 mg/dL (7-18); Bilirubin, Total 0.4 mg/dL (0.2-1.0); CO2 27.6 mmol/L (21.0-32.0); CREATININE 1.2 mg/dL (0.70-1.30); Calcium 9.3 mg/dL (8.5-10.1); Chloride 105 mmol/L (98-107); Estimated GFR 72.76 (mL/min/1.73m2); Glucose 123 mg/dL (74-106); Potassium 4.5 mmol/L (3.5-5.1); Sodium 142 mmol/L (136-145); TSH 9.95 uIU/mL (0.36-3.74)
[2024-09-22 18:30] LABS: T4, Free 1.1 ng/dL (0.8-2.2)
== END 2024-09-22 03:09 | disposition home or self-care (01) ==
LOC: LBO 03:08
PROVIDERS: Visit Provider Nurse Practitioner
DX: C64.2 Malignant neoplasm of left kidney, except renal pelvis (principal)
CPT/HCPCS: 36415; 80053; 84439; 84443; 85025

== ENCOUNTER 2024-10-06 02:50 | Outpatient (CLI) | payer BC, SELFPAY ==
[2024-10-06 10:33] LABS: Abs Immature Grans 0.04 10^3/uL (0.0-0.06); Absolute Basophil Count 0.08 10^3/uL (0.0-0.2); Absolute Eosinophil Count 0.31 10^3/uL (0.0-0.7); Absolute Lymphocyte Count 2.36 10^3/uL (1.2-3.4); Absolute Monocyte Count 0.57 10^3/uL (0.1-0.8); Absolute Neutrophil Count 5.58 10^3/uL (1.2-6.7); Basophils % 0.9 %; Eosinophils % 3.5 %; HCT 47.4 % (40.0-50.0); HGB 15.2 g/dL (13.5-17.5); Immature Grans % 0.4 %; Lymphocytes % 26.4 %; MCH 28.1 pg (27.0-33.0); MCHC 32.1 % (32.0-36.0); MCV 88 fL (80-95); MPV 9.2 fL (8.0-11.0); Monocytes % 6.4 %; Neutrophils % 62.4 %; Platelet Count 267 10^3/uL (130-400); RBC 5.41 10^6/uL (4.36-5.78); RDW 13.2 % (11.8-14.1); RDW-SD 42.3 fL; WBC 8.94 10^3/uL (4.4-10.8)
[2024-10-06 11:04] LABS: ALT 65 U/L (16-63); AST 35 U/L (15-37); Albumin 3.3 g/dL (3.4-5.0); Alkaline Phosphatase 138 U/L (46-116); Anion Gap 6.9 mmol/L (3-11); BUN 12 mg/dL (7-18); Bilirubin, Total 0.3 mg/dL (0.2-1.0); CO2 29.1 mmol/L (21.0-32.0); CREATININE 1.2 mg/dL (0.70-1.30); Calcium 9.3 mg/dL (8.5-10.1); Chloride 103 mmol/L (98-107); Estimated GFR 72.31 (mL/min/1.73m2); Glucose 144 mg/dL (74-106); Sodium 139 mmol/L (136-145); TSH 8.05 uIU/mL (0.36-3.74); Total Protein 8.3 g/dL (6.4-8.2)
[2024-10-06 17:48] LABS: T4, Free 1.2 ng/dL (0.8-2.2)
== END 2024-10-06 02:51 | disposition home or self-care (01) ==
PROVIDERS: Visit Provider Nurse Practitioner
DX: C64.2 Malignant neoplasm of left kidney, except renal pelvis (principal)
CPT/HCPCS: 36415; 80053; 84439; 84443; 85025

== ENCOUNTER 2024-11-03 03:50 | Outpatient (CLI) | payer BC, SELFPAY ==
[2024-11-03 09:35] LABS: Abs Immature Grans 0.01 10^3/uL (0.0-0.06); Absolute Basophil Count 0.08 10^3/uL (0.0-0.2); Absolute Eosinophil Count 0.35 10^3/uL (0.0-0.7); Absolute Lymphocyte Count 2.45 10^3/uL (1.2-3.4); Absolute Monocyte Count 0.46 10^3/uL (0.1-0.8); Basophils % 1.2 %; Eosinophils % 5.4 %; HCT 51.1 % (40.0-50.0); HGB 16.7 g/dL (13.5-17.5); Immature Grans % 0.2 %; MCHC 32.7 % (32.0-36.0); MCV 86 fL (80-95); MPV 8.9 fL (8.0-11.0); Monocytes % 7.1 %; Neutrophils % 48.1 %; Platelet Count 185 10^3/uL (130-400); RBC 5.96 10^6/uL (4.36-5.78); RDW-SD 43.7 fL; WBC 6.45 10^3/uL (4.4-10.8)
[2024-11-03 10:02] LABS: ALT 88 U/L (16-63); AST 50 U/L (15-37); Albumin 3.4 g/dL (3.4-5.0); Alkaline Phosphatase 157 U/L (46-116); Anion Gap 5.6 mmol/L (3-11); BUN 11 mg/dL (7-18); Bilirubin, Total 0.5 mg/dL (0.2-1.0); CO2 27.4 mmol/L (21.0-32.0); CREATININE 1.2 mg/dL (0.70-1.30); Calcium 9.1 mg/dL (8.5-10.1); Chloride 105 mmol/L (98-107); Estimated GFR 72.31 (mL/min/1.73m2); FREE T4 1.13 ng/dL (0.76-1.46); Glucose 127 mg/dL (74-106); Potassium 3.7 mmol/L (3.5-5.1); Sodium 138 mmol/L (136-145); TSH 4.48 uIU/mL (0.36-3.74); Total Protein 8.3 g/dL (6.4-8.2)
== END 2024-11-03 03:51 | disposition home or self-care (01) ==
LOC: LBO 03:50
PROVIDERS: Visit Provider Nurse Practitioner
DX: C64.2 Malignant neoplasm of left kidney, except renal pelvis (principal)
CPT/HCPCS: 36415; 80053; 84439; 84443; 85025

== ENCOUNTER 2024-12-01 02:32 | Outpatient (CLI) | payer BC, SELFPAY ==
[2024-12-01 13:12] LABS: Abs Immature Grans 0.02 10^3/uL (0.0-0.06); Absolute Basophil Count 0.03 10^3/uL (0.0-0.2); Absolute Eosinophil Count 0.15 10^3/uL (0.0-0.7); Absolute Lymphocyte Count 0.88 10^3/uL (1.2-3.4); Absolute Monocyte Count 0.47 10^3/uL (0.1-0.8); Absolute Neutrophil Count 2.51 10^3/uL (1.2-6.7); Basophils % 0.7 %; Eosinophils % 3.7 %; HCT 44.9 % (40.0-50.0); HGB 14.8 g/dL (13.5-17.5); Immature Grans % 0.5 %; Lymphocytes % 21.7 %; MCH 28.8 pg (27.0-33.0); MCV 87 fL (80-95); MPV 8.8 fL (8.0-11.0); Monocytes % 11.6 %; Neutrophils % 61.8 %; Platelet Count 136 10^3/uL (130-400); RBC 5.14 10^6/uL (4.36-5.78); RDW 16.5 % (11.8-14.1); RDW-SD 52.3 fL; WBC 4.06 10^3/uL (4.4-10.8)
[2024-12-01 13:40] LABS: ALT 113 U/L (16-63); AST 42 U/L (15-37); Albumin 3.4 g/dL (3.4-5.0); Alkaline Phosphatase 109 U/L (46-116); Anion Gap 10.5 mmol/L (3-11); BUN 14 mg/dL (7-18); Bilirubin, Total 0.6 mg/dL (0.2-1.0); CO2 26.5 mmol/L (21.0-32.0); Calcium 9.3 mg/dL (8.5-10.1); Chloride 103 mmol/L (98-107); Glucose 108 mg/dL (74-106); Potassium 3.6 mmol/L (3.5-5.1); Sodium 140 mmol/L (136-145); TSH 5.82 uIU/mL (0.36-3.74); Total Protein 8.1 g/dL (6.4-8.2)
[2024-12-02 10:59] LABS: FREE T4 1.09 ng/dL (0.76-1.46)
== END 2024-12-01 02:33 | disposition home or self-care (01) ==
LOC: LBO 02:32
PROVIDERS: Visit Provider Nurse Practitioner
DX: C64.2 Malignant neoplasm of left kidney, except renal pelvis (principal)
CPT/HCPCS: 36415; 80053; 84439; 84443; 85025

== ENCOUNTER 2024-12-29 03:34 | Outpatient (CLI) | payer BC, SELFPAY ==
[2024-12-29 12:06] LABS: Abs Immature Grans 0.01 10^3/uL (0.0-0.06); Absolute Basophil Count 0.07 10^3/uL (0.0-0.2); Absolute Eosinophil Count 0.43 10^3/uL (0.0-0.7); Absolute Lymphocyte Count 1.44 10^3/uL (1.2-3.4); Absolute Monocyte Count 0.46 10^3/uL (0.1-0.8); Absolute Neutrophil Count 2.68 10^3/uL (1.2-6.7); Basophils % 1.4 %; Eosinophils % 8.4 %; HCT 44.5 % (40.0-50.0); HGB 14.5 g/dL (13.5-17.5); Immature Grans % 0.2 %; Lymphocytes % 28.3 %; MCH 28.5 pg (27.0-33.0); MCHC 32.6 % (32.0-36.0); MCV 88 fL (80-95); MPV 9.5 fL (8.0-11.0); Neutrophils % 52.7 %; Platelet Count 214 10^3/uL (130-400); RBC 5.08 10^6/uL (4.36-5.78); RDW 17.4 % (11.8-14.1); RDW-SD 55.3 fL; WBC 5.09 10^3/uL (4.4-10.8)
[2024-12-29 12:44] LABS: ALT 151 U/L (16-63); AST 74 U/L (15-37); Albumin 3.6 g/dL (3.4-5.0); Alkaline Phosphatase 119 U/L (46-116); Anion Gap 9.9 mmol/L (3-11); BUN 15 mg/dL (7-18); Bilirubin, Total 0.4 mg/dL (0.2-1.0); CO2 27.1 mmol/L (21.0-32.0); CREATININE 1.1 mg/dL (0.70-1.30); Calcium 9.2 mg/dL (8.5-10.1); Chloride 103 mmol/L (98-107); Estimated GFR 80.27 (mL/min/1.73m2); FREE T4 1.18 ng/dL (0.76-1.46); Glucose 94 mg/dL (74-106); Sodium 140 mmol/L (136-145); TSH 2.22 uIU/mL (0.36-3.74)
== END 2024-12-29 03:35 | disposition home or self-care (01) ==
LOC: LBO 03:34
PROVIDERS: Visit Provider Nurse Practitioner
DX: C64.2 Malignant neoplasm of left kidney, except renal pelvis (principal)
CPT/HCPCS: 36415; 80053; 84439; 84443; 85025

== ENCOUNTER 2025-01-12 04:21 | Outpatient (CLI) | payer BC, SELFPAY ==
[2025-01-12 09:39] LABS: Abs Immature Grans 0.01 10^3/uL (0.0-0.06); HCT 46.9 % (40.0-50.0); HGB 15.2 g/dL (13.5-17.5); Immature Grans % 0.2 %; MCH 28.4 pg (27.0-33.0); MCHC 32.4 % (32.0-36.0); MCV 88 fL (80-95); MPV 9.8 fL (8.0-11.0); Platelet Count 185 10^3/uL (130-400); RBC 5.36 10^6/uL (4.36-5.78); RDW 18.1 % (11.8-14.1); RDW-SD 56.6 fL; WBC 4.61 10^3/uL (4.4-10.8)
[2025-01-12 13:25] LABS: ALT 136 U/L (16-63); AST 65 U/L (15-37); Albumin 3.5 g/dL (3.4-5.0); Alkaline Phosphatase 116 U/L (46-116); Anion Gap 11.1 mmol/L (3-11); BUN 16 mg/dL (7-18); Bilirubin, Total 0.5 mg/dL (0.2-1.0); CO2 26.9 mmol/L (21.0-32.0); Calcium 8.7 mg/dL (8.5-10.1); Chloride 107 mmol/L (98-107); Estimated GFR 102.12 (mL/min/1.73m2); Glucose 111 mg/dL (74-106); Potassium 4.2 mmol/L (3.5-5.1); Sodium 145 mmol/L (136-145); Total Protein 7.2 g/dL (6.4-8.2)
== END 2025-01-12 04:22 | disposition home or self-care (01) ==
PROVIDERS: Visit Provider Nurse Practitioner
DX: C64.2 Malignant neoplasm of left kidney, except renal pelvis (principal); C79.51 Secondary malignant neoplasm of bone
CPT/HCPCS: 36415; 80053; 84439; 84443; 85025

== ENCOUNTER 2025-01-26 03:44 | Outpatient (CLI) | payer BC, SELFPAY ==
[2025-01-26 08:41] LABS: Abs Immature Grans 0.01 10^3/uL (0.0-0.06); HCT 45.3 % (40.0-50.0); HGB 15.1 g/dL (13.5-17.5); Immature Grans % 0.2 %; MCH 29.2 pg (27.0-33.0); MCHC 33.3 % (32.0-36.0); MCV 88 fL (80-95); MPV 9.5 fL (8.0-11.0); Platelet Count 166 10^3/uL (130-400); RBC 5.18 10^6/uL (4.36-5.78); RDW 17.8 % (11.8-14.1); RDW-SD 56.4 fL; WBC 4.68 10^3/uL (4.4-10.8)
[2025-01-26 09:04] LABS: ALT 143 U/L (16-63); AST 66 U/L (15-37); Albumin 3.2 g/dL (3.4-5.0); Alkaline Phosphatase 105 U/L (46-116); Anion Gap 7.2 mmol/L (3-11); BUN 14 mg/dL (7-18); Bilirubin, Total 0.7 mg/dL (0.2-1.0); CO2 27.8 mmol/L (21.0-32.0); Calcium 9.1 mg/dL (8.5-10.1); Chloride 106 mmol/L (98-107); Estimated GFR 80.27 (mL/min/1.73m2); Glucose 119 mg/dL (74-106); Potassium 3.9 mmol/L (3.5-5.1); Sodium 141 mmol/L (136-145); TSH 1.89 uIU/mL (0.36-3.74); Total Protein 7.2 g/dL (6.4-8.2)
== END 2025-01-26 03:45 | disposition home or self-care (01) ==
PROVIDERS: Visit Provider Nurse Practitioner
DX: C64.2 Malignant neoplasm of left kidney, except renal pelvis (principal)
CPT/HCPCS: 36415; 80053; 84439; 84443; 85025

== ENCOUNTER 2025-02-10 04:08 | Outpatient (CLI) | payer BC, SELFPAY ==
[2025-02-10 16:12] LABS: Calculated LDL 107 mg/dL (<100); Cholesterol 168 mg/dL (<200); HDL Cholesterol 37 mg/dL (>or=40); Triglyceride 124 mg/dL (<150)
[2025-02-10 17:02] LABS: ALT 147 U/L (16-63); AST 81 U/L (15-37); Albumin 3.9 g/dL (3.4-5.0); Alkaline Phosphatase 100 U/L (46-116); Anion Gap 11.1 mmol/L (3-11); BUN 14 mg/dL (7-18); Bilirubin, Total 0.9 mg/dL (0.2-1.0); CO2 26.9 mmol/L (21.0-32.0); Calcium 9.0 mg/dL (8.5-10.1); Chloride 104 mmol/L (98-107); Estimated GFR 90.00 (mL/min/1.73m2); Glucose 95 mg/dL (74-106); Potassium 3.6 mmol/L (3.5-5.1); Sodium 142 mmol/L (136-145); Total Protein 7.7 g/dL (6.4-8.2)
== END 2025-02-10 04:09 | disposition home or self-care (01) ==
PROVIDERS: Internal Medicine; Visit Provider Nurse Practitioner Family
DX: C64.2 Malignant neoplasm of left kidney, except renal pelvis (principal); C79.51 Secondary malignant neoplasm of bone; E78.00 Pure hypercholesterolemia, unspecified
CPT/HCPCS: 36415; 80053; 80061; 84439; 84443; 85025

== ENCOUNTER 2025-02-16 03:42 | Outpatient (CLI) | payer BC, SELFPAY ==
[2025-02-16 15:10] LABS: Abs Immature Grans 0.01 10^3/uL (0.0-0.06); HCT 44.1 % (40.0-50.0); HGB 14.7 g/dL (13.5-17.5); Immature Grans % 0.2 %; MCH 29.9 pg (27.0-33.0); MCHC 33.3 % (32.0-36.0); MCV 90 fL (80-95); MPV 9.1 fL (8.0-11.0); Platelet Count 195 10^3/uL (130-400); RBC 4.92 10^6/uL (4.36-5.78); RDW 17.3 % (11.8-14.1); RDW-SD 56.8 fL; WBC 4.75 10^3/uL (4.4-10.8)
[2025-02-16 16:47] LABS: AST 61 U/L (15-37); Albumin 3.3 g/dL (3.4-5.0); Alkaline Phosphatase 95 U/L (46-116); Anion Gap 5.6 mmol/L (3-11); BUN 12 mg/dL (7-18); Bilirubin, Total 0.6 mg/dL (0.2-1.0); CO2 28.4 mmol/L (21.0-32.0); Calcium 9.0 mg/dL (8.5-10.1); Chloride 107 mmol/L (98-107); Estimated GFR 80.27 (mL/min/1.73m2); Glucose 102 mg/dL (74-106); Potassium 3.7 mmol/L (3.5-5.1); Sodium 141 mmol/L (136-145); TSH 1.39 uIU/mL (0.36-3.74); Total Protein 7.2 g/dL (6.4-8.2)
[2025-02-16 17:42] LABS: ALT 128 U/L (16-63)
== END 2025-02-16 03:43 | disposition home or self-care (01) ==
LOC: LBO 03:43
PROVIDERS: Visit Provider Nurse Practitioner
DX: C64.2 Malignant neoplasm of left kidney, except renal pelvis (principal)
CPT/HCPCS: 36415; 80053; 84439; 84443; 85025

== ENCOUNTER 2025-02-23 13:08 | Outpatient (CLI) | payer BC, SELFPAY ==
[2025-02-23 14:40] LABS: Abs Immature Grans 0.01 10^3/uL (0.0-0.06); HCT 46.0 % (40.0-50.0); HGB 15.1 g/dL (13.5-17.5); Immature Grans % 0.2 %; MCH 30.1 pg (27.0-33.0); MCHC 32.8 % (32.0-36.0); MCV 92 fL (80-95); MPV 9.9 fL (8.0-11.0); Platelet Count 192 10^3/uL (130-400); RBC 5.01 10^6/uL (4.36-5.78); RDW 16.8 % (11.8-14.1); RDW-SD 57.0 fL; WBC 5.44 10^3/uL (4.4-10.8)
[2025-02-23 15:07] LABS: ALT 122 U/L (16-63); AST 52 U/L (15-37); Albumin 3.5 g/dL (3.4-5.0); Alkaline Phosphatase 90 U/L (46-116); Anion Gap 8.0 mmol/L (3-11); BUN 14 mg/dL (7-18); Bilirubin, Total 0.5 mg/dL (0.2-1.0); CO2 27.0 mmol/L (21.0-32.0); Calcium 8.9 mg/dL (8.5-10.1); Chloride 105 mmol/L (98-107); Estimated GFR 90.00 (mL/min/1.73m2); Glucose 84 mg/dL (74-106); Potassium 3.9 mmol/L (3.5-5.1); Sodium 140 mmol/L (136-145); TSH 1.22 uIU/mL (0.36-3.74); Total Protein 7.7 g/dL (6.4-8.2)
== END 2025-02-23 13:09 | disposition home or self-care (01) ==
LOC: LBO 13:08
PROVIDERS: Internal Medicine; Visit Provider Nurse Practitioner
DX: C64.2 Malignant neoplasm of left kidney, except renal pelvis (principal); C79.51 Secondary malignant neoplasm of bone; C64.9 Malignant neoplasm of unspecified kidney, except renal pelvis
CPT/HCPCS: 36415; 80053; 84439; 84443; 85025

== ENCOUNTER 2025-03-08 04:33 | Outpatient (CLI) | payer BC, SELFPAY ==
[2025-03-08 15:19] LABS: Abs Immature Grans 0.02 10^3/uL (0.0-0.06); HCT 44.0 % (40.0-50.0); HGB 14.3 g/dL (13.5-17.5); Immature Grans % 0.4 %; MCH 30.7 pg (27.0-33.0); MCHC 32.5 % (32.0-36.0); MCV 94 fL (80-95); MPV 9.8 fL (8.0-11.0); Platelet Count 214 10^3/uL (130-400); RBC 4.66 10^6/uL (4.36-5.78); RDW 15.4 % (11.8-14.1); RDW-SD 54.0 fL; WBC 5.48 10^3/uL (4.4-10.8)
[2025-03-08 16:14] LABS: ALT 96 U/L (16-63); AST 32 U/L (15-37); Albumin 3.5 g/dL (3.4-5.0); Alkaline Phosphatase 86 U/L (46-116); Anion Gap 6.6 mmol/L (3-11); BUN 18 mg/dL (7-18); Bilirubin, Total 0.4 mg/dL (0.2-1.0); CO2 31.4 mmol/L (21.0-32.0); Calcium 9.3 mg/dL (8.5-10.1); Chloride 107 mmol/L (98-107); Estimated GFR 72.31 (mL/min/1.73m2); Glucose 98 mg/dL (74-106); Potassium 3.8 mmol/L (3.5-5.1); Sodium 145 mmol/L (136-145); TSH 1.87 uIU/mL (0.36-3.74); Total Protein 7.6 g/dL (6.4-8.2)
== END 2025-03-08 04:34 | disposition home or self-care (01) ==
LOC: LBO 04:33
PROVIDERS: Visit Provider Internal Medicine
DX: C64.2 Malignant neoplasm of left kidney, except renal pelvis (principal); C79.51 Secondary malignant neoplasm of bone
CPT/HCPCS: 36415; 80053; 84439; 84443; 85025

== ENCOUNTER 2025-03-23 08:06 | Outpatient (CLI) | payer BC, SELFPAY ==
[2025-03-23 08:15] LABS: Abs Immature Grans 0.01 10^3/uL (0.0-0.06); HCT 47.9 % (40.0-50.0); HGB 15.7 g/dL (13.5-17.5); Immature Grans % 0.2 %; MCH 30.8 pg (27.0-33.0); MCHC 32.8 % (32.0-36.0); MCV 94 fL (80-95); MPV 9.6 fL (8.0-11.0); Platelet Count 190 10^3/uL (130-400); RBC 5.10 10^6/uL (4.36-5.78); RDW 14.4 % (11.8-14.1); RDW-SD 50.6 fL; WBC 4.98 10^3/uL (4.4-10.8)
[2025-03-23 08:35] LABS: ALT 112 U/L (16-63); AST 49 U/L (15-37); Albumin 3.6 g/dL (3.4-5.0); Alkaline Phosphatase 94 U/L (46-116); Anion Gap 8.5 mmol/L (3-11); BUN 16 mg/dL (7-18); Bilirubin, Total 0.4 mg/dL (0.2-1.0); CO2 27.5 mmol/L (21.0-32.0); Calcium 9.0 mg/dL (8.5-10.1); Chloride 106 mmol/L (98-107); Estimated GFR 72.31 (mL/min/1.73m2); Glucose 115 mg/dL (74-106); Potassium 4.6 mmol/L (3.5-5.1); Sodium 142 mmol/L (136-145); TSH 1.67 uIU/mL (0.36-3.74); Total Protein 7.9 g/dL (6.4-8.2)
== END 2025-03-23 08:07 | disposition home or self-care (01) ==
LOC: LBO 08:06
PROVIDERS: Visit Provider Internal Medicine
DX: C64.2 Malignant neoplasm of left kidney, except renal pelvis (principal); C79.51 Secondary malignant neoplasm of bone; C64.9 Malignant neoplasm of unspecified kidney, except renal pelvis
CPT/HCPCS: 36415; 80053; 84439; 84443; 85025

== ENCOUNTER 2025-04-13 08:27 | Outpatient (CLI) | payer BC, SELFPAY ==
[2025-04-13 08:22] LABS: Abs Immature Grans 0.01 10^3/uL (0.0-0.06); HCT 46.7 % (40.0-50.0); HGB 15.4 g/dL (13.5-17.5); Immature Grans % 0.2 %; MCH 30.0 pg (27.0-33.0); MCHC 33.0 % (32.0-36.0); MCV 91 fL (80-95); MPV 9.3 fL (8.0-11.0); Platelet Count 182 10^3/uL (130-400); RBC 5.14 10^6/uL (4.36-5.78); RDW 14.2 % (11.8-14.1); RDW-SD 47.7 fL; WBC 4.71 10^3/uL (4.4-10.8)
[2025-04-13 09:05] LABS: ALT 105 U/L (16-63); AST 56 U/L (15-37); Albumin 3.5 g/dL (3.4-5.0); Alkaline Phosphatase 94 U/L (46-116); Anion Gap 7.9 mmol/L (3-11); BUN 14 mg/dL (7-18); Bilirubin, Total 0.6 mg/dL (0.2-1.0); CO2 29.1 mmol/L (21.0-32.0); Calcium 8.6 mg/dL (8.5-10.1); Chloride 104 mmol/L (98-107); Estimated GFR 80.27 (mL/min/1.73m2); Glucose 124 mg/dL (74-106); Potassium 3.9 mmol/L (3.5-5.1); Sodium 141 mmol/L (136-145); TSH 1.35 uIU/mL (0.36-3.74); Total Protein 7.9 g/dL (6.4-8.2)
== END 2025-04-13 08:28 | disposition home or self-care (01) ==
LOC: LBO 08:28
PROVIDERS: Visit Provider Internal Medicine
DX: C64.2 Malignant neoplasm of left kidney, except renal pelvis (principal); C79.51 Secondary malignant neoplasm of bone; C64.9 Malignant neoplasm of unspecified kidney, except renal pelvis
CPT/HCPCS: 36415; 80053; 84439; 84443; 85025

== ENCOUNTER 2025-04-20 01:37 | Outpatient (CLI) | payer BC, SELFPAY ==
[2025-04-20 08:27] LABS: Abs Immature Grans 0.01 10^3/uL (0.0-0.06); HCT 46.0 % (40.0-50.0); HGB 15.2 g/dL (13.5-17.5); Immature Grans % 0.2 %; MCH 30.2 pg (27.0-33.0); MCHC 33.0 % (32.0-36.0); MCV 92 fL (80-95); MPV 9.5 fL (8.0-11.0); Platelet Count 190 10^3/uL (130-400); RBC 5.03 10^6/uL (4.36-5.78); RDW 14.6 % (11.8-14.1); RDW-SD 49.2 fL; WBC 4.67 10^3/uL (4.4-10.8)
[2025-04-20 09:16] LABS: ALT 113 U/L (16-63); AST 60 U/L (15-37); Albumin 3.4 g/dL (3.4-5.0); Alkaline Phosphatase 90 U/L (46-116); Anion Gap 6.5 mmol/L (3-11); BUN 9 mg/dL (7-18); Bilirubin, Total 0.5 mg/dL (0.2-1.0); CO2 28.5 mmol/L (21.0-32.0); Calcium 8.6 mg/dL (8.5-10.1); Chloride 106 mmol/L (98-107); Estimated GFR 80.27 (mL/min/1.73m2); Glucose 136 mg/dL (74-106); Potassium 3.8 mmol/L (3.5-5.1); Sodium 141 mmol/L (136-145); Total Protein 7.5 g/dL (6.4-8.2)
[2025-04-20 10:41] LABS: TSH 0.79 uIU/mL (0.36-3.74)
== END 2025-04-20 01:38 | disposition home or self-care (01) ==
LOC: LBO 01:37
PROVIDERS: Visit Provider Internal Medicine
DX: C64.2 Malignant neoplasm of left kidney, except renal pelvis (principal); C79.51 Secondary malignant neoplasm of bone; C64.9 Malignant neoplasm of unspecified kidney, except renal pelvis
CPT/HCPCS: 36415; 80053; 84439; 84443; 85025

== ENCOUNTER 2025-05-18 01:23 | Outpatient (CLI) | payer BC, SELFPAY ==
[2025-05-18 08:16] LABS: Abs Immature Grans 0.01 10^3/uL (0.0-0.06); HCT 46.9 % (40.0-50.0); HGB 15.4 g/dL (13.5-17.5); Immature Grans % 0.2 %; MCH 30.4 pg (27.0-33.0); MCHC 32.8 % (32.0-36.0); MCV 93 fL (80-95); MPV 9.3 fL (8.0-11.0); Platelet Count 197 10^3/uL (130-400); RBC 5.06 10^6/uL (4.36-5.78); RDW 14.2 % (11.8-14.1); RDW-SD 48.8 fL; WBC 5.87 10^3/uL (4.4-10.8)
[2025-05-18 08:39] LABS: ALT 92 U/L (16-63); AST 46 U/L (15-37); Albumin 3.4 g/dL (3.4-5.0); Alkaline Phosphatase 98 U/L (46-116); Anion Gap 8.4 mmol/L (3-11); BUN 10 mg/dL (7-18); Bilirubin, Total 0.5 mg/dL (0.2-1.0); CO2 26.6 mmol/L (21.0-32.0); Calcium 8.7 mg/dL (8.5-10.1); Chloride 104 mmol/L (98-107); Glucose 140 mg/dL (74-106); Potassium 4.2 mmol/L (3.5-5.1); Sodium 139 mmol/L (136-145); TSH 1.26 uIU/mL (0.36-3.74); Total Protein 7.8 g/dL (6.4-8.2)
== END 2025-05-18 01:24 | disposition home or self-care (01) ==
LOC: LBO 01:23
PROVIDERS: Visit Provider Internal Medicine
DX: C64.2 Malignant neoplasm of left kidney, except renal pelvis (principal); C79.51 Secondary malignant neoplasm of bone; C64.9 Malignant neoplasm of unspecified kidney, except renal pelvis
CPT/HCPCS: 36415; 80053; 84439; 84443; 85025

== ENCOUNTER 2025-06-15 00:58 | Outpatient (CLI) | payer BC, SELFPAY ==
[2025-06-15 07:58] LABS: Abs Immature Grans 0.02 10^3/uL (0.0-0.06); HCT 49.6 % (40.0-50.0); HGB 15.9 g/dL (13.5-17.5); Immature Grans % 0.3 %; MCH 29.6 pg (27.0-33.0); MCHC 32.1 % (32.0-36.0); MCV 92 fL (80-95); MPV 9.4 fL (8.0-11.0); Platelet Count 181 10^3/uL (130-400); RBC 5.38 10^6/uL (4.36-5.78); RDW 14.6 % (11.8-14.1); RDW-SD 49.6 fL; WBC 6.28 10^3/uL (4.4-10.8)
[2025-06-15 08:18] LABS: ALT 135 U/L (10-49); AST 71 U/L (<34); Albumin 4.2 g/dL (3.2-5.0); Alkaline Phosphatase 80 U/L (46-116); Anion Gap 8.3 mmol/L (3-11); BUN 13 mg/dL (9-23); Bilirubin, Total 0.50 mg/dL (0.2-1.2); CO2 27.7 mmol/L (20.0-31.0); Calcium 8.9 mg/dL (8.3-10.6); Chloride 108 mmol/L (98-107); Glucose 127 mg/dL (74-106); Potassium 4.2 mmol/L (3.5-5.1); Sodium 144 mmol/L (136-145); Total Protein 7.7 g/dL (5.7-8.2)
[2025-06-15 08:22] LABS: TSH 3.25 uIU/mL (0.55-4.78)
== END 2025-06-15 00:59 | disposition home or self-care (01) ==
LOC: LBO 00:59
PROVIDERS: Visit Provider Internal Medicine
DX: C64.2 Malignant neoplasm of left kidney, except renal pelvis (principal); C79.51 Secondary malignant neoplasm of bone
CPT/HCPCS: 36415; 80053; 84439; 84443; 85025

== ENCOUNTER 2025-07-13 00:19 | Outpatient (CLI) | payer BC, SELFPAY ==
[2025-07-13 08:51] LABS: Abs Immature Grans 0.02 10^3/uL (0.0-0.06); HCT 46.9 % (40.0-50.0); HGB 15.1 g/dL (13.5-17.5); Immature Grans % 0.4 %; MCH 29.8 pg (27.0-33.0); MCHC 32.2 % (32.0-36.0); MCV 93 fL (80-95); MPV 9.2 fL (8.0-11.0); Platelet Count 190 10^3/uL (130-400); RBC 5.06 10^6/uL (4.36-5.78); RDW 15.3 % (11.8-14.1); RDW-SD 52.3 fL; WBC 5.25 10^3/uL (4.4-10.8)
[2025-07-13 09:13] LABS: ALT 102 U/L (10-49); AST 57 U/L (<34); Albumin 4.2 g/dL (3.2-5.0); Alkaline Phosphatase 79 U/L (46-116); Anion Gap 9.8 mmol/L (3-11); BUN 13 mg/dL (9-23); Bilirubin, Total 0.4 mg/dL (0.2-1.2); CO2 25.2 mmol/L (20.0-31.0); Calcium 8.3 mg/dL (8.3-10.6); Chloride 109 mmol/L (98-107); Glucose 113 mg/dL (74-106); Potassium 3.7 mmol/L (3.5-5.1); Sodium 144 mmol/L (136-145); Total Protein 7.4 g/dL (5.7-8.2)
[2025-07-13 09:15] LABS: TSH 1.95 uIU/mL (0.55-4.78)
== END 2025-07-13 00:20 | disposition home or self-care (01) ==
LOC: LBO 00:19
PROVIDERS: Visit Provider Internal Medicine
DX: C64.2 Malignant neoplasm of left kidney, except renal pelvis (principal); C79.51 Secondary malignant neoplasm of bone; C64.9 Malignant neoplasm of unspecified kidney, except renal pelvis
CPT/HCPCS: 36415; 80053; 84439; 84443; 85025